=== PATIENT | female | born 1975 | race Caucasian/White ===

== ENCOUNTER → 2017-05-23 14:31 | Outpatient (CLI) | payer BC, SELFPAY ==
[2017-05-23 17:57] LABS: Follicle Stimulating Hormone 5.5 mIU/mL
[2017-05-26 17:48] LABS: HPV Reflexed? NOT INDICATED
== END ==
PROVIDERS: Family Provider Family Medicine; PCP Family Medicine; Visit Provider Obstetrics & Gynecology
DX: R30.0 Dysuria (principal)
CPT/HCPCS: 36415; 83001; 87086; 87088; 88175; G0145

== ENCOUNTER 2017-05-24 10:43 | Emergency (ER) | payer BC, SELFPAY ==
[2017-05-24 10:45] VITALS: BP 164/54; PULSE 109; RESP 20; TEMP 37; O2SAT 95; BMI 40.6
[2017-05-24 10:47] VITALS: BP 164/54; PULSE 105
--- NOTE | 2017-05-24 11:13 | ED.VISSUMM ---
- ER Visit Summary Date of Service: 05/24/17 Chief Complaint: Tremors and questioning possible med reaction History of Present Illness: The patient is a 42 F saw her [employer] Dr. Delroy Hidalgo yesterday. One year ago he did a hysterectomy with a bladder sling and had to be evaluated yesterday she is in hematuria and was started on Cipro for I guess a suspected UTI. Cipro last evening again today when she got to work she started having tremors not acting herself. Said she felt like she had fever. And was shaking. Started having nausea and vomiting she arrived in the ER. Denies any headache. Accompanied by her daughter and . Physical Examination: No aged female vital signs are stable. Pulse ox 95% room air no signs of hypoxia. Afebrile. HEENT exam pupils round reactive light. Moist mucous membranes. Neck nontender. Lungs clear to auscultation bilaterally. Heart rate and rhythm rate about 105 no murmur. Chest wall nontender. Abdomen is soft. Nondistended normal bowel sounds no peritoneal signs. She is moving all 4 extremities. Back is nontender. She is actively retching into an emesis bag. Test Results: Seizures white count of 12. H&H 1341 no bands. BMP is normal. UA was normal except for rare bacteria. No whites or red cells no nitrates. Urine culture was sent. Emergency Department Course and Treatment: She will be started on IV fluids and IV Zofran. Screening labs be obtained. Treatment Plan: Is better on repeat exam at 1225. She is no longer having tremors. She was given Zofran and nausea is resolved. She denies and her family had a long discussion. We will currently stop the Cipro. Send a urine culture. I did speak to Dr. Delroy Hidalgo and he will follow patient up in a urine culture as an outpatient. Disposition: Discharge Impression: Medication reaction to Cipro Tremors This note was generated with [employer] dictation software. It may contain incorrect words, spelling, and punctuation that were not noted in review of the chart prior to signing ED Disposition - Plan for ED Patient: Chief Complaint: General Illness Referrals: Darrian Galvin MD [Primary Care Provider] -
[2017-05-24 11:21] LABS: Mucous, Urine 0 SEEN /hpf (<or=2+); Red Blood Cells-Urine 0 SEEN /hpf (0-5)
[2017-05-24 11:27] LABS: Color, Urine Straw (Yellow); Glucose, Dipstick Normal (Normal); Ketone-Dipstick Negative (Negative); Leukocyte Esterase-Dipstick Negative /ul (Negative); Nitrite-Dipstick Negative (Negative); Occult Blood-Urine 50 /ul (Negative); Protein-Dipstick Negative (Negative); Urine Bilirubin Dipstick Negative (Negative); Urine Clarity Clear (Clear); Urine Urobilinogen Normal (Normal)
[2017-05-24] MEDS: Ondansetron 4 MG/2 ML Vial IV (11:28)
[2017-05-24] MEDS: 0.9% Normal Saline 1,000 ML 1000 ML IV (11:29)
[2017-05-24 11:36] LABS: Bacteria RARE /hpf (None Seen); Squamous Epithelial Cells - UA 0-5 SEEN /hpf (5-10); White Blood Cells 0-5 SEEN /hpf (0-5)
[2017-05-24 11:42] LABS: Absolute Lymphocyte Count 3.04 X10^3/ul (0.83-4.51); Absolute Neutrophil Count 6.9 X10^3/uL (2.0-7.7); Basophil# 0.09 X10^3/uL; Basophil% 0.7 % (0-1); Eosinophil# 0.97 X10^3/uL; Hematocrit 41.1 % (37-47); Hemoglobin 13.5 g/dl (12.0-15.0); Lymphocyte # 3.04 X10^3/ul (4.0); Lymphocyte % 25.1 % (19-41); Mean Corp Hgb Conc 32.8 g/gl (32-36); Mean Corpuscular Hgb 29.5 pg (27.0-32.0); Mean Corpuscular Volume 89.7 fL (81-99); Mean Platelet Vol. 9.4 fl (6.2-12.0); Monocyte# 1.06 X10^3/uL; Monocyte% 8.8 % (0-10); Neutrophil % 57.2 % (47-70); Platelet Count 477 K/mm3 (150-450); RBC Distribution Width CV 13.5 % (11.6-14.6); RBC Distribution Width SD 44.1 fl (35.1-43.9); Red Blood Count 4.58 M/mm3 (4.2-5.4); White Blood Count 12.1 K/mm3 (4.4-11.0)
[2017-05-24 11:43] LABS: POSITIVE COUNT NO; POSITIVE DIFFERENTIAL NO; POSITIVE MORPHOLOGY NO
[2017-05-24] MEDS: Acetaminophen 500 MG Tablet 1000 MG PO (11:48)
[2017-05-24 11:52] LABS: BUN 8 mg/dL (7-18); Creatinine, Serum 0.51 mg/dL (0.55-1.02); Glucose 88 mg/dL (74-106)
[2017-05-24 11:53] LABS: Anion Gap 10 (5-15); BUN/Creat Ratio 15.6 RATIO (10-20); Calcium,Total 8.8 mg/dL (8.5-10.1); Chloride 106 mmol/L (98-107); EST Glomerular Filtration Rate 139 mL/min (>60); Est Glom Filt Rate - Afr Amer 168 mL/min (>60); Estimated Creatinine Clearance 122.82 ml/min; Potassium 3.9 mmol/L (3.5-5.1); Sodium Level 140 mmol/L (136-145)
[2017-05-24 12:25] VITALS: BP 148/81; PULSE 79; RESP 18; TEMP 36.8; O2SAT 97
--- NOTE | 2017-05-24 12:28 | ED.DEP ---
ED Disposition - Plan for ED Patient: Disposition: Home or Assisted Living Chief Complaint: General Illness Instructions: ED Drug React Adverse Other Prescriptions: Ondansetron [Zofran Odt] 4 mg PO Q4H PRN PRN #5 tab.rapdis PRN Reason: Nausea Referrals: Delroy Hidalgo MD [STAFF PHYSICIAN] - As soon as possible Additional Instructions: I spoke with Dr. Hidalgo. Follow-up with him in the next several days. Stop the Cipro that you are currently on. We will send a urine culture that should be back in the next 48 hours.
== END 2017-05-24 12:43 | disposition home or self-care (01) ==
PROVIDERS: Emergency Provider Emergency Medicine; Family Provider Family Medicine; PCP Family Medicine
DX: G25.1 Drug-induced tremor (principal); R11.2 Nausea with vomiting, unspecified; T36.8X5A Adverse effect of other systemic antibiotics, initial encounter; Y92.9 Unspecified place or not applicable
CPT/HCPCS: 80048; 81001; 85025; 87086; 96361; 96374; 99285; J7030; A4216; J2405

== ENCOUNTER → 2017-06-16 08:19 | Outpatient (CLI) | payer BC, SELFPAY ==
--- NOTE | 2017-06-16 08:21 | BI_ITS ---
MAMMOGRAPHY - BILATERAL SCREENING 3-D ERUM SYNTHESIS REASON FOR EXAM: Female, 42 years old. Bilateral Screening 3-D tomosynthesis PERTINENT HISTORY: No significant family history. TECHNIQUE: 2-D mammograms and 3-D Erum synthesis of the breast (s) were performed. CAD was performed. COMPARISON: June 02, 2015. FINDINGS: The breast composition is heterogeneously dense that can obscure small breast masses. Scattered benign calcifications are seen. No dense spiculated masses or suspicious microcalcifications are identified. No architectural distortion is identified. There is no skin thickening or retraction. There has been no significant change since the prior study. BI/SCREENING MAMM (CAD), BILAT IMPRESSION: No mammographic signs of malignancy. Routine yearly mammograms recommended. ASSESSMENT CATEGORY: BIRADS Category 2: Benign. A letter regarding these results will be sent to the patient by the facility within 30 days. FOLLOW UP RECOMMENDATION: Yearly follow up mammogram recommended. (A) Approximately 10% of breast cancers are not detected by mammography. A normal mammogram should not delay biopsy of a clinically suspicious abnormality. Electronically Signed: Tulio Chowdary MD at 13:42 EDT , Service support ,
== END ==
PROVIDERS: Family Provider Family Medicine; PCP Family Medicine; Visit Provider Obstetrics & Gynecology
DX: Z12.31 Encounter for screening mammogram for malignant neoplasm of breast (principal)
CPT/HCPCS: 77063; 77067

== ENCOUNTER → 2020-08-17 08:49 | Outpatient (CLI) | payer BC, SELFPAY ==
--- NOTE | 2020-08-17 10:44 | NEURO_ITS ---
NCS and/or EMG Patient Report Ordering Doctor: April Jefferson DATE OF SERVICE: 08/17/20 Indication: Weakness, numbness and pain involving both hands and feet. Symptoms are intermittent over the last 18 months. Associated with bilateral hand tremor and occasional shooting nerve pain. Findings: Nerve conduction studies were performed in the right and left upper extremities. The right median motor study recording the abductor pollicis brevis showed a normal amplitude, normal distal latency and normal conduction velocity. The right ulnar motor study recording the abductor digiti minimi showed a normal amplitude, normal distal latency and normal conduction velocity. No conduction block or focal slowing was present across the elbow. The right median sensory response recording digit two showed a normal amplitude, latency and conduction velocity. The right ulnar sensory response recording digit five showed a normal amplitude, latency and conduction velocity. The right radial sensory response recording over the extensor snuff box showed a normal amplitude, latency and conduction velocity. The left median motor study recording the abductor pollicis brevis showed a normal amplitude, normal distal latency and normal conduction velocity. The left ulnar motor study recording the abductor digiti minimi showed a normal amplitude, normal distal latency and normal conduction velocity. No conduction block or focal slowing was present across the elbow. The left median sensory response recording digit two showed a normal amplitude, latency and conduction velocity. The left ulnar sensory response recording digit five showed a normal amplitude, latency and conduction velocity. The left radial sensory response recording over the extensor snuff box showed a normal amplitude, latency and conduction velocity. As routine median motor and sensory studies have a false negative rate of 25%, additional internal comparison studies were done to assess for possible median neuropathy at the wrist. Right median-ulnar lumbrical / interosseous motor latencies showed a normal median latency compared to the ulnar. Left median- ulnar lumbrical / interosseous motor latencies showed a normal median latency compared to the ulnar. Needle EMG of the right upper extremity muscles was performed. No denervation was seen in any muscle. All motor unit morphology, activation and recruitment patterns were normal. Needle EMG of the left upper extremity muscles was performed. No denervation was seen in any muscle. All motor unit morphology, activation and recruitment patterns were normal. The cervical paraspinal muscles were not sampled given the paucity of finding in the limb muscles. Impression: This is a normal study. There is no electrophysiologic evidence of median neuropathy across the wrist on either side. In addition, there is no electrophysiologic evidence of cervical radiculopathy or other entrapment neuropathy in either upper extremity. Reji Mendez D.O.
== END ==
PROVIDERS: PCP Family Medicine; Referring Provider Physician Assistant; Visit Provider Physician Assistant
DX: M79.641 Pain in right hand (principal); M79.642 Pain in left hand; R20.0 Anesthesia of skin; R29.898 Other symptoms and signs involving the musculoskeletal system
CPT/HCPCS: 95886; 95913

== ENCOUNTER → 2024-05-07 | Outpatient (CLI) | payer BC, SELFPAY ==
--- NOTE | 2024-05-07 10:05 | RAD_ITS ---
EXAM: XR Pelvis, 1 or 2 Views CLINICAL INDICATION: PAIN TECHNIQUE: Frontal view of the pelvis. COMPARISON: No relevant prior studies available. FINDINGS: BONES/JOINTS: Unremarkable. No acute fracture. No dislocation. SOFT TISSUES: Unremarkable. RAD/Pelvis 1 or 2 Views IMPRESSION: No acute fracture. Reading [facility]
--- NOTE | 2024-05-07 10:05 | RAD_ITS ---
EXAM: XR Left Hand Complete, 3 or More Views CLINICAL INDICATION: PAIN TECHNIQUE: Frontal, lateral and oblique views of the left hand. COMPARISON: No relevant prior studies available. FINDINGS: BONES/JOINTS: Fixation screw to the 3rd distal and middle phalanx. Intact hardware. Anatomic position. Moderate degenerative changes of the 3rd and 4th D IP joints. No acute fracture. No dislocation. SOFT TISSUES: Unremarkable. No radiopaque foreign body. RAD/Hand Min 3 Views IMPRESSION: 1. Postoperative changes as above. 2. Degenerative changes as above. Reading Location: [facility]
--- NOTE | 2024-05-07 10:05 | RAD_ITS ---
EXAM: XR Right Hand Complete, 3 or More Views CLINICAL INDICATION: PAIN TECHNIQUE: Frontal, lateral and oblique views of the right hand. COMPARISON: No relevant prior studies available. FINDINGS: BONES/JOINTS: Mild degenerative changes of the 3rd, 4th, and 5th DIP joints. No acute fracture. No dislocation. SOFT TISSUES: Unremarkable. No radiopaque foreign body. RAD/Hand Min 3 Views IMPRESSION: Degenerative changes as above. Reading [facility]
[2024-05-07 12:04] LABS: Absolute Lymphocyte Count 3.27 X10^3/uL (0.83-4.51); Absolute Neutrophil Count 4.5 X10^3/uL (2.0-7.7); Basophil# 0.09 X10^3/uL; Eosinophils% 1.2 % (0-5); Hematocrit 40.4 % (37-47); Lymphocyte # 3.27 X10^3/ul (0.83-4.51); Lymphocyte % 37.8 % (19-41); Mean Corp Hgb Conc 32.2 g/dL (32-36); Mean Corpuscular Hgb 29.5 pg (27.0-32.0); Mean Corpuscular Volume 91.6 fL (81-99); Mean Platelet Vol. 9.7 fl (6.2-12.0); Monocyte# 0.68 X10^3/uL; Monocyte% 7.9 % (0-10); NRBC Flagged by Analyzer 0 % (0-5); Neutrophil # 4.49 X10^3/uL (2.7-7.7); Neutrophil % 51.9 % (47-70); Platelet Count 393 K/mm3 (150-450); RBC Distribution Width CV 13.8 % (11.6-14.6); RBC Distribution Width SD 46.7 fl (35.1-43.9); Red Blood Count 4.41 M/mm3 (4.2-5.4); White Blood Count 8.7 K/mm3 (4.4-11.0)
[2024-05-07 12:20] LABS: ALB/GLOB Ratio 1.2 RATIO (0.9-2.4); AST(SGOT) 24 U/L (<=31); Alanine Aminotransfer ALT/SGPT 35 U/L (<=34); Albumin, Serum 4.1 g/dL (3.5-5.0); Alkaline Phosphatase 95 U/L (35-104); Anion Gap 13 (5-15); BUN 11 mg/dL (4-19); BUN/Creat Ratio 18.2 RATIO (10-20); Calcium,Total 9.1 mg/dL (7.6-11.0); Carbon Dioxide 19.8 mmol/L (21.0-32.0); Chloride 107 mmol/L (98-108); EST Glomerular Filtration Rate 109 (>60); Globulin 3.5 g/dL (2.2-4.2); Glucose 85 mg/dL (70-99); Potassium 3.8 mmol/L (3.3-5.1); Protein, Total 7.6 g/dL (5.9-8.4); Sodium Level 140 mmol/L (133-145); Total Bilirubin 0.18 mg/dL (0.00-1.30)
[2024-05-07 12:42] LABS: Hepatitis B Surface Antibody REAC; Hepatitis B Surface Antigen Nonreactive (Nonreactive); Hepatitis C Antibody Nonreactive (Nonreactive)
[2024-05-07 12:49] LABS: Rheumatoid Factor < 10.0 IU/mL (<15)
[2024-05-08 14:08] LABS: CCP IgG Antibodies 12 units (0-19)
== END | disposition home or self-care (01) ==
LOC: MTLAB 10:03
PROVIDERS: PCP Family Medicine; Referring Provider Internal Medicine Rheumatology; Visit Provider Internal Medicine Rheumatology
DX: M06.4 Inflammatory polyarthropathy (principal); M79.7 Fibromyalgia; M19.041 Primary osteoarthritis, right hand; M51.369 Other intervertebral disc degeneration, lumbar region without mention of lumbar back pain or lower extremity pain
CPT/HCPCS: 36415; 72170; 73130; 80053; 85025; 86200; 86431; 86706; 86803; 87340

== ENCOUNTER → 2024-07-18 | Outpatient (CLI) | payer BC, SELFPAY ==
[2024-07-18 12:42] LABS: Absolute Lymphocyte Count 2.97 X10^3/uL (0.83-4.51); Absolute Neutrophil Count 4.6 X10^3/uL (2.0-7.7); Basophil# 0.08 X10^3/uL; Basophil% 0.9 % (0-1); Eosinophil# 0.34 X10^3/uL; Eosinophils% 3.9 % (0-5); Hematocrit 40.6 % (37-47); Hemoglobin 13.2 g/dL (12.0-15.0); Lymphocyte # 2.97 X10^3/ul (0.83-4.51); Lymphocyte % 34.1 % (19-41); Mean Corp Hgb Conc 32.5 g/dL (32-36); Mean Corpuscular Hgb 29.9 pg (27.0-32.0); Mean Corpuscular Volume 92.1 fL (81-99); Monocyte# 0.65 X10^3/uL; Monocyte% 7.5 % (0-10); NRBC Flagged by Analyzer 0 % (0-5); Neutrophil # 4.58 X10^3/uL (2.7-7.7); Neutrophil % 52.5 % (47-70); Platelet Count 387 K/mm3 (150-450); RBC Distribution Width CV 14.2 % (11.6-14.6); RBC Distribution Width SD 48.4 fl (35.1-43.9); Red Blood Count 4.41 M/mm3 (4.2-5.4); White Blood Count 8.7 K/mm3 (4.4-11.0)
[2024-07-18 13:28] LABS: ALB/GLOB Ratio 1.2 RATIO (0.9-2.4); AST(SGOT) 32 U/L (<=31); Alanine Aminotransfer ALT/SGPT 48 U/L (<=34); Albumin, Serum 4.1 g/dL (3.5-5.0); Alkaline Phosphatase 101 U/L (35-104); Anion Gap 13 (5-15); BUN 14 mg/dL (4-19); BUN/Creat Ratio 22.4 RATIO (10-20); Calcium,Total 9.2 mg/dL (7.6-11.0); Chloride 106 mmol/L (98-108); Creatinine, Serum 0.63 mg/dL (0.70-1.20); EST Glomerular Filtration Rate 108 (>60); Globulin 3.3 g/dL (2.2-4.2); Glucose 157 mg/dL (70-99); Potassium 3.5 mmol/L (3.3-5.1); Protein, Total 7.4 g/dL (5.9-8.4); Sodium Level 138 mmol/L (133-145); Total Bilirubin 0.16 mg/dL (0.00-1.30)
== END | disposition home or self-care (01) ==
LOC: MTLAB 09:14
PROVIDERS: PCP Family Medicine; Referring Provider Internal Medicine Rheumatology; Visit Provider Internal Medicine Rheumatology
DX: M06.4 Inflammatory polyarthropathy (principal); M79.7 Fibromyalgia; Z79.899 Other long term (current) drug therapy
CPT/HCPCS: 36415; 80053; 85025

== ENCOUNTER → 2024-07-27 | Outpatient (CLI) | payer BC, SELFPAY ==
--- OUTSIDE RECORDS SUMMARY | 2024-07-27 08:46 | XMS RPT_ITS | CCD ---
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 Marichuy Kina Lien Primary Care Unav ailsahra Delgado, Ms. Tigre Michele Attending Meryvai Darrian Gracia MD Primary Care Provider [phone] DARRIAN DIAZ Referring Unavailable DARRIAN DIAZ Primary Care Unavailable Darrian Diaz MD Primary Care Provider Carmelita Romo MD Primary Care Provider Darrian Diaz MD Primary Care Provider Carmelita Romo MD Primary Care Provider Carmelita Romo MD Unavailable CARMELITA ROMO [facility] Primary Care Unavailab le [facility] CARMELITA A Primary Care Unavailab le [facility], CARMELITA A Primary Care Unavailab le NICHONECARLOS CRUZCARMELITA A Primary Care Unavailab ERIC Jimenez Referring Unavailable CLARISSA, CARMELITA A Primary Care Unavailab le CATHIE KEN Referring Unavailable DARRIAN DIAZ Primary Care Unavailluke e CATHIE KEN Referring Unavailable DARRIAN DIAZ Primary Care UnavailJESSICA Johns Attending Unavailable GILBERT, ALIVA L Referring Unavailable JOE, DARRIAN PHILLIPS Primary Care Unavailabl e GILBERT, ALIVA L Referring Unavailable [facility] Unavailabl e GILBERT, ALIVA L Referring Unavailable [facility], [facility] Primary Care Unavailabl e GILBERT, ALIVA L Referring Unavailable JOE, DARRIAN ALAN Primary Care Unavailabl e GILBERT, ALIVA L Referring Unavailable JOE, DARRIAN PHILLIPS Primary Care Unavailabl e GILBERT, ALIVA L Referring Unavailable LONG[place], CARMELITA A Primary Care Unavailab le GILBERT, ALIVA L Referring Unavailable [place], CARMELITA A Primary Care Unavailab le [place], CARMELITA A Referring Unavailab le [place], CARMELITA A Primary Care Unavailab le [facility] Primary Care Unavailab le [place], CARMELITA A Referring Unavailab le [place], CARMELITA A Primary Care Unavailab DARREL Dolan Attending Unavailable DARREL GOMEZ Referring Unavailable [place], CARMELITA A Primary Care Unavailab le [facility] ROLLED HAM LACER.LOSS PREVENTION LEADER, Julee Unavailable Ronny CARRILLO, April Unavailable Dr. Darrian Diaz MD Primary Care Provider Ada LEZAMA, Dr. Estrada Attending Provider Dr. Natalie Caballero MD Referring Provider Carmelita Rmoo MD Primary Care Provider Clarissa LEZAMA, Carmelita Guzman Unavailable CARMELITA ROMO Attending Unavailab le [place], CARMELITA A Primary Care Unavailab le [facility], CARMELITA A Attending Unavailab le [place], CARMELITA A Referring Unavailab le [place], CARMELITA A Primary Care Unavailab le [place], CARMELITA A Attending Unavailab le [place], CARMELITA A Primary Care Unavailab le [place], CARMELITA A Attending Unavailab le [place], CARMELITA A Referring Unavailab le [place], CARMELITA A Primary Care Unavailab le DARREL GOMEZ Attending Unavailable [place], CARMELITA A Primary Care Unavailab le [place], CARMELITA A Attending CARMELITA Li Primary Care Unavailab Zaina LEZAMA, Dr. Mae Primary Care Provide r Natalie Caballero Attending Unavailable Natalie Caballero Referring Unavailable Darrian Diaz Primary Care Unavailable Natalie Caballero Attending Unavailable Natalie Caballero Referring Unavailable Carmelita Romo Primary Care Unavailable Natalie Caballero Attending Unavailable Natalie Caballero Referring Unavailable Carmelita Romo Primary Care Unavailable Allergies Allergy Classification Reported Allergen(s) Allergy Type Date of Onset Reaction(s) Facility (20 sources) Acetaminophen; Translations: [ACETAMINOPHEN] Drug Allergy 6 Shortness of Breath [facility] Work Phone: (20 sources) Acetaminophen / HYDROcodone; Translations: [HYDROCODONE-ACET AMINOPHEN] Drug Allergy 4 Shortness of Breath [facility] Work Phone: (20 sources) HYDROcodone; Translations: [HYDROCODONE BITARTRATE] Drug Allergy 6 Shortness of Breath [facility] Work Phone: (1 source) HYDROcodone Drug Allergy 8 [facility] Repository Medications Current Medications Medication Drug Class(es) Dates Sig (Normalized) Sig (Original) calcium chloride 0.0014 meq/ml / potassium chloride 0.004 meq/ml / sodium chloride 0.103 meq/ml / sodium lactate 0.028 meq/ml injectable solution (1 source) Start: 03-26-2024 End: 03-27-2024 take 100 mL intravenously every hour 100 mL/hr, intravenous, Continuous, Starting on Mon03/26/24 at 0815, For 1 day, Recovery (only) cefadroxil 500 mg oral capsule (2 sources) Cephalosporin Antibacterial Start: 06-08-2022 End: 06-15-2022 take 1 capsule by mouth twice daily cefADROxil (DURICEF) 500 mg capsule Indications: Cellulitis of skin Take 1 capsule by mouth twice daily for 7 days. 14 capsule 0 06/08/2022 06/15/2022 Active Comment on above: Take 1 capsule by [facility] twice daily for 7 days. ciprofloxacin 500 mg oral tablet (2 sources) Quinolone Antimicrobial Start: 05-24-2017 take 1 tablet by mouth twice daily Ciprofloxacin Hcl 500 MG tablet Active 500 mg PO TWICE A DAY May 24, 2017 12:00am ergocalciferol 1.25 mg oral capsule (10 sources) Provitamin D2 Compound Start: 06-01-2021 End: 07-21-2021 take 1 capsule by mouth every week ergocalciferol 50,000 unit capsule (VITAMIN D2, DRISDOL) Take 1 capsule by mouth one time a week for 8 doses. 8 capsule 06/01/2021 Active Comment on above: Take 1 capsule by [facility] one time a week for 8 doses. methotrexate 2.5 mg oral tablet (1 source) Folate Analog Metabolic Inhibitor Start: 05-24-2024 take 4 tablets by mouth every week, then take 5 tablets by mouth every week methotrexate (Trexall) 2.5 mg tablet TAKE 4 TABLETS BY MOUTH ONCE A WEEK FOR 2 WEEKS, THEN INCREASE TO 5 TABLETS ONCE A WEEK THEREAFTER. 05/24/2024 Active nitrofurantoin, macrocrystals 25 mg / nitrofurantoin, monohydrate 75 mg oral capsule (1 source) Nitrofuran Antibacterial Start: 03-04-2024 End: 03-09-2024 take 1 capsule by mouth twice daily nitrofurantoin, macrocrystal-monohy drate, (Macrobid) 100 mg capsule Indications: Acute cystitis with hematuria Take 1 capsule (100 mg) by mouth 2 times a day for 5 days. 10 capsule 03/04/2024 03/09/2024 Active ondansetron 4 mg disintegrating oral tablet (2 sources) Serotonin-3 Receptor Antagonist Start: 05-24-2017 take 1 tablet by mouth every four hours as needed for nausea Ondansetron 4 MG tablet,disintegrati ng Active 4 mg PO EVERY 4 HOURS NEEDED as needed for Nausea 5 May 24, 2017 12:29pm potassium chloride 20 meq powder for oral solution (1 source) Start: 02-09-2022 End: 02-13-2022 Klor-Con 20 mEq oral powder for reconstitution ; 1 each orally once a day Quantity: 5 Refills: 0 Ordered: 09-Feb-2022 Franchesca Gonzalez Start: 09-Feb-2022 End: 13-Feb-2022 Generic Substitution Allowed Comments: Dilute this medication with liquid before administration.It is very important that you take or use this exactly as directed. Do not skip doses or discontinue unless directed by your doctor.Medication should be taken with plenty of water.Take with food or milk. Comment on above: Dilute this medicati on with liquid before administration.It is very important that you take or use this exactly as directed. Do not skip doses or discontinue unless directed by your doctor.Medication should be taken with plenty of water.Take with food or milk. pravastatin sodium 10 mg oral tablet (17 sources) HMG-CoA Reductase Inhibitor Start: 07-08-2020 take 1 tablet by mouth once daily pravastatin (PRAVACHOL) 10 mg tablet Take 1 tablet by mouth once daily. 30 tablet 5 07/08/2020 Active Comment on above: Take 1 tablet by dionte th once daily. rizatriptan 10 mg oral tablet (19 sources) Serotonin-1b and Serotonin-1d Receptor Agonist Start: 12-11-2020 End: 06-22-2023 take 1 tablet by mouth every two hours as needed for headache, then take 3 tablets by mouth once daily as needed for headache rizatriptan (MAXALT) 10 mg tablet Indications: Migraine without aura and without status migrainosus, not intractable Take 1 tablet by mouth as needed for Migraine Headache (see administration instructions). May repeat in 2 hours if needed . Max 3 tablets a day , Max 9 days a month 10 tablet 5 12/11/2020 Active take 1 tablet by dionte th once daily as needed rizatriptan 10 mg oral tablet ; 1 tab(s) orally once a day, As Needed Quantity: 0 Refills: 0 Ordered: 09-Feb-2022 Marina Espinoza Generic Substitution Allowed Comment on above: Take 1 tablet by dionte th as needed for Migraine Headache (see administration instructions). May repeat in 2 hours if needed . Max 3 tablets a day , Max 9 days a month topiramate 100 mg oral tablet (20 sources) Start: take 1 tablet by mouth twice daily topiramate (Topamax) 100 mg tablet Indications: Migraine without status migrainosus, not intractable, unspecified migraine type Take 1 tablet (100 mg) by mouth 2 times a day. 180 tablet 1 04/01/2024 Active Start: 08-14-2023 take 1 tablet by dionte th twice daily topiramate (Topamax) 100 mg tablet Indications: Migraine without status migrainosus, not intractable, unspecified migraine type Take 1 tablet (100 mg) by mouth 2 times a day. 180 tablet 1 08/14/2023 Active Start: 06-22-2023 End: 08-14-2023 take 1 tablet by mouth twice daily topiramate (Topamax) 50 mg tablet Indications: Migraine without status migrainosus, not intractable, unspecified migraine type Take 1 tablet (50 mg) by mouth 2 times a day. 60 tablet 1 06/22/2023 08/14/2023 Discontinued (Reorder) Start: 09-06-2021 End: 06-22-2023 take 1 tablet by mouth twice daily topiramate (TOPAMAX) 200 mg tablet Indications: Chronic migraine without aura, with intractable migraine, so stated, with status migrainosus Take 1 tablet by mouth twice daily. 60 tablet 5 09/06/2021 Active Start: 12-11-2020 End: 09-04-2021 take 1 tablet by mouth twice daily topiramate (TOPAMAX) 200 mg tablet Indications: Chronic migraine without aura, with intractable migraine, so stated, with status migrainosus Take 1 tablet by mouth twice daily. 60 tablet 5 12/11/2020 09/04/2021 Discontinued Comment on above: Take 1 tablet by dionte twice daily. Diagnosis: Unavailab le varenicline (6 sources) Partial Cholinergic Nicotinic Agonist Start: 08-14-2023 End: 11-15-2023 varenicline (Chantix Starting Month Box) 0.5 mg (11)- 1 mg (42) tablet Indications: Smoker Use as directed 53 each 08/14/2023 11/15/2023 Discontinued (Therapy completed) Start: 08-14-2023 varenicline (C hantix Starting Month Box) 0.5 mg (11)- 1 mg (42) tablet Indications: Smoker Use as directed 53 each 08/14/2023 Active Completed/Discontinued Medications Medication Drug Class(es) Dates Sig (Normalized) Sig (Original) cyclobenzaprine hydrochloride 10 mg oral tablet (5 sources) Muscle Relaxant Start: End: take 1 tablet by mouth twice daily as needed for muscle spasms cyclobenzaprine (Flexeril) 10 mg tablet Indications: Lumbar strain, initial encounter Take 1 tablet (10 mg) by mouth 2 times a day as needed for muscle spasms for up to 10 doses. 10 tablet 04/18/2023 06/22/2023 Discontinued (Therapy completed) glucagon (rdna) 1 mg injection (1 source) Antihypoglycemic Agent Start: End: intravenous, As needed, Starting on Mon03/26/24 at 0725, Intraprocedure ibuprofen 600 mg oral tablet (5 sources) Nonsteroidal Anti-inflammatory Drug Start: End: take 1 tablet by mouth every six hours for pain ibuprofen 600 mg tablet Indications: Lumbar strain, initial encounter Take 1 tablet (600 mg) by mouth every 6 hours if needed for moderate pain (4 - 6) for up to 30 doses. 30 tablet 04/18/2023 06/22/2023 Discontinued (Therapy completed) iohexol (OMNIPaque) 12 mg iodine/mL oral contrast 500 mL (1 source) Start: End: 500 mL, oral, Once in imaging, Starting on Mon11/24/23 at 1001, For 1 dose, Administer over 20-60 minutes as directed by imaging protocol and/or imaging provider. CONTRAST - for procedural imaging use only. iohexol (OMNIPaque) 350 mg iodine/mL solution 72 mL (1 source) Start: End: 72 mL, intravenous, Once in imaging, Starting on Mon11/24/23 at 1001, For 1 dose 5 ml midazolam 1 mg/ml injection (1 source) Benzodiazepine Start: 5 End: 5 2 mg, intravenous, Once as needed, anxiety, Starting on Mon03/26/24 at 0711, For 1 dose, Preprocedure predniSONE 20 mg oral tablet (1 source) Start: End: 4 take 2 tablets by mouth once daily in the morning predniSONE (Deltasone) 20 mg tablet TAKE 2 (TWO) TABLETS BY MOUTH EVERY MORNING FOR 5 DAYS 10 tablet 05/17/2023 06/22/2023 Discontinued (Therapy completed) Problems Active Problems Problem Classification Problem Date Documented Da te Episodic/Chronic Abdominal pain (16 sources) Unspecified abdominal pain; Translations: [Abdominal pain] Onset: 01-06-2022 Episodic Cancer of cervix (2 sources) Cervicovaginal cytology: Low grade squamous intraepithelial lesion; Translations: [Low grade squamous intraepithelial lesion on cytologic smear of cervix (LGSIL)] 07-15-2015 Episodic Disorders of lipid metabolism (17 sources) Mixed hyperlipidemia; Translations: [Mixed hyperlipidemia] Onset: 01-31-2018 04-18-2019 Chronic Essential hypertension (17 sources) Essential hypertension; Translations: [Essential (primary) hypertension] Onset: 01-31-2018 04-18-2019 Chronic Gastrointestinal hemorrhage (2 sources) Hematochezia; Translations: [Melena] 03-31-2015 Episodic Genitourinary symptoms and ill-defined conditions (2 sources) Female stress incontinence; Translations: [Stress incontinence (female) (male)] 07-15-2015 Chronic Genitourinary symptoms and ill-defined conditions (20 sources) Microscopic hematuria; Translations: [Other microscopic hematuria] Onset: 04-22-2019 04-22-2019 Episodic Headache; including migraine (20 sources) Migraine with aura; Translations: [Migraine with aura, not intractable, without status migrainosus] Onset: 05-29-2018 04-18-2019 Chronic Immunizations and screening for infectious disease (2 sources) Anti-nuclear factor positive; Translations: [Other specified abnormal immunological findings in serum] Episodic Menstrual disorders (19 sources) Dysmenorrhea; Translations: [Dysmenorrhea, unspecified] Onset: 04-09-2005 03-31-2015 Chronic Nausea and vomiting (2 sources) Nausea; Translations: [Nausea] Onset: 02-09-2022 Episodic Nonspecific chest pain (6 sources) Chest pain; Translations: [Chest pain, unspecified] 02-09-2022 Episodic Comment on above: CHEST PAIN Occlusion or stenosis of precerebral arteries (17 sources) Bilateral stenosis of carotid arteries; Translations: [Occlusion and stenosis of bilateral carotid arteries] Onset: 02-09-2018 05-01-2019 Chronic Other aftercare (2 sources) Other jail (current) drug therapy; Translations: [Other termite inspector (current) drug therapy] Onset: 02-09-2022 Episodic Other connective tissue disease (2 sources) Pain of bilateral hands; Translations: [Pain in right hand] Episodic Other connective tissue disease (1 source) Digital mucous cyst of left hand; Translations: [Ganglion, left hand] Episodic Other connective tissue disease (1 source) Pain in finger of left hand; Translations: [Pain in left finger(s)] Episodic Other connective tissue disease (1 source) Fibromyalgia; Translations: [Fibromyalgia] Onset: 07-24-2024 Episodic Other female genital disorders (17 sources) Dyspareunia; Translations: [Dyspareunia] Onset: 04-09-2005 03-31-2015 Chronic Other female genital disorders (1 source) Abnormal uterine and vaginal bleeding, unspecified; Translations: [Abnormal uterine and vaginal bleeding, unspecified] Onset: 02-09-2022 Chronic Other gastrointestinal disorders (2 sources) Altered bowel function; Translations: [Change in bowel habit] 11-24-2023 Episodic Other lower respiratory disease (1 source) Apnea; Translations: [Apnea, not elsewhere classified] 06-22-2023 Episodic Other nervous system disorders (1 source) Non-organic disorder of the sleep-wake schedule; Translations: [Circadian rhythm sleep disorder, unspecified type] Chronic Other nervous system disorders (1 source) Numbness of hand; Translations: [Anesthesia of skin] Episodic Other non-traumatic joint disorders (2 sources) Joint pain; Translations: [Pain in unspecified joint] 03-04-2024 Episodic Other non-traumatic joint disorders (2 sources) Joint swelling; Translations: [Effusion, unspecified joint] 03-04-2024 Episodic Other non-traumatic joint disorders (4 sources) Pain in unspecified joint; Translations: [Pain in unspecified joint] Onset: 03-04-2024 Episodic Other non-traumatic joint disorders (4 sources) Effusion, unspecified joint; Translations: [Effusion, unspecified joint] Onset: 03-04-2024 Episodic Other non-traumatic joint disorders (3 sources) Pain in left knee; Translations: [Pain in joint, lower leg] Onset: 05-30-2024 05-30-2024 Episodic Other nutritional; endocrine; and metabolic disorders (17 sources) Body mass index 40+ - severely obese; Translations: [Morbid (severe) obesity due to excess calories] Onset: 05-12-2017 04-18-2019 Chronic Other screening for suspected conditions (not mental disorders or infectious disease) (20 sources) Ultrasonography of left kidney abnormal; Translations: [Abnormal radiologic findings on diagnostic imaging of left kidney] Onset: 05-01-2019 05-01-2019 Episodic Residual codes; unclassified (12 sources) Obstructive sleep apnea syndrome; Translations: [Obstructive sleep apnea (adult) (pediatric)] Onset: 07-24-2023 08-14-2023 Chronic Residual codes; unclassified (2 sources) Obstructive sleep apnea (adult) (pediatric); Translations: [Obstructive sleep apnea (adult) (pediatric)] Onset: 08-14-2023 Chronic Residual codes; unclassified (1 source) Acquired absence of both cervix and uterus; Translations: [Acquired absence of both cervix and uterus] Onset: 02-09-2022 Episodic Residual codes; unclassified (1 source) Acquired absence of other specified parts of digestive tract; Translations: [Acquired absence of other specified parts of digestive tract] Onset: 02-09-2022 Episodic Residual codes; unclassified (1 source) Other specified postprocedural states; Translations: [Other specified postprocedural states] Onset: 02-09-2022 Episodic Rheumatoid arthritis and related disease (2 sources) Inflammatory polyarthropathy; Translations: [Inflammatory polyarthropathy] Onset: 07-23-2024 Chronic Skin and subcutaneous tissue infections (1 source) Cellulitis of skin; Translations: [Cellulitis, unspecified] Episodic Substance-related disorders (3 sources) Smoker; Translations: [Nicotine dependence, unspecified, uncomplicated] Onset: 08-14-2023 08-14-2023 Chronic Syncope (3 sources) Syncope; Translations: [Syncope and collapse] Onset: 02-09-2022 02-09-2022 Episodic Unclassified (3 sources) Patient encounter status 03-04-2024 Unclassified (2 sources) Elevated blood pressure 03-31-2015 Unclassified (2 sources) Acute pain of left knee 05-30-2024 Urinary tract infections (3 sources) Acute cystitis; Translations: [Acute cystitis with hematuria] Onset: 03-04-2024 03-04-2024 Episodic Past or Other Problems Problem Classification Problem Date Documented Da te Episodic/Chronic Diabetes mellitus without complication (17 sources) High hemoglobin A1c level; Translations: [Other abnormal glucose] Onset: 04-18-2019 04-18-2019 Episodic Inflammation; infection of eye (except that caused by tuberculosis or sexually transmitteddisease) (1 source) Unspecified acute conjunctivitis, left eye; Translations: [Unspecified acute conjunctivitis, left eye] Onset: 04-13-2021 Episodic Other eye disorders (1 source) Other specified disorders of eye and adnexa; Translations: [Other specified disorders of eye and adnexa] Onset: 04-13-2021 Episodic Other eye disorders (1 source) Ocular pain, left eye; Translations: [Ocular pain, left eye] Onset: 04-13-2021 Episodic Other female genital disorders (17 sources) Cervical intraepithelial neoplasia grade 1; Translations: [Mild cervical dysplasia] Onset: 04-18-2019 04-18-2019 Episodic Other gastrointestinal disorders (6 sources) Change in bowel habit; Translations: [Change in bowel habit] Onset: 11-15-2023 Episodic Other lower respiratory disease (14 sources) Snoring; Translations: [Snoring] Onset: 06-22-2023 Resolved: 08-14-2023 06-22-2023 Episodic Other lower respiratory disease (4 sources) Apnea, not elsewhere classified; Translations: [Apnea, not elsewhere classified] Onset: 06-22-2023 Episodic Other lower respiratory disease (2 sources) Snoring; Translations: [Snoring] Onset: 06-22-2023 Episodic Screening and history of mental health and substance abuse codes (17 sources) Ex-smoker; Translations: [Personal history of nicotine dependence] Onset: 04-18-2019 04-18-2019 Episodic Sprains and strains (20 sources) Sprain of ligaments of lumbar spine, initial encounter; Translations: [Low back strain] Onset: 01-06-2022 Episodic Unclassified (12 sources) Onset: 06-22-2023 06-22-2023 Results Test Name Value Interpretation Reference Range Facility Absolute lymphocyte countOrd ered By: Natalie Caballero on 07-18-2024 Lymphocytes Auto (Unsp spec) [#/Vol] 2.97 10*3/uL 0.83-4.51 [facility] Absolute neutrophil countOrd ered By: Natalie Caballero on 07-18-2024 Neutrophils (Bld) [#/Vol] 4.6 10*3/uL 2.0-7.7 [facility] Anion gap in Serum or Plasma Ordered By: Natalie Caballero on 07-18-2024 Anion gap [Moles/Vol] 13 mmol/L 5-15 [facility] Automated lymphocyte count a s percentage of total leukocytesOrdered By: Natalie Caballero on 07-18-2024 Lymphocytes/100 WBC Auto (Unsp spec) 34.1 % 19-41 [facility] BUN/creatinine ratioOrdered By: Natalie Caballero on 07-18-2024 Urea nitrogen/Creatinine [Mass ratio] 22.4 mg/mg High 10-20 [facility] Basophil percentageOrdered B y: Natalie Caballero on 07-18-2024 Basophils/100 WBC (Bld) 0.9 % 0-1 [facility] Bilirubin, totalOrdered By: Nataliedagoberto Caballero on 07-18-2024 Bilirubin [Mass/Vol] 0.16 mg/dL 0.00-1.30 [facility] CBC W/Diff, Automatedon 06-21 Absolute Lymph 2.97 X10 3/uL Normal 0.83-4.51 [facility] Comment on above: Performed By: #### L 100.0100, [id number] #### [facility] [address] [place], [address] Absolute Neut 4.6 X10 3/uL Normal 2.0-7.7 [facility] Comment on above: Performed By: #### L 100.0100, [id number] #### [facility] [address] [place], [address] Basophils/100 WBC (Bld) 0.9 % Normal 0-1 [facility] Comment on above: Performed By: #### L 100.0100, [id number] #### [facility] [address] [facility] [place], [address] Eosinophils/100 WBC (Bld) 3.9 % Normal 0-5 [facility] Comment on above: Performed By: #### L 100.0100, [id number] #### [facility] [address] [place], [address] Erythrocyte distribution width (RBC) [Ratio] 14.2 % Normal 11.6-14.6 [facility] Comment on above: Performed By: #### L 100.0100, [id number] #### [facility] [address] [place], [address] Hematocrit (Bld) [Volume fraction] 40.6 % Normal 37-47 [facility] Comment on above: Performed By: #### L 100.0100, [id number] #### [facility] [address] [place], [address] Hemoglobin (Bld) [Mass/Vol] 13.2 g/dL Normal 12.0-15.0 [facility] Comment on above: Performed By: #### L 100.0100, [id number] #### [facility] [address] [place], [address] IG% 1.100 High 0.0-0.9 [facility] Comment on above: Result Comment: IG% - Immature Granulocytes (promyelocytes, myelocytes and metamyelocytes) > 1% indicates that a LEFT SHIFT is Present. Performed By: #### L 100.0100, [id number] #### [facility] [facility] [address] [place], [address] Lymphocytes/100 WBC (Bld) 34.1 % Normal 19-41 [facility] Comment on above: Performed By: #### L 100.0100, L500.4050 #### [facility] [address] [place], [address] MCH (RBC) [Entitic mass] 29.9 pg Normal 27.0-32.0 [facility] Comment on above: Performed By: #### L 100.0100, L500.4050 #### [facility] [address] [place], [address] MCHC (RBC) [Mass/Vol] 32.5 g/dL Normal 32-36 [facility] Comment on above: Performed By: #### L 100.0100, L500.4050 #### [facility] [address] [place], [address] MCV (RBC) [Entitic vol] 92.1 fL Normal 81-99 [facility] Comment on above: Performed By: #### L 100.0100, L500.4050 #### [facility] [address] [place], [address] Monocytes/100 WBC (Bld) 7.5 % Normal 0-10 [facility] Comment on above: Performed By: #### L 100.0100, L500.4050 #### [facility] [address] [place], [address] Neutrophils/100 WBC (Bld) 52.5 % Normal 47-70 [facility] Comment on above: Performed By: #### L 100.0100, L500.4050 #### [facility] [address] [place], [address] Nucleated RBC (Bld) [#/Vol] 0 10*3/uL Normal 0-5 [facility] Comment on above: Performed By: #### L 100.0100, L500.4050 #### [facility] [address] [place], [address] Platelet mean volume (Bld) [Entitic vol] 10.0 fL Normal 6.2-12.0 [facility] Comment on above: Performed By: #### L 100.0100, L500.4050 #### [facility] [address] [place], [address] Platelets (Bld) [#/Vol] 387 10*3/uL Normal 150-450 [facility] Comment on above: Performed By: #### L 100.0100, L500.4050 #### [facility] [address] [place], [address] RBC (Bld) [#/Vol] 4.41 10*6/uL Normal 4.2-5.4 [facility] Comment on above: Performed By: #### L 100.0100, L500.4050 #### [facility] [address] [place], [address] RDW SD 48.4 fl High 35.1-43.9 [facility] Comment on above: Performed By: #### L 100.0100, L500.4050 #### [facility] [address] [place], [address] WBC (Bld) [#/Vol] 8.7 10*3/uL Normal 4.4-11.0 [facility] Comment on above: Performed By: #### L 100.0100, L500.4050 #### [facility] [address] [place], [address] Carbon dioxide, total [Moles /volume] in Central venous bloodOrdered By: Natalie Caballero on 07-18-2024 CO2 [Moles/Vol] 20.0 mmol/L Low 21.0-32.0 [facility] Chloride assayOrdered By: Jax Caballero on 07-18-2024 Chloride [Moles/Vol] 106 mmol/L 98-108 [facility] Comprehensive Metabolic Prof ilon 07-18-2024 Albumin [Mass/Vol] 4.1 g/dL Normal 3.5-5.0 [facility] Comment on above: Performed By: #### L 100.0100, L500.4050 #### [facility] [address] [place], [address] Albumin/Globulin [Mass ratio] 1.2 {ratio} Normal 0.9-2.4 [facility] Comment on above: Performed By: #### L 100.0100, L500.4050 #### [facility] [address] [place], [address] ALK PHOS 101 U/L Normal 35-104 [facility] Comment on above: Performed By: #### L 100.0100, L500.4050 #### [facility] [address] [place], [address] ALT [Catalytic activity/Vol] 48 U/L High <=34 [facility] Comment on above: Performed By: #### L 100.0100, L500.4050 #### [facility] [address] [place], [address] AST [Catalytic activity/Vol] 32 U/L Normal <=31 [facility] Comment on above: Performed By: #### L 100.0100, L500.4050 #### [facility] [address] [place], [address] Bilirubin [Mass/Vol] 0.16 mg/dL Normal 0.00-1.30 [facility] Comment on above: Performed By: #### L 100.0100, L500.4050 #### [facility] [address] [place], [address] BUN/CRE 22.4 RATIO High 10-20 [facility] Comment on above: Performed By: #### L 100.0100, L500.4050 #### [facility] [address] [place], [address] Calcium [Mass/Vol] 9.2 mg/dL Normal 7.6-11.0 [facility] Comment on above: Performed By: #### L 100.0100, L500.4050 #### [facility] [address] [place], [address] Chloride [Moles/Vol] 106 mmol/L Normal 98-108 [facility] Comment on above: Performed By: #### L 100.0100, L500.4050 #### [facility] [address] [place], [address] CO2 [Moles/Vol] 20.0 mmol/L Low 21.0-32.0 [facility] Comment on above: Performed By: #### L 100.0100, L500.4050 #### [facility] [address] [place], [address] Creatinine [Mass/Vol] 0.63 mg/dL Low 0.70-1.20 [facility] Comment on above: Performed By: #### L 100.0100, L500.4050 #### [facility] [address] [place], [address] GAP 13 Normal 5-15 [facility] Comment on above: Performed By: #### L 100.0100, L500.4050 #### [facility] [address] [place], [address] GFR/1.73 sq M.predicted among non-blacks MDRD (S/P/Bld) [Vol rate/Area] 108 mL/min/{1.73_m2} Normal >60 [facility] Comment on above: Result Comment: mL/m in/1.73m2 CKD-EPI Creatinine Equation (2020) Performed By: #### L 100.0100, L500.4050 #### [facility] [address] [place], [address] Globulin (S) [Mass/Vol] 3.3 g/dL Normal 2.2-4.2 [facility] Comment on above: Performed By: #### L 100.0100, L500.4050 #### [facility] [address] [place], [address] Glucose [Mass/Vol] 157 mg/dL High 70-99 [facility] Comment on above: Performed By: #### L 100.0100, L500.4050 #### [facility] [address] [place], [address] Potassium [Moles/Vol] 3.5 mmol/L Normal 3.3-5.1 [facility] Comment on above: Performed By: #### L 100.0100, L500.4050 #### [facility] [address] [place], [address] Sodium [Moles/Vol] 138 mmol/L Normal 133-145 [facility] Comment on above: Performed By: #### L 100.0100, L500.4050 #### [facility] [address] [place], [address] T PROT 7.4 g/dL Normal 5.9-8.4 [facility] Comment on above: Performed By: #### L 100.0100, L500.4050 #### [facility] [address] [place], [address] Urea nitrogen [Mass/Vol] 14 mg/dL Normal 4-19 [facility] Comment on above: Performed By: #### L 100.0100, L500.4050 #### [facility] [address] [place], [address] Eosinophil percentageOrdered By: Natalie Caballero on 07-18-2024 Eosinophils/100 WBC (Bld) 3.9 % 0-5 [facility] Erythrocyte distribution wid th ratioOrdered By: Natalie Caballero on 07-18-2024 Erythrocyte distribution width (RBC) [Ratio] 14.2 % 11.6-14.6 [facility] Erythrocyte distribution wid th standard deviationOrdered By: Natalie Caballero on 07-18-2024 Erythrocyte distribution width (RBC) [Ratio] 48.4 fl High 35.1-43.9 [facility] Glomerular filtration rate ( GFR) estimation/1.73 sq m using serum, plasma, or whole bOrdered By: Natalie Cabalelro on 07-18-2024 GFR/1.73 sq M.predicted among non-blacks MDRD (S/P/Bld) [Vol rate/Area] 108 mL/min/{1.73_m2} >60 [facility] Comment on above: mL/min/1.73m2 CKD-EP I Creatinine Equation (2020) Hematocrit Auto (Bld) [Volum e fraction]Ordered By: Natalie Caballero on 07-18-2024 Hematocrit (Bld) [Volume fraction] 40.6 % 37-47 [facility] Hemoglobin measurementOrdere d By: Natalie Caballero on 07-18-2024 Hemoglobin (Bld) [Mass/Vol] 13.2 g/dL 12.0-15.0 [facility] Immature granulocytes/100 WB C Auto (Bld)Ordered By: Natalie Caballero on 07-18-2024 Immature granulocytes/100 WBC (Bld) 1.100 % High 0.0-0.9 [facility] Comment on above: IG% - Immature Granu locytes (promyelocytes, myelocytes and metamyelocytes) > 1% indicates that a LEFT SHIFT is Present. Laboratory - Chemistry and C hemistry - challengeOrdered By: Natalie Caballero on 07-18-2024 AST [Catalytic activity/Vol] 32 U/L <32 [facility] MCV (mean corpuscular volume ) determinationOrdered By: Nataile Caballero on 07-18-2024 MCV (RBC) [Entitic vol] 92.1 fL 81-99 [facility] Mean corpuscular hemoglobin (MCH) determinationOrdered By: Natalie Caballero on 07-18-2024 MCH (RBC) [Entitic mass] 29.9 pg 27.0-32.0 [facility] Mean corpuscular hemoglobin concentration (MCHC) determinationOrdered By: Natalie Caballero on 07-18-2024 MCHC (RBC) [Mass/Vol] 32.5 g/dL 32-36 [facility] Mean platelet volume determi nationOrdered By: Natalie Caballero on 07-18-2024 Platelet mean volume (Bld) [Entitic vol] 10.0 fL 6.2-12.0 [facility] Monocyte percentageOrdered B y: Natalie Caballero on 07-18-2024 Monocytes/100 WBC (Bld) 7.5 % 0-10 [facility] Neutrophil percentageOrdered By: Natalie Caballero on 07-18-2024 Neutrophils/100 WBC (Bld) 52.5 % 47-70 [facility] Nucleated red blood cell per centageOrdered By: Natalie Caballero on 07-18-2024 Nucleated RBC/100 WBC (Bld) [Ratio] 0 % 0-5 [facility] Platelet countOrdered By: Jax Caballero on 07-18-2024 Platelets (Bld) [#/Vol] 387 10*3/uL 150-450 [facility] Potassium measurement (mass/ volume)Ordered By: Natalie Caballero on 07-18-2024 Potassium (Unsp spec) [Mass/Vol] 3.5 mmol/L 3.3-5.1 [facility] RBC Auto (Bld) [#/Vol]Ordere d By: Natalie Caballero on 07-18-2024 RBC (Bld) [#/Vol] 4.41 10*6/uL 4.2-5.4 [facility] Serum creatinine measurement (mass/volume)Ordered By: Natalie Caballero on 07-18-2024 Creatinine [Mass/Vol] 0.63 mg/dL Low 0.70-1.20 [facility] Serum globulin measurementOr dered By: Natalie Caballero on 07-18-2024 Globulin (S) [Mass/Vol] 3.3 g/dL 2.2-4.2 [facility] Serum glucose measurement (m ass/volume)Ordered By: Natalie Caballero on 07-18-2024 Glucose [Mass/Vol] 157 mg/dL High 70-99 [facility] Serum or plasma alanine gamino otransferase (ALT) measurementOrdered By: Natalie Caballero on 07-18-2024 ALT [Catalytic activity/Vol] 48 U/L High <35 [facility] Serum or plasma albumin rome urement (mass/volume)Ordered By: Natalie Caballero on 07-18-2024 Albumin [Mass/Vol] 4.1 g/dL 3.5-5.0 [facility] Serum or plasma albumin/glob ulin mass ratioOrdered By: Natalie Caballero on 07-18-2024 Albumin/Globulin [Mass ratio] 1.2 {ratio} 0.9-2.4 [facility] Serum or plasma alkaline bishop sphatase measurementOrdered By: Natalie Caballero on 07-18-2024 ALP [Catalytic activity/Vol] 101 U/L 35-104 [facility] Serum or plasma calcium rome urement (mass/volume)Ordered By: Natalie Caballero on 07-18-2024 Calcium [Mass/Vol] 9.2 mg/dL 7.6-11.0 [facility] Serum or plasma urea nitroge n measurement (mass/volume)Ordered By: Natalie Caballero on 07-18-2024 Urea nitrogen [Mass/Vol] 14 mg/dL 4-19 [facility] Sodium levelOrdered By: Elaine Caballero on 07-18-2024 Sodium [Moles/Vol] 138 mmol/L 133-145 [facility] Total proteinOrdered By: Leon Caballero on 07-18-2024 Protein [Mass/Vol] 7.4 g/dL 5.9-8.4 [facility] White blood cell (WBC) count Ordered By: Natalie Caballero on 07-18-2024 WBC (Bld) [#/Vol] 8.7 10*3/uL 4.4-11.0 [facility] CCP IgG Antibodieson 025 CCP IgG Ab. 12 units Normal 0-19 [facility] Comment on above: Result Comment: Nega tive <20 Weak positive 20 - 39 Moderate positive 40 - 59 Strong positive >59 Performed at: - [facility] [id number] [employer] Condition[employer] Operator: Valeriy Easley PhD, Phone: [phone] Performed By: #### L 100.0100, L4600.0100, L505.0210, L3850.0061, L500.4050, L3890.2172, L3890.5232 #### [facility] [address] [place], [place] [address], [address] Absolute lymphocyte countOrd ered By: Natalie Caballero on 05-07-2024 Lymphocytes Auto (Unsp spec) [#/Vol] 3.27 10*3/uL 0.83-4.51 [facility] Absolute neutrophil countOrd ered By: Nataliedagoberto Caballero on 05-07-2024 Neutrophils (Bld) [#/Vol] 4.5 10*3/uL 2.0-7.7 [facility] Anion gap in Serum or Plasma Ordered By: Natalie Caballero on 05-07-2024 Anion gap [Moles/Vol] 13 mmol/L 5- [facility] Automated lymphocyte count a s percentage of total leukocytesOrdered By: [facility] on 05-07-2024 Lymphocytes/100 WBC Auto (Unsp spec) 37.8 % - [facility] BUN/creatinine ratioOrdered By: [facility] on 05-07-2024 Urea nitrogen/Creatinine [Mass ratio] 18.2 mg/mg 10- [facility] Basophil percentageOrdered B y: Natalie Caballero on 05-07-2024 Basophils/100 WBC (Bld) 1.0 % 0-1 [facility] Bilirubin, totalOrdered By: Natalie Caballero on 05-07-2024 Bilirubin [Mass/Vol] 0.18 mg/dL 0.00-1.30 [facility] CBC W/Diff, Automatedon 04-20 Absolute Lymph 3.27 X10 3/uL Normal 0.83-4.51 [facility] Comment on above: Performed By: #### L 100.0100, L4600.0100, L505.7010, L3890.6301, L500.4050, L3890.6202, L3890.6102 #### [facility] [address] [place], [place], [id number] Absolute Neut 4.5 X10 3/uL Normal 2.0-7.7 [facility] Comment on above: Performed By: #### L 100.0100, L4600.0100, L505.7010, L3890.6301, L500.4050, L3890.6202, L3890.6102 #### [facility] [address] [place], [address] Basophils/100 WBC (Bld) 1.0 % Normal 0-1 [facility] Comment on above: Performed By: #### L 100.0100, L4600.0100, L505.7010, L3890.6301, L500.4050, L3890.6202, L3890.6102 #### [facility] [address] [place], [address] Eosinophils/100 WBC (Bld) 1.2 % Normal 0-5 [facility] Comment on above: Performed By: #### L 100.0100, L4600.0100, L505.7010, L3890.6301, L500.4050, L3890.6202, L3890.6102 #### [facility] [address] [place], [address] Erythrocyte distribution width (RBC) [Ratio] 13.8 % Normal 11.6-14.6 [facility] Comment on above: Performed By: #### L 100.0100, L4600.0100, L505.7010, L3890.6301, L500.4050, L3890.6202, L3890.6102 #### [facility] [address] [place], [address] Hematocrit (Bld) [Volume fraction] 40.4 % Normal 37-47 [facility] Comment on above: Performed By: #### L 100.0100, L4600.0100, L505.7010, L3890.6301, L500.4050, L3890.6202, L3890.6102 #### [facility] [address] [place], [address] Hemoglobin (Bld) [Mass/Vol] 13.0 g/dL Normal 12.0-15.0 [facility] Comment on above: Performed By: #### L 100.0100, L4600.0100, L505.7010, L3890.6301, L500.4050, L3890.6202, L3890.6102 #### [facility] [address] [place], [address] IG% 0.200 Normal 0.0-0.9 [facility] Comment on above: Result Comment: IG% - Immature Granulocytes (promyelocytes, myelocytes and metamyelocytes) > 1% indicates that a LEFT SHIFT is Present. Performed By: #### L 100.0100, L4600.0100, L505.7010, L3890.6301, L500.4050, L3890.6202, L3890.6102 #### [facility] [address] [facility] [place], [address] Lymphocytes/100 WBC (Bld) 37.8 % Normal 19-41 [facility] Comment on above: Performed By: #### L 100.0100, L4600.0100, L505.7010, L3890.6301, L500.4050, L3890.6202, L3890.6102 #### [facility] [address] [facility] [place], [address] MCH (RBC) [Entitic mass] 29.5 pg Normal 27.0-32.0 [facility] Comment on above: Performed By: #### L 100.0100, L4600.0100, L505.7010, L3890.6301, L500.4050, L3890.6202, L3890.6102 #### [facility] [address] [place], [address] MCHC (RBC) [Mass/Vol] 32.2 g/dL Normal 32-36 [facility] Comment on above: Performed By: #### L 100.0100, L4600.0100, L505.7010, L3890.6301, L500.4050, L3890.6202, L3890.6102 #### [facility] [address] [place], [address] MCV (RBC) [Entitic vol] 91.6 fL Normal 81-99 [facility] Comment on above: Performed By: #### L 100.0100, L4600.0100, L505.7010, L3890.6301, L500.4050, L3890.6202, L3890.6102 #### [facility] [address] [place], [address] Monocytes/100 WBC (Bld) 7.9 % Normal 0-10 [facility] Comment on above: Performed By: #### L 100.0100, L4600.0100, L505.7010, L3890.6301, L500.4050, L3890.6202, L3890.6102 #### [facility] [address] [place], [address] Neutrophils/100 WBC (Bld) 51.9 % Normal 47-70 [facility] Comment on above: Performed By: #### L 100.0100, L4600.0100, L505.7010, L3890.6301, L500.4050, L3890.6202, L3890.6102 #### [facility] [address] [place], [address] Nucleated RBC (Bld) [#/Vol] 0 10*3/uL Normal 0-5 [facility] Comment on above: Performed By: #### L 100.0100, L4600.0100, L505.7010, L3890.6301, L500.4050, L3890.6202, L3890.6102 #### [facility] [address] [place], [address] Platelet mean volume (Bld) [Entitic vol] 9.7 fL Normal 6.2-12.0 [facility] Comment on above: Performed By: #### L 100.0100, L4600.0100, L505.7010, L3890.6301, L500.4050, L3890.6202, L3890.6102 #### [facility] [address] [place], [address] Platelets (Bld) [#/Vol] 393 10*3/uL Normal 150-450 [facility] Comment on above: Performed By: #### L 100.0100, L4600.0100, L505.7010, L3890.6301, L500.4050, L3890.6202, L3890.6102 #### [facility] [address] [place], [address] RBC (Bld) [#/Vol] 4.41 10*6/uL Normal 4.2-5.4 [facility] Comment on above: Performed By: #### L 100.0100, L4600.0100, L505.7010, L3890.6301, L500.4050, L3890.6202, L3890.6102 #### [facility] [address] [place], [address] RDW SD 46.7 fl High 35.1-43.9 [facility] Comment on above: Performed By: #### L 100.0100, L4600.0100, L505.7010, L3890.6301, L500.4050, L3890.6202, L3890.6102 #### [facility] [address] [place], [address] WBC (Bld) [#/Vol] 8.7 10*3/uL Normal 4.4-11.0 [facility] Comment on above: Performed By: #### L 100.0100, L4600.0100, L505.7010, L3890.6301, L500.4050, L3890.6202, L3890.6102 #### [facility] [address] [place], [address] Carbon dioxide, total [Moles /volume] in Central venous bloodOrdered By: Natalie Caballero on 05-07-2024 CO2 [Moles/Vol] 19.8 mmol/L Low 21.0-32.0 [facility] Chloride assayOrdered By: Jax Caballero on 05-07-2024 Chloride [Moles/Vol] 107 mmol/L 98-108 [facility] Comprehensive Metabolic Prof ilon 05-07-2024 Albumin [Mass/Vol] 4.1 g/dL Normal 3.5-5.0 [facility] Comment on above: Performed By: #### L 100.0100, L4600.0100, L505.7010, L3890.6301, L500.4050, L3890.6202, L3890.6102 #### [facility] [address] [place], [address] Albumin/Globulin [Mass ratio] 1.2 {ratio} Normal 0.9-2.4 [facility] Comment on above: Performed By: #### L 100.0100, L4600.0100, L505.7010, L3890.6301, L500.4050, L3890.6202, L3890.6102 #### [facility] [address] [place], [address] ALK PHOS 95 U/L Normal 35-104 [facility] Comment on above: Performed By: #### L 100.0100, L4600.0100, L505.7010, L3890.6301, L500.4050, L3890.6202, L3890.6102 #### [facility] [address] [place], [address] ALT [Catalytic activity/Vol] 35 U/L Normal <=34 [facility] Comment on above: Performed By: #### L 100.0100, L4600.0100, L505.7010, L3890.6301, L500.4050, L3890.6202, L3890.6102 #### [facility] [address] [place], [address] AST [Catalytic activity/Vol] 24 U/L Normal <=31 [facility] Comment on above: Performed By: #### L 100.0100, L4600.0100, L505.7010, L3890.6301, L500.4050, L3890.6202, L3890.6102 #### [facility] [address] [place], [address] Bilirubin [Mass/Vol] 0.18 mg/dL Normal 0.00-1.30 [facility] Comment on above: Performed By: #### L 100.0100, L4600.0100, L505.7010, L3890.6301, L500.4050, L3890.6202, L3890.6102 #### [facility] [address] [place], [address] BUN/CRE 18.2 RATIO Normal 10-20 [facility] Comment on above: Performed By: #### L 100.0100, L4600.0100, L505.7010, L3890.6301, L500.4050, L3890.6202, L3890.6102 #### [facility] [address] [place], [address] Calcium [Mass/Vol] 9.1 mg/dL Normal 7.6-11.0 [facility] Comment on above: Performed By: #### L 100.0100, L4600.0100, L505.7010, L3890.6301, L500.4050, L3890.6202, L3890.6102 #### [facility] [address] [place], [address] Chloride [Moles/Vol] 107 mmol/L Normal 98-108 [facility] Comment on above: Performed By: #### L 100.0100, L4600.0100, L505.7010, L3890.6301, L500.4050, L3890.6202, L3890.6102 #### [facility] [address] [place], [address] CO2 [Moles/Vol] 19.8 mmol/L Low 21.0-32.0 [facility] Comment on above: Performed By: #### L 100.0100, L4600.0100, L505.7010, L3890.6301, L500.4050, L3890.6202, L3890.6102 #### [facility] [address] [place], [address] Creatinine [Mass/Vol] 0.60 mg/dL Low 0.70-1.20 [facility] Comment on above: Performed By: #### L 100.0100, L4600.0100, L505.7010, L3890.6301, L500.4050, L3890.6202, L3890.6102 #### [facility] [address] [place], [address] GAP 13 Normal 5-15 [facility] Comment on above: Performed By: #### L 100.0100, L4600.0100, L505.7010, L3890.6301, L500.4050, L3890.6202, L3890.6102 #### [facility] [address] [place], [address] GFR/1.73 sq M.predicted among non-blacks MDRD (S/P/Bld) [Vol rate/Area] 109 mL/min/{1.73_m2} Normal >60 [facility] Comment on above: Result Comment: mL/m in/1.73m2 CKD-EPI Creatinine Equation (2021) Performed By: #### L 100.0100, L4600.0100, L505.7010, L3890.6301, L500.4050, L3890.6202, L3890.6102 #### [facility] [address] [place], [address] Globulin (S) [Mass/Vol] 3.5 g/dL Normal 2.2-4.2 [facility] Comment on above: Performed By: #### L 100.0100, L4600.0100, L505.7010, L3890.6301, L500.4050, L3890.6202, L3890.6102 #### [facility] [address] [place], [address] Glucose [Mass/Vol] 85 mg/dL Normal 70-99 [facility] Comment on above: Performed By: #### L 100.0100, L4600.0100, L505.7010, L3890.6301, L500.4050, L3890.6202, L3890.6102 #### [facility] [address] [place], [address] Potassium [Moles/Vol] 3.8 mmol/L Normal 3.3-5.1 [facility] Comment on above: Performed By: #### L 100.0100, L4600.0100, L505.7010, L3890.6301, L500.4050, L3890.6202, L3890.6102 #### [facility] [address] [place], [address] Sodium [Moles/Vol] 140 mmol/L Normal 133-145 [facility] Comment on above: Performed By: #### L 100.0100, L4600.0100, L505.7010, L3890.6301, L500.4050, L3890.6202, L3890.6102 #### [facility] [address] [place], [place], [id number] T PROT 7.6 g/dL Normal 5.9-8.4 [facility] Comment on above: Performed By: #### L 100.0100, L4600.0100, L505.7010, L3890.6301, L500.4050, L3890.6202, L3890.6102 #### [facility] [address] [place], [address] Urea nitrogen [Mass/Vol] 11 mg/dL Normal 4-19 [facility] Comment on above: Performed By: #### L 100.0100, L4600.0100, L505.7010, L3890.6301, L500.4050, L3890.6202, L3890.6102 #### [facility] [address] [facility] [place], [address] Cyclic citrullinated peptide IgG QnOrdered By: Natalie Caballero on 05-07-2024 Cyclic Citrullinated Peptide IgG Ab 12 units 0-19 [facility] Comment on above: Negative <20 Weak po sitive 20 - 39 Moderate positive 40 - 59 Strong positive >59Performed at: [facility] [id number] Director: Valeriy Easley PhD, Phone: [phone] Eosinophil percentageOrdered By: Natalie Caballero on 05-07-2024 Eosinophils/100 WBC (Bld) 1.2 % 0-5 [facility] Erythrocyte distribution wid th ratioOrdered By: Natalie Caballero on 05-07-2024 Erythrocyte distribution width (RBC) [Ratio] 13.8 % 11.6-14.6 [facility] Erythrocyte distribution wid th standard deviationOrdered By: Natalie Caballero on 05-07-2024 Erythrocyte distribution width (RBC) [Entitic vol] 46.7 fL High 35.1-43.9 [facility] Erythrocyte distribution width (RBC) [Ratio] 46.7 fl High 35.1-43.9 [facility] GFR/1.73 sq M.predicted edgar g non-blacks MDRD (S/P/Bld) [Vol rate/Area]Ordered By: Natalie Caballero on 05-07-2024 Estimated GFR (MDRD) Non-Af Amer 109 >60 [facility] Comment on above: mL/min/1.73m2 CKD-EP I Creatinine Equation (2020) Glomerular filtration rate ( GFR) estimation/1.73 sq m using serum, plasma, or whole bOrdered By: Natalie Caballero on 05-07-2024 GFR/1.73 sq M.predicted among non-blacks MDRD (S/P/Bld) [Vol rate/Area] 109 mL/min/{1.73_m2} >60 [facility] Comment on above: mL/min/1.73m2 CKD-EP I Creatinine Equation (2020) HBV surface Ab Ql (S)Ordered By: Natalie Caballero on 05-07-2024 Hepatitis B Surface Antibody REAC [facility] Comment on above: <8.5 mIU/mL: Non-Crawford ctive8.5<= x <11.5 mIU/mL: Indeterminate>=11.5 mIU/mL: Reactive Non Reactive: Inconsistent with immunity less than <10 mIU/mL Reactive: Consistent with immunity greater than or equal to 10 mIU/mL HBV surface Ag Ql (S)Ordered By: Natalie Caballero on 05-07-2024 Hepatitis B Surface Antigen Non-Reactive Nonreactive [facility] Comment on above: Reactive: Presumptiv e evidence of HBV. Repeatedly reactive samples must be confirmed using a neutralization test ([employer]ys HBsAg Confirmatory Test)Non-Reactive: HBsAg not detected; does not exclude the possibility of exposure to HBV Hand Min 3 Viewson 5 Hand Min 3 Views [facility] Imaging Services [address] [place], [place] [id number] Hand Min 3 Views MR#: [id number] Acct: [id number] Name: JO MERCER Rep #: [id number] : 1975 F 49 From: Sonam Richter MD PCP: Dr. Darrian Diaz MD Status: [facility] CLI Study: Hand Min 3 Views Date of Exam: 05/07/24 Exam# [id number] Ordering Dr: Natalie Caballero MD EXAM: XR Right Hand Complete, 3 or More Views CLINICAL INDICATION: PAIN TECHNIQUE: Frontal, lateral and oblique views of the right hand. COMPARISON: No relevant prior studies available. FINDINGS: BONES/JOINTS: Mild degenerative changes of the 3rd, 4th, and 5th DIP joints. No acute fracture. No dislocation. SOFT TISSUES: Unremarkable. No radiopaque foreign body. RAD/Hand Min 3 Views IMPRESSION: Degenerative changes as above. Reading Location: [facility] CC: Dr. Darrian Diaz MD; Dr. Natalie Caballero MD District Director: Signed Normal [facility] Hand Min 3 Views [facility] Imaging Services [address] [place] [address] Hand Min 3 Views MR#: [id number] Acct: [id number] Name: JO MERCER Rep #: [id number] : 1975 F 49 From: Sonam Richter MD PCP: Dr. Darrian Diaz MD Status: REG CLI Study: Hand Min 3 Views Date of Exam: 05/07/24 Exam# [id number] Ordering Dr: Natalie Caballero MD EXAM: XR Left Hand Complete, 3 or More Views CLINICAL INDICATION: PAIN TECHNIQUE: Frontal, lateral and oblique views of the left hand. COMPARISON: No relevant prior studies available. FINDINGS: BONES/JOINTS: Fixation screw to the 3rd distal and middle phalanx. Intact hardware. Anatomic position. Moderate degenerative changes of the 3rd and 4th D IP joints. No acute fracture. No dislocation. SOFT TISSUES: Unremarkable. No radiopaque foreign body. RAD/Hand Min 3 Views IMPRESSION: 1. Postoperative changes as above. 2. Degenerative changes as above. Reading Location: [facility] CC: Dr. Darrian Diaz MD; Dr. Natalie Caballero MD District Director: Signed Normal [facility] Hematocrit Auto (Bld) [Volum e fraction]Ordered By: Natalie Caballero on 05-07-2024 Hematocrit (Bld) [Volume fraction] 40.4 % 37-47 [facility] Hemoglobin measurementOrdere d By: Natalie Caballero on 05-07-2024 Hemoglobin (Bld) [Mass/Vol] 13.0 g/dL 12.0-15.0 [facility] Hepatitis C antibodyOrdered By: Natalie Caballero on 05-07-2024 Hepatitis C Antibody Non-Reactive Nonreactive [facility] Comment on above: Reactive: Presumptiv e evidence of antibodies to HCV. Follow CDC recommendations for supplemental testing.Non-Reactive: Antibodies to HCV were not detected; does not exclude the possibility of exposure to HCVReactive Results are presumptive evidence of antibodies to HCV. Follow CDC recommendations for supplemental testing.Order confirmation testing: HCV Quant by PCR testing - HCVPCR #[id number] Non Reactive: < 0.8 Equivocal: >/= 0.8 to < 1.0 Reactive: >/= 1.0The CDC requires that a reactive/equivocal HCV antibody result be sent out for confirmation. HCV Quant by PCR testing. Immature granulocytes/100 WB C Auto (Bld)Ordered By: Natalie Caballero on 05-07-2024 Immature granulocytes/100 WBC (Bld) 0.200 % 0.0-0.9 [facility] Comment on above: IG% - Immature Granu locytes (promyelocytes, myelocytes and metamyelocytes) > 1% indicates that a LEFT SHIFT is Present. L3890.6102on 05-07-2024 HEP B Surf Ag Non-Reactive Normal Nonreactive [facility] Comment on above: Result Comment: Reac tive: Presumptive evidence of HBV. Repeatedly reactive samples must be confirmed using a neutralization test ([employer]ys HBsAg Confirmatory Test) Non-Reactive: HBsAg not detected; does not exclude the possibility of exposure to HBV Performed By: #### L 100.0100, L4600.0100, L505.7010, L3890.6301, L500.4050, L3890.6202, L3890.6102 #### [facility] [address] [place], [address] L3890.6202on 05-07-2024 HEP B Surf Ab REAC Normal [facility] Comment on above: Result Comment: <8.5 mIU/mL: Non-Reactive 8.5<= x <11.5 mIU/mL: Indeterminate >=11.5 mIU/mL: Reactive Non Reactive: Inconsistent with immunity less than <10 mIU/mL Reactive: Consistent with immunity greater than or equal to 10 mIU/mL Performed By: #### L 100.0100, L4600.0100, L505.7010, L3890.6301, L500.4050, L3890.6202, L3890.6102 #### [facility] [address] [place], [place], [address] L3890.6301on 05-07-2024 Hepatitis C Ab Non-Reactive Normal Nonreactive [facility] Comment on above: Result Comment: Reac tive: Presumptive evidence of antibodies to HCV. Follow CDC recommendations for supplemental testing. Non-Reactive: Antibodies to HCV were not detected; does not exclude the possibility of exposure to HCV Reactive Results are presumptive evidence of antibodies to HCV. Follow CDC recommendations for supplemental testing. Order confirmation testing: HCV Quant by PCR testing - HCVPCR #[id number] Non Reactive: < 0.8 Equivocal: >/= 0.8 to < 1.0 Reactive: >/= 1.0 The CDC requires that a reactive/equivocal HCV antibody result be sent out for confirmation. HCV Quant by PCR testing. Performed By: #### L 100.0100, L4600.0100, L505.7010, L3890.6301, L500.4050, L3890.6202, L3890.6102 #### [facility] [address] [facility] [place], [place], [address] Laboratory - Chemistry and C hemistry - challengeOrdered By: Natalie Caballero on 05-07-2024 AST [Catalytic activity/Vol] 24 U/L <32 [facility] - Microbiology an d Antimicrobial susceptibilityOrdered By: Natalie Caballero on 05-07-2024 HBV surface Ag Ql (S) Non-Reactive Nonreactive [facility] Comment on above: Reactive: Presumptiv e evidence of HBV. Repeatedly reactive samples must be confirmed using a neutralization test (Elecsys HBsAg Confirmatory Test)Non-Reactive: HBsAg not detected; does not exclude the possibility of exposure to HBV Lymphocytes Auto (Unsp spec) [#/Vol]Ordered By: Natalie Caballero on 05-07-2024 Lymphocytes (Bld) [#/Vol] 3.27 10*3/uL 0.83-4.51 [facility] Lymphocytes/100 WBC Auto (Un sp spec)Ordered By: Natalie Caballero on 05-07-2024 Lymphocytes/100 WBC (Bld) 37.8 % 19-41 [facility] MCV (mean corpuscular volume ) determinationOrdered By: Natalie Caballero on 05-07-2024 MCV (RBC) [Entitic vol] 91.6 fL 81-99 [facility] Mean corpuscular hemoglobin (MCH) determinationOrdered By: Nataliedagoberto Caballero on 05-07-2024 MCH (RBC) [Entitic mass] 29.5 pg 27.0-32.0 [facility] Mean corpuscular hemoglobin concentration (MCHC) determinationOrdered By: Nataliedagoberto Caballero on 05-07-2024 MCHC (RBC) [Mass/Vol] 32.2 g/dL 32-36 [facility] Mean platelet volume determi nationOrdered By: [facility] on 05-07-2024 Platelet mean volume (Bld) [Entitic vol] 9.7 fL 6.2-12.0 [facility] Monocyte percentageOrdered B y: Natalie Caballero on 05-07-2024 Monocytes/100 WBC (Bld) 7.9 % 0-10 [facility] Neutrophil percentageOrdered By: [facility] on 05-07-2024 Neutrophils/100 WBC (Bld) 51.9 % 47-70 [facility] Nucleated red blood cell per centageOrdered By: [facility] on 05-07-2024 Nucleated RBC/100 WBC (Bld) [Ratio] 0 % 0-5 [facility] Pelvis 1 or 2 Viewson 2024 Pelvis 1 or 2 Views [facility] Imaging Services [address] [place], [place] [id number] Pelvis 1 or 2 Views MR#: [id number] Acct: [id number] Name: JO MERCER Rep #: [id number] : 1975 F 49 From: Sonam Richter MD PCP: Dr. Darrian Diaz MD Status: REG CLI Study: Pelvis 1 or 2 Views Date of Exam: 05/07/24 Exam# [id number] Ordering Dr: Natalie Caballero MD EXAM: XR Pelvis, 1 or 2 Views CLINICAL INDICATION: PAIN TECHNIQUE: Frontal view of the pelvis. COMPARISON: No relevant prior studies available. FINDINGS: BONES/JOINTS: Unremarkable. No acute fracture. No dislocation. SOFT TISSUES: Unremarkable. RAD/Pelvis 1 or 2 Views IMPRESSION: No acute fracture. Reading Location: [facility] CC: Dr. Darrian Diaz MD; Dr. Natalie Caballero MD District Director: Signed Normal [facility] Platelet countOrdered By: Jax Caballero on 05-07-2024 Platelets (Bld) [#/Vol] 393 10*3/uL 150-450 [facility] Potassium (Unsp spec) [Mass/ Vol]Ordered By: Natalie Caballero on 05-07-2024 Potassium [Moles/Vol] 3.8 mmol/L 3.3-5.1 [facility] Potassium measurement (mass/ volume)Ordered By: Natalie Caballero on 05-07-2024 Potassium (Unsp spec) [Mass/Vol] 3.8 mmol/L 3.3-5.1 [facility] RBC Auto (Bld) [#/Vol]Ordere d By: Natalie Caballero on 05-07-2024 RBC (Bld) [#/Vol] 4.41 10*6/uL 4.2-5.4 [facility] Rheumatoid Factoron 05-08-19 25 RHEUMATOID FAC < 10.0 Normal <15 [facility] Comment on above: Performed By: #### L 100.0100, L4600.0100, L505.7010, L3890.6301, L500.4050, L3890.6202, L3890.6102 #### [facility] [address] [place], [place] [address], [address] Rheumatoid factor Ql (S)Orde red By: Natalie Caballero on 05-07-2024 Rheumatoid Factor < 10.0 IU/mL <15 [facility] Serum creatinine measurement (mass/volume)Ordered By: Natalie Caballero on 05-07-2024 Creatinine [Mass/Vol] 0.60 mg/dL Low 0.70-1.20 [facility] Serum globulin measurementOr dered By: Natalie Caballero on 05-07-2024 Globulin (S) [Mass/Vol] 3.5 g/dL 2.2-4.2 [facility] Serum glucose measurement (m ass/volume)Ordered By: Natalie Caballero on 05-07-2024 Glucose [Mass/Vol] 85 mg/dL 70-99 [facility] Serum hepatitis B virus surf joyce antibody detectionOrdered By: Natalie Caballero on 05-07-2024 HBV surface Ab Ql (S) REAC [facility] Comment on above: <8.5 mIU/mL: Non-Crawford ctive8.5<= x <11.5 mIU/mL: Indeterminate>=11.5 mIU/mL: Reactive Non Reactive: Inconsistent with immunity less than <10 mIU/mL Reactive: Consistent with immunity greater than or equal to 10 mIU/mL Serum or plasma alanine gamino otransferase (ALT) measurementOrdered By: Natalie Caballero on 05-07-2024 ALT [Catalytic activity/Vol] 35 U/L <35 [facility] Serum or plasma albumin rome urement (mass/volume)Ordered By: Natalie Caballero on 05-07-2024 Albumin [Mass/Vol] 4.1 g/dL 3.5-5.0 [facility] Serum or plasma albumin/glob ulin mass ratioOrdered By: Natalie Caballero 05-07-2024 Albumin/Globulin [Mass ratio] 1.2 {ratio} 0.9-2.4 [facility] Serum or plasma alkaline bishop sphatase measurementOrdered By: Natalie Caballero on 05-07-2024 ALP [Catalytic activity/Vol] 95 U/L 35-104 [facility] Serum or plasma calcium rome urement (mass/volume)Ordered By: Natalie Caballero on 05-07-2024 Calcium [Mass/Vol] 9.1 mg/dL 7.6-11.0 [facility] Serum or plasma cyclic citru llinated peptide IgG antibody assay (units/volume)Ordered By: Natalie Caballero on 05-07-2024 Cyclic citrullinated peptide IgG Qn 12 units 0-19 [facility] Comment on above: Negative <20 Weak po sitive 20 - 39 Moderate positive 40 - 59 Strong positive >59Performed at: [facility] [address] [id number] Director: Valeriy Easley PhD, Phone: [phone] Serum or plasma urea nitroge n measurement (mass/volume)Ordered By: Natalie Caballero on 05-07-2024 Urea nitrogen [Mass/Vol] 11 mg/dL 4-19 [facility] Serum rheumatoid factor dete ctionOrdered By: Natalie Caballero on 05-07-2024 Rheumatoid factor Ql (S) < 10.0 IU/mL <15 [facility] Sodium levelOrdered By: Elaine Caballero on 05-07-2024 Sodium [Moles/Vol] 140 mmol/L 133-145 [facility] Total proteinOrdered By: Leon Caballero on 05-07-2024 Protein [Mass/Vol] 7.6 g/dL 5.9-8.4 [facility] White blood cell (WBC) count Ordered By: Natalie Caballero on 05-07-2024 WBC (Bld) [#/Vol] 8.7 10*3/uL 4.4-11.0 [facility] COLONOSCOPYon 03-26-2024 Colonoscopy Table formatting fro m the original result was not included. Impression Small hemorrhoids Diverticulosis (mild) Otherwise, normal colonoscopy. Findings Internal small hemorrhoids observed during retroflexion. Few small scattered diverticula in the transverse colon, descending colon and sigmoid colon. All observed locations otherwise appeared normal. Recommendation Repeat screening colonoscopy in 10 years, due: 03/24/2034 High fiber diet, or addition of fiber supplementation, to prevent worsening of hemorrhoids and diverticular disease over time. Indication Colon cancer screening Medications See Anesthesia Record. Preprocedure A history and physical has been performed, and patient medication allergies have been reviewed. The patient's tolerance of previous anesthesia has been reviewed. The risks and benefits of the procedure and the sedation options and risks were discussed with the patient. All questions were answered and informed consent obtained. Details of the Procedure The patient underwent monitored anesthesia care, which was administered by an anesthesia professional. The patient's blood pressure, ECG, ETCO2, heart rate, level of consciousness, oxygen and respirations were monitored throughout the procedure. A digital rectal exam was performed. The scope was introduced through the anus and advanced to the terminal ileum. Retroflexion was performed in the rectum. The quality of bowel preparation was evaluated using the Alexis Bowel Preparation Scale with scores of: right colon = 2, transverse colon = 3, left colon = 3. The total BBPS score was 8. Bowel prep was adequate. The patient experienced no blood loss. The procedure was not difficult. The patient tolerated the procedure well. There were no apparent adverse events. Events Procedure Events Event Event Time ENDO SCOPE IN TIME 03/26/2024 7:26 AM ENDO CECUM REACHED 03/26/2024 7:31 AM ENDO SCOPE OUT TIME 03/26/2024 7:42 AM Specimens No specimens collected Procedure Location [facility] [place] [address] [place] [phone] Referring Provider Carmelita Romo MD Procedure Provider Darrel Gomez MD [facility] Comment on above: Order Comment: 5 Colonoscopy studyon 03-26-19 25 Table formatting fro m the original result was not included. Impression Small hemorrhoids Diverticulosis (mild) Otherwise, normal colonoscopy. Findings Internal small hemorrhoids observed during retroflexion. Few small scattered diverticula in the transverse colon, descending colon and sigmoid colon. All observed locations otherwise appeared normal. Recommendation Repeat screening colonoscopy in 10 years, due: 03/24/2034 High fiber diet, or addition of fiber supplementation, to prevent worsening of hemorrhoids and diverticular disease over time. Indication Colon cancer screening Medications See Anesthesia Record. Preprocedure A history and physical has been performed, and patient medication allergies have been reviewed. The patient's tolerance of previous anesthesia has been reviewed. The risks and benefits of the procedure and the sedation options and risks were discussed with the patient. All questions were answered and informed consent obtained. Details of the Procedure The patient underwent monitored anesthesia care, which was administered by an anesthesia professional. The patient's blood pressure, ECG, ETCO2, heart rate, level of consciousness, oxygen and respirations were monitored throughout the procedure. A digital rectal exam was performed. The scope was introduced through the anus and advanced to the terminal ileum. Retroflexion was performed in the rectum. The quality of bowel preparation was evaluated using the Alexis Bowel Preparation Scale with scores of: right colon = 2, transverse colon = 3, left colon = 3. The total BBPS score was 8. Bowel prep was adequate. The patient experienced no blood loss. The procedure was not difficult. The patient tolerated the procedure well. There were no apparent adverse events. Events Procedure Events Event Event Time ENDO SCOPE IN TIME 03/26/2024 7:26 AM ENDO CECUM REACHED 03/26/2024 7:31 AM ENDO SCOPE OUT TIME 03/26/2024 7:42 AM Specimens No specimens collected Procedure Location [facility] [place] [address] [place] [phone] Referring Provider Carmelita Romo MD Procedure Provider Darrel Gomez MD IMAGING [facility] Work Phone: Radiology Study observation (narrative) [facility] Work Phone: C reactive proteinon 025 CRP [Mass/Vol] 0.75 mg/dL Normal <1.00 [facility] Comment on above: Performed By: #### T PRICILAS #### SALMA RODRIGUEZ ([id number]) [facility] ([facility]) [address] [place] [address] CBC W Auto Differential pane l (Bld)on 03-05-2024 Basophils (Bld) [#/Vol] 0.10 x10*3/uL Normal 0.00-0.10 [facility] Comment on above: Performed By: #### T PRICILAS #### SALMA RODRIGUEZ ([id number]) [facility] ([facility]) [address] [place] [address] Basophils/100 WBC (Bld) 1.1 % Normal 0.0-2.0 [facility] Comment on above: Performed By: #### T HYDS #### SALMA RODRIGUEZ ([id number]) [facility] ([facility]) [address] [place] [address] Eosinophils (Bld) [#/Vol] 1.13 x10*3/uL High 0.00-0.70 [facility] Comment on above: Performed By: #### T HYDS #### SALMA RODRIGUEZ ([id number]) [facility] ([facility]) [address] [place] [address] Eosinophils/100 WBC (Bld) 11.9 % Normal 0.0-6.0 [facility] Comment on above: Performed By: #### T HYDS #### SALMA RODRIGUEZ ([id number]) [facility] ([facility]) [address] [place] [address] Erythrocyte distribution width (RBC) [Ratio] 13.3 % Normal 11.5-14.5 [facility] Comment on above: Performed By: #### T HYDS #### SALMA RODRIGUEZ ([id number]) [facility] ([facility]) [address] [place] [address] Hematocrit (Bld) [Volume fraction] 45.8 % Normal 36.0-46.0 [facility] Comment on above: Performed By: #### T HYDS #### SALMA RODRIGUEZ ([id number]) [facility] ([facility]) [address] [place] [address] Hemoglobin (Bld) [Mass/Vol] 14.4 g/dL Normal 12.0-16.0 [facility] Comment on above: Performed By: #### T HYDS #### SALMA RODRIGUEZ ([id number]) [facility] ([facility]) [address] [place] [address] Immature granulocytes (Bld) [#/Vol] 0.03 x10*3/uL Normal 0.00-0.70 [facility] Comment on above: Performed By: #### T HYDS #### SALMA RODRIGUEZ ([id number]) [facility] ([facility]) [address] [place] [address] 36057 Immature granulocytes/100 WBC (Bld) 0.3 % Normal 0.0-0.9 [facility] Comment on above: Result Comment: Kacy ture Granulocyte Count (IG) includes promyelocytes, myelocytes and metamyelocytes but does not include bands. Percent differential counts (%) should be interpreted in the context of the absolute cell counts (cells/UL). Performed By: #### T HYDS #### SALMA RODRIGUEZ ([id number]) [facility] ([facility]) [address] [place] [address] Lymphocytes (Bld) [#/Vol] 2.92 x10*3/uL Normal 1.20-4.80 [facility] Comment on above: Performed By: #### T HYDS #### SALMA RODRIGUEZ ([id number]) [facility] ([facility]) [address] [place] [address] Lymphocytes/100 WBC (Bld) 30.9 % Normal 13.0-44.0 [facility] Comment on above: Performed By: #### T HYDS #### SALMA RODRIGUEZ ([id number]) [facility] ([facility]) [address] [place] [address]891 MCH (RBC) [Entitic mass] 29.0 pg Normal 26.0-34.0 [facility] Comment on above: Performed By: #### T HYDS #### SALMA RODRIGUEZ ([id number]) [facility] ([facility]) [address] [place] [address]483 MCHC (RBC) [Mass/Vol] 31.4 g/dL Low 32.0-36.0 [facility] Comment on above: Performed By: #### T HYDS #### SALMA RODRIGUEZ ([id number]) [facility] ([facility]) [address] [place] [address]4475 MCV (RBC) [Entitic vol] 92 fL Normal 80-100 [facility] Comment on above: Performed By: #### T HYDS #### SALMA RODRIGUEZ ([id number]) [facility] ([facility]) [address] [place] [address] 27905 Monocytes (Bld) [#/Vol] 0.83 x10*3/uL Normal 0.10-1.00 [facility] Comment on above: Performed By: #### T PRICILAS #### SALMA RODRIGUEZ ([id number]) [facility] ([facility]) [address] [place] [address] 25311 Monocytes/100 WBC (Bld) 8.8 % Normal 2.0-10.0 [facility] Comment on above: Performed By: #### T PRICILAS #### SALMA RODRIGUEZ ([id number]) [facility] ([facility]) [address] [place] [address] 28004 Neutrophils (Bld) [#/Vol] 4.45 x10*3/uL Normal 1.20-7.70 [facility] Comment on above: Result Comment: Perc ent differential counts (%) should be interpreted in the context of the absolute cell counts (cells/uL). Performed By: #### T PRICILAS #### SALMA RODRIGUEZ ([id number]) [facility] ([facility]) [address] [place] [address] 90292 Neutrophils/100 WBC (Bld) 47.0 % Normal 40.0-80.0 [facility] Comment on above: Performed By: #### T PRICILAS #### SALMA RODRIGUEZ ([id number]) [facility] ([facility]) [address] [place] [address] 45863 Nucleated RBC/100 WBC (Bld) [Ratio] 0.0 /100 WBCs Normal 0.0-0.0 [facility] Comment on above: Performed By: #### T PRICILAS #### SALMA RODRIGUEZ ([id number]) [facility] ([facility]) [address] [place] [address] 80890 Platelets (Bld) [#/Vol] 429 x10*3/uL Normal 150-450 [facility] Comment on above: Performed By: #### T HYDS #### SALMA RODRIGUEZ ([id number]) [facility] ([facility]) [address] [place] [address] 34336 RBC (Bld) [#/Vol] 4.97 x10*6/uL Normal 4.00-5.20 [facility] Comment on above: Performed By: #### T HYDS #### SALMA RODRIGUEZ ([id number]) [facility] ([facility]) [address] [place] [address] WBC (Bld) [#/Vol] 9.5 x10*3/uL Normal 4.4-11.3 [facility] Comment on above: Performed By: #### T HYDS #### SALMA RODRIGUEZ ([id number]) [facility] ([facility]) [address] [place] [address] Calcidiolon 03-05-2024 25-hydroxyvitamin D3 [Mass/Vol] 24 ng/mL Low 30-100 [facility] Comment on above: Order Comment: Defic iency: < 20 ng/mlInsufficiency: 20-29 ng/mlSufficiency: 30-100 ng/mlThis assay accurately quantifies the sum of Vitamin D3, 25-Hydroxy and Vitamin D2,25-Hydroxy. Performed By: #### 2 4323-8 #### SALMA RODRIGUEZ ([id number]) [facility] ([facility]) [address] [place] [address] Cobalaminson 03-05-2024 Cobalamin (Vitamin B12) [Mass/Vol] 281 pg/mL Normal 211-911 [facility] Comment on above: Performed By: #### T HYDS #### SALMA RODRIGUEZ ([id number]) [facility] ([facility]) [address] [place] [address] Comprehensive metabolic 2000 panelon 03-05-2024 Albumin BCP dye [Mass/Vol] 4.5 g/dL Normal 3.4-5.0 [facility] Comment on above: Performed By: #### T HYDS #### SALMA RODRIGUEZ ([id number]) [facility] ([facility]) [address] [place] [address] ALP [Catalytic activity/Vol] 95 U/L Normal 33-110 [facility] Comment on above: Performed By: #### T HYDS #### SALMA RODRIGUEZ ([id number]) [facility] ([facility]) [address] [place] [address] ALT With P-5'-P [Catalytic activity/Vol] 26 U/L Normal 7-45 [facility] Comment on above: Result Comment: Dulce ents treated with Sulfasalazine may generate falsely decreased results for ALT. Performed By: #### T HYDS #### SALMA RODRIGUEZ ([id number]) [facility] ([facility]) [address] [place] [address] Anion gap [Moles/Vol] 14 mmol/L Normal 10-20 [facility] Comment on above: Performed By: #### T HYDS #### SALMA RODRIGUEZ ([id number]) [facility] ([facility]) [address] [place] [address] 71932 AST With P-5'-P [Catalytic activity/Vol] 25 U/L Normal 9-39 [facility] Comment on above: Performed By: #### T HYDS #### SALMA RODRIGUEZ ([id number]) [facility] ([facility]) [address] [place] [address] 37418 Bilirubin [Mass/Vol] 0.3 mg/dL Normal 0.0-1.2 [facility] Comment on above: Performed By: #### T HYDS #### SALMA RODRIGUEZ ([id number]) [facility] ([facility]) [address] [place] [address] Calcium [Mass/Vol] 9.8 mg/dL Normal 8.6-10.3 [facility] Comment on above: Performed By: #### T HYDS #### SALMA RODRIGUEZ ([id number]) [facility] ([facility]) [address] [place] [address] Chloride [Moles/Vol] 104 mmol/L Normal 98-107 [facility] Comment on above: Performed By: #### T HYDS #### SALMA RODRIGUEZ ([id number]) [facility] ([facility]) [address] [place] [address] CO2 [Moles/Vol] 24 mmol/L Normal 21-32 [facility] Comment on above: Performed By: #### T HYDS #### SALMA RODRIGUEZ ([id number]) [facility] ([facility]) [facility] [place] [address] Creatinine [Mass/Vol] 0.59 mg/dL Normal 0.50-1.05 [facility] Comment on above: Performed By: #### T HYDS #### SALMA RODRIGUEZ ([id number]) [facility] ([facility]) [address] [place] [address] 81419 GFR/1.73 sq M.predicted MDRD (S/P/Bld) [Vol rate/Area] mL/min/{1.73_m2} Normal >60 [facility] Comment on above: Result Comment: Calc ulations of estimated GFR are performed using the 2020 CKD-EPI Study Refit equation without the race variable for the IDMS-Traceable creatinine methods. https://jasn.asnjournals.org/content/early//ASN.2020 433630 Performed By: #### T HYDS #### SALMA RODRIGUEZ ([id number]) [facility] ([facility]) [address] [place] [address] 59662 Glucose [Mass/Vol] 90 mg/dL Normal 74-99 [facility] Comment on above: Performed By: #### T HYDS #### SALMA RODRIGUEZ ([id number]) [facility] ([facility]) [address] [place] [address] 90200 Potassium [Moles/Vol] 4.7 mmol/L Normal 3.5-5.3 [facility] Comment on above: Performed By: #### T HYDS #### SALMA RODRIGUEZ ([id number]) [facility] ([facility]) [address] [place] [address] 46324 Protein [Mass/Vol] 7.7 g/dL Normal 6.4-8.2 [facility] Comment on above: Performed By: #### T HYDS #### SALMA RODRIGUEZ ([id number]) [facility] ([facility]) [address] [place] [address] 81706 Sodium [Moles/Vol] 137 mmol/L Normal 136-145 [facility] Comment on above: Performed By: #### T HYDS #### SALMA RODRIGUEZ ([id number]) [facility] ([facility]) [address] [place], [place] [address] Urea nitrogen [Mass/Vol] 13 mg/dL Normal 6-23 [facility] Comment on above: Performed By: #### T HYDS #### MARSH MICHAEL ([id number]) [facility] ([facility]) [address] [place] [address] 92628 ESR Westergren method (Bld) [Velocity]on 03-05-2024 ESR (Bld) [Velocity] 19 mm/h Normal 0-20 [facility] Comment on above: Performed By: #### T HYDS #### SALMA RODRIGUEZ ([id number]) [facility] ([facility]) [address] [place], [place] [id number] Lipid 1996 panelon Cholesterol [Mass/Vol] 226 mg/dL High 0-199 [facility] Comment on above: Result Comment: Age Desirable Borderline High High 0-19 Y 0 - 169 170 - 199 >/= 200 20-24 Y 0 - 189 190 - 224 >/= 225 >24 Y 0 - 199 200 - 239 >/= 240 All ranges are based on fasting samples. Specific therapeutic targets will vary based on patient-specific cardiac risk. Pediatric guidelines reference:Pediatrics 2011, 128(S5).Adult guidelines reference: NCEP ATPIII Guidelines,CHAD 2001, 258:2486-97 Venipuncture immediately after or during the administration of Metamizole may lead to falsely low results. Testing should be performed immediately prior to Metamizole dosing. Performed By: #### T HYDS #### MARSH MICHAEL ([id number]) [facility] ([facility]) [address] [place] [address] 31610 Cholesterol in HDL [Mass/Vol] 65.0 mg/dL Normal [facility] Comment on above: Result Comment: Age Very Low Low Normal High 0-19 Y < 35 < 40 40-45 ---- 20-24 Y ---- < 40 >45 ---- >24 Y ---- < 40 40-60 >60 Performed By: #### T HYDS #### SALMA RODRIGUEZ ([id number]) [facility] ([facility]) [facility] [place] [address] Cholesterol in LDL [Mass/Vol] 141 mg/dL High <=99 [facility] Comment on above: Result Comment: Near Borderline AGE Desirable Optimal High High Very High 0-19 Y 0 - 109 --- 110-129 >/= 130 ---- 20-24 Y 0 - 119 --- 120-159 >/= 160 ---- >24 Y 0 - 99 100-129 130-159 160-189 >/=190 Performed By: #### T HYDS #### SALMA RODRIGUEZ ([id number]) [facility] ([facility]) [address] [place] [address] 76037 Cholesterol in VLDL [Mass/Vol] 20 mg/dL Normal 0-40 [facility] Comment on above: Performed By: #### T HYDS #### SALMA RODRIGUEZ ([id number]) [facility] ([facility]) [address] [place] [address] 41743 CHOLESTEROL/HDL RATIO 3.5 Normal [facility] Comment on above: Result Comment: Ref Values Desirable < 3.4 High Risk > 5.0 Performed By: #### T HYDS #### SALMA RODRIGUEZ ([id number]) [facility] ([facility]) [address] [place] [address] 32554 NON HDL CHOLESTEROL 161 mg/dL High 0-149 [facility] Comment on above: Result Comment: Age Desirable Borderline High High Very High 0-19 Y 0 - 119 120 - 144 >/= 145 >/= 160 20-24 Y 0 - 149 150 - 189 >/= 190 ---- >24 Y 30 mg/dL above LDL Cholesterol goal Performed By: #### T HYDS #### SALMA RODRIGUEZ ([id number]) [facility] ([facility]) [facility] [place] [address] Triglyceride [Mass/Vol] 100 mg/dL Normal 0-149 [facility] Comment on above: Result Comment: Age Desirable Borderline High Very High SEX:B mg/dL mg/dL mg/dL mg/dL <=14D 86-277 ---- ---- ---- 15D-365D 55-277 ---- ---- ---- 1Y-9Y 0-74 75-99 >=100 ---- 10Y-19Y 0-89 90-129 >=130 ---- 20Y-24Y 0-114 115-149 >=150 ---- >= 25Y 0-149 150-199 200-499 >=500 Venipuncture immediately after or during the administration of Metamizole may lead to falsely low results. Testing should be performed immediately prior to Metamizole dosing. Performed By: #### T PRICILAS #### SALMA RODRIGUEZ ([id number]) [facility] ([facility]) [address] [place] [address] 51009 Magnesiumon 03-05-2024 Magnesium [Mass/Vol] 2.09 mg/dL Normal 1.60-2.40 [facility] Comment on above: Performed By: #### T PRICILAS #### SALMA RODRIGUEZ ([id number]) [facility] ([facility]) [address] [place] [address] 45422 Nuclear Abon 03-05-2024 Nuclear Ab Hep2 substrate Ql (S) Negative Normal Negative [facility] Comment on above: Result Comment: The Antinuclear Antibody (RONI) test was performed using indirect immunofluorescence assay with HEp-2 cells slide. Performed By: #### 2 4323-8 #### SALMA RODRIGUEZ ([id number]) [facility] ([facility]) [address] [place] [address] 40766 Nuclear Ab Hep2 substrate Ql (S)on 03-05-2024 CYTOPLASMIC PATTERN Cytoplasmic Reticular/AMA Normal [facility] Comment on above: Result Comment: Cyto plasmic Reticular/AMA pattern was observed. This pattern suggests possible presence of anti-mitochondrial antibodies. The pattern is commonly found in primary biliary cholangitis (PBC), but is also seen in SSc, including PBC-SSc overlap syndrome and PBC-SjS overlap syndrome. Performed By: #### 2 4323-8 #### SALMA RODRIGUEZ ([id number]) [facility] ([facility]) [address] [place] [address] 57758 Rheumatoid factoron 03-05-19 25 Rheumatoid factor Nephelometry Qn (S) <10 Normal 0-15 [facility] Comment on above: Performed By: #### 2 4323-8 #### SALMA RODRIGUEZ ([id number]) [facility] ([facility]) [address] [place] [address] TSH WITH REFLEX TO FREE T4 I F ABNORMALon 03-05-2024 TSH Qn 1.78 m[IU]/L Normal 0.44-3.98 [facility] Comment on above: Order Comment: TSH t esting is performed using different testing methodology at [facility] than at other [facility]. Direct result comparisons should only be made within the same method. Performed By: #### T JEYSON #### SALMA RODRIGUEZ ([id number]) [facility] ([facility]) [address] [place] [address] Bacteria identifiedon 2024 Bacteria identified Cx Nom (U) Test: Urine Culture Specimen Source: Clean Catch/Voided Specimen Type: Urine Specimen Date: 03/04/20241652 Result Date: 03/05/20241706 Result Status: Final result Abnormal: No Resulting Lab: [facility] [address] [place] [address] CULTURE Clinically insignificant growth based on current clinical standards. Normal [facility] Comment on above: Performed By: #### 6 30-4 #### VONNIE Lake ([id number]) [facility] ([facility]) [address] [place] [address] POCT UA Automated manually r esultedon 03-04-2024 Appearance (U) Clear Clear [facility] Work Phone: Glucose Test strip (U) [Mass/Vol] Negative NEGATIVE mg/dl [facility] Work Phone: Hemoglobin Ql (U) SMALL (1+) Abnormal NEGATIVE [facility] Work Phone: Interpretation and review of laboratory results Abnormal [facility] Work Phone: Leukocyte esterase Test strip Ql (U) Negative NEGATIVE [facility] Work Phone: [phone] Nitrite Ql (U) Negative NEGATIVE [facility] Work Phone: [phone] pH (U) 7.0 [pH] No Reference Range Established [facility] Work Phone: [phone] POC Bilirubin, Urine Negative NEGATIVE [facility]: [phone] POC Color, Urine Straw Straw, Yellow, Light-Yellow [facility] Work Phone: [phone] POC Ketones, Urine Negative NEGATIVE mg/dl [facility] Work Phone: [phone] POC Protein, Urine Negative NEGATIVE mg/dl [facility] Work Phone: [phone] POC Specific [place], Urine 1.015 1.005 - 1.035 [facility] Work Phone: [phone] POC Urobilinogen, Urine 0.2 0.2, 1.0 EU/DL [facility] Work Phone: [phone] [facility] Work Phone: CT ABDOMEN PELVIS W IV CONTR Reta 11-24-2023 CT ABDOMEN PELVIS W IV CONTRAST Interpreted By: Cathleen Cade and Meyers Emily STUDY: CT ABDOMEN PELVIS W IV CONTRAST; 11/24/2023 10:00 am INDICATION: Signs/Symptoms:abdomina l pain, bowel changes. ,R10.9 Unspecified abdominal pain,R19.4 Change in bowel habit COMPARISON: CT abdomen pelvis 04/18/2023 ACCESSION NUMBER(S): [id number] ORDERING CLINICIAN: CARMELITA ROMO TECHNIQUE: CT of the abdomen and pelvis was performed. Standard contiguous axial images were obtained at 3 mm slice thickness through the abdomen and pelvis. Coronal and sagittal reconstructions at 3 mm slice thickness were performed. 72 mL Omnipaque 350 contrast administered intravenously without immediate complication. FINDINGS: Abdomen: Small fat containing umbilical hernia. Postsurgical change of cholecystectomy. Otherwise, the liver, spleen, pancreas, and adrenal glands are within normal limits. The kidneys are unremarkable. No hydroureteronephrosis or nephroureterolithiasis. Small hiatal hernia. The bowel is normal caliber, without evidence of obstruction, focal bowel wall thickening, or inflammatory process. Oral contrast is noted throughout several loops of small bowel without evidence of obstruction. Colonic diverticulosis without evidence of acute diverticulitis. The appendix appears normal. No mesenteric or retroperitoneal lymphadenopathy. No ascites. Vascular structures are unremarkable. Pelvis: Urinary bladder is unremarkable. No pelvic masses. No pelvic lymphadenopathy. Bones: No acute osseous abnormality. Minimal degenerative change of the thoracolumbar spine. Grade 1 retrolisthesis of L1 on L2 and L2 on L3. Lung bases: Dependent bibasilar atelectasis. Otherwise, no focal consolidation, pleural effusion, or pneumothorax. No suspicious solid pulmonary nodule. IMPRESSION: 1. No acute abdominopelvic process. 2. Colonic diverticulosis without evidence of acute diverticulitis. 3. Small hiatal hernia. 4. Postsurgical change of cholecystectomy. I personally reviewed the images/study, and I agree with the findings as stated above by resident physician Dr. Brenda Valle MD. This study was interpreted at [place], [place]. MACRO: None. Signed by: Cathleen Cade 11/25/2023 9:59 PM Dictation workstation: [id number] Normal [facility] CBC W Auto Differential pane l (Bld)on 11-15-2023 Basophils (Bld) [#/Vol] 0.07 x10*3/uL Normal 0.00-0.10 [facility] Comment on above: Performed By: #### 5 7021-8 #### SALMA RODRIGUEZ ([id number]) [facility] ([facility]) [address] [place] [address] 92543 Basophils/100 WBC (Bld) 0.7 % Normal 0.0-2.0 [facility] Comment on above: Performed By: #### 5 7021-8 #### SALMA RODRIGUEZ ([id number]) [facility] ([facility]) [address] [place] [address] 48085 Eosinophils (Bld) [#/Vol] 0.30 x10*3/uL Normal 0.00-0.70 [facility] Comment on above: Performed By: #### 5 7021-8 #### SALMA RODRIGUEZ ([id number]) [facility] ([facility]) [address] [place] [address] 68403 Eosinophils/100 WBC (Bld) 3.1 % Normal 0.0-6.0 [facility] Comment on above: Performed By: #### 5 7021-8 #### SALMA RODRIGUEZ ([id number]) [facility] ([facility]) [address] [place] [address] 13108 Erythrocyte distribution width (RBC) [Ratio] 13.4 % Normal 11.5-14.5 [facility] Comment on above: Performed By: #### 5 7021-8 #### SALMA RODRIGUEZ ([id number]) [facility] ([facility]) [address] [place] [address] 12490 Hematocrit (Bld) [Volume fraction] 41.9 % Normal 36.0-46.0 [facility] Comment on above: Performed By: #### 5 7021-8 #### SALMA RODRIGUEZ ([id number]) [facility] ([facility]) [address] [place] [address] 87407 Hemoglobin (Bld) [Mass/Vol] 13.3 g/dL Normal 12.0-16.0 [facility] Comment on above: Performed By: #### 5 7021-8 #### SALMA RODRIGUEZ ([id number]) [facility] ([facility]) [address] [place] [address] 21009 Immature granulocytes (Bld) [#/Vol] 0.03 x10*3/uL Normal 0.00-0.70 [facility] Comment on above: Performed By: #### 5 7021-8 #### SALMA RODRIGUEZ ([id number]) [facility] ([facility]) [address] [place] [address] 65634 Immature granulocytes/100 WBC (Bld) 0.3 % Normal 0.0-0.9 [facility] Comment on above: Result Comment: Kacy ture Granulocyte Count (IG) includes promyelocytes, myelocytes and metamyelocytes but does not include bands. Percent differential counts (%) should be interpreted in the context of the absolute cell counts (cells/UL). Performed By: #### 5 7021-8 #### SALMA RODRIGUEZ ([id number]) [facility] ([facility]) [address] [place] [address] 52163 Lymphocytes (Bld) [#/Vol] 3.11 x10*3/uL Normal 1.20-4.80 [facility] Comment on above: Performed By: #### 5 7021-8 #### SALMA RODRIGUEZ ([id number]) [facility] ([facility]) [address] [place] [address] 94507 Lymphocytes/100 WBC (Bld) 32.5 % Normal 13.0-44.0 [facility] Comment on above: Performed By: #### 5 7021-8 #### SALMA RODRIGUEZ ([id number]) [facility] ([facility]) [address] [place] [address] 38777 MCH (RBC) [Entitic mass] 29.6 pg Normal 26.0-34.0 [facility] Comment on above: Performed By: #### 5 7021-8 #### SALMA RODRIGUEZ ([id number]) [facility] ([facility]) [address] [place] [address] 46274 MCHC (RBC) [Mass/Vol] 31.7 g/dL Low 32.0-36.0 [facility] Comment on above: Performed By: #### 5 7021-8 #### SALMA RODRIGUEZ ([id number]) [facility] ([facility]) [address] [place] [address] 79560 MCV (RBC) [Entitic vol] 93 fL Normal 80-100 [facility] Comment on above: Performed By: #### 5 7021-8 #### SALMA RODRIGUEZ ([id number]) [facility] ([facility]) [address] [place] [address] 19062 Monocytes (Bld) [#/Vol] 0.76 x10*3/uL Normal 0.10-1.00 [facility] Comment on above: Performed By: #### 5 7021-8 #### SALMA RODRIGUEZ ([id number]) [facility] ([facility]) [address] [place] [address] Monocytes/100 WBC (Bld) 7.9 % Normal 2.0-10.0 [facility] Comment on above: Performed By: #### 5 7021-8 #### SALMA RODRIGUEZ ([id number]) [facility] ([facility]) [address] [place] [address] 53381 Neutrophils (Bld) [#/Vol] 5.31 x10*3/uL Normal 1.20-7.70 [facility] Comment on above: Result Comment: Perc ent differential counts (%) should be interpreted in the context of the absolute cell counts (cells/uL). Performed By: #### 5 7021-8 #### SALMA RODRIGUEZ ([id number]) [facility] ([facility]) [address] [place] [address] 69874 Neutrophils/100 WBC (Bld) 55.5 % Normal 40.0-80.0 [facility] Comment on above: Performed By: #### 5 7021-8 #### SALMA RODRIGUEZ ([id number]) [facility] ([facility]) [address] [place] [address] 30975 Nucleated RBC/100 WBC (Bld) [Ratio] 0.0 /100 WBCs Normal 0.0-0.0 [facility] Comment on above: Performed By: #### 5 7021-8 #### SALMA RODRIGUEZ ([id number]) [facility] ([facility]) [address] [place] [address] 83226 Platelets (Bld) [#/Vol] 428 x10*3/uL Normal 150-450 [facility] Comment on above: Performed By: #### 5 7021-8 #### SALMA RODRIGUEZ ([id number]) [facility] ([facility]) [address] [place] [address] 61954 RBC (Bld) [#/Vol] 4.50 x10*6/uL Normal 4.00-5.20 [facility] Comment on above: Performed By: #### 5 7021-8 #### SALMA RODRIGUEZ ([id number]) [facility] ([facility]) [address] [place] [address] WBC (Bld) [#/Vol] 9.6 x10*3/uL Normal 4.4-11.3 [facility] Comment on above: Performed By: #### 5 7021-8 #### SALMA RODRIGUEZ ([id number]) [facility] ([facility]) [address] [place] [address] Comprehensive metabolic 2000 panelon 11-15-2023 Albumin BCP dye [Mass/Vol] 4.3 g/dL Normal 3.4-5.0 [facility] Comment on above: Performed By: #### T HYDS #### SALMA RODRIGUEZ ([id number]) [facility] ([facility]) [address] [place] [address] ALP [Catalytic activity/Vol] 82 U/L Normal 33-110 [facility] Comment on above: Performed By: #### T HYDS #### SALMA RODRIGUEZ ([id number]) [facility] ([facility]) [address] [place] [address] ALT With P-5'-P [Catalytic activity/Vol] 23 U/L Normal 7-45 [facility] Comment on above: Result Comment: Dulce ents treated with Sulfasalazine may generate falsely decreased results for ALT. Performed By: #### T HYDS #### SALMA RODRIGUEZ ([id number]) [facility] ([facility]) [address] [place] [address] Anion gap [Moles/Vol] 13 mmol/L Normal 10-20 [facility] Comment on above: Performed By: #### T HYDS #### SALMA RODRIGUEZ ([id number]) [facility] ([facility]) [address] [place] [address] AST With P-5'-P [Catalytic activity/Vol] 21 U/L Normal 9-39 [facility] Comment on above: Performed By: #### T HYDS #### SALMA RODRIGUEZ ([id number]) [facility] ([facility]) [address] [place] [address] Bilirubin [Mass/Vol] 0.3 mg/dL Normal 0.0-1.2 [facility] Comment on above: Performed By: #### T HYDS #### SALMA RODRIGUEZ ([id number]) [facility] ([facility]) [address] [place] [address] 47768 Calcium [Mass/Vol] 9.3 mg/dL Normal 8.6-10.3 [facility] Comment on above: Performed By: #### T HYDS #### SALMA RODRIGUEZ ([id number]) [facility] ([facility]) [address] [place] [address] 48505 Chloride [Moles/Vol] 106 mmol/L Normal 98-107 [facility] Comment on above: Performed By: #### T HYDS #### SALMA RODRIGUEZ ([id number]) [facility] ([facility]) [address] [place] [address] 58741 CO2 [Moles/Vol] 22 mmol/L Normal 21-32 [facility] Comment on above: Performed By: #### T HYDS #### SALMA RODRIGUEZ ([id number]) [facility] ([facility]) [address] [place] [address] 06841 Creatinine [Mass/Vol] 0.51 mg/dL Normal 0.50-1.05 [facility] Comment on above: Performed By: #### T HYDS #### SALMA RODRIGUEZ ([id number]) [facility] ([facility]) [address] [place] [address] 88704 GFR/1.73 sq M.predicted MDRD (S/P/Bld) [Vol rate/Area] mL/min/{1.73_m2} Normal >60 [facility] Comment on above: Result Comment: Calc ulations of estimated GFR are performed using the 2020 CKD-EPI Study Refit equation without the race variable for the IDMS-Traceable creatinine methods. https://jasn.asnjournals.org/content/early/ASN.2020 779394 Performed By: #### T HYDS #### SALMA RODRIGUEZ ([id number]) [facility] ([facility]) [address] [place] [address] 42904 Glucose [Mass/Vol] 79 mg/dL Normal 74-99 [facility] Comment on above: Performed By: #### T HYDS #### SALMA RODRIGUEZ ([id number]) [facility] ([facility]) [address] [place] [address] 70526 Potassium [Moles/Vol] 3.9 mmol/L Normal 3.5-5.3 [facility] Comment on above: Performed By: #### T HYDS #### SALMA RODRIGUEZ ([id number]) [facility] ([facility]) [address] [place] [address] 00067 Protein [Mass/Vol] 7.4 g/dL Normal 6.4-8.2 [facility] Comment on above: Performed By: #### T HYDS #### SALMA RODRIGUEZ ([id number]) [facility] ([facility]) [address] [place], [place] [address] Sodium [Moles/Vol] 137 mmol/L Normal 136-145 [facility] Comment on above: Performed By: #### T HYDS #### SALMA RODRIGUEZ ([id number]) [facility] ([facility]) [address] [place] [address] 95615 Urea nitrogen [Mass/Vol] 12 mg/dL Normal 6-23 [facility] Comment on above: Performed By: #### T HYDS #### SALMA RODRIGUEZ ([id number]) [facility] ([facility]) [address] [place] [address] 08162 Magnesiumon 11-15-2023 Magnesium [Mass/Vol] 1.92 mg/dL Normal 1.60-2.40 [facility] Comment on above: Performed By: #### 1 9123-9 #### SALMA RODRIGUEZ ([id number]) [facility] ([facility]) [address] [place] [address] 95857 TSH WITH REFLEX TO FREE T4 I F ABNORMALon 11-15-2023 TSH Qn 1.76 m[IU]/L Normal 0.44-3.98 [facility] Comment on above: Order Comment: TSH t esting is performed using different testing methodology at [facility] than at other [facility]. Direct result comparisons should only be made within the same method. Performed By: #### T JEYSON #### MARSH MICHAEL ([id number]) [facility] ([facility]) [address] [place] [address] BI TRANSFER OF OUTSIDE FILMS on 10-25-2023 BI TRANSFER OF OUTSIDE FILMS Outside images for comparison or treatment purposes, not interpreted by Radiologists. [facility] Comment on above: Order Comment: 023 [facility] SCR W [facility] BI TRANSFER OF OUTSIDE FILMS Outside images for comparison or treatment purposes, not interpreted by Radiologists. [facility] Comment on above: Order Comment: 2021 [facility] DIAG LT [facility] Order Comment: 2021 [facility] SCR [facility] Study Interpretation of outs tiffany studyon 10-25-2023 Outside images for comparison or treatment purposes, not interpreted by Radiologists. IMAGING Outside images for comparison or treatment purposes, not interpreted by Radiologists. IMAGING Outside images for comparison or treatment purposes, not interpreted by Radiologists. IMAGING BI MAMMO BILATERAL SCREENING TOMOSYNTHESISon 10-16-2023 BI MAMMO BILATERAL SCREENING TOMOSYNTHESIS Interpreted By: Fabian Layton, ADDENDUM: Prior mammograms of 09/27/2022 are available, which show dense parenchyma. No significant change is seen in the present study except for more fatty appearance of the parenchyma. Signed by: Fabian Layton 10/25/2023 3:56 PM -------- ORIGINAL REPORT -------- Dictation workstation: [id number] Interpreted By: Reza Sage, STUDY: BI MAMMO BILATERAL SCREENING TOMOSYNTHESIS; 10/16/2023 2:33 pm ACCESSION NUMBER(S): [id number] ORDERING CLINICIAN: SELF MAMMOGRAM INDICATION: Screening. COMPARISON: The patient's prior studies are not available for comparison. FINDINGS: CC and MLO 2D digital mammograms and digital breast tomosynthesis images were obtained of the bilateral breasts. 3-D volume images were reconstructed in 4 views at an independent workstation as 1 mm slices through the breasts in both the CC and MLO projections. Density: There are areas of scattered fibroglandular tissue. No discrete mass or focal asymmetry is identified. No suspicious microcalcifications or foci of architectural distortion are seen. This study was interpreted with CAD. IMPRESSION: No mammographic evidence of malignancy. BI-RADS CATEGORY: BI-RADS Category: 1 Negative. Recommendation: Routine Screening Mammogram in 1 Year. Recommended Date: 1 Year. Laterality: Bilateral. MACRO: None Signed by: Reza Sage 10/17/2023 9:45 AM Dictation workstation: [id number] Normal [facility] CBC W Auto Differential pane l (Bld)on 06-22-2023 Basophils (Bld) [#/Vol] 0.11 x10*3/uL High 0.00-0.10 [facility] Comment on above: Performed By: #### 5 7021-8 #### SALMA RODRIGUEZ ([id number]) [facility] ([facility]) [address] [place] [address] 17800 Basophils/100 WBC (Bld) 0.9 % Normal 0.0-2.0 [facility] Comment on above: Performed By: #### 5 7021-8 #### SALMA RODRIGUEZ ([id number]) [facility] ([facility]) [address] [place] [address] 27026 Eosinophils (Bld) [#/Vol] 0.41 x10*3/uL Normal 0.00-0.70 [facility] Comment on above: Performed By: #### 5 7021-8 #### SALMA RODRIGUEZ ([id number]) [facility] ([facility]) [address] [place] [address] 94679 Eosinophils/100 WBC (Bld) 3.5 % Normal 0.0-6.0 [facility] Comment on above: Performed By: #### 5 7021-8 #### SALMA RODRIGUEZ ([id number]) [facility] ([facility]) [address] [place] [address] 37186 Erythrocyte distribution width (RBC) [Ratio] 13.1 % Normal 11.5-14.5 [facility] Comment on above: Performed By: #### 5 7021-8 #### SALMA RODRIGUEZ ([id number]) [facility] ([facility]) [address] [place] [address] 83633 Hematocrit (Bld) [Volume fraction] 45.9 % Normal 36.0-46.0 [facility] Comment on above: Performed By: #### 5 7021-8 #### SALMA RODRIGUEZ ([id number]) [facility] ([facility]) [address] [place] [address] 14177 Hemoglobin (Bld) [Mass/Vol] 14.6 g/dL Normal 12.0-16.0 [facility] Comment on above: Performed By: #### 5 7021-8 #### SALMA RODRIGUEZ ([id number]) [facility] ([facility]) [address] [place] [address] 32201 Immature granulocytes (Bld) [#/Vol] 0.03 x10*3/uL Normal 0.00-0.70 [facility] Comment on above: Performed By: #### 5 7021-8 #### SALMA RODRIGUEZ ([id number]) [facility] ([facility]) [address] [place] [address] 37615 Immature granulocytes/100 WBC (Bld) 0.3 % Normal 0.0-0.9 [facility] Comment on above: Result Comment: Kacy ture Granulocyte Count (IG) includes promyelocytes, myelocytes and metamyelocytes but does not include bands. Percent differential counts (%) should be interpreted in the context of the absolute cell counts (cells/UL). Performed By: #### 5 7021-8 #### SALMA RODRIGUEZ ([id number]) [facility] ([facility]) [address] [place] [address] 01775 Lymphocytes (Bld) [#/Vol] 3.92 x10*3/uL Normal 1.20-4.80 [facility] Comment on above: Performed By: #### 5 7021-8 #### ASLMA RODRIGUEZ ([id number]) [facility] ([facility]) [address] [place] [address] 87802 Lymphocytes/100 WBC (Bld) 33.0 % Normal 13.0-44.0 [facility] Comment on above: Performed By: #### 5 7021-8 #### SALMA RODRIGUEZ ([id number]) [facility] ([facility]) [address] [place] [address] 31485 MCH (RBC) [Entitic mass] 29.5 pg Normal 26.0-34.0 [facility] Comment on above: Performed By: #### 5 7021-8 #### SALMA RODRIGUEZ ([id number]) [facility] ([facility]) [address] [place] [address] 29828 MCHC (RBC) [Mass/Vol] 31.8 g/dL Low 32.0-36.0 [facility] Comment on above: Performed By: #### 5 7021-8 #### SALMA RODRIGUEZ ([id number]) [facility] ([facility]) [address] [place] [address] 38674 MCV (RBC) [Entitic vol] 93 fL Normal 80-100 [facility] Comment on above: Performed By: #### 5 7021-8 #### SALMA RODRIGUEZ ([id number]) [facility] ([facility]) [address] [place] [address] 35718 Monocytes (Bld) [#/Vol] 1.02 x10*3/uL High 0.10-1.00 [facility] Comment on above: Performed By: #### 5 7021-8 #### SALMA RODRIGUEZ ([id number]) [facility] ([facility]) [address] [place] [address] 43750 Monocytes/100 WBC (Bld) 8.6 % Normal 2.0-10.0 [facility] Comment on above: Performed By: #### 5 7021-8 #### SALMA RODRIGUEZ ([id number]) [facility] ([facility]) [address] [place] [address] 82137 Neutrophils (Bld) [#/Vol] 6.39 x10*3/uL Normal 1.20-7.70 [facility] Comment on above: Result Comment: Perc ent differential counts (%) should be interpreted in the context of the absolute cell counts (cells/uL). Performed By: #### 5 7021-8 #### SALMA RODRIGUEZ ([id number]) [facility] ([facility]) [address] [place] [address] 03028 Neutrophils/100 WBC (Bld) 53.7 % Normal 40.0-80.0 [facility] Comment on above: Performed By: #### 5 7021-8 #### SALMA RODRIGUEZ ([id number]) [facility] ([facility]) [address] [place] [address] 51048 Nucleated RBC/100 WBC (Bld) [Ratio] 0.0 /100 WBCs Normal 0.0-0.0 [facility] Comment on above: Performed By: #### 5 7021-8 #### SALMA RODRIGUEZ ([id number]) [facility] ([facility]) [address] [place] [address] 85551 Platelets (Bld) [#/Vol] 521 x10*3/uL High 150-450 [facility] Comment on above: Performed By: #### 5 7021-8 #### SALMA RODRIGUEZ ([id number]) [facility] ([facility]) [address] [place] [address] 02622 RBC (Bld) [#/Vol] 4.95 x10*6/uL Normal 4.00-5.20 [facility] Comment on above: Performed By: #### 5 7021-8 #### SALMA RODRIGUEZ ([id number]) [facility] ([facility]) [address] [place] [address] 79611 WBC (Bld) [#/Vol] 11.9 x10*3/uL High 4.4-11.3 [facility] Comment on above: Performed By: #### 5 7021-8 #### SALMA RODRIGUEZ ([id number]) [facility] ([facility]) [address] [place] [address] 74404 Cobalaminson 06-22-2023 Cobalamin (Vitamin B12) [Mass/Vol] 277 pg/mL Normal 211-911 [facility] Comment on above: Performed By: #### 2 132-9 #### SALMA RODRIGUEZ ([id number]) [facility] ([facility]) [address] [place] [address] Comprehensive metabolic 2000 panelon 06-22-2023 Albumin BCP dye [Mass/Vol] 4.4 g/dL Normal 3.4-5.0 [facility] Comment on above: Performed By: #### 2 4323-8 #### SALMA RODRIGUEZ ([id number]) [facility] ([facility]) [address] [place] [address] ALP [Catalytic activity/Vol] 87 U/L Normal 33-110 [facility] Comment on above: Performed By: #### 2 4323-8 #### SALMA RODRIGUEZ ([id number]) [facility] ([facility]) [address] [place] [address] 11909 ALT With P-5'-P [Catalytic activity/Vol] 20 U/L Normal 7-45 [facility] Comment on above: Result Comment: Dulce ents treated with Sulfasalazine may generate falsely decreased results for ALT. Performed By: #### 2 4323-8 #### SALMA RODRIGUEZ ([id number]) [facility] ([facility]) [address] [place] [address] Anion gap [Moles/Vol] 13 mmol/L Normal 10-20 [facility] Comment on above: Performed By: #### 2 4323-8 #### SALMA RODRIGUEZ ([id number]) [facility] ([facility]) [address] [place] [address] AST With P-5'-P [Catalytic activity/Vol] 20 U/L Normal 9-39 [facility] Comment on above: Performed By: #### 2 4323-8 #### SALMA RODRIGUEZ ([id number]) [facility] ([facility]) [address] [place] [address] Bilirubin [Mass/Vol] 0.3 mg/dL Normal 0.0-1.2 [facility] Comment on above: Performed By: #### 2 4323-8 #### SALMA RODRIGUEZ ([id number]) [facility] ([facility]) [address] [place] [address] 65292 Calcium [Mass/Vol] 9.6 mg/dL Normal 8.6-10.3 [facility] Comment on above: Performed By: #### 2 4323-8 #### SALMA RODRIGUEZ ([id number]) [facility] ([facility]) [facility] [place] [address] Chloride [Moles/Vol] 99 mmol/L Normal 98-107 [facility] Comment on above: Performed By: #### 2 4323-8 #### SALMA RODRIGUEZ ([id number]) [facility] ([facility]) [address] [place] [address] 66355 CO2 [Moles/Vol] 27 mmol/L Normal 21-32 [facility] Comment on above: Performed By: #### 2 4323-8 #### SALMA RODRIGUEZ ([id number]) [facility] ([facility]) [address] [place] [address] 15462 Creatinine [Mass/Vol] 0.52 mg/dL Normal 0.50-1.05 [facility] Comment on above: Performed By: #### 2 4323-8 #### SALMA RODRIGUEZ ([id number]) [facility] ([facility]) [address] [place] [address] 67571 GFR/1.73 sq M.predicted MDRD (S/P/Bld) [Vol rate/Area] mL/min/{1.73_m2} Normal >60 [facility] Comment on above: Result Comment: Calc ulations of estimated GFR are performed using the 2020 CKD-EPI Study Refit equation without the race variable for the IDMS-Traceable creatinine methods. https://jasn.asnjournals.org/content/early//ASN.2020 178550 Performed By: #### 2 4323-8 #### SALMA RODRIGUEZ ([id number]) [facility] ([facility]) [facility] [place] [address] Glucose [Mass/Vol] 80 mg/dL Normal 74-99 [facility] Comment on above: Performed By: #### 2 4323-8 #### SALMA RODRIGUEZ ([id number]) [facility] ([facility]) [facility] [place] [address] Potassium [Moles/Vol] 4.3 mmol/L Normal 3.5-5.3 [facility] Comment on above: Performed By: #### 2 4323-8 #### SALMA RODRIGUEZ ([id number]) [facility] ([facility]) [address] [place] [address] 75064 Protein [Mass/Vol] 7.4 g/dL Normal 6.4-8.2 [facility] Comment on above: Performed By: #### 2 4323-8 #### SALMA RODRIGUEZ ([id number]) [facility] ([facility]) [address] [place] [address] 83770 Sodium [Moles/Vol] 135 mmol/L Low 136-145 [facility] Comment on above: Performed By: #### 2 4323-8 #### SALMA RODRIGUEZ ([id number]) [facility] ([facility]) [address] [place] [address] 20705 Urea nitrogen [Mass/Vol] 12 mg/dL Normal 6-23 [facility] Comment on above: Performed By: #### 2 4323-8 #### SALMA RODRIGUEZ ([id number]) [facility] ([facility]) [address] [place] [address] 68258 Lipid 1996 panelon 4 Cholesterol [Mass/Vol] 258 mg/dL High 0-199 [facility] Comment on above: Result Comment: Age Desirable Borderline High High 0-19 Y 0 - 169 170 - 199 >/= 200 20-24 Y 0 - 189 190 - 224 >/= 225 >24 Y 0 - 199 200 - 239 >/= 240 All ranges are based on fasting samples. Specific therapeutic targets will vary based on patient-specific cardiac risk. Pediatric guidelines reference:Pediatrics 2011, 128(S5).Adult guidelines reference: NCEP ATPIII Guidelines,CHAD 2001, 258:2486-97 Venipuncture immediately after or during the administration of Metamizole may lead to falsely low results. Testing should be performed immediately prior to Metamizole dosing. Performed By: #### 2 4331-1 #### SALMA RODRIGUEZ ([id number]) [facility] ([facility]) [facility] [place] [address] Cholesterol in HDL [Mass/Vol] 65.0 mg/dL Normal [facility] Comment on above: Result Comment: Age Very Low Low Normal High 0-19 Y < 35 < 40 40-45 ---- 20-24 Y ---- < 40 >45 ---- >24 Y ---- < 40 40-60 >60 Performed By: #### 2 4331-1 #### SALMA RODRIGUEZ ([id number]) [facility] ([facility]) [address] [place] [address] 46601 Cholesterol in LDL [Mass/Vol] 173 mg/dL High <=99 [facility] Comment on above: Result Comment: Near Borderline AGE Desirable Optimal High High Very High 0-19 Y 0 - 109 --- 110-129 >/= 130 ---- 20-24 Y 0 - 119 --- 120-159 >/= 160 ---- >24 Y 0 - 99 100-129 130-159 160-189 >/=190 Performed By: #### 2 4331-1 #### SALMA RODRIGUEZ ([id number]) [facility] ([facility]) [address] [place] [address] 23925 Cholesterol in VLDL [Mass/Vol] 20 mg/dL Normal 0-40 [facility] Comment on above: Performed By: #### 2 4331-1 #### SALMA RODRIGUEZ ([id number]) [facility] ([facility]) [address] [place] [address] 54427 CHOLESTEROL/HDL RATIO 4.0 Normal [facility] Comment on above: Result Comment: Ref Values Desirable < 3.4 High Risk > 5.0 Performed By: #### 2 4331-1 #### SALMA RODRIGUEZ ([id number]) [facility] ([facility]) [address] [place] [address] 65890 NON HDL CHOLESTEROL 193 mg/dL High 0-149 [facility] Comment on above: Result Comment: Age Desirable Borderline High High Very High 0-19 Y 0 - 119 120 - 144 >/= 145 >/= 160 20-24 Y 0 - 149 150 - 189 >/= 190 ---- >24 Y 30 mg/dL above LDL Cholesterol goal Performed By: #### 2 4331-1 #### SALMA RODRIGUEZ ([id number]) [facility] ([facility]) [facility] [place] [address] Triglyceride [Mass/Vol] 100 mg/dL Normal 0-149 [facility] Comment on above: Result Comment: Age Desirable Borderline High High Very High 0 D-90 D 19 - 174 ---- ---- ---- 91 D- 9 Y 0 - 74 75 - 99 >/= 100 ---- 10-19 Y 0 - 89 90 - 129 >/= 130 ---- 20-24 Y 0 - 114 115 - 149 >/= 150 ---- >24 Y 0 - 149 150 - 199 200- 499 >/= 500 Venipuncture immediately after or during the administration of Metamizole may lead to falsely low results. Testing should be performed immediately prior to Metamizole dosing. Performed By: #### 2 4331-1 #### SALMA RODRIGUEZ ([id number]) [facility] ([facility]) [address] [place] [address] TSH WITH REFLEX TO FREE T4 I F ABNORMALon 06-22-2023 TSH Qn 1.83 m[IU]/L Normal 0.44-3.98 [facility] Comment on above: Order Comment: TSH t esting is performed using different testing methodology at [facility] than at [facility]. Direct result comparisons should only be made within the same method. Performed By: #### T HYDS #### SALMA RODRIGUEZ ([id number]) [facility] ([facility]) [address] [place], [place] [id number] XR LUMBAR SPINE 2-3 VIEWSon 04-20-2023 XR LUMBAR SPINE 2-3 VIEWS Interpreted By: Michael Fuller, STUDY: XR LUMBAR SPINE 2-3 VIEWS; 04/20/2023 8:52 am INDICATION: Signs/Symptoms:BACK PAIN. COMPARISON: None. ACCESSION NUMBER(S): [id number] ORDERING CLINICIAN: CATHIE KEN TECHNIQUE: AP and lateral views of the lumbar spine were obtained. FINDINGS: Grade 1 retrolisthesis of L1 over L2 and of L2 over L3. Mild disc space narrowing with bvfs-pa-xfiqfsfs endplate osteophytosis at L1-2. Lumbar disc space height was otherwise preserved. Interfacet hypertrophic arthritic changes from L3-4 through L5-S1. Moderate sclerotic arthritic changes in both SI joints. No lytic or blastic bone lesion. No compression fracture. Right upper quadrant abdominal surgical clips. Satl-gk-fobcfcsk retained colonic stool and gas. Nonobstructive, nonspecific bowel gas pattern. IMPRESSION: Arthritic changes in the lumbosacral spine as described. MACRO: None Signed by: Michael Fuller 04/20/2023 10:05 AM Dictation workstation: [id number] [facility] XR Lumbar spine 2 or 3 Views on 04-20-2023 Arthritic changes in the lumbosacral spine as described. MACRO: None Signed by: Michael Fuller 04/20/2023 10:05 AM Dictation workstation: [id number] [facility] Interpreted By: Michael Ortiz, STUDY: XR LUMBAR SPINE 2-3 VIEWS; 04/20/2023 8:52 am INDICATION: Signs/Symptoms:BACK PAIN. COMPARISON: None. ACCESSION NUMBER(S): [id number] ORDERING CLINICIAN: CATHIE KEN TECHNIQUE: AP and lateral views of the lumbar spine were obtained. FINDINGS: Grade 1 retrolisthesis of L1 over L2 and of L2 over L3. Mild disc space narrowing with ymae-mx-gqjqfpuh endplate osteophytosis at L1-2. Lumbar disc space height was otherwise preserved. Interfacet hypertrophic arthritic changes from L3-4 through L5-S1. Moderate sclerotic arthritic changes in both SI joints. No lytic or blastic bone lesion. No compression fracture. Right upper quadrant abdominal surgical clips. Cbyj-sr-jwjijbrr retained colonic stool and gas. Nonobstructive, nonspecific bowel gas pattern. MMODAL Michael Fuller MD - 04/20/2023 Interpreted By: Michael Fuller, STUDY: XR LUMBAR SPINE 2-3 VIEWS; 04/20/2023 8:52 am INDICATION: Signs/Symptoms:BACK PAIN. COMPARISON: None. ACCESSION NUMBER(S): [id number] ORDERING CLINICIAN: CATHIE KEN TECHNIQUE: AP and lateral views of the lumbar spine were obtained. FINDINGS: Grade 1 retrolisthesis of L1 over L2 and of L2 over L3. Mild disc space narrowing with eami-tr-jdvfgxwl endplate osteophytosis at L1-2. Lumbar disc space height was otherwise preserved. Interfacet hypertrophic arthritic changes from L3-4 through L5-S1. Moderate sclerotic arthritic changes in both SI joints. No lytic or blastic bone lesion. No compression fracture. Right upper quadrant abdominal surgical clips. Bfyd-qk-ftzoabru retained colonic stool and gas. Nonobstructive, nonspecific bowel gas pattern. IMPRESSION: Arthritic changes in the lumbosacral spine as described. MACRO: None Signed by: Michael Fuller 04/20/2023 10:05 AM Dictation workstation: [id number] [facility] Work Phone: Radiology Study observation (narrative) [facility] Work Phone: XR Lumbar spine 2 or 3 Views Ordered By: Michael Fuller on 04-20-2023 [facility] Work Phone: CBC panel Auto (Bld)on 04-18 Erythrocyte distribution width (RBC) [Ratio] 13.2 % Normal 11.5-14.5 [facility] Comment on above: Performed By: #### 5 8410-2 #### SALMA RODRIGUEZ ([id number]) [facility] ([facility]) [address] [place] [id number] Hematocrit (Bld) [Volume fraction] 41.2 % Normal 36.0-46.0 [facility] Comment on above: Performed By: #### 5 8410-2 #### SALMA RODRIGUEZ ([id number]) [facility] ([facility]) [address] [place] [address] [id number] Hemoglobin (Bld) [Mass/Vol] 13.8 g/dL Normal 12.0-16.0 [facility] Comment on above: Performed By: #### 5 8410-2 #### SALMA RODRIGUEZ ([id number]) [facility] ([facility]) [address] [place] [address] MCH (RBC) [Entitic mass] 30.7 pg Normal 26.0-34.0 [facility] Comment on above: Performed By: #### 5 8410-2 #### SALMA RODRIGUEZ ([id number]) [facility] ([facility]) [address] [place] [address] MCHC (RBC) [Mass/Vol] 33.5 g/dL Normal 32.0-36.0 [facility] Comment on above: Performed By: #### 5 8410-2 #### SALMA RODRIGUEZ ([id number]) [facility] ([facility]) [address] [place] [address] MCV (RBC) [Entitic vol] 92 fL Normal 80-100 [facility] Comment on above: Performed By: #### 5 8410-2 #### SALMA RODRIGUEZ ([id number]) [facility] ([facility]) [address] [place], [place] [id number] Nucleated RBC/100 WBC (Bld) [Ratio] 0.0 /100 WBCs Normal 0.0-0.0 [facility] Comment on above: Performed By: #### 5 8410-2 #### SALMA RODRIGUEZ ([id number]) [facility] ([facility]) [address] [place], [place] [address] Platelets (Bld) [#/Vol] 399 x10*3/uL Normal 150-450 [facility] Comment on above: Performed By: #### 5 8410-2 #### SALMA RODRIGUEZ ([id number]) [facility] ([facility]) [address] [place], [place] [address] RBC (Bld) [#/Vol] 4.50 x10*6/uL Normal 4.00-5.20 [facility] Comment on above: Performed By: #### 5 8410-2 #### SALMA RODRIGUEZ ([id number]) [facility] ([facility]) [address] [place] [address] WBC (Bld) [#/Vol] 11.9 x10*3/uL High 4.4-11.3 [facility] Comment on above: Performed By: #### 5 8410-2 #### MARSH MICHAEL ([id number]) [facility] ([facility]) [address] [place] [address] CT ABDOMEN PELVIS W IV CONTR Reta 04-18-2023 CT ABDOMEN PELVIS W IV CONTRAST Interpreted By: Uriel Sung, STUDY: CT ABDOMEN PELVIS W IV CONTRAST; 04/18/2023 11:13 am INDICATION: Signs/Symptoms:left flank pain. COMPARISON: None ACCESSION NUMBER(S): [id number] ORDERING CLINICIAN: ERIC TORRES TECHNIQUE: Axial CT of the abdomen and pelvis was performed following intravenous administration of 68 ml of contrast Omnipaque 350 with coronal and sagittal reconstruction. FINDINGS: Lower chest: No focal consolidation or pleural effusion. Liver: No mass. Biliary: Mild intrahepatic bile duct prominence, likely related to cholecystectomy status. Normal CBD caliber. Spleen: No mass. No splenomegaly. Pancreas: No mass or duct dilation. Adrenals: Normal. Kidneys: No suspicious mass, calculus or hydronephrosis. GI tract: Normal appendix. Colonic sigmoid diverticulosis with minimal sigmoid wall thickening and adjacent inflammation. No bowel wall thickening or dilation elsewhere. Lymph nodes: No abdominopelvic lymphadenopathy. Mesentery/peritoneum: No ascites, free air or fluid collection. Vasculature: No abdominal aortic aneurysm. Pelvis: No ascites, free air or fluid collection. No bladder calculus. Bones/Soft tissues: Mild L1-L2 degenerative disease. No acute abdominal or soft tissue abnormalities. IMPRESSION: No renal calculus or hydronephrosis. Possible developing/resolving uncomplicated sigmoid diverticulitis. MACRO: None Signed by: Uriel Sung 04/18/2023 11:48 AM Dictation workstation: [id number] Normal [facility] Comprehensive metabolic 2000 panelon 04-18-2023 Albumin BCP dye [Mass/Vol] 4.1 g/dL Normal 3.4-5.0 [facility] Comment on above: Performed By: #### 2 4323-8 #### MARSH MICHAEL ([id number]) [facility] ([facility]) [facility] [place] [address] ALP [Catalytic activity/Vol] 72 U/L Normal 33-110 [facility] Comment on above: Performed By: #### 2 4323-8 #### SALMA RODRIGUZE ([id number]) [facility] ([facility]) [address] [place] [address] ALT With P-5'-P [Catalytic activity/Vol] 22 U/L Normal 7-45 [facility] Comment on above: Result Comment: Dulce ents treated with Sulfasalazine may generate falsely decreased results for ALT. Performed By: #### 2 4323-8 #### SALMA RODRIGUEZ ([id number]) [facility] ([facility]) [address] [place] [address] Anion gap [Moles/Vol] 12 mmol/L Normal 10-20 [facility] Comment on above: Performed By: #### 2 432-8 #### SALMA RODRIGUEZ ([id number]) [facility] ([facility]) [address] [place] [address] AST With P-5'-P [Catalytic activity/Vol] 23 U/L Normal 9-39 [facility] Comment on above: Performed By: #### 2 432-8 #### SALMA RODRIGUEZ ([id number]) [facility] ([facility]) [address] [place] [address] Bilirubin [Mass/Vol] 0.3 mg/dL Normal 0.0-1.2 [facility] Comment on above: Performed By: #### 2 432-8 #### SALMA RODRIGUEZ ([id number]) [facility] ([facility]) [address] [place] [address] Calcium [Mass/Vol] 9.0 mg/dL Normal 8.6-10.3 [facility] Comment on above: Performed By: #### 2 4323-8 #### SALMA RODRIGUEZ ([id number]) [facility] ([facility]) [address] [place] [address] Chloride [Moles/Vol] 105 mmol/L Normal 98-107 [facility] Comment on above: Performed By: #### 2 4323-8 #### SALMA RODRIGUEZ ([id number]) [facility] ([facility]) [address] [place] [address] CO2 [Moles/Vol] 22 mmol/L Normal 21-[address] [facility] Comment on above: Performed By: #### 2 4323-8 #### SALMA RODRIGUEZ ([id number]) [facility] ([facility]) [facility] [place] [address] Creatinine [Mass/Vol] 0.45 mg/dL Low 0.50-1.05 [facility] Comment on above: Performed By: #### 2 4323-8 #### SALMA RODRIGUEZ ([id number]) [facility] ([facility]) [address] [place] [address] GFR/1.73 sq M.predicted MDRD (S/P/Bld) [Vol rate/Area] mL/min/{1.73_m2} Normal >60 [facility] Comment on above: Result Comment: Calc ulations of estimated GFR are performed using the 2020 CKD-EPI Study Refit equation without the race variable for the IDMS-Traceable creatinine methods. https://jasn.asnjournals.org/content/early//ASN.2020 537708 Performed By: #### 2 4323-8 #### SALMA RODRIGUEZ ([id number]) [facility] ([facility]) [address] [place] [address]85 Glucose [Mass/Vol] 88 mg/dL Normal 74-99 [facility] Comment on above: Performed By: #### 2 4323-8 #### SALMA RODRIGUEZ ([id number]) [facility] ([facility]) [address] [place] [address] Potassium [Moles/Vol] 4.2 mmol/L Normal 3.5-5.3 [facility] Comment on above: Performed By: #### 2 4323-8 #### SALMA RODRIGUEZ ([id number]) [facility] ([facility]) [address] [place] [address] 0[address] Protein [Mass/Vol] 6.9 g/dL Normal 6.4-8.2 [facility] Comment on above: Performed By: #### 2 4323-8 #### SALMA RODRIGUEZ ([id number]) [facility] ([facility]) [address] [place] [address] Sodium [Moles/Vol] 135 mmol/L Low 136-145 [facility] Comment on above: Performed By: #### 2 4323-8 #### SALMA RODRIGUEZ ([id number]) [facility] ([facility]) [address] [place] [address] Urea nitrogen [Mass/Vol] 9 mg/dL Normal 6-23 [facility] Comment on above: Performed By: #### 2 4323-8 #### SALMA RODRIGUEZ ([id number]) [facility] ([facility]) [facility] [place] [address] ECG 12-LEADon 04-18-2023 ECG 12-LEAD Ventricular Rate 91 Atrial Rate 91 P-R Interval 138 QRS Duration 72 Q-T Interval 354 QTC Calculation(Bazett) 435 P Timpson 72 R Timpson 75 T Timpson 34 QRS Count 14 Q Onset 223 P Onset 154 P Offset 187 T Offset 400 QTC Fredericia 407 Diagnosis Normal sinus rhythm Nonspecific T wave abnormality Abnormal ECG When compared with ECG of 09-FEB-2022 15:45, No significant change was found See ED provider note for full interpretation and clinical correlation Confirmed by Beck Arana ([id number]) on 05/02/2023 10:32:07 AM Normal [facility] Troponin I.cardiac panelon 0 04-18-2023 Tropinin I.cardiac panel High sensitivity method <3 Normal 0-13 [facility] Comment on above: Order Comment: Less than 99th percentile of normal range cutoff- Female and children under 18 years old <14 ng/L; Male <21 ng/L: Negative Repeat testing should be performed if clinically indicated. Female and children under 18 years old 14-50 ng/L; Male 21-50 ng/L: Consistent with possible cardiac damage and possible increased clinical risk. Serial measurements may help to assess extent of myocardial damage. >50 ng/L: Consistent with cardiac damage, increased clinical risk and myocardial infarction. Serial measurements may help assess extent of myocardial damage. NOTE: Children less than 1 year old may have higher baseline troponin levels and results should be interpreted in conjunction with the overall clinical context. NOTE: Troponin I testing is performed using a different testing methodology at [facility] than at other [facility]. Direct result comparisons should only be made within the same method. Performed By: #### 8 9577-1 #### MARSH MICHAEL ([id number]) [facility] ([facility]) [address] [place] [address] XR CHEST 1 VIEWon 04-18-2023 XR CHEST 1 VIEW Interpreted By: Uriel Sung, STUDY: XR CHEST 1 VIEW; 04/18/2023 10:08 am INDICATION: Signs/Symptoms:flank pain COMPARISON: Radiographs 02/09/2022. ACCESSION NUMBER(S): [id number] ORDERING CLINICIAN: ERIC TORRES TECHNIQUE: Single frontal view of the chest performed. FINDINGS: LINES AND DEVICES: None. LUNGS: No focal consolidation, pulmonary edema, pleural effusion or pneumothorax. CARDIOMEDIASTINAL SILHOUETTE: The cardiomediastinal silhouette is within normal limits. OTHER: No acute displaced rib fractures. IMPRESSION: No acute cardiopulmonary process. MACRO None Signed by: Uriel Sung 04/18/2023 10:30 AM Dictation workstation: [id number] [facility] 09-28-2022 [facility] HNO ID: [id number] Author: Coordinator, Mammography Service: ? Author Type: Physician Type: Letter Filed: 09/29/2022 11:35 PM Note Text: [address] [address] September 28, 2022 PID: [id number] Jo Mercer [address] [place] [address] Dear Ms. Mercer, We are pleased to inform you that the results of your recent breast imaging exam on 09/27/2022 are normal. Early detection of cancer is very important. We also understand recommendations regarding breast cancer screening are controversial. Please discuss with your primary care provider which strategy is best for you and whether a mammogram is right for you. Your imaging studies and report will be kept on file at [facility] as part of your permanent medical record and are available for your continuing care. Thank you for allowing us to help in meeting your health care needs. Sincerely, Dr. Mackey Interpreting Radiologist [facility] (Normal over 40) Normal [facility] NATALIE SCREENING W TOMOon 09-27 NATALIE SCREENING W ERUM * * *Final Report* * * DATE OF EXAM: Sep 27 2022 3:07PM LDW 0582 - NATALIE SCREENING W ERUM / PROCEDURE REASON: Encounter for screening mammogram for breast cancer * * * * Physician Interpretation * * * * #[id number] - NATALIE SCREENING W ERUM BILATERAL DIGITAL SCREENING MAMMOGRAM TOMOSYNTHESIS WITH CAD: 09/27/2022 HISTORY: / Screening Mammogram-Patient reports NO symptoms. RESULT: TECHNIQUE: The study was acquired using full field digital technology and interpreted from soft copy. Digital Breast Tomosynthesis (DBT) images were obtained and used to assist in the interpretation of this examination. Current study was also evaluated with a Computer Aided Detection (CAD). Comparison is made to exams dated: 08/17/2021 mammogram, 03/10/2021 mammogram, and 07/29/2020 mammogram - [facility]. The tissue of both breasts is heterogeneously dense. This may lower the sensitivity of mammography. No significant masses, calcifications, or other findings are seen in either breast. There has been no significant interval change. IMPRESSION: NEGATIVE There is no mammographic evidence of malignancy. A 1 year screening mammogram is recommended. Tiffanie villarreal/marline:09/28/2022 14:56:58 Final Canoe Inspector(s): José Miguel Guerrero (Tatianna)(M), [facility] letter sent: Normal over 40 Mammogram BI-RADS: 1 Negative Multiple national specialty organizations have released breast cancer screening guidelines for women at average risk for developing breast cancer - guidelines that are based on both evidence and opinion, yet differ on when to start and how often to screen for breast cancer. With representation from Breast Imaging, Internal Medicine, Women's Health, Family Medicine, and Medical/Surgical Oncology, the [facility] has carefully reviewed the data and reached the following consensus: 1) All women should engage in shared decision-making with their providers to decide when to start and how often to screen; 2) All women should have the opportunity to start screening mammography at age 40; 3) For women ages 45-55, we recommend annual screening mammograms; 4) For women ages 55 and over, we support both the transition from an annual to a biennial interval if this aligns more with patient's values and preferences, or continuation with annual screening; 5) All women should discuss with their providers when to stop screening mammograms. District Director: Marline Transcribe Date/Time: Sep 27 2022 2:55P Dictated by : TIFFANIE MACKEY MD This examination was interpreted and the report reviewed and electronically signed by: TIFFANIE MACKEY MD on Sep 28 2022 2:56PM EST [id number] Normal [facility] CBC AND DIFFERENTIALon 02-09 % AUTOMATED IMMATURE GRAN 0.2 % Normal 0.0 - 0.9 [facility] Comment on above: Result Comment: Kacy ture Granulocyte Count (IG) includes promyelocytes, myelocytes and metamyelocytes but does not include bands. Percent differential counts (%) should be interpreted in the context of the absolute cell counts (cells/L). Performed By: #### C BCDF #### [address] [address] Basophils (Bld) [#/Vol] 0.12 10*3/uL High 0.00 - 0.1 0 [facility] Comment on above: Performed By: #### C BCDF #### [address] [address] Basophils/100 WBC (Bld) 1.1 % Normal 0.0 - 2.0 [facility] Comment on above: Performed By: #### C BCDF #### [address] [address] Eosinophils (Bld) [#/Vol] 0.80 10*3/uL High 0.00 - 0.70 [facility] Comment on above: Performed By: #### C BCDF #### [address] [address] Eosinophils/100 WBC (Bld) 7.7 % Normal 0.0 - 6.0 [facility] Comment on above: Performed By: #### C BCDF #### [address] [address] Erythrocyte distribution width (RBC) [Ratio] 12.8 % Normal 11.5 - 14.5 [facility] Comment on above: Performed By: #### C BCDF #### [address] [address] Hematocrit (Bld) [Volume fraction] 41.3 % Normal 36.0 - 46.0 [facility] Comment on above: Performed By: #### C BCDF #### [address] [address] Hemoglobin (Bld) [Mass/Vol] 13.4 g/dL Normal 12.0 - 16.0 [facility] Comment on above: Performed By: #### C BCDF #### [address] [address] Lymphocytes (Bld) [#/Vol] 3.44 10*3/uL Normal 1.20 - 4.80 [facility] Comment on above: Performed By: #### C BCDF #### [address] [address] Lymphocytes/100 WBC (Bld) 32.9 % Normal 13.0 - 44.0 [facility] Comment on above: Performed By: #### C BCDF #### [address] [address] MCHC (RBC) [Mass/Vol] 32.4 g/dL Normal 32.0 - 36.[address] [facility] Comment on above: Performed By: #### C BCDF #### [address] [address] MCV (RBC) [Entitic vol] 92 fL Normal 80 - 100 [facility] Comment on above: Performed By: #### C BCDF #### [address] [address] Monocytes (Bld) [#/Vol] 0.80 10*3/uL Normal 0.10 - 1.0 0 [facility] Comment on above: Performed By: #### C BCDF #### [address] [address] Monocytes/100 WBC (Bld) 7.7 % Normal 2.0 - 10.0 [facility] Comment on above: Performed By: #### C BCDF #### [address] [address] Neutrophils (Bld) [#/Vol] 5.27 10*3/uL Normal 1.20 - 7.70 [facility] Comment on above: Result Comment: Perc ent differential counts (%) should be interpreted in the context of the absolute cell counts (cells/L). Performed By: #### C BCDF #### [address] [address] Neutrophils/100 WBC (Bld) 50.4 % Normal 40.0 - 80.0 [facility] Comment on above: Performed By: #### C BCDF #### [address] [address] Platelets (Bld) [#/Vol] 351 10*3/uL Normal 150 - 450 [facility] Comment on above: Performed By: #### C BCDF #### [address] [address] RBC 4.49 x10E12/L Normal 4.00 - 5.20 [facility] Comment on above: Performed By: #### C BCDF #### [address] [address] WBC (Bld) [#/Vol] 10.5 10*3/uL Normal 4.4 - 11.3 [facility] Comment on above: Performed By: #### C BCDF #### [address] [address] CHEST 1 VIEWon 02-09-2022 CHEST 1 VIEW STUDY: Chest Radiograph; 02/09/2022 4:12PM INDICATION: Syncope and collapse. COMPARISON: None available ACCESSION NUMBER(S): [id number] ORDERING CLINICIAN: FRANCHESCA GONZALEZ DO TECHNIQUE: Frontal chest was obtained at 16:07 hours. FINDINGS: CARDIOMEDIASTINAL SILHOUETTE: Cardiomediastinal silhouette is normal in size and configuration. LUNGS: Lungs are clear. ABDOMEN: No remarkable upper abdominal findings. BONES: No acute osseous changes. IMPRESSION: No acute cardiopulmonary disease. Signed by Sonam Saravia MD Electronically signed by: SONAM SARAVIA MD Normal [facility] COMPREHENSIVE PANELon 2021 Albumin [Mass/Vol] 4.0 g/dL Normal 3.4 - 5.0 [facility] Comment on above: Performed By: #### C MP #### [address] [address] ALP [Catalytic activity/Vol] 69 U/L Normal 33 - 110 [facility] Comment on above: Performed By: #### C MP #### [address] [address] ALT [Catalytic activity/Vol] 15 U/L Normal 7 - 45 [facility] Comment on above: Result Comment: Dulce ents treated with Sulfasalazine may generate falsely decreased results for ALT. Performed By: #### C MP #### [address] [address] Anion gap [Moles/Vol] 13 mmol/L Normal 10 - 20 [facility] Comment on above: Performed By: #### C MP #### [address] [address] AST [Catalytic activity/Vol] 16 U/L Normal 9 - 39 [facility] Comment on above: Performed By: #### C MP #### [address] [address] Bilirubin [Mass/Vol] 0.3 mg/dL Normal 0.0 - 1.2 [facility] Comment on above: Performed By: #### C MP #### [address] [address] Calcium [Mass/Vol] 9.1 mg/dL Normal 8.6 - 10.3 [facility] Comment on above: Performed By: #### C MP #### [address] [address] Chloride [Moles/Vol] 111 mmol/L High 98 - 107 [facility] Comment on above: Performed By: #### C MP #### [address] [address] Creatinine [Mass/Vol] 0.54 mg/dL Normal 0.50 - 1.[address] [facility] Comment on above: Performed By: #### C MP #### [address] [address] eGFR FEMALE >90 Normal >90 [facility] Comment on above: Result Comment: CALC ULATIONS OF ESTIMATED GFR ARE PERFORMED USING THE 2020 CKD-EPI STUDY REFIT EQUATION WITHOUT THE RACE VARIABLE FOR THE IDMS-TRACEABLE CREATININE METHODS. https://jasn.asnjournals.org/content/early/ASN.2020 694673 Performed By: #### C MP #### [address] [address] Glucose [Mass/Vol] 88 mg/dL Normal 74 - 99 [facility] Comment on above: Performed By: #### C MP #### [address] [address] HCO3 (Bld) [Moles/Vol] 18 mmol/L Low 21 - [address] [facility] Comment on above: Performed By: #### C MP #### [address] [address] Potassium [Moles/Vol] 3.1 mmol/L Low 3.5 - 5.3 [facility] Comment on above: Performed By: #### C MP #### [address] [address] Protein [Mass/Vol] 6.8 g/dL Normal 6.4 - 8.2 [facility] Comment on above: Performed By: #### C MP #### [address] [address] Sodium [Moles/Vol] 139 mmol/L Normal 136 - 145 [facility] Comment on above: Performed By: #### C MP #### [address] [address] Urea nitrogen [Mass/Vol] 8 mg/dL Normal 6 - 23 [facility] Comment on above: Performed By: #### C MP #### [address] [address] LACTATEon 02-09-2022 Lactate [Moles/Vol] 0.7 mmol/L Normal 0.4 - 2.0 [facility] Comment on above: Result Comment: Amna puncture immediately after or during the administration of Metamizole may lead to falsely low results. Testing should be performed immediately prior to Metamizole dosing. Performed By: #### L ACT #### [address] [address] LIPASEon 02-09-2022 Lipase [Catalytic activity/Vol] 6 U/L Low 9 - 82 [facility] Comment on above: Result Comment: Amna puncture immediately after or during the administration of Metamizole may lead to falsely low results. Testing should be performed immediately prior to Metamizole dosing. P-ewuqac-l-benzoquinone imine (metabolite of Acetaminophen) will generate erroneously low results in samples for patients that have taken toxic doses of acetaminophen. Performed By: #### L IPAS #### [address] [address] Provider Note - ED v3on 01-21 Provider Note - ED v3 Provider Note: Chart Review: ED NOTES ED NOTES: Source of Information: Patient. EMR was reviewed for previous records. The EMS transfer sheet was not available during my initial assessment of the patient. HPI: Abdominal pain. This 46-year-old white female presents to the ED via EMS from a fpc secondary to complaint of periumbilical abdominal pain that she has been having for approximately 3 weeks now. She states that occasionally symptoms get very severe and causes her to bend over. She does admit to having some associated nausea without vomiting. She denies any change in her bowel habits or constipation or diarrhea. She also notes that she has been having a few drops of vaginal bleeding though has had a previous hysterectomy she is scheduled to see an OB chief development officer concerning this next month after the holidays. She states that she still does have her appendix but has had a hysterectomy without bilateral salpingo-oophorectomy. She is also had previous bladder sling and hysterectomy without bilateral salpingo-oophorectomy and cholecystectomy. She states that movement tends to make her symptoms worse, rest helps for the most part. PMH: Migraine headaches PSH: Hysterectomy, cholecystectomy, bilateral tubal ligation, bladder sling Social Hx: The patient denies any use of tobacco, alcohol or illicit drugs. Fam: MEDS: Topamax ALLERGIES: NKDA PHYSICAL EXAM: General: Patient alert, awake, oriented X3, appears to be in no obvious distress, nontoxic, cooperative Skin: Warm. Dry. Intact. No rash. Eyes: PEARTLA, EOMIs intact, sclera white, conjunctiva clear HEENT: Atraumatic. Normo-cephalic. Oral and nasal mucosa pink and moist. Neck: Supple without meningismus, no lymphadenopathy. CV: Regular rate and rhythm without murmurs, heaves, lifts or thrills. Respiratory: Nonlabored breathing. There are no retractions or tachypnea. Lungs are clear to auscultation bilaterally. GI: Soft, periumbilical tenderness without gross distention, bowel sounds present in all 4 quadrants. There is no pulsatile masses. There is no CVA tenderness. No rebound, rigidity or guarding. MUSC: There is no joint swelling or bony tenderness on exam. Neuro: Cranial nerves II - XII grossly intact. No focal neurologic deficits are noted on exam. Lower extremities: There is no peripheral edema bilaterally, negative Homans sign. No palpable cords. Distal pulses are +2/4 and present in both lower extremities. Psych: Maintains eye contact. Cooperative. ED course: At 1455 hrs. contacted by Danii DEL RIO that the patient told her that she had a syncopal episode prior to arrival to the ED. She apparently had neglected to tell the paramedics, nursing staff or myself about this episode. Further lab work was added because of this as well as orthostatic vital signs. EKG was interpreted by myself at 1545 reveals normal sinus rhythm with no acute ST or T wave changes. Heart rate is 70 bpm. The MT interval is 152 ms. The QRS duration is 86 ms. The QTC is 421 ms axis is 65 degrees. Patient was seen and evaluated due to complaints of abdominal pain as well as a syncopal episode. Patient had troponin delta troponin performed EKG revealed no acute abnormality. Electrolytes were normal except for potassium low at 3.1. Lactic acid level was normal. Lipase was normal. Urinalysis was without evidence of infection though there is +2 bacteria. Static vital signs were negative. X-ray was negative for acute abnormality. The patient was discharged home in stable satisfactory condition and referred to her primary care doctor for follow-up. I did have a detailed discussion with the patient concerning lab results and plan of care. This chart was dictated with the use of [employer] software within the framework of the current electronic medical records software. Attempts were made to edit in real time, given time constraints there is the potential for inaccuracies in my dictation. Franchesca Gonzalez, DO HISTORY OF PRESENTING ILLNESS JO is a 46 year old Female and was seen by me at 09-Feb-2022 14:11 for a chief complaint of abdominal pain (low abd pain with diarrhea and vaginal bleeding x3 weeks)(1). Triage Information: Most recent Vital Sign Value Date Temp (F): 97.8 02-09-2022 14:11 Temp (C): 36.5 02-09-2022 14:11 Heart Rate (beats/min): 89 (more content not included)... Normal [facility] Risk Screen - Adult Emergenc yon 02-09-2022 Risk Screen - Adult Emergency Preferred Language: Preferred Language: Preferred Language for Discussing Health Care (patient/designee)Keysha yost Patient Preferred Pharmacy: Patient Preferred Pharmacy Statement: I have reviewed and updated the patient's preferred pharmacy selection for today's visit. Advanced Directives: Advance Directive/DNRno Family Violence Adult: Abuse Screen: Are you or have you been threatened or abused physically, emotionally, or sexually by anyoneno Learning Assessment (Patient): Learning Assessment (Patient): Patient is Able to be Assessed for Learningyes Factors Influencing Readiness to Learnacuteness of illness Factors that Impact Ability to Learnnone Devices/Methods Used to Communicatenone Learning Preferencesaudio Cultural Considerationsnone Developmental Considerationsnone Baptist Considerationsnone Learning Assessment (Other Learner): Learning Assessment (Other Learner): Other learner availableno Pressure Injury/TB/Substance: Pressure Injury: Do you have a coughno Smoking Statusmoderate user (uses 11-30 cig/day, OR 0.5-1.5 ppd, OR 2-3 cans/pouches loose leaf tobacco per week, OR 0.5-1.5 vape pods per day) Tobacco Cessation Education (provide if tobacco use within the last 12 mos) patient declined Alcohol Usedenies Drug Usedenies Admission Risk Screen: Significant IndicatorsComplete CAGE: CAGE: Is this an injured patient at a Trauma Center ([facility] [place]): no Electronic Signatures: Danii Montero (RN) (Signed 09-Feb-2022 14:14) Authored: Preferred Language, Patient Preferred Pharmacy, Advanced Directives, Family Violence Adult, Learning Assessment (Patient), Learning Assessment (Other Learner), Pressure Injury/TB/Substance, Pressure Injury, CAGE Last Updated: 09-Feb-2022 14:14 by Danii Montero (RN) Normal [facility] TROPONIN I, HIGH SENSITIVITY on 02-09-2022 TROPONIN I, HIGH SENSITIVITY <3 Normal 0 - 13 [facility] Comment on above: Result Comment: . Less than 99th percentile of normal range cutoff- Female and children under 18 years old <14 ng/L; Male <21 ng/L: Negative Repeat testing should be performed if clinically indicated. . Female and children under 18 years old 14-50 ng/L; Male 21-50 ng/L: Consistent with possible cardiac damage and possible increased clinical risk. Serial measurements may help to assess extent of myocardial damage. . >50 ng/L: Consistent with cardiac damage, increased clinical risk and myocardial infarction. Serial measurements may help assess extent of myocardial damage. . NOTE: Children less than 1 year old may have higher baseline troponin levels and results should be interpreted in conjunction with the overall clinical context. . NOTE: Troponin I testing is performed using a different testing methodology at [facility] than at other [facility]. Direct result comparisons should only be made within the same method. Performed By: #### [facility] #### [place] [address] TROPONIN I, HIGH SENSITIVITY <3 Normal 0 - 13 [facility] Comment on above: Result Comment: . Less than 99th percentile of normal range cutoff- Female and children under 18 years old <14 ng/L; Male <21 ng/L: Negative Repeat testing should be performed if clinically indicated. . Female and children under 18 years old 14-50 ng/L; Male 21-50 ng/L: Consistent with possible cardiac damage and possible increased clinical risk. Serial measurements may help to assess extent of myocardial damage. . >50 ng/L: Consistent with cardiac damage, increased clinical risk and myocardial infarction. Serial measurements may help assess extent of myocardial damage. . NOTE: Children less than 1 year old may have higher baseline troponin levels and results should be interpreted in conjunction with the overall clinical context. . NOTE: Troponin I testing is performed using a different testing methodology at [facility] than at other [facility]. Direct result comparisons should only be made within the same method. Performed By: #### [facility] ####[id number] [place] [address] Triage - EDon 02-09-2022 Triage - ED Quick Triage: Are You no Are You Currently Breastfeedingno Chart Review: ARRIVAL INFORMATION Mode of Arrival: ambulance Agency Name: [facility] CHIEF COMPLAINT JO MERCER is a Female patient with a chief complaint of abdominal pain (low abd pain with diarrhea and vaginal bleeding x3 weeks). Triage Date/Time: 09-Feb-2022 14:11 SCOTT: 3 Pain Rating (0-10): 6 = Moderate Vital Signs: Temperature: 97.8F ( 36.5C) Blood Pressure: 138/86 Mean: Heart Rate: 89 Respiratory Rate: 16 Pulse Oximetry: 96% on room air, no respiratory support. Height: 5 feet 4.00 inches. 162.5 CM Weight: 190.4 pounds. Calculated 86.4 kg. 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 Patient has homicidal thoughts: no Risk Screens Suicide Risk Screen In the Past Month: Have you wished you were or wished you could go to sleep and not wake up no In the Past Month: Have you had any actual thoughts of killing yourself no In Your Lifetime: Have you ever done anything, started to do anything, or prepared to do anything to end your life no Alexander Fall Scale Screening Has the patient fallen before (or is the patient in the ED as a result of a fall) has not had a fall Does the patient have an impaired gait does not have impaired gait Is the patient cognitively impaired not cognitively impaired Interventions: Alexander Fall Interventions: LOW INTERVENTIONS: *patient oriented to surroundings and call system, * patient/family falls education completed and documented, *patients fall status communicated during bedside handoff, *whiteboard updated, *mode of toileting discussed with patient, *bed in low position with brakes locked, *call light in reach, * non-skid footwear TRAVEL HISTORY Travel History Coronavirus Screening: no exposure or symptoms Travel Exposure History: NO travel to International locations in the past 30 days PAIN Pain Scale Used: BRAYDEN Pain Rating (0-10): 6 = Moderate Past Medical History: Past Medical History Reviewedno Electronic Signatures: Danii Montero (QUANG) (Signed 09-Feb-2022 14:13) Entered: Risk Screens, Pain, Travel History, Chart Review, Scores, Past Medical History Authored: Quick Triage, Risk Screens, Pain, Travel History, Chart Review, Scores, Past Medical History Last Updated: 09-Feb-2022 14:13 by Danii Montero (QUANG) Normal [facility] UA MICROSCOPICon 02-09-2022 BACTERIA 2+ /HPF Abnormal [facility] Comment on above: Performed By: #### [facility] #### [place] [address] RBC (U) [#/Vol] /uL Normal 0-5 [facility] Comment on above: Performed By: #### [facility] #### [address] [address] SQUAMOUS EPITH. CELLS <1 Normal [facility] Comment on above: Performed By: #### [facility] #### [address] [address] WBC (U) [#/Vol] /uL Normal 0-5 [facility] Comment on above: Performed By: #### [facility] #### [id number] URINALYSIS WITH CULTURE IF I NDICATEDon 02-09-2022 Appearance (U) CLEAR Normal CLEAR [facility] Comment on above: Performed By: #### [facility] #### [address] [address] Bilirubin Ql (U) Negative Normal NEGATIVE [facility] Comment on above: Performed By: #### [facility] #### [place] [address] Color (U) YELLOW Normal STRAW,YELLOW [facility] Comment on above: Performed By: #### [facility] #### [place] [address] Glucose Ql (U) Negative Normal NEGATIVE [facility] Comment on above: Performed By: #### [facility] #### [address] [address] Hemoglobin Ql (U) TRACE Abnormal NEGATIVE [facility] Comment on above: Performed By: #### [facility] #### [place] [address] Ketones Ql (U) Negative Normal NEGATIVE [facility] Comment on above: Performed By: #### [facility] #### [address] [id number] Leukocyte esterase Test strip Ql (U) Negative Normal NEGATIVE [facility] Comment on above: Performed By: #### [facility] #### [place] [id number] Nitrite Ql (U) Negative Normal NEGATIVE [facility] Comment on above: Performed By: #### [facility] #### [address] [address] pH (U) 7.0 [pH] Normal 5.0 - 8.0 [facility] Comment on above: Performed By: #### [facility] #### [address] [address] Protein Ql (U) Negative Normal NEGATIVE [facility] Comment on above: Performed By: #### [facility] #### [address] [place] [address] Specific gravity (U) [Rel density] 1.010 Normal 1.005 - 1.035 [facility] Comment on above: Performed By: #### [facility] #### [address] [address] Urobilinogen (U) [Mass/Vol] mg/dL Normal 0.0 - 1.9 [facility] Comment on above: Performed By: #### [facility] #### [address] [address] [address] KIDNEY STONEon 01-06-2022 CT KIDNEY STONE EXAMINATION: CT KIDNEY STONE01/06/2022 HISTORY: ORDERING SYSTEM PROVIDED HISTORY: flank pain, TECHNOLOGIST PROVIDED HISTORY: Illness/Other Reason for exam: flank pain Encounter Type: Initial Additional signs and symptoms: since yesterday ORDERING SYSTEM PROVIDED DIAGNOSIS CODES: N20.0 Kidney stone COMPARISON: None. TECHNIQUE: Unenhanced helical imaging of the abdomen and pelvis. Multiplanar reconstructions. Dose reduction techniques were achieved by using: automated exposure control and/or adjustment of mA and/or kV according to patient size and/or use of iterative reconstruction technique. FINDINGS: ABDOMEN: Portions of the liver, stomach transverse colon and spleen are excluded. LOWER CHEST:The imaged lung bases are clear. SOLID ORGANS: The liver, spleen, adrenals, pancreas, biliary ducts are within normal limits. No biliary or pancreatic duct dilatation. Prior cholecystectomy. The kidneys are symmetric. No urinary tract calculi and no hydronephrosis. MESENTERY AND RETROPERITONEUM: No free fluid, fluid collection or adenopathy. The aorta and IVC are intact. Aortic caliber is normal and the IVC is adequately distended. BOWEL: The stomach, proximal small bowel and imaged portions of the colon are normal in course and caliber. No bowel wall thickening or pneumatosis. OSSEOUS STRUCTURES: No acute osseous abnormality. BODY WALL AND SOFT TISSUES: No acute abnormality. 1 cm fat containing umbilical hernia defect. PELVIS: GENITOURINARY: The distal ureters, urinary bladder, uterus, right ovary, vagina and imaged urethra are all within normal limits. There are no distal urinary tract calculi. Left ovary slightly prominent secondary underlying physiologic cyst measuring 3.2 x 3.0 cm. No suspicious mass. MESENTERY: No free fluid, fluid collection or adenopathy. BOWEL: Distal small-bowel, rectosigmoid colon, cecum, imaged ascending colon and appendix are intact. No bowel wall thickening. VASCULATURE: Noncontrast study. OSSEOUS STRUCTURES: No acute osseous abnormality. BODY WALL AND SOFT TISSUES: No acute abnormality. IMPRESSION: 1. No acute abdominal or pelvic inflammatory process. 2. No urinary tract calculi or hydronephrosis. 3. Normal appendix and no adenopathy. VKR/trn Workstation ID: [id number] Dictated by: MARIAH RIVERA on MonJan 06, 2022 3:04:04 PM EST Transcribed by: MILAD CONROY on MonJan 06, 2022 3:33:29 PM EST Finalized by: MARIAH RIVERA on MonJan 07, 2022 12:16:23 PM EST Normal [facility] Comment on above: Order Comment: Injur y/Trauma or Illness?:Illness/Other How long have you had these symptoms (acute/chronic)?:Acute Reason for exam?:flank pain Type of Exam?:Initial Additional signs and symptoms?:since yesterday URINALYSIS, REFLEX MICROSCOP ICon 06-18-2021 Bilirubin Ql (U) Negative Negative [facility] Clarity (Unsp spec) Clear Clear [facility] Color (U) Light Yellow Yellow [facility] Epithelial cells LM.HPF (Urine sed) [#/Area] Few [facility] Glucose Test strip (U) [Mass/Vol] Negative Negative [facility] Hemoglobin Ql (U) 1+ Abnormal Negative [facility] Hyaline casts (Urine sed) [#/Area] 4-10 /LPF Abnormal 0 /LPF [facility] Ketones Ql (U) Negative Negative [facility] Leukocyte esterase Test strip Ql (U) Negative Negative [facility] Nitrite Ql (U) Negative Negative [facility] pH (U) 6.5 [pH] 5.0 - 8.0 [facility] Protein (U) [Mass/Vol] Negative Negative [facility] RBC LM.HPF (Urine sed) [#/Area] 3-5 /HPF Abnormal 0-3 /HPF [facility] Specific gravity (U) [Rel density] 1.023 1.005 - 1.030 [facility] Urobilinogen Ql (U) 1+ Abnormal Negative [facility] WBC LM.HPF (Urine sed) [#/Area] 0-5 /HPF 0-5 /HPF [facility] RONI BY IFA SCREENon 06-01-19 RONI Pattern Cytoplasmic reticular/anti-mitochon drial [facility] RONI Titer 1:160 [facility] Nuclear Ab IF (S) [Titer] Positive Abnormal Negative [facility] CCP ANTIBODY IGGon Cyclic citrullinated peptide IgG Qn <15 <20 Units [facility] Cyclic citrullinated peptide IgG Qnon 05-31-2021 CCP Antibody IgG Qualitative Negative Negative [facility] VITAMIN D 25 HYDROXYon 05-31 25-hydroxyvitamin D3 [Mass/Vol] 8.1 ng/mL Low 31.0 - 80.0 ng/mL [facility] ANTI SSA BLDon 05-29-2021 Sjogrens syndrome-A extractable nuclear Ab Qn (S) <0.2 <1.0 AI [facility] C-REACTIVE PROTEIN (CRP)on 0 05-29-2021 CRP [Mass/Vol] mg/L <0.9 mg/dL [facility] Comprehensive metabolic 2000 panelon 05-29-2021 Albumin [Mass/Vol] 4.2 g/dL 3.9 - 4.9 g/dL [facility] ALP [Catalytic activity/Vol] 98 U/L 34 - 123 U/L [facility] ALT [Catalytic activity/Vol] 16 U/L 7 - 38 U/L [facility] Anion gap [Moles/Vol] 10 mmol/L 9 - 18 mmol/L [facility] AST [Catalytic activity/Vol] 16 U/L 13 - 35 U/L [facility] Bilirubin [Mass/Vol] mg/dL Low 0.2 - 1 .3 mg/dL [facility] Calcium [Mass/Vol] 9.2 mg/dL 8.5 - 10. 2 mg/dL [facility] Chloride [Moles/Vol] 107 mmol/L High 97 - 10 5 mmol/L [facility] CO2 [Moles/Vol] 24 mmol/L 22 - 30 mmol/L [facility] Creatinine [Mass/Vol] 0.72 mg/dL 0.58 - 0.96 mg/dL [facility] Estimated Glomerular Filtration Rate 104 mL/min/1.73m >=60 mL/min/1.73m [facility] Glucose [Mass/Vol] 93 mg/dL 74 - 99 mg/dL [facility] Potassium [Moles/Vol] 4.0 mmol/L 3.7 - 5.1 mmol/L [facility] Protein [Mass/Vol] 7.5 g/dL 6.3 - 8.0 g/dL [facility] Sodium [Moles/Vol] 141 mmol/L 136 - 144 mmol/L [facility] Urea nitrogen [Mass/Vol] 10 mg/dL 7 - 21 mg/dL [facility] Sjogrens syndrome-A extracta ble nuclear Ab Qn (S)on 05-29-2021 SSA Antibody Qual Negative Negative [facility] CBC W Auto Differential pane l (Bld)on 05-28-2021 Abs Immature Gran 0.06 k/uL <0.10 k/uL [facility] Basophils (Bld) [#/Vol] 0.12 10*3/uL High <0.11 k/uL [facility] Basophils/100 WBC (Bld) 0.9 % [facility] Differential cell count method Nom (Bld) Auto [facility] Eosinophils (Bld) [#/Vol] 0.70 10*3/uL High <0.46 k/uL [facility] Eosinophils/100 WBC (Bld) 5.4 % [facility] Erythrocyte distribution width (RBC) [Ratio] 13.3 % 11.5 - 15.0 % [facility] Hematocrit (Bld) [Volume fraction] 44.0 % 36.0 - 46.0 % [facility] Hemoglobin (Bld) [Mass/Vol] 13.6 g/dL 11.5 - 15.5 g/dL [facility] Immature Gran % 0.5 % [facility] Lymphocytes (Bld) [#/Vol] 3.98 10*3/uL 1.00 - 4.00 k/uL [facility] Lymphocytes/100 WBC (Bld) 30.7 % [facility] MCH (RBC) [Entitic mass] 29.5 pg 26.0 - 34.0 pg [facility] MCHC (RBC) [Mass/Vol] 30.9 g/dL 30.5 - 36.0 g/dL [facility] MCV (RBC) [Entitic vol] 95.4 fL 80.0 - 100.0 fL [facility] Monocytes (Bld) [#/Vol] 1.11 10*3/uL High <0.87 k/uL [facility] Monocytes/100 WBC (Bld) 8.6 % [facility] Neutrophils (Bld) [#/Vol] 7.01 10*3/uL 1.45 - 7.50 k/uL [facility] Neutrophils/100 WBC (Bld) 53.9 % [facility] Nucleated RBC (Bld) [#/Vol] 10*3/uL <0.01 k/uL [facility] Nucleated RBC/100 WBC (Bld) [Ratio] 0.0 /100 WBC [facility] Platelet mean volume (Bld) [Entitic vol] 10.4 fL 9.0 - 12.7 fL [facility] Platelets (Bld) [#/Vol] 367 10*3/uL 150 - 400 k/uL [facility] RBC (Bld) [#/Vol] 4.61 10*6/uL 3.90 - 5.2 0 m/uL [facility] WBC (Bld) [#/Vol] 12.98 10*3/uL High 3.70 - 11 .00 k/uL [facility] ESR Westergren method (Bld) [Velocity]on 05-28-2021 ESR (Bld) [Velocity] 8 mm/h 0 - 20 mm/hr [facility] No Panel Informationon 05-28 [facility] Urinalysis complete panel (U )on 05-28-2021 Bilirubin Ql (U) Negative Negative [facility] Clarity (Unsp spec) Cloudy Abnormal Clear [facility] Color (U) Yellow Yellow [facility] Epithelial cells LM.HPF (Urine sed) [#/Area] Few [facility] Glucose Test strip (U) [Mass/Vol] Negative Negative [facility] Hemoglobin Ql (U) 1+ Abnormal Negative [facility] Ketones Ql (U) Negative Negative [facility] Leukocyte esterase Test strip Ql (U) Negative Negative [facility] Nitrite Ql (U) Negative Negative [facility] pH (U) 7.0 [pH] 5.0 - 8.0 [facility] Protein (U) [Mass/Vol] Negative Negative [facility] RBC LM.HPF (Urine sed) [#/Area] 3-5 /HPF Abnormal 0-3 /HPF [facility] Specific gravity (U) [Rel density] 1.013 1.005 - 1.030 [facility] Urobilinogen Ql (U) Negative Negative [facility] WBC LM.HPF (Urine sed) [#/Area] 0-5 /HPF 0-5 /HPF [facility] Provider Note - ED v3on 03-24 Provider Note - ED v3 Provider Note: Chart Review: ED NOTES ED NOTES: Patient presents for evaluation of eye pain and redness and drainage that has been ongoing for the past few days. Pt does wear glasses. Patient denies any foreign bodies or falling scratching her eye. Denies fever, visual changes, visual floaters, nausea vomiting/diarrhea, body aches, nasal congestion, sore throat, ear pain or any other constitutional symptoms or complaints. No known recent illnesses or exposure to anyone with illness. HISTORY OF PRESENTING ILLNESS JO is a 45 year old Female and was seen by me at 13-Apr-2021 16:31. Triage Information: Most recent Vital Sign Value Date PAST MEDICAL HISTORY ALLERGIES/INTOLERANCES: No Known Allergies HEALTH HISTORY: No documented data. OUTPATIENT MEDICATIONS: Home Medications Review Status for Reconciliation: Complete Med Status: Patient Currently Takes Medications Drug Name: topiramate Instructions: null SIGNIFICANT EVENTS: No documented data. GRINDER SET UP OPERATOR EXTERNAL: Is : no Is : no REVIEW OF SYSTEMS All other systems reviewed and are negative REVIEW OF SYSTEMS: Comments See HPI PHYSICAL EXAM CONSTITUTIONAL: Well appearing, well nourished, awake, alert, oriented to person, place, time/situation and in no apparent distress. HENMT: Airway patent, ears with clear tympanic membranes bilaterally and slight clear middle ear effusion to left. Nasal mucosa clear. Mouth with normal mucosa. Throat has no vesicles, no oropharyngeal exudates and uvula is midline. Face with no lymph node enlargement. EYES: Right eye conjunctiva erythematous with purulent drainage, left eye clear, pupils equal, round and reactive to light. CARDIOVASCULAR: Normal rate, regular rhythm. Heart sounds S1, S2. No murmurs, rubs or gallops. PMI non-displaced. RESPIRATORY: Breath sounds clear and equal bilaterally. NEUROLOGICAL: Alert and oriented, no focal deficits, no motor or sensory deficits. SKIN: Skin normal color for race, warm, dry and intact. No evidence of trauma. PSYCHIATRIC: Alert and oriented to person, place, time/situation. normal mood and affect. No apparent risk to self or others. CRITICAL CARE VITAL SIGNS: T PRBP SpO2O2(LPM) %FiO2 Method 13-Apr-2021 16:24:[id number] 96 MDM MDM/ED COURSE: Rx ofloxacin drops. Encouraged otc analgesics for pain. Encouraged pt to f/u with opthalmology or go to ER if symptoms continue to worsen. Patient's clinical presentation is otherwise unremarkable at this time. Patient is discharged with instructions to follow-up with primary care or seek emergency medical attention for worsening symptoms or any new concerns. DISPOSITION Diagnosis/Annotation: ED Dx Name:Acute bacterial conjunctivitis of left eye Code:H10.32 Disposition: discharged Type: home CONSULT CRITICAL CARE TIME Is this a critically ill patient: no Electronic Signatures: Tigre Delgado (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) (Signed 13-Apr-2021 16:40) Authored: ED Notes, HPI, PMH, ROS, PE, Results/Vital Signs, MDM/ED Course, Clinical Impression, Attestation, Chart Review, Scores Last Updated: 13-Apr-2021 16:40 by Tigre Delgado (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) [facility] Vital Signs Date Time Vital Sign Value Performing Clinician Faci lity 05-30-2024 13:41-0400 Body mass index (BMI) [Ratio] 39.82 kg/m2 Carmelita Romo MD Work Phone: [facility] 05-30-2024 13:41-0400 Body weight 105.23 kg Carmelita Romo MD Work Phone: [facility] 05-30-2024 13:41-0400 Diastolic blood pressure 68 mm[Hg] Carmelita Romo MD Work Phone: [facility] 05-30-2024 13:41-0400 Heart rate 100 /min Carmelita Romo MD Work Phone: [facility] 05-30-2024 13:41-0400 SaO2% (BldA) [Mass fraction] 97 % Carmelita Romo MD Work Phone: [facility] 05-30-2024 13:41-0400 Systolic blood pressure 134 mm[Hg] Carmelita Romo MD Work Phone: [facility] 03-26-2024 08:25-0500 Diastolic blood pressure 88 mm[Hg] [address] 03-26-2024 08:25-0500 Heart rate 67 /min [address] 03-26-2024 08:25-0500 Respiratory rate 16 /min [address] 03-26-2024 08:25-0500 SaO2% (BldA) [Mass fraction] 97 % [address] 03-26-2024 08:25-0500 Systolic blood pressure 128 mm[Hg] [address] 03-26-2024 07:47-0500 Body temperature 97.5 [degF] [address] 03-26-2024 06:11-0500 Body mass index (BMI) [Ratio] 38.75 kg/m2 [address] 03-26-2024 06:11-0500 Body weight 102.[address] 03-21-2024 08:51-0500 Body height 162.6 cm Darrel Gomez MD Work Phone: [facility] 03-21-2024 08:51-0500 Body mass index (BMI) [Ratio] 39.69 kg/m2 Darrel Gomez MD Work Phone: [facility] 03-21-2024 08:51-0500 Body weight 104.87 kg Darrel Gomez MD Work Phone: [facility] 03-21-2024 08:51-0500 Diastolic blood pressure 82 mm[Hg] Darrel Gomez MD Work Phone: [facility] 03-21-2024 08:51-0500 Heart rate 84 /min Darrel Gomez MD Work Phone: [facility] 03-21-2024 08:51-0500 Systolic blood pressure 122 mm[Hg] Darrel Gomez MD Work Phone: [facility] 03-04-2024 15:43-0500 Body height 162.6 cm Carmelita Romo MD Work Phone: [facility] 03-04-2024 15:43-0500 Body mass index (BMI) [Ratio] 39.34 kg/m2 Carmelita Romo MD Work Phone: [facility] 03-04-2024 15:43-0500 Body temperature 98.4 [degF] Carmelita Romo MD Work Phone: [facility] 03-04-2024 15:43-0500 Body weight 103.96 kg Carmelita Romo MD Work Phone: [facility] 03-04-2024 15:43-0500 Diastolic blood pressure 76 mm[Hg] Carmelita Romo MD Work Phone: [facility] 03-04-2024 15:43-0500 Systolic blood pressure 128 mm[Hg] Carmelita Romo MD Work Phone: [facility] 11-15-2023 11:17-0400 Body height 162.6 cm Carmelita Romo MD Work Phone: [facility] 11-15-2023 11:17-0400 Body mass index (BMI) [Ratio] 39.43 kg/m2 Carmelita Romo MD Work Phone: [facility] 11-15-2023 11:17-0400 Body weight 104.19 kg Carmelita Romo MD Work Phone: [facility] 11-15-2023 11:17-0400 Diastolic blood pressure 76 mm[Hg] Carmelita Romo MD Work Phone: [facility] 11-15-2023 11:17-0400 SaO2% (BldA) [Mass fraction] 97 % Carmelita Romo MD Work Phone: [facility] 11-15-2023 11:17-0400 Systolic blood pressure 118 mm[Hg] Carmelita Romo MD Work Phone: [facility] 10-16-2023 14:11-0400 Body height 162.6 cm [facility] 10-16-2023 14:11-0400 Body mass index (BMI) [Ratio] 37.76 kg/m2 [facility] 10-16-2023 14:11-0400 Body weight 99.79 kg [facility] 08-14-2023 08:02-0400 Body height 162.6 cm Carmelita Romo MD Work Phone: [facility] 08-14-2023 08:02-0400 Body mass index (BMI) [Ratio] 37.64 kg/m2 Carmelita Romo MD Work Phone: [facility] 08-14-2023 08:02-0400 Body weight 99.47 kg Carmelita Romo MD Work Phone: [facility] 08-14-2023 08:02-0400 Diastolic blood pressure 76 mm[Hg] Carmelita Romo MD Work Phone: [facility] 08-14-2023 08:02-0400 Heart rate 95 /min Carmelita Romo MD Work Phone: [facility] 08-14-2023 08:02-0400 SaO2% (BldA) [Mass fraction] 97 % Carmelita Romo MD Work Phone: [facility] 08-14-2023 08:02-0400 Systolic blood pressure 114 mm[Hg] Carmelita Romo MD Work Phone: [facility] 06-22-2023 14:24-0400 Body height 162.6 cm Carmelita Romo MD Work Phone: [facility] 06-22-2023 14:24-0400 Body mass index (BMI) [Ratio] 37.73 kg/m2 Carmelita Romo MD Work Phone: [facility] 06-22-2023 14:24-0400 Body weight 99.7 kg Carmelita Romo MD Work Phone: [facility] 06-22-2023 14:24-0400 Diastolic blood pressure 82 mm[Hg] Carmelita Romo MD Work Phone: [facility] 06-22-2023 14:24-0400 Heart rate 89 /min Carmelita Romo MD Work Phone: [facility] 06-22-2023 14:24-0400 SaO2% (BldA) [Mass fraction] 96 % Carmelita Romo MD Work Phone: [facility] 06-22-2023 14:24-0400 Systolic blood pressure 108 mm[Hg] Carmelita Romo MD Work Phone: [facility] 06-08-2022 17:26-0400 Body temperature 98.2 [degF] Darrian Diaz MD Work Phone: [facility] 06-08-2022 17:26-0400 Body weight 92.99 kg Darrian Diaz MD Work Phone: [facility] 06-08-2022 17:26-0400 Diastolic blood pressure 92 mm[Hg] Darrian Diaz MD Work Phone: [facility] 06-08-2022 17:26-0400 Heart rate 72 /min Darrian Diaz MD Work Phone: [facility] 06-08-2022 17:26-0400 Respiratory rate 16 /min Darrian Diaz MD Work Phone: [facility] 06-08-2022 17:26-0400 Systolic blood pressure 146 mm[Hg] Darrian Diaz MD Work Phone: [facility] 02-09-2022 19:24-0500 Body temperature 98.06 [degF] Text Entry [facility] 02-09-2022 19:24-0500 Diastolic blood pressure 97 mm[Hg] Text Entry [facility] 02-09-2022 19:24-0500 Heart rate 76 /min Text Entry [facility] 02-09-2022 19:24-0500 Respiratory rate 16 /min Text Entry [facility] 02-09-2022 19:24-0500 SaO2% (BldA) [Mass fraction] 100 % Text Entry [facility] 02-09-2022 19:24-0500 Systolic blood pressure 118 mm[Hg] Text Entry [facility] 02-09-2022 16:11-0500 Body height 162.5 cm Text Entry [facility] 02-09-2022 16:11-0500 Body weight 86.4 kg Text Entry [facility] 06-18-2021 08:50-0400 Body weight 90.72 kg Elroy Clinton MD Work Phone: [facility] 06-18-2021 08:50-0400 Diastolic blood pressure 85 mm[Hg] Elroy Clinton MD Work Phone: [facility] 06-18-2021 08:50-0400 Heart rate 86 /min Elroy Clinton MD Work Phone: [facility] 06-18-2021 08:50-0400 Systolic blood pressure 125 mm[Hg] Elroy Clinton MD Work Phone: [facility] 05-28-2021 15:01-0400 Body height 162.6 cm Candie Christina MD Work Phone: [facility] 05-28-2021 15:01-0400 Body temperature 97.81 [degF] Candie Christina MD Work Phone: [facility] 05-28-2021 15:01-0400 Body weight 92.99 kg Candie Christina MD Work Phone: [facility] 05-28-2021 15:01-0400 Diastolic blood pressure 66 mm[Hg] Candie Christina MD Work Phone: [facility] 05-28-2021 15:01-0400 Heart rate 77 /min Candie Christina MD Work Phone: [facility] 05-28-2021 15:01-0400 Systolic blood pressure 128 mm[Hg] Candie Christina MD Work Phone: [facility] Encounters Encounter Date Encounter Type Care Provider Facility Start: 07-27-2024 ambulatory [facility] Facility :[facility] Start: 07-18-2024 End: 07-18-[address] Darrian Diaz MD Work Phone: [facility] Work Phone: Start: 07-18-2024 End: 07-18-[address] Natalie Caballero MD -Laboratory [place] Work Phone: Start: 07-18-2024 End: 07-18-2024 ambulatory [facility] Facility:[facility] Start: 05-30-2024 End: 05-30-2024 Office outpatient visit 15 minutes Carmelita Romo MD Work Phone: [facility] Comment on above: Acute pain of left k nee (Primary Dx) Start: 05-30-2024 End: 05-30-2024 ambulatory CARMELITA ROMO [facility] Start: 05-09-2024 End: 05-09-2024 Chart abstracting Darrian Diaz MD Work Phone: [facility] Comment on above: Outside Axon-Rec-IDF Ordered Start: 05-08-2024 End: 05-08-2024 Chart abstracting Darrian Diaz MD Work Phone: [facility] Comment on above: Outside Imaging; Out side Ddtj-Msx-ZOK Ordered Start: 05-07-2024 End: 05-07-[address] Darrian Diaz MD Work Phone: [facility] Work Phone: Start: 05-07-2024 End: 05-07-[address] Natalie Caballero MD -Laboratory, [place] Work Phone: Start: 05-07-2024 End: 05-07-2024 ambulatory Natalie Caballero Facility:[facility] Start: 03-26-2024 End: 03-26-2024 Subsequent hospital visit by physician Darrel Gomez MD Work Phone: [facility] [place] Comment on above: Colon cancer screeni ng Start: 03-26-2024 End: 03-26-2024 [facility] Start: 03-21-2024 End: 03-21-2024 Office consultation new/estab patient 40 min Darrel Gomez MD Work Phone: [facility] Comment on above: Colon cancer screeni ng (Primary Dx) Start: 03-21-2024 End: 03-21-2024 [facility] Start: 03-05-2024 End: 03-05-2024 ambulatory [facility] Start: 03-04-2024 End: 03-04-2024 Office outpatient visit 25 minutes Carmelita Romo MD Work Phone: [facility] Comment on above: Dysuria (Primary Dx) ; Frequency of urination; Acute cystitis with hematuria; Arthralgia, unspecified joint; Joint swelling; Migraine without status migrainosus, not intractable, unspecified migraine type; Screen for colon cancer Start: 03-04-2024 End: 03-04-2024 ambulatory [facility] Start: 11-24-2023 End: 11-24-2023 Subsequent hospital visit by physician Cortez Riojas [facility] Comment on above: Abdominal pain, unsp ecified abdominal location; Bowel habit changes Start: 11-24-2023 End: 11-24-2023 ambulatory [facility] Start: 11-15-2023 End: 11-15-2023 Office outpatient visit 15 minutes Carmelita Romo MD Work Phone: [facility] Comment on above: Abdominal pain, unsp ecified abdominal location (Primary Dx); Bowel habit changes Start: 11-15-2023 End: 11-15-2023 ambulatory [facility] Start: 11-01-2023 End: 11-06-2023 ambulatory Darrian Diaz MD Work Phone: [facility] Start: 10-25-2023 End: 10-25-2023 Subsequent hospital visit by physician Rad External Film [facility] Comment on above: Arrived Start: 10-25-2023 End: 10-25-2023 ambulatory CARMELITA Guzman [facility] Start: 10-16-2023 End: 10-16-2023 Subsequent hospital visit by physician Cortez Thacker [facility] Comment on above: Screening mammogram for breast cancer Start: 10-16-2023 End: 10-16-2023 ambulatory CARMELITA [facility] Start: 08-14-2023 End: 08-14-2023 Office outpatient visit 25 minutes Carmelita Romo MD Work Phone: [facility] Comment on above: Migraine without sta tus migrainosus, not intractable, unspecified migraine type (Primary Dx); RAOUL (obstructive sleep apnea); Smoker Start: 08-14-2023 End: 08-14-2023 ambulatory CARMELITA Guzman [facility] Start: 07-03-2023 End: 07-03-2023 ambulatory CARMELITA Guzman [facility] Start: 06-28-2023 End: 06-28-2023 ambulatory [facility] Start: 06-22-2023 End: 06-22-2023 ambulatory [facility] Start: 06-22-2023 End: 06-22-2023 Office outpatient new 30 minutes Carmelita Romo MD Work Phone: [facility] Comment on above: Migraine without sta tus migrainosus, not intractable, unspecified migraine type (Primary Dx); Witnessed episode of apnea; Snoring; 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 Start: 06-22-2023 End: 06-22-2023 Patient encounter status Carmelita Romo MD Work Phone: [facility] Work Phone: Start: 06-22-2023 End: 06-22-2023 ambulatory CARMELITA ROMO [facility] Start: 06-22-2023 End: 06-22-2023 Encounter for general adult medical examination without abnormal findings [facility] Start: 06-19-2023 End: 06-19-2023 ambulatory [facility] Start: 06-14-2023 End: 06-14-2023 ambulatory [facility] Start: 06-08-2023 End: 06-08-2023 ambulatory [facility] Start: 06-01-2023 End: 06-01-2023 ambulatory [facility] Start: 05-29-2023 End: 05-29-2023 ambulatory JESSICA CHAMPION [facility] Start: 05-26-2023 End: 05-26-2023 ambulatory [facility] Start: 04-20-2023 End: 04-20-2023 Subsequent hospital visit by physician Cortez [id number] X-Ray [facility] Comment on above: Strain of muscle, fa scia and tendon of lower back, initial encounter Start: 04-20-2023 End: 04-20-2023 ambulatory [facility] Start: 04-18-2023 End: 04-19-2023 ambulatory ERIC TORRES [facility] Start: 04-18-2023 End: 04-18-2023 Subsequent hospital visit by physician Cortez prajapati Cr Nonv1 Ecg Resource [facility] Comment on above: Arrived Start: 04-18-2023 End: 04-18-2023 Emergency department patient visit CARMELITA ROMO [facility] Start: 09-28-2022 Documentation procedure Mammography Coordinator [facility] Start: 09-28-2022 Letter encounter Mammography Coordin ator STRONG ANCILLARY AREA NOT LISTED Start: 09-28-2022 Telephone encounter Darrian Diaz MD Work Phone: [facility] Comment on above: Results Start: 09-27-2022 ambulatory DARRIAN DIAZ [facility]il[facility] ty:[facility] Start: 09-27-2022 End: 09-27-2022 Subsequent hospital visit by physician Mammo/Bone Density [facility] Start: 09-21-2022 ambulatory Darrian devries MD Work Phone: Internal Medicine Main [place] Start: 06-09-2022 E-mail encounter ruby m caregiver Blanka Sorenson MA [facility] Start: 06-09-2022 Patient encounter procedure Blanka Sorenson MA [facility] Comment on above: Appointment Start: 06-08-2022 End: 06-08-2022 Patient encounter procedure Darrian Diaz MD Work Phone: [facility] Comment on above: Digital mucinous cys t of finger of left hand (Primary Dx); Pain of finger of left hand; Cellulitis of skin Start: 02-09-2022 End: 02-09-2022 Emergency department patient visit Franchesca Gonzalez [facility] Emergency 10 Start: 01-06-2022 End: 01-06-2022 Emergency department patient visit TERESE BANKS [facility] Start: 09-04-2021 Refill Deborah dyer MD Work Phone: Neurology Comment on above: Refill Request Start: 08-18-2021 Telephone encounter April calvillo PA-C Work Phone: [facility] Comment on above: Results Start: 08-17-2021 End: 08-17-2021 Subsequent hospital visit by physician Screen Mammo [facility] Comment on above: Encounter for screen ing mammogram for malignant neoplasm of breast [Z12.31] Start: 06-18-2021 ambulatory Elroy cyr MD Work Phone: Urology Start: 06-18-2021 End: 06-18-2021 Patient encounter procedure Elroy Clinton MD Work Phone: Urology Comment on above: Microscopic hematuri a Start: 06-01-2021 Telephone encounter Candie Christina MD Work Phone: [facility] Comment on above: Orders; Patient Upda te; Results Start: 05-28-2021 End: 05-28-2021 Subsequent hospital visit by physician Xr Main A21 Radiology Comment on above: Positive RONI (antinu clear antibody) [R76.8] Start: 05-28-2021 End: 05-28-2021 Patient encounter procedure Candie Christina MD Work Phone: Rheumatology Comment on above: Positive RONI (antinu clear antibody) (Primary Dx); Bilateral hand pain; Bilateral hand numbness; Disrupted sleep-wake cycle Start: 04-13-2021 End: 04-13-2021 Emergency department patient visit Ms. Kina Benedict [facility]:[id number] Start: 07-08-2020 Patient encounter status Xr A21 [facility] Work Phone: Procedures Date Procedure Procedure Detail Performing Clinician Start: 05-07-2024 Hepatitis C antibody measurement Dr. Darrian Diaz MD Work Phone: Comment on above: Reactive: Presumptiv e evidence of antibodies to HCV. Follow CDC recommendations for supplemental testing.Non-Reactive: Antibodies to HCV were not detected; does not exclude the possibility of exposure to HCVReactive Results are presumptive evidence of antibodies to HCV. Follow CDC recommendations for supplemental testing.Order confirmation testing: HCV Quant by PCR testing - HCVPCR #[id number] Non Reactive: < 0.8 Equivocal: >/= 0.8 to < 1.0 Reactive: >/= 1.0The CDC requires that a reactive/equivocal HCV antibody result be sent out for confirmation. HCV Quant by PCR testing. Start: 05-07-2024 Plain radiography of pelvis Dr. Darrian Diaz MD Work Phone: Start: 05-07-2024 Plain x-ray of hand Dr. Darrian Diaz MD Work Phone: Start: 03-26-2024 PULSE OXIMETRY, CONTINUOUS Jason Morin MD Work Phone: Start: 03-26-2024 Colonoscopy flx dx w /collj spec when pfrmd Darrel Gomez MD Work Phone: Start: 03-26-2024 Colonoscopy Cortez 04 Start: 03-05-2024 Lipid 1996 panel - S david or Plasma Darrel Gomez MD Work Phone: Start: 03-04-2024 Urnls dip stick/tabl et rgnt auto w/o microscopy Carmelita Romo MD Work Phone: Start: 10-25-2023 End: 10-25-2023 Study Interpretation of outside study Self Referral Mammogram Start: 10-16-2023 Mammography Rad Film Start: 07-03-2023 HOME SLEEP APNEA TEST (HSAT) CARMELITA ROMO Start: 06-28-2023 FOLLOW UP IN PHYSICA L THERAPY CARMELITA ROMO Start: 06-22-2023 FOLLOW UP IN PHYSICA L THERAPY CARMELITA ROMO Start: 06-22-2023 CBC W Auto Different ial panel - Blood CARMELITA ROMO Start: 06-22-2023 Comprehensive metabo lic 2000 panel - Serum or Plasma CARMELITA ROMO Start: 06-22-2023 Cyanocobalamin vitamin b-12 CARMELITA ROMO Start: 06-22-2023 Lipid panel CARMELITA ROMO Start: 06-22-2023 TSH WITH REFLEX TO F REE T4 IF ABNORMAL CARMELITA ROMO Start: 06-22-2023 Lipid 1996 panel - S david or Plasma Carmelita Romo MD Work Phone: Start: 06-19-2023 FOLLOW UP IN PHYSICA L THERAPY CARMELITA ROMO Start: 06-14-2023 FOLLOW UP IN PHYSICA L THERAPY CARMELITA ROMO Start: 06-08-2023 FOLLOW UP IN PHYSICA L THERAPY CARMELITA ROMO Start: 06-01-2023 FOLLOW UP IN PHYSICA L THERAPY CARMELITA ROMO Start: 05-29-2023 FOLLOW UP IN PHYSICA L THERAPY CARMELITA ROMO Start: 04-05-2024 AMB REFERRAL TO PHYS ICAL THERAPY CARMELITA ROMO Start: 04-20-2023 XR LUMBAR SPINE 2-3 VIEWS CARMELITA ROMO Start: 04-20-2023 Radex spine lumbosac ral 2/3 views Cathie Ken APRN-LOSS PREVENTION LEADER Work Phone: Start: 04-18-2023 CT ABDOMEN PELVIS W IV CONTRAST CARMELITA ROMO Start: 04-18-2023 CBC panel - Blood by Automated count CARMELITA ROMO Start: 04-18-2023 Comprehensive metabo lic 2000 panel - Serum or Plasma CARMELITA ROMO Start: 04-18-2023 TROPONIN I, HIGH SENSITIVITY CARMELITA ROMO Start: 04-18-2023 ECG 12-LEAD CARMELITA ROMO Start: 04-18-2023 XR CHEST 1 VIEW CK ROMO Start: 04-18-2023 Ecg routine ecg w/le ast 12 lds trcg only w/o i&r Eric Torres PA-C Work Phone: Start: 09-27-2022 Mammography Darrian soni MD Work Phone: Start: 02-09-2022 End: 02-09-2022 EKG impression Franchesca Gonzalez Start: 08-17-2021 End: 08-17-2021 Screening mammography bi 2-view breast inc cad April Jefferson PA-C Work Phone: Start: 06-18-2021 Urnls dip stick/tabl et reagent auto microscopy Bulk Order Provider Start: 05-28-2021 Radex hand minimum 3 views Brook Rodriguez MD Work Phone: Start: 12-10-2020 Adult depression scr eening assessment Xr A21 Start: 07-10-2020 Mammography Xr A21 Start: 06-30-2020 Lipid 1996 panel - S david or Plasma Darrian Diaz MD Work Phone: Start: 05-06-2015 Colonoscopy Xr A21 Plan of Treatment Date Care Activity Detail Author Start: 03-24-2034 Screening for malign ant neoplasm of colon [facility] Start: 03-05-2029 Lipid panel Lipid Panel [facility] Start: 06-21-2028 Lipid panel Lipid Panel [facility] Start: 04-18-2026 Diabetes Screening Diabetes Screenin g [facility] Start: 06-30-2025 [facility] Start: 06-30-2025 LIPID SCREEN LIPID SCREEN [facility] Start: 05-05-2025 Colonoscopy COLONOSCOPY [facility] Start: 05-05-2025 COLORECTAL CANCER SCREENING COLORECTAL CANCER SCREENING [facility] Start: 05-05-2025 Screening for malign ant neoplasm of colon [facility] Start: 02-09-2025 DIABETES SCREEN [facility]EN [facility] Start: 10-21-2024 Influenza vaccination Influenz a Vaccine (Season Ended) [facility] Start: 10-15-2024 Screening for malign ant neoplasm of breast Mammogram [facility] Start: 09-02-2024 End: 09-02-2024 Patient encounter procedure 09/02/2024 8:20 AM EDT Office Visit [address] [id number] Carmelita Romo MD [address] [place] [id number] [facility] Start: 05-30-2024 End: 05-30-2025 XR Knee - left 4 Views XR knee left 4+ views Imaging Routine Acute pain of left knee Expected: 05/30/2024, Expires: 05/30/2025 [facility] Service Area Work Phone: Comment on above: Expected: 05/30/2024 , Expires: 05/30/2025 Start: 05-28-2024 DIABETES SCREEN [facility]ET[facility] SCREEN [facility] Start: 2024 Pneumococcal vaccination Pneum ococcal Vaccine (1 of 1 - PCV) [facility] Start: 2024 Pneumococcal Vaccine : 50+ (1 of 1 - PCV) Pneumococcal Vaccine: 50+ (1 of 1 - PCV) [facility] Start: 2024 Shingrix Vaccine (1 of 2) Shingrix Vaccine (1 of 2) [facility] Start: 2024 Zoster Vaccines (1 of 2) Zoste r Vaccines (1 of 2) [facility] Start: 03-21-2024 End: 03-21-2025 Colonoscopy study Colonoscopy Screening; Average Risk Patient Endoscopy Routine Colon cancer screening Expected: 03/21/2024, Expires: 03/21/2025 [facility] Work Phone: Comment on above: Expected: 03/21/2024 , Expires: 03/21/2025 Start: 03-04-2024 End: 03-04-2025 25-hydroxyvitamin D3 [Mass/volume] in Serum or Plasma Vitamin D 25-Hydroxy,Total (for eval of Vitamin D levels) Lab Routine Arthralgia, unspecified joint Joint swelling Migraine without status migrainosus, not intractable, unspecified migraine type Expected: 03/04/2024 (Approximate), Expires: 03/04/2025 [facility] Work Phone: Comment on above: Expected: 03/04/2024 (Approximate), Expires: 03/04/2025 Start: 03-04-2024 End: 03-11-2024 Bacteria identified in Urine by Culture [facility] Work Phone: Comment on above: Expected: 03/04/2024 (Approximate), Expires: 03/11/2024 Start: 03-04-2024 End: 03-04-2025 C reactive protein [Mass/volume] in Serum or Plasma C-Reactive Protein Lab Routine Arthralgia, unspecified joint Joint swelling Migraine without status migrainosus, not intractable, unspecified migraine type Expected: 03/04/2024 (Approximate), Expires: 03/04/2025 [facility] Work Phone: Comment on above: Expected: 03/04/2024 (Approximate), Expires: 03/04/2025 Start: 03-04-2024 End: 03-04-2025 CBC W Auto Differential panel - Blood CBC and Auto Differential Lab Routine Arthralgia, unspecified joint Joint swelling Migraine without status migrainosus, not intractable, unspecified migraine type Expected: 03/04/2024 (Approximate), Expires: 03/04/2025 [facility] Work Phone: Comment on above: Expected: 03/04/2024 (Approximate), Expires: 03/04/2025 Start: 03-04-2024 End: 03-04-2025 Cobalamin (Vitamin B12) [Mass/volume] in Serum or Plasma Vitamin B12 Lab Routine Arthralgia, unspecified joint Joint swelling Migraine without status migrainosus, not intractable, unspecified migraine type Expected: 03/04/2024 (Approximate), Expires: 03/04/2025 [facility] Work Phone: Comment on above: Expected: 03/04/2024 (Approximate), Expires: 03/04/2025 Start: 03-04-2024 End: 03-04-2025 Colonoscopy study Colonoscopy Screening; Average Risk Patient Endoscopy Routine Screen for colon cancer Expected: 03/04/2024 (Approximate), Expires: 03/04/2025 [facility] Work Phone: Comment on above: Expected: 03/04/2024 (Approximate), Expires: 03/04/2025 Start: 03-04-2024 End: 03-04-2025 Comprehensive metabolic 2000 panel - Serum or Plasma Comprehensive Metabolic Panel Lab Routine Arthralgia, unspecified joint Joint swelling Migraine without status migrainosus, not intractable, unspecified migraine type Expected: 03/04/2024 (Approximate), Expires: 03/04/2025 [facility] Work Phone: Comment on above: Expected: 03/04/2024 (Approximate), Expires: 03/04/2025 Start: 03-04-2024 End: 03-04-2025 Erythrocyte sedimentation rate Sedimentation Rate Lab Routine Arthralgia, unspecified joint Joint swelling Migraine without status migrainosus, not intractable, unspecified migraine type Expected: 03/04/2024 (Approximate), Expires: 03/04/2025 [facility] Work Phone: Comment on above: Expected: 03/04/2024 (Approximate), Expires: 03/04/2025 Start: 03-04-2024 End: 03-04-2025 Lipid 1996 panel - Serum or Plasma Lipid Panel Lab Routine Arthralgia, unspecified joint Joint swelling Migraine without status migrainosus, not intractable, unspecified migraine type Expected: 03/04/2024 (Approximate), Expires: 03/04/2025 [facility] Work Phone: Comment on above: Expected: 03/04/2024 (Approximate), Expires: 03/04/2025 Start: 03-04-2024 End: 03-04-2025 Magnesium [Mass/volume] in Serum or Plasma Magnesium Lab Routine Arthralgia, unspecified joint Joint swelling Migraine without status migrainosus, not intractable, unspecified migraine type Expected: 03/04/2024 (Approximate), Expires: 03/04/2025 [facility] Work Phone: Comment on above: Expected: 03/04/2024 (Approximate), Expires: 03/04/2025 Start: 03-04-2024 End: 03-04-2025 Nuclear Ab [Presence] in Serum by Hep2 substrate RONI with Reflex to LEVI Lab Routine Arthralgia, unspecified joint Joint swelling Migraine without status migrainosus, not intractable, unspecified migraine type Expected: 03/04/2024 (Approximate), Expires: 03/04/2025 [facility] Work Phone: Comment on above: Expected: 03/04/2024 (Approximate), Expires: 03/04/2025 Start: 03-04-2024 End: 03-04-2025 Rheumatoid factor [Units/volume] in Serum by Nephelometry Rheumatoid Factor Lab Routine Arthralgia, unspecified joint Joint swelling Migraine without status migrainosus, not intractable, unspecified migraine type Expected: 03/04/2024 (Approximate), Expires: 03/04/2025 [facility] Work Phone: Comment on above: Expected: 03/04/2024 (Approximate), Expires: 03/04/2025 Start: 03-04-2024 End: 03-04-2025 TSH with reflex to Free T4 if abnormal TSH with reflex to Free T4 if abnormal Lab Routine Arthralgia, unspecified joint Joint swelling Migraine without status migrainosus, not intractable, unspecified migraine type Expected: 03/04/2024 (Approximate), Expires: 03/04/2025 [facility] Work Phone: Comment on above: Expected: 03/04/2024 (Approximate), Expires: 03/04/2025 Start: 02-12-2024 End: 02-12-2024 Patient encounter procedure [facility] Start: 11-24-2023 End: 11-24-2023 Patient encounter procedure 11/24/2023 9:15 AM EDT Appointment [facility] [address] [place] [address] [facility] Start: 11-15-2023 End: 11-14-2024 CBC W Auto Differential panel - Blood [facility] Service Area Work Phone: Comment on above: Expected: 11/15/2023 (Approximate), Expires: 11/14/2024 Start: 11-15-2023 End: 11-14-2024 Comprehensive metabolic 2000 panel - Serum or Plasma [facility] Work Phone: Comment on above: Expected: 11/15/2023 (Approximate), Expires: 11/14/2024 Start: 11-15-2023 End: 11-14-2024 CT Abdomen and Pelvis WO and W contrast IV CT abdomen pelvis w and wo IV contrast Imaging Routine Abdominal pain, unspecified abdominal location Bowel habit changes Expected: 11/15/2023, Expires: 11/14/2024 [facility] Work Phone: Comment on above: Expected: 11/15/2023 , Expires: 11/14/2024 Start: 11-15-2023 End: 11-14-2024 Magnesium [Mass/volume] in Serum or Plasma [facility] Work Phone: Comment on above: Expected: 11/15/2023 (Approximate), Expires: 11/14/2024 Start: 11-15-2023 End: 11-14-2024 TSH with reflex to Free T4 if abnormal [facility] Work Phone: Comment on above: Expected: 11/15/2023 (Approximate), Expires: 11/14/2024 Start: 10-22-2023 COVID-19 Vaccine ( season) COVID-19 Vaccine () [facility] Start: 10-22-2023 Covid-19 Vaccine ( season) Covid-19 Vaccine () [facility] Start: 10-22-2023 Covid-19 Vaccine () Covid-19 Vaccine () [facility] Start: 10-22-2023 Influenza vaccination U [facility] Start: 10-12-2023 End: 12-11-2024 DBT Breast - bilateral BI mammo bilateral screening tomosynthesis Imaging Routine Screening mammogram for breast cancer Expected: 10/12/2023, Expires: 12/11/2024 [facility] Service Area Comment on above: Expected: 10/12/2023 , Expires: 12/11/2024 Start: 09-28-2023 Mammography MAMMOGRAM [facility] Start: 09-28-2023 Screening for malign ant neoplasm of breast [facility] Start: 08-01-2023 End: 08-01-2023 Patient encounter procedure 08/01/2023 2:00 PM EDT Office Visit [facility] [address] [place] [id number] Carmelita Romo MD [address] [facility] [place] [address] [facility] Start: 07-01-2023 Diabetes mellitus screening Diabetes Screening [facility] Start: 07-01-2023 DIABETES SCREEN DIABETES SCREEN [facility] Start: 06-28-2023 End: 06-28-2023 ambulatory 06/28/2023 3:45 PM EDT Treatment [facility] [address] [place] [id number] Ross Vanegas, PT [address] [facility] [place] [address] [facility] Start: 06-23-2023 End: 06-23-2023 ambulatory 06/23/2023 4:15 PM EDT Treatment [facility] [place] [address] [place] [id number] Ross Vanegas, PT [address] [facility] [place] [address] [facility] Start: 06-22-2023 End: 06-21-2024 CBC W Auto Differential panel - Blood [facility] Work Phone: Comment on above: Expected: 06/22/2023 (Approximate), Expires: 06/21/2024 Start: 06-22-2023 End: 06-21-2024 Cobalamin (Vitamin B12) [Mass/volume] in Serum or Plasma [facility] Work Phone: Comment on above: Expected: 06/22/2023 (Approximate), Expires: 06/21/2024 Start: 06-22-2023 End: 06-21-2024 Comprehensive metabolic 2000 panel - Serum or Plasma [facility] Work Phone: Comment on above: Expected: 06/22/2023 (Approximate), Expires: 06/21/2024 Start: 06-22-2023 End: 06-21-2024 Home sleep apnea test (HSAT) Home sleep apnea test (HSAT) Sleep Center Routine Witnessed episode of apnea Snoring Expected: 06/22/2023 (Approximate), Expires: 06/21/2024 [facility] Service Area Work Phone: Comment on above: Expected: 06/22/2023 (Approximate), Expires: 06/21/2024 Start: 06-22-2023 End: 06-21-2024 Lipid 1996 panel - Serum or Plasma [facility] Work Phone: Comment on above: Expected: 06/22/2023 (Approximate), Expires: 06/21/2024 Start: 06-22-2023 End: 06-21-2024 TSH with reflex to Free T4 if abnormal [facility] Work Phone: Comment on above: Expected: 06/22/2023 (Approximate), Expires: 06/21/2024 Start: 06-09-2023 ANNUAL PCP TEAM STROKE COORDINATOR EVAN DISEASE VISIT ANNUAL PCP TEAM CHRONIC DISEASE VISIT [facility] Start: 10-21-2022 COVID-19 Vaccine () COVID-19 Vaccine () [facility] Start: 10-21-2022 Influenza vaccination C [facility] Start: 08-17-2022 Mammography MAMMOGRAM [facility] Start: 07-23-2022 DTaP/Tdap/Td Vaccine s (2 - Td or Tdap) DTaP/Tdap/Td Vaccines (2 - Td or Tdap) [facility] Start: 07-23-2022 Urine microalbumin profile [facility] Start: 05-28-2022 BP CONTROLLED (<130/80) BP CONTROLLE D (<130/80) [facility] Start: 05-23-2022 HPV TESTING HPV TESTING [facility] Start: 05-23-2022 PAP TESTING PAP TESTING [facility] Start: 02-20-2022 DEPRESSION ASSESSMENT DEPRESSION ASS ESSMENT [facility] Start: 02-09-2022 End: 02-10-2023 [facility] Start: 12-10-2021 Adult depression screening assessment DEPRESSION SCREENING [facility] Start: 10-21-2021 Influenza vaccination C [facility] Start: 07-10-2021 Mammography MAMMOGRAM [facility] Start: 07-08-2021 ANNUAL PCP TEAM STROKE COORDINATOR EVAN DISEASE VISIT ANNUAL PCP TEAM CHRONIC DISEASE VISIT [facility] Start: 07-08-2021 HEPATITIS C SCREENING HEPATITIS C SC HUMAIRA [facility] Comment on above: Postponed from 04/21 (Declined at this time) Start: 07-08-2021 HIV SCREENING HIV SCREENING [facility] Comment on above: Postponed from 04/21 (Declined at this time) Start: 05-28-2021 End: 07-28-2021 RNA POLYMERASE III AB [facility] Work Phone: Comment on above: Expected: 05/28/2021 , Expires: 07/28/2021 Start: 11-13-2020 COVID-19 VACCINE (3 - Booster for Pfizer series) COVID-19 VACCINE (3 - Booster for Pfizer series) [facility] Start: 08-08-2020 COVID-19 VACCINE (3 - Booster for Pfizer series) COVID-19 VACCINE (3 - Booster for Pfizer series) [facility] Start: 08-08-2020 COVID-19 VACCINE (3 - Pfizer series) COVID-19 VACCINE (3 - Pfizer series) [facility] Start: 05-23-2020 Screening for malign ant neoplasm of cervix Cervical Cancer Screening [facility] Start: 04-22-2019 COLOGUARD (FIT-DNA) COLOGUARD (FIT-D NA) [facility] Start: 04-22-[address] COLONOGRAPHY [facility] Start: 04-22-2019 FECAL OCCULT BLOOD FECAL OCCULT BLOO D [facility] Start: 04-22-2019 Screening for malign ant neoplasm of colon [facility] Start: 04-22-2019 SIGMOIDOSCOPY SIGMOIDOSCOPY [facility] Start: 04-22-1995 Screening for malign ant neoplasm of cervix [facility] Start: 1993 Hepatitis B Vaccine (1 of 3 - 19+ 3-dose series) Hepatitis B Vaccine (1 of 3 - 19+ 3-dose series) [facility] Start: 1993 Hepatitis B Vaccines (1 of 3 - 19+ 3-dose series) Hepatitis B Vaccines (1 of 3 - 19+ 3-dose series) [facility] Start: 1992 Anxiety Screening Anxiety Screening [facility] Start: 1992 BP CONTROLLED (<130/80) BP CONTROLLE D (<130/80) [facility] Start: 1992 Depression Screening Depression Scre ening [facility] Start: 1992 HEPATITIS C SCREENING HEPATITIS C [facility] Start: 1992 Hepatitis C screening Hepatitis C [facility] Start: 1992 HIV SCREENING HIV SCREENING [facility] Start: 1992 HIV screening HIV Screening [facility] Start: 1980 Pneumococcal Vaccine : Pediatrics (0 to 5 Years) and At-Risk Patients (6 to 64 Years) (1 of 2 - PCV) Pneumococcal Vaccine: Pediatrics (0 to 5 Years) and At-Risk Patients (6 to 64 Years) (1 of 2 - PCV) [facility] Start: 04-22-1975 MMR Vaccines (1 of 1 - Standard series) MMR Vaccines (1 of 1 - Standard series) [facility] Start: 1974 HEPATITIS B (1 of 3 - 3-dose series) HEPATITIS B (1 of 3 - 3-dose series) [facility] Start: 1974 Hepatitis B Vaccines (1 of 3 - 3-dose series) Hepatitis B Vaccines (1 of 3 - 3-dose series) [facility] Start: 1974 HIV screening HIV Screening [facility] Start: 1974 Lipid panel Lipid Panel [facility] Start: 1974 Screening for malign ant neoplasm of colon [facility] Start: 1974 Yearly Adult Physical Yearly Adult P hysical [facility] End: 11-24-2023 CT Abdomen and Pelvis W contrast IV [facility] Service Area Work Phone: Comment on above: Once for 1 Occurrenc es starting 11/24/2023 until 11/24/2023 End: 10-16-2023 DBT Breast - bilateral [facility] Work Phone: Comment on above: Once for 1 Occurrenc es starting 10/16/2023 until 10/16/2023 End: 11-30-2024 DBT Breast - bilateral screening NATALIE SCREENING W ERUM Radiology Routine Encounter for screening mammogram for breast cancer 1 Occurrences starting 11/01/2023 until 11/30/2024 [facility] Work Phone: Comment on above: 1 Occurrences starti ng 11/01/2023 until 11/30/2024 ECG 12 lead ECG 12 lead ECG STAT 04/18/2023 10:10 AM EST [facility] Service Area Work Phone: End: 10-21-2023 NATALIE SCREENING NATALIE SCREENING Radiology Routine Encounter for screening mammogram for breast cancer 1 Occurrences starting 09/21/2022 until 10/21/2023 [facility] Work Phone: Comment on above: 1 Occurrences starti ng 09/21/2022 until 10/21/2023 End: 09-27-2022 NATALIE SCREENING W ERUM [facility] Work Phone: Comment on above: ONCE for 1 Occurrenc es starting 09/27/2022 until 09/27/2022 Screening mammograph y bi 2-view breast inc cad NATALIE SCREENING Radiology Routine Encounter for screening mammogram for malignant neoplasm of breast 08/17/2021 4:07 PM EDT [facility] Work Phone: [facility] Immunizations Immunization Date Immunization Notes Care Provider Jasmin [facility] 01-24-2019 influenza, injectabl e, quadrivalent, contains preservative Xr A21 [facility] 01-24-2019 influenza virus vacc ine, unspecified formulation [facility] Work Phone: 07-23-2012 tetanus toxoid, redu kimi diphtheria toxoid, and acellular pertussis vaccine, adsorbed Xr A21 [facility] Work Phone: Payers Date Payer Category Payer Self-pay 2023 Unknown [id number] 2023 Unknown [id number] 2022 [employer] Blue [employer]an NIX ACCE SS PPO [id number] 2022 Blue Cross Blue Oliver horan [facility] Care [facility] [id number] 2022 Unknown 2019 Unknown PRITESH ARMAS SS PPO [id number] 2019-Present [phone] [address] [place] [address] PPO [id number] 2019 Unknown [id number] 2010 Unknown [id number] 1974 Unknown [id number] 2.16.840.1.847871.3.579. 2.902 1974 Unknown [id number] 2.16840.1.843727.3.579. 2.1069 1974 Unknown [id number] 2.16840.1.864031.3.579. 2.1069 1974 Unknown [id number] 2.16840.1.297302.3.579. 2.1245 1974 Unknown [id number] 2.16840.1.359266.3.579. 2.1245 1974 Unknown [id number] 2.16.840.1.456049.3.579. 2.1245 1974 Unknown [id number] 2.16.840.1.398841.3.579. 2.1245 1974 Unknown [id number] 2.16.840.1.522595.3.579. 2.1244 1974 Unknown [id number] 2.16.840.1.513064.3.579. 2.1244 1974 Unknown [id number] 2.16.840.1.068372.3.579. 2.1242 1974 Unknown [id number] 2.16.840.1.051120.3.579. 2.1242 1974 Unknown [id number] 2.16.840.1.223692.3.579. 2.1242 1974 Unknown [id number] 2.16.840.1.201905.3.579. 2.1242 1974 Unknown [id number] 2.16840.1.009965.3.579. 2.1242 1974 Unknown [id number] 2.16840.1.637078.3.579. 2.1242 1974 Unknown [id number] 2.16840.1.635366.3.579. 2.1242 1974 Unknown [id number] 2.16840.1.937265.3.579. 2.1242 1974 Unknown [id number] 2.16.840.1.570813.3.579. 2.1242 1974 Unknown [id number] 2.16840.1.766156.3.579. 2.1242 1974 Unknown [id number] 2.16.840.1.086373.3.579. 2.1242 1974 Unknown [id number] 2.16840.1.616540.3.579. 2.1242 1974 Unknown [id number] 2.16.840.1.778700.3.579. 2.1242 1974 Unknown [id number] 2.16.840.1.806934.3.579. 2.1242 1974 Unknown [id number] 2.16.840.1.018520.3.579. 2.1243 1974 Unknown [id number] 2.16.840.1.032741.3.579. 2.1244 1974 Unknown [id number] 2.16.840.1.542009.3.579. 2.1244 1974 Unknown [id number] 2.16.840.1.538929.3.579. 2.1244 1974 Unknown [id number] 2.16.840.1.444551.3.579. 2.1244 1974 Unknown [id number] 2.16.840.1.281441.3.579. 2.1244 1974 Unknown [id number] 2.16.840.1.305744.3.579. 2.1244 Unknown [id number] 2.16.840.1.293960.3.579. 2.462 Unknown [id number] 2.16.840.1.798426.3.579. 2.462 Unknown [id number] 2.16.840.1.012487.3.579. 2.462 Social History Date Type Detail Facility Start: 02-23-2015 End: 03-04-2024 Tobacco smoking status NHIS Ex-smoker [facility] End: 05-06-2013 History of tobacco use Current smoker [facility] Start: 02-23-2015 End: 03-04-2024 Tobacco use and exposure Smokeless tobacco non-user [facility] Start: 05-28-2021 End: 07-03-2022 Alcohol intake Current non-drinker of alcohol (finding) [facility] Start: 01-31-2020 End: 06-08-2022 History SDOH Alcohol Frequency 1 [facility] Start: 01-31-2020 End: 06-08-2022 History SDOH Social Connections Phone 5 [facility] Start: 01-31-2020 End: 06-08-2022 History SDOH Social Connections Get Together 2 [facility] Start: 01-31-2020 End: 06-08-2022 History SDOH Social Connections Christianity 3 [facility] Start: 01-31-2020 Education 12 [facility] Start: 1975 Sex Assigned At Not on file [facility] Start: 05-18-2021 End: 05-30-2024 Exposure to SARS-CoV-2 (event) Not sure [facility] Tobacco smoking consumption unknown [facility] End: 05-06-2013 History of tobacco use Cigarette Smoker [facility] Start: 06-08-2022 History SDOH Alcohol Std Drinks 0 [facility] Start: 06-08-2022 History SDOH Social Connections Get Together 4 [facility] Start: 06-08-2022 End: 03-04-2024 History of Social function [facility] Start: 06-08-2022 End: 03-04-2024 Social connection and isolation panel [facility] Do you belong to any clubs or organizations such as scientologist groups, unions, fraternal or athletic groups, or school groups? Yes [facility] Are you now , , , , never or living with a partner? [facility] How often to you hav e a drink containing alcohol? Never [facility] How many standard dr inks containing alcohol do you have on a typical day? Patient does not drink [facility] Do you feel stress - tense, restless, nervous, or anxious, or unable to sleep at night because your mind is troubled all the time - these days [OSQ] Not at all [facility] (I/We) worried whechris er (my/our) food would run out before (I/we) got money to buy more. Never true [facility] In the past 12 month s, was there a time when you were not able to pay the mortgage or rent on time? No [facility] Start: 05-24-2017 End: 04-18-2023 Tobacco smoking status NHIS Never smoked tobacco [facility] Start: 04-18-2023 End: 05-30-2024 Alcohol intake Lifetime non-drinker (finding) [facility] Work Phone: Start: 06-22-2023 Tobacco smoking status NHIS Occasional tobacco smoker [facility] Work Phone: Start: 03-31-2015 None None [facility] Start: 03-31-2015 Spouse/ Significant Other Spouse/ Significant Other [facility] Start: 05-15-2024 Sex Female (finding) [facility] Start: 1975 Sex Assigned At Female [facility] Functional Status Date Assessment Result Facility 08-12-2013 Are you deaf, or do you have serious difficulty hearing No 08/12/2013 8:55 AM Sunshine Mercer RN No [facility] 08-12-2013 Are you blind, or do you have serious difficulty seeing, even when wearing glasses No 08/12/2013 8:55 AM Sunshine Mercer RN No [facility] 08-12-2013 Do you have serious difficulty walking or climbing stairs No 08/12/2013 8:55 AM Sunshine Mercer RN No [facility] 08-12-2013 Do you have difficul ty dressing or bathing No 08/12/2013 8:55 AM Sunshine Mercer RN No [facility] 08-12-2013 Because of a physica l, mental, or emotional condition, do you have difficulty doing errands alone such as visiting a physician's office or shopping No 08/12/2013 8:55 AM Sunshine Mercer RN No [facility] Mental Status Date Assessment Result Facility 08-12-2013 Because of a physica l, mental, or emotional condition, do you have serious difficulty concentrating, remembering, or making decisions No 08/12/2013 8:55 AM Sunshine Mercer RN No [facility] Clinical Notes 05-28-2021 to 05-30-2024 Alexandria Mao MA - 05/30/2024 1:40 PM Artur Romo MD - 05/30/2024 1:40 PM EDTPatiMerari Palacios LPN - 05/09/2024 8:32 AM EDTDischagary Instructions Note Date & Type Note Facility 05-30-2024 History of Presen t illness Narrative Subjective Patient ID: Jo Mercer is a 49 y.o. female who presents for Knee Pain (Left side x 1 month ). HPI Review of Systems Objective Physical Exam Assessment/Plan Alexandria Mao MA 05/30/24 1:40 PM Subjective Jo Mercer is a 49 y.o. female who presents for Knee Pain (Left side x 1 month ). Here c/o left knee pain for the past month. Having pain with bending, throbs when she lies on her left side, it feels like it may give out when she is going up steps. Does not recall any injury. She does crawl on the floor with her granddaughter, but does not recall any injury. She has had some swelling - not dramatic. Has tried some prednisone - that has not been helpful. Objective Visit Vitals BP 134/68 Pulse 100 Physical Exam Vitals reviewed. Constitutional: General: She is not in acute distress. Cardiovascular: Rate and Rhythm: Normal rate. Pulmonary: Effort: Pulmonary effort is normal. No respiratory distress. Musculoskeletal: Comments: Tender in the anterior knee and also posterior knee tenderness, mild swelling. Skin: General: Skin is warm and dry. Neurological: General: No focal deficit present. Mental Status: She is alert. Mental status is at baseline. Assessment/Plan Problem List Items Addressed This Visit None Visit Diagnoses Acute pain of left knee - Primary Relevant Orders Referral to Orthopedics and Sports Medicine XR knee left 4+ views Carmelita Romo MD documented in this encounter [facility] Work Phone: 05-30-2024 Instructions Carmelita Romo MD - 05/30/2024 1:40 PM EDT Follow up based on results and symptoms. documented in this encounter [facility] Work Phone: 05-09-2024 Note HNO ID: [id number] Author: MERARI JONES LPN Service: ? Author Type: LICENSED NURSE Type: Progress Notes Filed: 05/09/2024 08:32 Note Text: Scan on 05/08/2024 2:35 PM by Bar Martinez PA-C: Miscellaneous Lab [facility] 05-09-2024 History of Presen t illness Narrative Scan on 05/08/2024 2:35 PM by Bar Martinez PA-C: Miscellaneous Lab documented in this encounter [facility] 05-08-2024 Note HNO ID: [id number] Author: MERARI JONES LPN Service: ? Author Type: LICENSED NURSE Type: Progress Notes Filed: 05/08/2024 07:17 Note Text: Scan on 05/07/2024 10:34 AM by Bar Martinez PA-C: X-ray Scan on 05/07/2024 10:38 AM by Bar Martinez PA-C: X-ray Scan on 05/07/2024 10:40 AM by Bar Martinez PA-C: X-ray Scan on 05/07/2024 12:46 PM by Bar Martinez PA-C: Hematology Scan on 05/07/2024 1:26 PM by ProviderBar PA-C: Chemistry [facility] 05-08-2024 History of Presen t illness Narrative Scan on 05/07/2024 10:34 AM by Bar Martinez PA-C: X-ray Scan on 05/07/2024 10:38 AM by ProviderBar, PA-C: X-ray Scan on 05/07/2024 10:40 AM by Bar Martinez, PA-C: X-ray Scan on 05/07/2024 12:46 PM by ProviderBar PA-C: Hematology Scan on 05/07/2024 1:26 PM by Bar Martinez, PA-C: Chemistry documented in this encounter [facility] 05-07-2024 Radiology Diagnostic study note [facility] Imaging Services [address] [place], [place] [id number] Hand Min 3 Views MR#: [id number] Acct: [id number] Name: JO MERCER Rep #: [id number] : 1975 F 49 From: Gwen Richter MD PCP: Dr. Darrian Diaz MD Status: REG CLI Study:Hand Min 3 Views Date of Exam: Exam# [id number] Ordering Dr: Natalie Caballero MD EXAM: XR Left Hand Complete, 3 or More Views CLINICAL INDICATION: PAIN TECHNIQUE: Frontal, lateral and oblique views of the left hand. COMPARISON: No relevant prior studies available. FINDINGS: BONES/JOINTS: Fixation screw to the 3rd distal and middle phalanx. Intact hardware. Anatomic position. Moderate degenerative changes of the 3rd and 4th D IP joints. No acute fracture. No dislocation. SOFT TISSUES: Unremarkable. No radiopaque foreign body. RAD/Hand Min 3 Views IMPRESSION: 1. Postoperative changes as above. 2. Degenerative changes as above. Reading Location: [facility] CC: Dr. Darrian Diaz MD; Dr. Natalie Caballero MD ~ District Director: Signed [facility] 05-07-2024 Radiology Diagnostic study note [facility] Imaging Services [address] [place], [place] [id number] Hand Min 3 Views MR#: [id number] Acct: [id number] Name: JO MERCER Rep #: [id number] : 1975 F 49 From: Gwen Richter MD PCP: Dr. Darrian Diaz MD Status: REG CLI Study:Hand Min 3 Views Date of Exam: Exam# [id number] Ordering Dr: Natalie Caballero MD EXAM: XR Right Hand Complete, 3 or More Views CLINICAL INDICATION: PAIN TECHNIQUE: Frontal, lateral and oblique views of the right hand. COMPARISON: No relevant prior studies available. FINDINGS: BONES/JOINTS: Mild degenerative changes of the 3rd, 4th, and 5th DIP joints. No acute fracture. No dislocation. SOFT TISSUES: Unremarkable. No radiopaque foreign body. RAD/Hand Min 3 Views IMPRESSION: Degenerative changes as above. Reading Location: [facility] CC: Dr. Darrian Diaz MD; Dr. Natalie Caballero MD ~ District Director: Signed [facility] 05-07-2024 Radiology Diagnostic study note [facility] Imaging Services [address] [place], [place] [id number] Pelvis 1 or 2 Views MR#: [id number] Acct: [id number] Name: JO MERCER Rep #: [id number] : 1975 F 49 From: Gwen Richter MD PCP: Dr. Darrian Diaz MD Status: REG CLI Study:Pelvis 1 or 2 Views Date of Exam: 05/07/24 Exam# [id number] Ordering Dr: Natalie Caballero MD EXAM: XR Pelvis, 1 or 2 Views CLINICAL INDICATION: PAIN TECHNIQUE: Frontal view of the pelvis. COMPARISON: No relevant prior studies available. FINDINGS: BONES/JOINTS: Unremarkable. No acute fracture. No dislocation. SOFT TISSUES: Unremarkable. RAD/Pelvis 1 or 2 Views IMPRESSION: No acute fracture. Reading Location: [facility] CC: Dr. Darrian Diaz MD; Dr. Natalie Caballero MD ~ District Director: Signed [facility] 03-26-2024 Attending History and physical note H&P reviewed. The patient was examined and there are no changes to the H&P. Source Note - Darrel Gomez MD - 03/21/2024 9:00 AM EST General Surgery Consultation Patient: oJ Mercer : 1975 Date of Consultation: 03/21/24 Referring Primary Care Provider: Carmelita Romo MD Chief Complaint: Colon cancer screening History of Present Illness: Jo Mercer is a 48 y.o. old female seen at the request of Dr. Romo for evaluation for colonoscopy. She had a previous colonoscopy in [place] over 10 years ago in workup of chronic constipation. She does not recall having any polyps at that time. She had hemorrhoid banding performed in the same setting. She has bowel movements once to twice weekly. She takes MiraLAX and fiber supplementation just about daily. She occasionally has bright red blood when she is more constipated. She denies any family history of colon or rectal cancer or inflammatory bowel disease. She is not on any blood thinners or antiplatelet agents. Medical History: Sleep apnea, uses a CPAP Arthritis Migraines Surgical History: Cholecystectomy Tubal ligation Hysterectomy Bladder suspension Colonoscopy with hemorrhoid banding, over 10 years ago through [facility] Home Medications: Prior to Admission medications Medication Sig Start Date End Date Taking? Authorizing Provider topiramate (Topamax) 100 mg tablet Take 1 tablet (100 mg) by mouth 2 times a day. 08/14/23 Yes Carmelita Romo MD Allergies: Allergies Allergen Reactions Acetaminophen Shortness of breath Deny any allergies. Hydrocodone Bitartrate Shortness of breath Hydrocodone-Acetaminophen Shortness of breath chest pain and nausea Family History: No family history of colon or rectal cancer or inflammatory bowel disease. Paternal aunt with breast cancer. Social History: Non-smoker. No alcohol or drug use. ROS: Constitutional: no fever, sweats, and chills Cardiovascular: No chest pain Respiratory: No cough or shortness of breath Gastrointestinal: + Chronic constipation, occasional bright red blood per rectum Genitourinary: no dysuria Musculoskeletal: no weakness or swelling Integumentary: no rashes Neurological: no confusion Endocrine: no heat or cold intolerance Heme/Lymph: no easy bruising or bleeding Objective: Ht 1.626 m (5' 4) LMP 02/20/2014 (Approximate) Comment: 1 ovary left BMI 39.34 kg/m Physical Exam: Constitutional: No acute distress, conversant, pleasant Neurologic: alert and oriented Psych: appropriate affect Ears, Nose, Mouth and Throat: mucus membranes moist Pulmonary: No labored breathing Cardiovascular: Regular rate and rhythm Abdomen: Nondistended, BMI 39 Musculoskeletal: Moves all extremities, no edema Skin: no jaundice Labs: Labs from 03/05/2024 reviewed: Hgb 14.4 Imaging: CT abdomen and pelvis from 11/24/2023 reviewed: Diverticulosis Assessment and Plan: Jo Mercer is a 48 y.o. old female with intermittent bright red blood per rectum. I have recommended diagnostic colonoscopy. We discussed the risks of this procedure. This included risks of bleeding, perforation, missed polyps, incomplete colonoscopy, and potential need for additional procedures pending findings. The patient was agreeable to proceed. Bowel prep instructions were reviewed and all questions were answered. The patient is scheduled for colonoscopy on 03/26/24. We will perform this at [facility] with the assistance of Anesthesiology given her history of sleep apnea. Darrel Gomez MD 03/21/2024 [facility] Work Phone: 03-26-2024 History and physical note H&P reviewed. The patient was examined and there are no changes to the H&P. Source Note - Darrel Gomez MD - 03/21/2024 9:00 AM EST General Surgery Consultation Patient: Jo Mercer : 1975 Date of Consultation: 03/21/24 Referring Primary Care Provider: Carmelita Romo MD Chief Complaint: Colon cancer screening History of Present Illness: Jo Mercer is a 48 y.o. old female seen at the request of Dr. Romo for evaluation for colonoscopy. She had a previous colonoscopy in [place] over 10 years ago in workup of chronic constipation. She does not recall having any polyps at that time. She had hemorrhoid banding performed in the same setting. She has bowel movements once to twice weekly. She takes MiraLAX and fiber supplementation just about daily. She occasionally has bright red blood when she is more constipated. She denies any family history of colon or rectal cancer or inflammatory bowel disease. She is not on any blood thinners or antiplatelet agents. Medical History: Sleep apnea, uses a CPAP Arthritis Migraines Surgical History: Cholecystectomy Tubal ligation Hysterectomy Bladder suspension Colonoscopy with hemorrhoid banding, over 10 years ago through [facility] Home Medications: Prior to Admission medications Medication Sig Start Date End Date Taking? Authorizing Provider topiramate (Topamax) 100 mg tablet Take 1 tablet (100 mg) by mouth 2 times a day. 08/14/23 Yes Carmelita Romo MD Allergies: Allergies Allergen Reactions Acetaminophen Shortness of breath Deny any allergies. Hydrocodone Bitartrate Shortness of breath Hydrocodone-Acetaminophen Shortness of breath chest pain and nausea Family History: No family history of colon or rectal cancer or inflammatory bowel disease. Paternal aunt with breast cancer. Social History: Non-smoker. No alcohol or drug use. ROS: Constitutional: no fever, sweats, and chills Cardiovascular: No chest pain Respiratory: No cough or shortness of breath Gastrointestinal: + Chronic constipation, occasional bright red blood per rectum Genitourinary: no dysuria Musculoskeletal: no weakness or swelling Integumentary: no rashes Neurological: no confusion Endocrine: no heat or cold intolerance Heme/Lymph: no easy bruising or bleeding Objective: Ht 1.626 m (5' 4) LMP 02/20/2014 (Approximate) Comment: 1 ovary left BMI 39.34 kg/m Physical Exam: Constitutional: No acute distress, conversant, pleasant Neurologic: alert and oriented Psych: appropriate affect Ears, Nose, Mouth and Throat: mucus membranes moist Pulmonary: No labored breathing Cardiovascular: Regular rate and rhythm Abdomen: Nondistended, BMI 39 Musculoskeletal: Moves all extremities, no edema Skin: no jaundice Labs: Labs from 03/05/2024 reviewed: Hgb 14.4 Imaging: CT abdomen and pelvis from 11/24/2023 reviewed: Diverticulosis Assessment and Plan: Jo Mercer is a 48 y.o. old female with intermittent bright red blood per rectum. I have recommended diagnostic colonoscopy. We discussed the risks of this procedure. This included risks of bleeding, perforation, missed polyps, incomplete colonoscopy, and potential need for additional procedures pending findings. The patient was agreeable to proceed. Bowel prep instructions were reviewed and all questions were answered. The patient is scheduled for colonoscopy on 03/26/24. We will perform this at [facility] with the assistance of Anesthesiology given her history of sleep apnea. Darrel Gomez MD 03/21/2024 documented in this encounter [facility] Work Phone: 03-26-2024 Hospital Discharg e instructions Caitlyn Leon RN - 03/26/2024 6:04 AM EST Patient Instructions after a Colonoscopy The anesthetics, sedatives or narcotics which were given to you today will be acting in your body for the next 24 hours, so you might feel a little sleepy or groggy. This feeling should slowly wear off. Carefully read and follow the instructions. You received sedation today: - Do not drive or operate any machinery or power tools of any kind. - No alcoholic beverages today, not even beer or wine. - Do not make any important decisions or sign any legal documents. - No over the counter medications that contain alcohol or that may cause drowsiness. - Do not make any important decisions or sign any legal documents. - Make sure you have someone with you for first 24 hours. While it is common to experience mild to moderate abdominal distention, gas, or belching after your procedure, if any of these symptoms occur following discharge from the GI Lab or within one week of having your procedure, call the [facility] to be advised whether a visit to your nearest Urgent Care or Emergency Department is indicated. Take this paper with you if you go. - If you develop an allergic reaction to the medications that were given during your procedure such as difficulty breathing, rash, hives, severe nausea, vomiting or lightheadedness. - If you experience chest pain, shortness of breath, severe abdominal pain, fevers and chills. -If you develop signs and symptoms of bleeding such as blood in your spit, if your stools turn black, tarry, or bloody - If you have not urinated within 8 hours following your procedure. - If your IV site becomes painful, red, inflamed, or looks infected. If you received a biopsy/polypectomy/sphincteroto my the following instructions apply below: __ Do not use Aspirin containing products, non-steroidal medications or anti-coagulants for one week following your procedure. (Examples of these types of medications are: Advil, Arthrotec, Aleve, Coumadin, Ecotrin, Heparin, Ibuprofen, Indocin, Motrin, Naprosyn, Nuprin, Plavix, Vioxx, and Voltarin, or their generic forms. This list is not all-inclusive. Check with your physician or pharmacist before resuming medications.) __ Eat a soft diet today. Avoid foods that are poorly digested for the next 24 hours. These foods would include: nuts, beans, lettuce, red meats, and fried foods. Start with liquids and advance your diet as tolerated, gradually work up to eating solids. __ Do not have a Barium Study or Enema for one week. Your physician recommends the additional following instructions: -You have a contact number available for emergencies. The signs and symptoms of potential delayed complications were discussed with you. You may return to normal activities tomorrow. -Resume your previous diet. -Continue your present medications. -We are waiting for your pathology results. -Your physician has recommended a repeat colonoscopy (date to be determined after pending pathology results are reviewed) for surveillance based on pathology results. -The findings and recommendations have been discussed with you. -The findings and recommendations were discussed with your family. - Please see Medication Reconciliation Form for new medication/medications prescribed. If you experience any problems or have any questions following discharge from the GI Lab, please call: Nurse Signature Date Patient/Responsible Republican Signature Date documented in this encounter [facility] Work Phone: 03-21-2024 History of Presen t illness Narrative General Surgery Consultation Patient: Jo Mercer : 1975 Date of Consultation: 03/21/24 Referring Primary Care Provider: Carmelita Romo MD Chief Complaint: Colon cancer screening History of Present Illness: Jo Mercer is a 48 y.o. old female seen at the request of Dr. Romo for evaluation for colonoscopy. She had a previous colonoscopy in [place] over 10 years ago in workup of chronic constipation. She does not recall having any polyps at that time. She had hemorrhoid banding performed in the same setting. She has bowel movements once to twice weekly. She takes MiraLAX and fiber supplementation just about daily. She occasionally has bright red blood when she is more constipated. She denies any family history of colon or rectal cancer or inflammatory bowel disease. She is not on any blood thinners or antiplatelet agents. Medical History: Sleep apnea, uses a CPAP Arthritis Migraines Surgical History: Cholecystectomy Tubal ligation Hysterectomy Bladder suspension Colonoscopy with hemorrhoid banding, over 10 years ago through [facility] Home Medications: Prior to Admission medications Medication Sig Start Date End Date Taking? Authorizing Provider topiramate (Topamax) 100 mg tablet Take 1 tablet (100 mg) by mouth 2 times a day. 08/14/23 Yes Carmelita Romo MD Allergies: Allergies Allergen Reactions Acetaminophen Shortness of breath Deny any allergies. Hydrocodone Bitartrate Shortness of breath Hydrocodone-Acetaminophen Shortness of breath chest pain and nausea Family History: No family history of colon or rectal cancer or inflammatory bowel disease. Paternal aunt with breast cancer. Social History: Non-smoker. No alcohol or drug use. ROS: Constitutional: no fever, sweats, and chills Cardiovascular: No chest pain Respiratory: No cough or shortness of breath Gastrointestinal: + Chronic constipation, occasional bright red blood per rectum Genitourinary: no dysuria Musculoskeletal: no weakness or swelling Integumentary: no rashes Neurological: no confusion Endocrine: no heat or cold intolerance Heme/Lymph: no easy bruising or bleeding Objective: Ht 1.626 m (5' 4) LMP 02/20/2014 (Approximate) Comment: 1 ovary left BMI 39.34 kg/m Physical Exam: Constitutional: No acute distress, conversant, pleasant Neurologic: alert and oriented Psych: appropriate affect Ears, Nose, Mouth and Throat: mucus membranes moist Pulmonary: No labored breathing Cardiovascular: Regular rate and rhythm Abdomen: Nondistended, BMI 39 Musculoskeletal: Moves all extremities, no edema Skin: no jaundice Labs: Labs from 03/05/2024 reviewed: Hgb 14.4 Imaging: CT abdomen and pelvis from 11/24/2023 reviewed: Diverticulosis Assessment and Plan: Jo Mercer is a 48 y.o. old female in need of screening colonoscopy. We discussed the risks of this procedure. This included risks of bleeding, perforation, missed polyps, incomplete colonoscopy, and potential need for additional procedures pending findings. The patient was agreeable to proceed. Bowel prep instructions were reviewed and all questions were answered. The patient is scheduled for colonoscopy on 03/26/24. We will perform this at [facility] with the assistance of Anesthesiology given her history of sleep apnea. Darrel Gomez MD 03/21/2024 documented in this encounter [facility] Work Phone: 03-04-2024 History of Presen t illness Narrative Subjective Jo Mercer is a 48 y.o. female who presents for Follow-up (Patient here for 6 month follow-up. Complaining of urinary burning, urgency, dark colored urine x 2 weeks.). Here for follow up migraines, RAOUL (on CPAP, tolerating well, benefiting from continued use). She states that [place] got [place], admits she was not drinking enough water at that time and now she is having issues with urinary urgency frequency and burning. Otherwise she is doing reasonably well - is having a lot of issues with arthritis with the cold weather especially in her hands. She also gets swelling in her hands and feet and other joints at times. She states that she was told she was borderline for rheumatoid arthritis in the past (like 10 years ago) and had seen a auto mechanics teacher who was monitoring things at that time. Objective Visit Vitals BP 128/76 (BP Location: Right arm, Patient Position: Sitting, BP Cuff Size: Large adult) Temp 36.9 C (98.4 F) Physical Exam Vitals reviewed. Constitutional: General: She is not in acute distress. Cardiovascular: Rate and Rhythm: Normal rate and regular rhythm. Heart sounds: No murmur heard. Pulmonary: Effort: Pulmonary effort is normal. No respiratory distress. Breath sounds: Normal breath sounds. Skin: General: Skin is warm and dry. Neurological: General: No focal deficit present. Mental Status: She is alert. Mental status is at baseline. Assessment/Plan Problem List Items Addressed This Visit Migraine headache Relevant Orders CBC and Auto Differential Comprehensive Metabolic Panel Lipid Panel TSH with reflex to Free T4 if abnormal Vitamin B12 RONI with Reflex to LEVI C-Reactive Protein Rheumatoid Factor Sedimentation Rate Vitamin D 25-Hydroxy,Total (for eval of Vitamin D levels) Magnesium Other Visit Diagnoses Dysuria - Primary Relevant Orders POCT UA Automated manually resulted (Completed) Frequency of urination Relevant Orders POCT UA Automated manually resulted (Completed) Acute cystitis with hematuria Relevant Medications nitrofurantoin, macrocrystal-monohydrate, (Macrobid) 100 mg capsule Other Relevant Orders Urine Culture Arthralgia, unspecified joint Relevant Orders CBC and Auto Differential Comprehensive Metabolic Panel Lipid Panel TSH with reflex to Free T4 if abnormal Vitamin B12 RONI with Reflex to LEVI C-Reactive Protein Rheumatoid Factor Sedimentation Rate Vitamin D 25-Hydroxy,Total (for eval of Vitamin D levels) Magnesium Referral to Rheumatology Joint swelling Relevant Orders CBC and Auto Differential Comprehensive Metabolic Panel Lipid Panel TSH with reflex to Free T4 if abnormal Vitamin B12 RONI with Reflex to LEVI C-Reactive Protein Rheumatoid Factor Sedimentation Rate Vitamin D 25-Hydroxy,Total (for eval of Vitamin D levels) Magnesium Referral to Rheumatology Screen for colon cancer Relevant Orders Colonoscopy Screening; Average Risk Patient Carmelita Romo MD documented in this encounter [facility] Work Phone: 03-04-2024 Instructions Carmelita Romo MD - 03/04/2024 3:40 PM EST Will get some labs, refer to rheumatology. Will treat UTI with antibiotics. Continue other current medications. Follow up in 6 months, sooner if needed. documented in this encounter [facility] Work Phone: 11-15-2023 History of Presen t illness Narrative Subjective Jonae Mercer is a 48 y.o. female who presents for Follow-up (Complaints of constipation x 1 month and weight gain x 2 weeks. ). Here c/o constipation for the past month. Has been an issue for a while, but worse recently. She did stop smoking after her last visit. She has increased fiber, miralax, stool softeners, started exlax at night without results. She has started taking Ex lax on the weekends with an enema and mag citrate and that is somewhat helpful but not completely helpful. Stool is very hard when she does go. She is drinking a lot of water. She takes a 3 mile walk every night. She has had 10 pound weight gain in the past couple of weeks. Objective Visit Vitals BP 118/76 (BP Location: Right arm, Patient Position: Sitting) Physical Exam Vitals reviewed. Constitutional: General: She is not in acute distress. Cardiovascular: Rate and Rhythm: Normal rate and regular rhythm. Heart sounds: No murmur heard. Pulmonary: Effort: Pulmonary effort is normal. No respiratory distress. Breath sounds: Normal breath sounds. Skin: General: Skin is warm and dry. Neurological: General: No focal deficit present. Mental Status: She is alert. Mental status is at baseline. Assessment/Plan Problem List Items Addressed This Visit None Visit Diagnoses Abdominal pain, unspecified abdominal location - Primary Relevant Orders CBC and Auto Differential Comprehensive Metabolic Panel TSH with reflex to Free T4 if abnormal CT abdomen pelvis w and wo IV contrast Magnesium Bowel habit changes Relevant Orders CBC and Auto Differential Comprehensive Metabolic Panel TSH with reflex to Free T4 if abnormal CT abdomen pelvis w and wo IV contrast Magnesium Carmelita Romo MD documented in this encounter [facility] Work Phone: 11-15-2023 Instructions Carmelita Romo MD - 11/15/2023 11:20 AM EDT Discussed stopping the exlax, cutting back on the fiber, continue to push fluids, miralax. Will get some labs and CT to further evaluate and follow up based on results and symptoms. documented in this encounter [facility] Work Phone: 11-01-2023 Note Patient Outreach ([facility]) RUSLANJO R ([id number]) 1975 F Date Time Provider Department 11/01/23 [facility] During your visit today, we recorded the following information about you: Allergies As of Date: 11/01/2023 Noted Allergy Reaction ACETAMINOPHEN 04/19/2015 12 - Shortness of Breath HYDROCODONE BITARTRATE 03/31/2015 12 - Shortness of Breath VICODIN (HYDROCODONE-ACETAMINOPHE*06/03 12 - Shortness of Breath Comments: chest pain and nausea Date Reviewed: 06/08/2022 Reviewed by: Darrian Diaz MD - Fully Assessed Visit Diagnosis:Encounter for screening mammogram for breast cancer [Z12.31] Order(s):[facility] SCREENING [facility] [[id number]] Order #: [id number] FUTURE Prescriptions as of 11/06/2023 - topiramate (TOPAMAX) 200 mg tablet Take 1 tablet by mouth twice daily. - ergocalciferol 50,000 unit capsule (VITAMIN D2, DRISDOL) Take 1 capsule by mouth one time a week for 8 doses. - rizatriptan (MAXALT) 10 mg tablet Take 1 tablet by mouth as needed for Migraine Headache (see administration instructions). May repeat in 2 hours if needed . Max 3 tablets a day , Max 9 days a month - pravastatin (PRAVACHOL) 10 mg tablet Take 1 tablet by mouth once daily. Problem List As Of Date 11/01/2023 Noted Resolved Dyspareunia [CSU6635] 04/09/2005 Dysmenorrhea [N94.6] 04/09/2005 Well adult exam [Z00.00] 03/31/2015 Obesity, Class III, BMI 40-49.9 (morbid obesity*05/12/2017 Hypertension, essential [I10] 01/31/2018 Hyperlipidemia, mixed [E78.2] 01/31/2018 Bilateral carotid artery stenosis [I65.23] 02/09/2018 Migraine with aura and without status migrainos*05/29/2018 Elevated hemoglobin A1c [R73.09] 04/18/2019 Ex-smoker [Z87.891] 04/18/2019 Dysplasia of cervix, low grade (ELENI 1) [N87.0] 04/18/2019 Microscopic hematuria [R31.29] 04/22/2019 Abnormal ultrasound of left kidney [R93.422] 05/01/2019 Encounter Status:Closed by [employer] on 11/06/23 [facility] 08-14-2023 History of Presen t illness Narrative Subjective Patient ID: Jo Mercer is a 48 y.o. female who presents for follow up to Cpap. Patient states she has been using it and it takes some adjustments. HPI Review of Systems Objective There were no vitals taken for this visit. Physical Exam Assessment/Plan Subjective Jo Mercer is a 48 y.o. female who presents for No chief complaint on file.. Here for follow up migraines, RAOUL. She has started CPAP - it is an adjustment. When she is able to wear it all night she does feel like she feels better in the morning. We had restarted the topamax and that has been somewhat helpful. She is interested in increasing the dose further. She is interested in trying to quit smoking, we discussed some options and will try chantix. She will let us know in a couple of weeks how she is doing and we will call in more if it is working well. She does have some issues with constipation recently - we discussed starting with increasing water intake, miralax prn. She will let us know if things do not improve. Objective Visit Vitals BP 114/76 (BP Location: Left arm, Patient Position: Sitting, BP Cuff Size: Adult) Pulse 95 Physical Exam Vitals reviewed. Constitutional: General: She is not in acute distress. Cardiovascular: Rate and Rhythm: Normal rate and regular rhythm. Heart sounds: No murmur heard. Pulmonary: Effort: Pulmonary effort is normal. No respiratory distress. Breath sounds: Normal breath sounds. Skin: General: Skin is warm and dry. Neurological: General: No focal deficit present. Mental Status: She is alert. Mental status is at baseline. Assessment/Plan Problem List Items Addressed This Visit Migraine headache - Primary Relevant Medications topiramate (Topamax) 100 mg tablet RAOUL (obstructive sleep apnea) Other Visit Diagnoses Smoker Relevant Medications varenicline (Chantix Starting Month Box) 0.5 mg (11)- 1 mg (42) tablet Carmelita Romo MD documented in this encounter [facility] Work Phone: 08-14-2023 Instructions Carmelita Romo MD - 08/14/2023 8:00 AM EDT Will start chantix, increase topamax. She will let us know in a few weeks how things are going with the chantix and we will call more in. Also discussed increased water intake and trying some miralax. Follow up in 6 months, sooner if needed. documented in this encounter [facility] Work Phone: 06-22-2023 History of Presen t illness Narrative Subjective Patient ID: Jo Mercer is a 48 y.o. female who presents for Establishing Primary Care. HPI Review of Systems Objective There were no vitals taken for this visit. Physical Exam Assessment/Plan Subjective Jo Mercer is a 48 y.o. female who presents for No chief complaint on file.. Here to get established. She did have a back injury at work. She is going to PT for that. She has history of migraines - was on topamax in the past - ran out and hasn't taken it in 3 months. She would like to get back on that. She states that her has told her that she stops breathing when she sleeps. She would be interested in getting a sleep study done. Objective Visit Vitals BP 108/82 (BP Location: Left arm, Patient Position: Sitting, BP Cuff Size: Adult) Pulse 89 Physical Exam Vitals reviewed. Constitutional: General: She is not in acute distress. Cardiovascular: Rate and Rhythm: Normal rate and regular rhythm. Heart sounds: No murmur heard. Pulmonary: Effort: Pulmonary effort is normal. No respiratory distress. Breath sounds: Normal breath sounds. Skin: General: Skin is warm and dry. Neurological: General: No focal deficit present. Mental Status: She is alert. Mental status is at baseline. Assessment/Plan Problem List Items Addressed This Visit None Carmelita Romo MD documented in this encounter [facility] Work Phone: 06-22-2023 Instructions Carmelita Romo MD - 06/22/2023 2:20 PM EDT Will resume topamax - will start with 50 mg - she may take once a day at bedtime for the first few days then increase to BID. Will get a sleep study and labs and follow up after testing. documented in this encounter [facility] Work Phone: 09-28-2022 Miscellaneous Notes Spoke with patient. Given message from provider's office. Patient verbalizes understanding. Arely Goldsmith RN TC to pt. LM to call office, ask for triage nurse to get results. Martha Vilchis LPN Let patient know mammogram was ok. documented in this encounter [facility] 09-28-2022 Miscellaneous Notes [address] [address] September 28, 2022 PID: [id number] Jo Mercer [address] [place] [address] Dear Ms. Mercer, We are pleased to inform you that the results of your recent breast imaging exam on 09/27/2022 are normal. Early detection of cancer is very important. We also understand recommendations regarding breast cancer screening are controversial. Please discuss with your primary care provider which strategy is best for you and whether a mammogram is right for you. Your imaging studies and report will be kept on file at [facility] as part of your permanent medical record and are available for your continuing care. Thank you for allowing us to help in meeting your health care needs. Sincerely, Dr. Mackey Interpreting Radiologist [facility] (Normal over 40) documented in this encounter [facility] 09-27-2022 Note HNO ID: [id number] Author: Erica Barber RT(R) Service: Radiology Author Type: Technologist Type: Progress Notes Filed: 09/27/2022 3:08 PM Note Text: Radiology Service Progress Note PATIENT NAME: Jo Mercer DATE OF SERVICE: September 27, 2022 TIME: 3:08 PM PATIENT IDENTITY VERIFICATION COMPLETED USING TWO (2) IDENTIFIERS: Name and Date of confirmed by patient verbally. FALL SCREENING: Has the patient had 2 falls in the last year or 1 fall with injury or currently using an Ambulatory Assistive Device (Walker, Cane, Wheelchair, Crutches, etc.)? No PATIENT GENDER DATA: Female. status: : No status: N/A PATIENT RELEVANT IMPLANT DATA REVIEWED: Not Applicable RADIOLOGY DEPARTMENT: Mammography PERIPHERAL IV DATA: Not applicable SIGNED BY: RT Yolanda(R) September 27, 2022 3:08 PM [facility] 09-27-2022 History of Presen t illness Narrative Radiology Service Progress Note PATIENT NAME: Jo Mercer DATE OF SERVICE: September 27, 2022 TIME: 3:08 PM PATIENT IDENTITY VERIFICATION COMPLETED USING TWO (2) IDENTIFIERS: Name and Date of confirmed by patient verbally. FALL SCREENING: Has the patient had 2 falls in the last year or 1 fall with injury or currently using an Ambulatory Assistive Device (Walker, Cane, Wheelchair, Crutches, etc.)? No PATIENT GENDER DATA: Female. status: : No status: N/A PATIENT RELEVANT IMPLANT DATA REVIEWED: Not Applicable RADIOLOGY DEPARTMENT: Mammography PERIPHERAL IV DATA: Not applicable SIGNED BY: RT Yolanda(Tatianna) September 27, 2022 3:08 PM documented in this encounter [facility] 06-08-2022 History of Presen t illness Narrative Chief Complaint Patient presents with: Pain HPI Jo Mercer is a 47 year old female who presents here today for Infection in left middle finger. Office visit : infection in right hand Has been ongoing for over year. Comes and goes. Location? Left middle finger Pain? Yes, Throbbing, scale of 6 for pain; that increases with movement or touch. Any injury? No Was seen in our UC in 03/2022 for the same thing. Patient has had problems with recurring cyst on the dorsal side of the left middle finger. Patient has recently squeezed it and now she has increased pain. This issue has been ongoing for a year and now the DIP joint is so tender she can not bend it. No fevers or chills Office visit - physical 06/2020 Patient has not been seen since 06/2020 for wellness exam Patient with hx of HTN, HLP, migraines, obesity and those as below. Patient states she is not taking lisinopril and she is weaning herself off of topamax. Had Covid in February still struggling with smells and everything has a metallic scent to it. Making it hard to eat. Past medical history, appointments, medications, allergies reviewed. Previous Medical History PAST MEDICAL HISTORY Diagnosis Date Bilateral carotid artery stenosis 02/09/201801/2018: Left 20-39% Right 0-19% Chlamydia trachomatis infection of other specified site 2000 Dysmenorrhea 04/09/2005 Dyspareunia 04/09/2005 Dysplasia of cervix, low grade (ELENI 1) 04/18/2019 Seeing food photographer Ex-smoker 04/18/2019 Started age early 20's up to 1/2 PPD until her early 30's Hyperlipidemia, mixed 01/31/2018 Hypertension, essential 01/31/2018 LGI bleed 04/08/2015 Migraine with aura and without status migrainosus, not intractable 05/29/2018 Obesity, Class III, BMI 40-49.9 (morbid obesity) (HCC) 05/12/2017 Scaphoid fracture of wrist 06/03/2013 Snoring Previous Surgical History PAST SURGICAL HISTORY Procedure Laterality Date CHOLECYSTECTOMY Cholecystectomy HYSTERECTOMY removed for precancerous cells LIG/TRNSXJ FLP TUBE ABDL/VAG APPR UNI/BI Tubal ligation STRESS TEST 03/31/2015 NL Family History FAMILY HISTORY Problem Relation Age of Onset Thyroid Mother Prostate Cancer Father Coronary Artery Disease Paternal Grandfather 53 Stroke Paternal Grandmother Patient Allergies ALLERGIES Allergen Reactions Acetaminophen Shortness of Breath Hydrocodone Bitartr* Shortness of Breath Vicodin [Hydrocodon* Shortness of Breath chest pain and nausea Current Medications Current Outpatient Medications on File Prior to Visit Medication Sig topiramate (TOPAMAX) 200 mg tablet Take 1 tablet by mouth twice daily. ergocalciferol 50,000 unit capsule (VITAMIN D2, DRISDOL) Take 1 capsule by mouth one time a week for 8 doses. rizatriptan (MAXALT) 10 mg tablet Take 1 tablet by mouth as needed for Migraine Headache (see administration instructions). May repeat in 2 hours if needed . Max 3 tablets a day , Max 9 days a month pravastatin (PRAVACHOL) 10 mg tablet Take 1 tablet by mouth once daily. (Patient not taking: Reported on 04/09/2022) No current facility-administered medications on file prior to visit. Social History Social History Tobacco Use Smoking status: Former Types: Cigarettes Quit date: 05/06/2013 Years since quittin.0 Smokeless tobacco: Never Vaping Use Vaping Use: Never used Substance Use Topics Alcohol use: No Drug use: No Review of Symptoms REVIEW OF SYSTEMS See HPI EXAM: LMP 03/18/2014 General Appearance: Well appearing, alert, in no acute distress, well-hydrated, well nourished.. Musc: has nodularity of the left DIP joint of the 3rd digit. Appears to have a cyst on the dorsal side of the DIP joint. The joint is very tender and patient not able to bend it. Slight erythema. No warmth of the joint. Health Maintenance List HEPATITIS B(1 of 3 - 3-dose series) Never done HEPATITIS C SCREENING Never done HIV SCREENING Never done BP CONTROLLED (<130/80) Never done COVID-19 VACCINE(3 - Booster for Pfizer series) due on 08/08/2020 ANNUAL PCP TEAM CHRONIC DISEASE VISIT due on 07/08/2021 DEPRESSION ASSESSMENT Never done PAP TESTING due on 05/23/2022 HPV TESTING due on 05/23/2022 MAMMOGRAM due on 08/17/2022 DTAP,TDAP,TD(2 - Td or Tdap) due on 07/23/2022 INFLUENZA(Season Ended) due on 10/21/2022 DIABETES SCREEN due on 05/28/2024 COLORECTAL CANCER SCREENING due on 05/05/2025 LIPID SCREEN due on 06/30/2025 Data reviewed A/P ASSESSMENT/PLAN: 1. 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 Pain of finger of left hand - ICD9: 729.5, ICD10: M79.645 - CONSULT TO ORTHOPAEDICS 3. Cellulitis of skin - ICD9: 682.9, ICD10: L03.90 - Begin treatment with - CEFADROXIL 500 MG CAPSULE Requested Prescriptions Signed Prescriptions Disp Refills cefADROxil (DURICEF) 500 mg capsule 14 capsule 0 Sig: Take 1 capsule by mouth twice daily for 7 days. F/u if not resolving. F/u 3 months WAE Darrian Diaz MD documented in this encounter [facility] 09-06-2021 Miscellaneous Notes Physician: Daryn Call from patient requesting refill. Please E-Scribe Last OV: 12/11/20 with Daryn Future OV: Not scheduled Pending Prescriptions Disp Refills TOPIRAMATE 200 MG TABLET 60 tablet 5 Sig: Take 1 tablet by mouth twice daily. RICKY: No [facility]: [facility] documented in this encounter [facility] 08-18-2021 Miscellaneous Notes Left message of same on pt's vm. Merari Jones LPN ----- Message from April Jefferson PA-C sent at 08/18/2021 11:01 AM EDT ----- Normal mammogram. Repeat in 1 year. documented in this encounter [facility] 08-17-2021 History of Presen t illness Narrative Radiology Service Progress Note PATIENT NAME: Jo Mercer DATE OF SERVICE: August 17, 2021 TIME: 4:08 PM PATIENT IDENTITY VERIFICATION COMPLETED USING TWO (2) IDENTIFIERS: Name and Date of confirmed by patient verbally. FALL SCREENING: Has the patient had 2 falls in the last year or 1 fall with injury or currently using an Ambulatory Assistive Device (Walker, Cane, Wheelchair, Crutches, etc.)? No PATIENT GENDER DATA: Female. status: : No status: NO. PATIENT RELEVANT IMPLANT DATA REVIEWED: Not Applicable RADIOLOGY DEPARTMENT: Mammography PERIPHERAL IV DATA: Not applicable SIGNED BY: Tonya Khan [employer] [place] August 17, 2021 4:08 PM documented in this encounter [facility] 06-18-2021 History of Presen t illness Narrative [facility] 46 yo female Non smoker pmh of hysterectomy, bladder sling (6+ years ago)- completed locally, [facility] ongoing micro hematuria and gross hematuria since bladder sling Previously seen by Kathie Mckeon CNP in 2019- recommended cystoscopy, CTU CTU completed (2019): Noted no hydronephrosis or renal calculi, no enhancing renal or bladder mass Lost to follow-up due to covid No cystoscopy completed Current c/o Urge incontinence Frequency Feels unable to empty bladder Dysuria at times Hematuria at times Creatinine Date Value Ref Range Status 05/28/2021 0.72 0.58 - 0.96 mg/dL Final UROL Staff Reviewed PMH/PSH, medications and ROS noted by RN/resident. Agree with details. s/p Laparoscopic hysterectomy and bladder sling [address] Delroy Hidalgo ([place], [place]). Retired. Prior to above procedure she was not having urinary problems-no incontinence, no gross hematuria, no urgency, frequency. Following surgery-began to have incontinence, poor emptying, slow stream. Unsure of infection. CT urogram reviewed 05/2019 Normal upper tracts. No stones, no lesion. Impression/Plan: Microscopic and episodic gross hematuria Persistent and worsening urinary tract symptoms since bladder sling surgery in 2017 Recommend evaluation with cystoscopy, pelvic exam. Explained that sling erosion can be a complication of the surgery. Will refer to Dr. Jl Burton for evaluation Elroy Clinton MD documented in this encounter [facility] 06-01-2021 Miscellaneous Notes Discussed with patient part of her results today. -Vitamin D found to be very low (8). Recommended to take 50.000units once weekly for total of 8 weeks followed by 2000IU daily. Will plan to recheck level then. -Noticed she continues to have microscopic hematuria of unclear etiology which have been present for years. I will put referral to Urology for second opinion. -In regards to positive RONI, reinforced this is a screening test and it is reassuring rest of Antibodies are negative so far. Will plan to follow in 6 months. Candie Christina PGY4 Rheumatology Fellow documented in this encounter [facility] 05-28-2021 History of Presen t illness Narrative Radiology Service Progress Note PATIENT NAME: Jo Mercer DATE OF SERVICE: May 28, 2021 TIME: 5:16 PM PATIENT IDENTITY VERIFICATION COMPLETED USING TWO (2) IDENTIFIERS: Name and Date of confirmed by patient verbally. FALL SCREENING: Has the patient had 2 falls in the last year or 1 fall with injury or currently using an Ambulatory Assistive Device (Walker, Cane, Wheelchair, Crutches, etc.)? No PATIENT GENDER DATA: Female. status: : No status: N/A PATIENT RELEVANT IMPLANT DATA REVIEWED: Not Applicable RADIOLOGY DEPARTMENT: General X-ray: Exam(s) Completed: Upper Extremity X-Ray(s): Wrist, bilateral and Hand, bilateral PERIPHERAL IV DATA: Not applicable SIGNED BY: RT James(R) May 28, 2021 5:16 PM documented in this encounter [facility] 05-28-2021 Instructions Candie Christina MD - 05/28/2021 4:45 PM EDT It was a pleasure seeing you in [facility]'s rheumatology office today. MEDICATIONS: - You can start using Voltaren gel as needed in your hands for pain - Please start using wrists splints at night and let us know if this helps LABS: Please stop by the laboratory to get blood drawn on the first floor if we discussed obtaining blood work. FOLLOW UP: We will see you back in clinic in about 3 months. To make an appointment yourself or to schedule any of the appointments that we may have discussed during your visit, please call [phone] (central scheduling). Call [phone] to speak with the rheumatology commercial front load driver. I will contact you by phone or by letter if there are results/recommendations still pending. Candie Christina MD Fellow, [facility] Appointment: [phone] Address: [address] [place] [address] / [place] [address] documented in this encounter [facility] 05-28-2021 History of Presen t illness Narrative Images from the original note were not included. Rheumatology Office Visit Note Date of Service: May 28, 2021 Reason for Consultation: Positive RONI Consult Requested By: Darrian Diaz HPI: This is a 46 year old female with PMH significant for: -HTN -Obesity -Hx of Migraines -Pre-diabetes Who presents for evaluation of positive RONI. Patient history dates back to 2 years ago when she started to develop the following constellation of symptoms which have remained the same to date: -Numbness/tingling in fingers that rapidly ascended to wrists and forearm now associated with pain that she describes as a constant tourniquet sensation in her arms. Not improving with any position nor NSAIDS. Had to stop gardening which she did all her life. -Constant pain in DIPs with associated morning stiffness < 30min, mild swelling. Worse with overuse. -Dry eyes, requiring to use eye drops twice a day, saw Ophthalmology and no formal diagnosis of dry eyes. -Intermittent photosensitivity -Disrupted sleep, would sleep only 1-2 hours continuous. Waking up in the morning extremely tired. -Brain foginess. Out of concern for carpal tunnel syndrome explaining part of her symptoms, she underwent EMG in OSH which resulted normal. Also, work up for other causes of neuropathy revealed positive RONI by EIA which prompted referral to us. Today, she denies hair loss, oral/nasal ulcers, dry mouth, malar rashes, pleuritic chest pain, palpitations, LE swelling, Raynaud's, Hx of clots. Family Hx: - SLE in maternal grandfather. PAST MEDICAL HISTORY Diagnosis Date Bilateral carotid artery stenosis 02/09/201801/2018: Left 20-39% Right 0-19% Chlamydia trachomatis infection of other specified site 2000 Dysmenorrhea 04/09/2005 Dyspareunia 04/09/2005 Dysplasia of cervix, low grade (ELENI 1) 04/18/2019 Seeing food photographer Ex-smoker 04/18/2019 Started age early 20's up to 1/2 PPD until her early 30's Hyperlipidemia, mixed 01/31/2018 Hypertension, essential 01/31/2018 LGI bleed 04/08/2015 Migraine with aura and without status migrainosus, not intractable 05/29/2018 Obesity, Class III, BMI 40-49.9 (morbid obesity) (HCC) 05/12/2017 Scaphoid fracture of wrist 06/03/2013 Snoring PAST SURGICAL HISTORY Procedure Laterality Date CHOLECYSTECTOMY Cholecystectomy HYSTERECTOMY removed for precancerous cells LIG/TRNSXJ FLP TUBE ABDL/VAG APPR UNI/BI Tubal ligation STRESS TEST 03/31/2015 NL FAMILY HISTORY Problem Relation Age of Onset Thyroid Mother Prostate Cancer Father Coronary Artery Disease Paternal Grandfather 53 Stroke Paternal Grandmother Social History Tobacco Use Smoking status: Former Smoker Quit date: 05/06/2013 Years since quittin.0 Smokeless tobacco: Never Used Vaping Use Vaping Use: Never used Substance Use Topics Alcohol use: No Drug use: No Current Outpatient Medications Medication Sig topiramate (TOPAMAX) 200 mg tablet Take 1 tablet by mouth twice daily. rizatriptan (MAXALT) 10 mg tablet Take 1 tablet by mouth as needed for Migraine Headache (see administration instructions). May repeat in 2 hours if needed . Max 3 tablets a day , Max 9 days a month pravastatin (PRAVACHOL) 10 mg tablet Take 1 tablet by mouth once daily. No current facility-administered medications for this visit. PHQ-9 07/08/2020 09/15/2020 12/10/2020 PHQ-2 Score 0 0 0 PHQ-9 Score - 7 1 Health Maintenance: Fully vaccinated for COVID-19 Review Of Systems: GENERAL: negative for, malaise, fatigue, night sweats FEVER: none WEIGHT CHANGE: none HEAD: negative for, scalp tenderness, jaw claudication, headache, tongue claudication, temporal tenderness ENT: negative for, nasal crusting, epistaxis, bloody nasal drainage, sore throat, difficulty swallowing, mouth lesions, voice changes EYES: dry eyes NECK: negative for, goiter, pain, swelling RESPIRATORY: negative for, cough, sputum production, hemoptysis, wheezing, shortness of breath, pleuritic chest pain CARDIOVASCULAR: negative for, chest pain, palpitations, digital ischemia, Raynaud's GASTROINTESTINAL: negative for, abdominal pain, nausea, BRBPR, black stools, change in bowel habit, vomiting, diarrhea URINARY: negative for dysuria, hematuria, frequency MUSCULOSKELETAL: joint pain, joint swelling NEUROLOGIC: numbness SKIN: negative for rash PHQ9 PHQ-9 07/08/2020 09/15/2020 12/10/2020 PHQ-2 Score 0 0 0 PHQ-9 Score - 7 1 Reference Values for PHQ9 0 - 4: Minimal Depression 5 - 9: Mild Depression 10 - 14: Moderate Depression 15 - 19: Moderately Severe Depression 20 - 27: Severe Depression Physical Exam: BP 128/66 Pulse 77 Temp 36.6 C (97.8 F) (Temporal) Ht 162.6 cm (5' 4) Wt 93 kg (205 lb) LMP 03/18/2014 BMI 35.19 kg/m Physical Exam Constitutional: General: She is not in acute distress. Appearance: Normal appearance. HENT: Head: Normocephalic and atraumatic. Nose: Nose normal. Mouth/Throat: Mouth: Mucous membranes are moist. Pharynx: Oropharynx is clear. Eyes: Extraocular Movements: Extraocular movements intact. Conjunctiva/sclera: Conjunctivae normal. Pupils: Pupils are equal, round, and reactive to light. Cardiovascular: Rate and Rhythm: Normal rate and regular rhythm. Pulses: Normal pulses. Heart sounds: Normal heart sounds. Pulmonary: Effort: Pulmonary effort is normal. Breath sounds: Normal breath sounds. Abdominal: General: Abdomen is flat. Bowel sounds are normal. Palpations: Abdomen is soft. Musculoskeletal: Cervical back: Normal range of motion and neck supple. Comments: Heberden nodes. Mild swelling in DIPs bilateral + tender to touch. No sclerodactyly, dactylitis, nail pitting nor evidence of digital ischemia Lymphadenopathy: Cervical: No cervical adenopathy. Skin: General: Skin is warm. Capillary Refill: Capillary refill takes less than 2 seconds. Neurological: General: No focal deficit present. Mental Status: She is alert and oriented to person, place, and time. Cranial Nerves: No cranial nerve deficit. Sensory: No sensory deficit. Motor: No weakness. Gait: Gait normal. Comments: Positive Tinel's and Phalen's sign Psychiatric: Mood and Affect: Mood normal. Behavior: Behavior normal. Labs: Component Latest Ref Rng & Units 07/08/2020 WBC 3.70 - 11.00 k/uL 9.55 RBC 3.90 - 5.20 m/uL 4.95 Hemoglobin 11.5 - 15.5 g/dL 14.6 Hematocrit 36.0 - 46.0 % 45.9 MCV 80.0 - 100.0 fL 92.7 MCH 26.0 - 34.0 pG 29.5 MCHC 30.5 - 36.0 g/dL 31.8 RDW-CV 11.5 - 15.0 % 13.2 Platelet Count 150 - 400 k/uL 435 (H) MPV 9.0 - 12.7 fL 9.8 Neut% % 54.7 Abs Neut (ANC) 1.45 - 7.50 k/uL 5.22 Lymph% % 27.3 Abs Lymph 1.00 - 4.00 k/uL 2.61 Dane% % 9.6 Abs Dane <0.87 k/uL 0.92 (H) Eosin% % 7.2 Abs Eosin <0.46 k/uL 0.69 (H) Baso% % 1.2 Abs Baso <0.11 k/uL 0.11 (H) Nucleated Reds 0 /100 WBC 0.0 Absolute nRBC <0.01 k/uL <0.01 Diff Type Auto Diff Component Latest Ref Rng & Units 06/30/2020 Protein, Total 6.3 - 8.0 g/dL 7.2 Albumin 3.9 - 4.9 g/dL 4.2 Calcium 8.5 - 10.2 mg/dL 8.9 Bilirubin, Total 0.2 - 1.3 mg/dL <0.2 (L) Alkaline Phosphatase 34 - 123 U/L 76 AST 13 - 35 U/L 23 Glucose 74 - 99 mg/dL 67 (L) BUN 7 - 21 mg/dL 8 Creatinine 0.58 - 0.96 mg/dL 0.51 (L) Sodium 136 - 144 mmol/L 134 (L) Potassium 3.7 - 5.1 mmol/L 3.8 Chloride 97 - 105 mmol/L 101 CO2 22 - 30 mmol/L 23 Anion Gap 9 - 18 mmol/L 10 ALT 7 - 38 U/L 21 eGFR- >60 eGFR-All Other Races . >60 Assessment: In summary, this is a 46 year old female with PMH significant for HTN, Pre-diabetes, Obesity, Hx of Migraines who presents for evaluation of positive RONI. #Positive RONI #Bilateral hand pain/numbness #Disrupted sleep-wake cycle Patient presents with 2 year history of bilateral hand numbness/tingling and intermittent pain/swelling in DIPs that is worse with overuse, better with rest and associated with < 30min morning stiffness with raises suspicion for Osteoarthritis and concomitant carpal tunnel syndrome despite negative EMG considering + Tinel and Phalen's sign on exam. Will confirm with X rays of hands/wrists and recommend use of wrists splints at night to evaluate response. In regards to positive RONI, we discussed that it could be of unknown clinical significance, nonspecific and does not imply the presence of an autoimmune rheumatologic disease. At this point, our suspicion for SLE or other autoimmune disease is low. However, we will repeat work up checking RONI titer with reflex and look for any other organ involvement with CBC, CMP, UA with microscopy. Explained that titers (levels), even as high as 1:320, may be seen in approximately 13-15% of the healthy population. Plan: - Check CMP, CBC, sed rate, crp, Vitamin D, RONI with titer and LEVI panel - Obtain X rays hands and wrists - Referral to sleep medicine for disrupted sleep - Follow up based on results, likely 3-6 months from now. Patient seen and discussed with Rheumatology staff, Dr. Brook Christina PGY4 Rheumatology Fellow Pager [phone] Rheumatology Attending Staff Note: I reviewed the history and physical obtained and documented by the resident/fellow and I personally participated in the scott components of the history and exam. The following comments revise or confirm relevant scott elements of the resident/fellow's note: History: as given Physical Exam: as above I discussed the case and the plans with the resident/fellow and I agree with the above history, exam, assessment and plan. I spent a total of 60 minutes on the date of the service which included preparing to see the patient, [id number] patient care, completing clinical documentation, obtaining and/or reviewing separately obtained history, performing a medically appropriate examination, counseling and educating the patient/family/caregiver and ordering medications, tests, or procedures. Brook Rodriguez MD Rheumatology Staff documented in this encounter [facility] Evaluation note Diagnosis Positive RONI (antinuclear antibody) Other and unspecified nonspecific immunological findings Bilateral hand pain Pain in limb [facility] Diagnosis Microscopic hematuria- Primary [facility] Diagnosis Positive RONI (antinuclear antibody)- Primary Other and unspecified nonspecific immunological findings Bilateral hand pain Pain in limb Bilateral hand numbness Disturbance of skin sensation Disrupted sleep-wake cycle 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 [facility]* Diagnosis Screening for genitourinary condition Screening for other and unspecified genitourinary condition [facility]* Diagnosis Microscopic hematuria [facility]* Diagnosis Encounter for screening mammogram for malignant neoplasm of breast Other screening mammogram [facility] Diagnosis Chronic migraine without aura, with intractable migraine, so stated, with status migrainosus [facility] Diagnosis Digital mucinous cyst of finger of left hand- Primary Pain of finger of left hand Pain in limb Cellulitis of skin Cellulitis and abscess of unspecified site [facility]* Diagnosis Encounter for screening mammogram for breast cancer [facility]* Diagnosis Encounter for screening mammogram for breast cancer [facility]* Diagnosis Strain of muscle, fascia and tendon of lower back, initial encounter documented in this encounter [facility] Work Phone: Evaluation note* Diagnosis Migraine without status migrainosus, not intractable, unspecified migraine type- Primary Witnessed episode of apnea Snoring Other dyspnea and respiratory abnormality 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 documented in this encounter [facility] Work Phone: Evaluation note* Diagnosis Abdominal pain, unspecified abdominal location Bowel habit changes Other symptoms involving digestive system documented in this encounter [facility] Work Phone: Evaluation note* Diagnosis Migraine without status migrainosus, not intractable, unspecified migraine type- Primary RAOUL (obstructive sleep apnea) Obstructive sleep apnea (adult) (pediatric) Smoker Tobacco use disorder documented in this encounter [facility] Work Phone: Evaluation note* Diagnosis Screening mammogram for breast cancer documented in this encounter [facility] Work Phone: Evaluation note* Diagnosis Abdominal pain, unspecified abdominal location- Primary Bowel habit changes Other symptoms involving digestive system documented in this encounter [facility] Work Phone: Evaluation note* Diagnosis Dysuria- Primary Frequency of urination Urinary frequency Acute cystitis with hematuria Arthralgia, unspecified joint Joint swelling Effusion of joint, site unspecified Migraine without status migrainosus, not intractable, unspecified migraine type Screen for colon cancer Special screening for malignant neoplasms, colon documented in this encounter [facility] Work Phone: Evaluation note* Diagnosis Colon cancer screening- Primary Special screening for malignant neoplasms, colon documented in this encounter [facility] Work Phone: Evaluation note* Diagnosis Colon cancer screening Special screening for malignant neoplasms, colon documented in this encounter [facility] Work Phone: Evaluation noteNo assessment information available [facility] Work Phone: Evaluation note* Diagnosis Acute pain of left knee- Primary documented in this encounter [facility] Work Phone: Reason for referral (narrative)* Diagnostic Procedure Only (Routine) - Closed Specialty Diagnoses / Procedures Referred By Contac t Referred To Contact XR IMAGING Diagnoses Positive RONI (antinuclear antibody) Bilateral hand pain Procedures XR WRIST GENERAL 3V PA/LAT/OBL BILATERAL RADEX WRIST COMPLETE MINIMUM 3 VIEWS Brook Rodriguez MD [address] [place] [id number] Xr Imaging Referral ID Status Reason Start Date Expiration Date V isits Requested Visits Authorized [id number] Closed Auto-Generate d Referral 05/28/2021 06/27/2022 1 1 * Diagnostic Procedure Only (Routine) - Closed Specialty Diagnoses / Procedures Referred By Contac t Referred To Contact XR IMAGING Diagnoses Positive RONI (antinuclear antibody) Bilateral hand pain Procedures XR HAND GENERAL 3V PA/LAT/OBL BILATERAL RADEX HAND MINIMUM 3 VIEWS Brook Rodriguez MD [address] [place] [address] Xr Imaging Referral ID Status Reason Start Date Expiration Date V isits Requested Visits Authorized [id number] Closed Auto-Generate d Referral 05/28/2021 06/27/2022 1 1 [facility] for referral (narrative)* Diagnostic Procedure Only (Routine) - Closed Specialty Diagnoses / Procedures Referred By Sara penn Referred To Contact BR IMAGING Diagnoses Encounter for screening mammogram for malignant neoplasm of breast Procedures NATALIE SCREENING SCREENING MAMMOGRAPHY BI 2-VIEW BREAST INC CAD April Jefferson PA-C [address] [place] [address] Br Imaging [address] [place] [address] Referral ID Status Reason Start Date Expiration Date V isits Requested Visits Authorized [id number] Closed Auto-Generate d Referral 08/16/2021 09/15/2022 1 1 T [facility] for referral (narrative)* Diagnostic Procedure Only (Routine) - Authorized Specialty Diagnoses / Procedures [facility] Referred To Contact BR IMAGING Diagnoses Encounter for screening mammogram for breast cancer Procedures NATALIE SCREENING SCREENING MAMMOGRAPHY BI 2-VIEW BREAST INC CAD Darrian Diaz MD [address] [place] [address] [facility] Imaging [address] [place] [address] Referral ID Status Reason Start Date Expiration Date Visits Requested Visits Authorized [id number] Authorized Auto-Generat ed Referral 09/21/2022 10/21/2023 1 1 [facility] for referral (narrative)* Consultation (Routine) - Authorized Specialty Diagnoses / Procedures Referred By Sara penn Referred To Contact Primary Care Procedures Follow Up In Primary Care - Established Carmelita Romo MD [address] [place] [address] Referral ID Status Reason Start Date Expiration Date V isits Requested Visits Authorized [id number] Authorized 06/22/2023 06/21/2024 1 1 * Sleep - Outpatient (Routine) - Authorized Specialty Diagnoses / Procedures Referred By Sara penn Referred To Contact Sleep Lab Diagnoses Witnessed episode of apnea Snoring Procedures Home sleep apnea test (HSAT) Carmelita Romo MD [address] [place] [address] Referral ID Status Reason Start Date Expiration Date V isits Requested Visits Authorized [id number] Authorized 06/22/2023 06/21/2024 1 1 [facility] Work Phone: Reason for referral (narrative)* Diagnostic Procedure Only (Routine) - New Request Specialty Diagnoses / Procedures Referred By Sara penn Referred To Contact BR IMAGING Diagnoses Encounter for screening mammogram for breast cancer Procedures NATALIE SCREENING W ERUM SCREENING DIGITAL BREAST TOMOSYNTHESIS BI SCREENING MAMMOGRAPHY BI 2-VIEW BREAST INC CAD Darrian Diaz MD [address] [place] [address] Br Imaging [address] [place] [address] Referral ID Status Reason Start Date Expiration Date Visits Requested Visits Authorized [id number] New Request Auto-Generat ed Referral 11/01/2023 11/30/2024 1 1 [facility] for referral (narrative)* Consultation (Routine) - Authorized Specialty Diagnoses / Procedures Referred By Sara penn Referred To Contact Primary Care Procedures Follow Up In Primary Care - Established Carmelita Romo MD [address] [place] [address] Referral ID Status Reason Start Date Expiration Date V isits Requested Visits Authorized [id number] Authorized 08/14/2023 08/13/2024 1 1 [facility] Work Phone: Reason for referral (narrative)No reason for [facility] Reason for visit Narrative* Diagnostic Procedure Only (Routine) - Closed Specialty Diagnoses / Procedures Referred By Sara t Referred To Contact BR IMAGING Diagnoses Encounter for screening mammogram for breast cancer Procedures NATALIE SCREENING SCREENING MAMMOGRAPHY BI 2-VIEW BREAST INC CAD Darrian Diaz MD [address] [place] [address] Br Imaging [address] [place] [address] Referral ID Status Reason Start Date Expiration Date V isits Requested Visits Authorized [id number] Closed Auto-Generate d Referral 09/21/2022 10/21/2023 1 1 [facility] N[facility]* Consultation (Routine) - Pending Review Specialty Diagnoses / Procedures Referred By Sara penn Referred To Contact Primary Care Procedures Follow Up In Primary Care - Established Carmelita Romo MD [address] [place] [address] Referral ID Status Reason Start Date Expiration Date V isits Requested Visits Authorized [id number] Pending Review 06/22/2023 06/21/2024 1 1 [facility] Work Phone: Rerjgf for visit Narrative* Endoscopy (Routine) - Authorized Specialty Diagnoses / Procedures Referred By Sara t Referred To Contact Gastroenterology Diagnoses Colon cancer screening Procedures Colonoscopy Screening; Average Risk Patient MT COLONOSCOPY FLX DX W/COLLJ SPEC WHEN PFRMD MT COLORECTAL CANCER SCREENING; COLONOSCOPY ON INDIVIDUAL NOT MEETING CRITERIA FOR HIGH RISK MT COLORECTAL CANCER SCREENING; COLONOSCOPY ON INDIVIDUAL AT HIGH RISK MT COLONOSCOPY W/BIOPSY SINGLE/MULTIPLE MT COLSC FLX W/RMVL OF TUMOR POLYP LESION SNARE TQ MT COLSC FLX W/REMOVAL LESION BY HOT BX FORCEPS Darrel Gomez MD [address] [facility], [address] [place] [address] Phone: tel: fax: Referral ID Status Reason Start Date Expiration Date V isits Requested Visits Authorized [id number] Authorized 03/21/2024 03/21/2025 1 1 [facility] Work Phone: Advance Directives No Advanced Directives Records FoundDocuments on File Type Date Recorded Patient Psych Rn Expl anation Advance Directive(s) 05/06/2015 10:43 AM Advance Directive(s) 04/30/2015 11:24 AM Documents on File Type Date Recorded Patient Psych Rn Expl anation Advance Directive(s) 05/06/2015 10:43 AM Advance Directive(s) 04/30/2015 11:24 AM Advance Directive Response Recorded Date/ Time Advance Directives No July 07 6 3:00pm Reason for Referral Specialty Diagnoses / Procedures Referred By Contac t Referred To Contact Urology Diagnoses Microscopic hematuria Procedures CONSULT TO UROLOGY OFFICE/OUTPATIENT [facility] 60-74 MINUTES Brook Rodriguez MD [address] [place] [address] Referral ID Status Reason Start Date Expiration Date Visits Requested Visits Authorized [id number] Authorized PCP Requested Referral 06/01/2021 06/01/2022 1 1 Specialty Diagnoses / Procedures Referred By Contac t Referred To Contact Diagnoses Disrupted sleep-wake cycle Procedures CONSULT TO SLEEP MEDICINE - ADULT OFFICE/OUTPATIENT [facility] 60-74 MINUTES Brook Rodriguez MD [address] [place], [place] [id number] Referral ID Status Reason Start Date Expiration Date Visits Requested Visits Authorized [id number] Authorized PCP Requested Referral 05/28/2021 05/28/2022 1 1 Specialty Diagnoses / Procedures Referred By Contac t Referred To Contact XR IMAGING Diagnoses Positive RONI (antinuclear antibody) Bilateral hand pain Procedures XR WRIST GENERAL 3V PA/LAT/OBL BILATERAL RADEX WRIST COMPLETE MINIMUM 3 VIEWS Brook Rodriguez MD [address] [address] Xr Imaging Referral ID Status Reason Start Date Expiration Date V isits Requested Visits Authorized [id number] Closed Auto-Generate d Referral 05/28/2021 06/27/2022 1 1 Specialty Diagnoses / Procedures Referred By Contac t Referred To Contact XR IMAGING Diagnoses Positive RONI (antinuclear antibody) Bilateral hand pain Procedures XR HAND GENERAL 3V PA/LAT/OBL BILATERAL RADEX HAND MINIMUM 3 VIEWS Brook Rodriguez MD [address] [place] [id number] Xr Imaging Referral ID Status Reason Start Date Expiration Date V isits Requested Visits Authorized [id number] Closed Auto-Generate d Referral 05/28/2021 06/27/2022 1 1 Specialty Diagnoses / Procedures Referred By Contac t Referred To Contact Orthopedics Diagnoses Digital mucinous cyst of finger of left hand Pain of finger of left hand Procedures CONSULT TO ORTHOPAEDICS OFFICE/OUTPATIENT [facility] 60-74 MINUTES Darrian Diaz MD [address] [place] [address] Referral ID Status Reason Start Date Expiration Date Visits Requested Visits Authorized [id number] Authorized PCP Requested Referral 06/08/2022 06/08/2023 1 1 Specialty Diagnoses / Procedures Referred By Contac t Referred To Contact Radiology Diagnoses Abdominal pain, unspecified abdominal location Bowel habit changes Procedures CT abdomen pelvis w IV contrast CT abdomen pelvis w and wo IV contrast Carmelita Romo MD [address] [address] Referral ID Status Reason Start Date Expiration Date Visits Requested Visits Authorized [id number] Authorized Perform Procedure 11/15/2023 11/14/2024 1 1 Specialty Diagnoses / Procedures Referred By Contac t Referred To Contact Radiology Diagnoses Screening mammogram for breast cancer Procedures BI mammo bilateral screening tomosynthesis [address] [address] Referral ID Status Reason Start Date Expiration Date Visits Requested Visits Authorized [id number] Authorized Perform Procedure 10/12/2023 10/11/2024 1 1 Specialty Diagnoses / Procedures Referred By Contac t Referred To Contact Radiology Diagnoses Abdominal pain, unspecified abdominal location Bowel habit changes Procedures CT abdomen pelvis w and wo IV contrast Carmelita Romo MD [address] [place] [phone] Referral ID Status Reason Start Date Expiration Date Visits Requested Visits Authorized [id number] Pending Review Perform Procedure 11/15/2023 11/14/2024 1 1 Summary Purpose Family History No Family History Records Found Relationship Condition Age at Onset Recorded Date/T ela Unknown Family History?No pe rtinent history Unknown March 31, 2015 2:30pm Family History?No pe rtinent history Unknown March 31, 2015 2:30pm Chief Complaint and Reason for Visit Chief Complaint Admit Date PAIN- COPY PCP- LAB AND XRAY May 07, 2024 10:00am Additional Source Comments Source Comments (unrecognize d section and content) In the event this informatio n is protected by the Federal Confidentiality of Alcohol and Drug Abuse Patient Records regulations: The Federal rules restrict any use of the information to criminally investigate or prosecute any alcohol or drug abuse patient.[facility] the event this information is protected by the Federal Confidentiality of Alcohol and Drug Abuse Patient Records regulations: The Federal rules restrict any use of the information to criminally investigate or prosecute any alcohol or drug abuse patient.[facility] Foundation[facility] the event this information is protected by the Federal Confidentiality of Alcohol and Drug Abuse Patient Records regulations: The Federal rules restrict any use of the information to criminally investigate or prosecute any alcohol or drug abuse patient.[facility] Foundation[facility] the event this information is protected by the Federal Confidentiality of Alcohol and Drug Abuse Patient Records regulations: The Federal rules restrict any use of the information to criminally investigate or prosecute any alcohol or drug abuse patient.[facility] Foundation[facility] the event this information is protected by the Federal Confidentiality of Alcohol and Drug Abuse Patient Records regulations: The Federal rules restrict any use of the information to criminally investigate or prosecute any alcohol or drug abuse patient.[facility] Foundation[facility] the event this information is protected by the Federal Confidentiality of Alcohol and Drug Abuse Patient Records regulations: The Federal rules restrict any use of the information to criminally investigate or prosecute any alcohol or drug abuse patient.[facility] Foundation[facility] the event this information is protected by the Federal Confidentiality of Alcohol and Drug Abuse Patient Records regulations: The Federal rules restrict any use of the information to criminally investigate or prosecute any alcohol or drug abuse patient.[facility] Foundation[facility] the event this information is protected by the Federal Confidentiality of Alcohol and Drug Abuse Patient Records regulations: The Federal rules restrict any use of the information to criminally investigate or prosecute any alcohol or drug abuse patient.[facility] Foundation[facility] the event this information is protected by the Federal Confidentiality of Alcohol and Drug Abuse Patient Records regulations: The Federal rules restrict any use of the information to criminally investigate or prosecute any alcohol or drug abuse patient.[facility] Foundation[facility] the event this information is protected by the Federal Confidentiality of Alcohol and Drug Abuse Patient Records regulations: The Federal rules restrict any use of the information to criminally investigate or prosecute any alcohol or drug abuse patient.[facility] Foundation[facility] the event this information is protected by the Federal Confidentiality of Alcohol and Drug Abuse Patient Records regulations: The Federal rules restrict any use of the information to criminally investigate or prosecute any alcohol or drug abuse patient.[facility] Foundation[facility] the event this information is protected by the Federal Confidentiality of Alcohol and Drug Abuse Patient Records regulations: The Federal rules restrict any use of the information to criminally investigate or prosecute any alcohol or drug abuse patient.[facility] Foundation[facility] the event this information is protected by the Federal Confidentiality of Alcohol and Drug Abuse Patient Records regulations: The Federal rules restrict any use of the information to criminally investigate or prosecute any alcohol or drug abuse patient.[facility] Foundation[facility] the event this information is protected by the Federal Confidentiality of Alcohol and Drug Abuse Patient Records regulations: The Federal rules restrict any use of the information to criminally investigate or prosecute any alcohol or drug abuse patient.[facility] Foundation[facility] the event this information is protected by the Federal Confidentiality of Alcohol and Drug Abuse Patient Records regulations: The Federal rules restrict any use of the information to criminally investigate or prosecute any alcohol or drug abuse patient.[facility] FoundationIn the event this information is protected by the Federal Confidentiality of Alcohol and Drug Abuse Patient Records regulations: The Federal rules restrict any use of the information to criminally investigate or prosecute any alcohol or drug abuse patient.[facility] FoundationIn the event this information is protected by the Federal Confidentiality of Alcohol and Drug Abuse Patient Records regulations: The Federal rules restrict any use of the information to criminally investigate or prosecute any alcohol or drug abuse patient.[facility] Reason for Visit (unrecogniz ed section and content) Reason Comments Radio Gen A21 Specialty Diagnoses / Procedures Referred By Contac t Referred To Contact XR IMAGING Diagnoses Positive RONI (antinuclear antibody) Bilateral hand pain Procedures XR WRIST GENERAL 3V PA/LAT/OBL BILATERAL RADEX WRIST COMPLETE MINIMUM 3 VIEWS Brook Rodriguez MD [address] [place] [address] Xr Imaging Referral ID Status Reason Start Date Expiration Date V isits Requested Visits Authorized [id number] Closed Auto-Generate d Referral 05/28/2021 06/27/2022 1 1 Reason Comments Orders Patient Update Results Specialty Diagnoses / Procedures Referred By Contac t Referred To Contact Rheumatology Diagnoses Positive RONI (antinuclear antibody) Bilateral hand pain Bilateral hand numbness Procedures CONSULT TO RHEUM/IMMUN DISEASE NEW PATIENT VISIT LEVEL 5 April Jefferson PA-C [address] [place] [address] Referral ID Status Reason Start Date Expiration Date V isits Requested Visits Authorized [id number] Closed PCP Requested Referral 07/08/2020 07/08/2021 1 1 Reason Comments Hematuria Specialty Diagnoses / Procedures Referred By Contac t Referred To Contact Urology / UROLOGY Diagnoses Microscopic hematuria Procedures CONSULT TO UROLOGY NEW PATIENT VISIT LEVEL 5 April Jefferson PA-C [address] [place] [address] [facility] [address] [address] Referral ID Status Reason Start Date Expiration Date V isits Requested Visits Authorized [id number] Closed PCP Requested Referral 07/08/2020 07/08/2021 1 1 Reason Comments Radiology Mammogram Specialty Diagnoses / Procedures [facility] Referred To Contact BR IMAGING Diagnoses Encounter for screening mammogram for malignant neoplasm of breast Procedures NATALIE SCREENING SCREENING MAMMOGRAPHY BI 2-VIEW BREAST INC CAD April Jefferson PA-C [address] [place] [address] Br Imaging [address] [place] [address] Referral ID Status Reason Start Date Expiration Date V isits Requested Visits Authorized [id number] Closed Auto-Generate d Referral 08/16/2021 09/15/2022 1 1 Reason Comments Results Reason Onset Date Comments Refill Request 09/04/2021 Reason Comments Pain Left middle finger Specialty Diagnoses / Procedures Referred By Contac t Referred To Contact Radiology Diagnoses Strain of muscle, fascia and tendon of lower back, initial encounter Procedures XR lumbar spine 2-3 views XR lumbar spine complete 4+ views [place], 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 [address], [facility] [address] [place] [address] Referral ID Status Reason Start Date Expiration Date Visits Requested Visits Authorized [id number] Pending Review Perform Procedure 04/20/2023 04/19/2024 1 1 Referral ID Status Reason Start Date Expiration Date Visits Requested Visits Authorized [id number] Authorized Perform Procedure 04/20/2023 04/19/2024 1 1 Specialty Diagnoses / Procedures Referred By Contac t Referred To Contact Radiology Diagnoses Abdominal pain, unspecified abdominal location Bowel habit changes Procedures CT abdomen pelvis w IV contrast CT abdomen pelvis w and wo IV contrast Carmelita Romo MD [address] [place] [address] Referral ID Status Reason Start Date Expiration Date Visits Requested Visits Authorized [id number] Authorized Perform Procedure 11/15/2023 11/14/2024 1 1 Specialty Diagnoses / Procedures Referred By Contac t Referred To Contact Radiology Diagnoses Screening mammogram for breast cancer Procedures BI mammo bilateral screening tomosynthesis [address] [address] Referral ID Status Reason Start Date Expiration Date Visits Requested Visits Authorized [id number] Authorized Perform Procedure 10/12/2023 10/11/2024 1 1 Reason Comments Follow-up Complaints of consti pation x 1 month and weight gain x 2 weeks. Reason Comments Follow-up Patient here for [facility] follow-up. Complaining of urinary burning, urgency, dark colored urine x 2 weeks. 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 Start Date End Date Darrian Diaz MD [facility] [place] [address] PCP - General Family Practice 03/31/15 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 Start Date End Date Darrian Diaz MD [address] [place] [address] [place] [address] PCP - General Family Practice 03/31/15 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 Start Date End Date Darrian Diaz MD [address] [place] [address] [place] [address] PCP - General Family Practice 03/31/15 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 Start Date End Date Darrian Diaz MD [address] [place] [address], [place] [address] PCP - General Family Practice 03/31/15 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 Start Date End Date Darrian Diaz MD [address] [place] [address] [place] [address] PCP - General Family Practice 03/31/15 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 Start Date End Date Darrian Diaz MD [address] [place] [address] [place] [address] PCP - General Family Practice 03/31/15 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 Start Date End Date Darrian Diaz MD [address] [place] [address], [place] [address] PCP - General Family Practice 03/31/15 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 Start Date End Date Darrian Diaz MD [address] [place] [address] [place] [address] PCP - General Family Medicine 03/31/15 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 Start Date End Date Darrian Diaz MD [address] [place] [address] PCP - General Family Medicine 03/31/15 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 Start Date End Date Darrian Diaz MD [address] [place] [address] PCP - General Family Medicine 03/31/15 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 Start Date End Date Darrian Diaz MD [address] [place] [address] PCP - General Family Medicine 03/31/15 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 Start Date End Date Darrian Diaz MD [address] [place] [address] PCP - General Family Medicine 03/31/15 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 Start Date End Date Darrian Diaz MD [address] [place] [address] PCP - General Family Medicine 03/31/15 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 Start Date End Date Darrian Diaz MD [address] [place] [address] PCP - General Family Medicine 04/18/23 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 Start Date End Date Darrian Diaz MD [address] [place] [address] PCP - General Family Medicine 04/18/23 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 Start Date End Date Carmelita Romo MD [address] [facility] [place] [address] PCP - General Family Medicine 06/22/23 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 Start Date End Date Carmelita Romo MD [address] [place] [address] PCP - General Family Medicine 11/14/23 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 Start Date End Date Carmelita Romo MD [address] [facility] [place] [address] PCP - General Family Medicine 06/22/23 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 Start Date End Date Carmelita Romo [facility] [place] [address] PCP - General Family Medicine 06/22/23 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 Start Date End Date Carmelita Romo MD [address] [place] [address] [facility] [place] [address] PCP - General Family Medicine 06/22/23 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 Start Date End Date Carmelita Romo MD [address] [place] [address] PCP - General Family Medicine 11/14/23 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 Start Date End Date Carmelita Romo MD [address] [place] [address] PCP - General Family Medicine 11/14/23 Carmelita Romo MD [address] [address] PCP - Pritesh ACO PCP 09/21/23 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 Start Date End Date Carmelita Romo MD [address] [address] PCP - General Family Medicine 11/14/23 Carmelita Romo MD [address] [address] PCP - Pritesh ACO PCP 09/21/23 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 Start Date End Date Carmelita Romo MD [address] [address] PCP - General Family Medicine 11/14/23 Carmelita Romo MD [address] [address] PCP - Pritesh ACO PCP 09/21/23 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 Start Date End Date Darrian Diaz MD [facility] [place] [address] PCP - General Family Medicine 03/31/15 Julee Romero APRN.CNP [address] [place], [place] [address] Fashion Supervisor Family Medicine 01/27/24 April Jefferson PA-C [facility] [place], [place] [address] Fashion Supervisor Family Medicine 01/27/24 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 Start Date End Date Darrian Diaz MD [address] [place] [address] PCP - General Family Medicine 03/31/15 Julee Romero APRN.CNP [address] [place] [address] Fashion Supervisor Family [facility] 01/27/24 April Jefferson PA-C [address] [place] [address] Fashion Supervisor [facility] 01/27/24 Team Status: Active Member Role Status Dates Dr. Darrian Diaz MD Family Provider Active Dr. Darrian Diaz MD Primary Care Provider Active Team Status: Inactive Member Role Status Dates Dr. Darrian Diaz MD Primary Care Provider Active Start: May 07, 2024 End: May 07, 2024 Dr. Natalie Caballero MD Attending Provider Active Start: May 07, 2024 End: May 07, 2024 Dr. 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 Darrian Diaz MD Family Provider Active Dr. Carmelita Romo MD Primary Care Provider Act andi Team Status: Inactive Member Role Status Dates Dr. Carmelita Romo MD Primary Care Provider Act andi Start: July 18, 2024 End: July 18, 2024 Dr. Natalie Caballero MD Attending Provider Active Start: July 18, 2024 End: July 18, 2024 Dr. Natalie Caballero MD Referring Provider Active Start: July 18, 2024 End: July 18, 2024 INFORMATION SOURCE (unrecogn ized section and content) DATE CREATED AUTHOR 01/26/2022 [facility] DATE CREATED AUTHOR AUTHOR'S ORGANIZ ATION 02/13/2022 [facility] DATE CREATED AUTHOR AUTHOR'S ORGANIZ ATION 09/30/2022 [facility] DATE CREATED AUTHOR AUTHOR'S ORGANIZ ATION 05/03/2023 [facility] DATE CREATED AUTHOR AUTHOR'S ORGANIZ ATION 03/11/2024 [facility] DATE CREATED AUTHOR AUTHOR'S ORGANIZ ATION 03/27/2024 [facility] DATE CREATED AUTHOR AUTHOR'S ORGANIZ ATION 05/10/2024 [facility] DATE CREATED AUTHOR AUTHOR'S ORGANIZ ATION 06/01/2024 [facility] DATE CREATED AUTHOR AUTHOR'S ORGANIZ ATION 07/25/2024 [facility] <item> Privacy Markings (unrecogniz ed section and content) Section Author: Klarissa Mast PROHIBITION ON REDISCLOSURE OF CONFIDENTIAL INFORMATION This notice accompanies a disclosure of information concerning a client made to you with the consent of such client. Goals (unrecognized section and content) Goals may be documented in a n alternate sectionGoals may be documented in an alternate section FOR RECORDS PERTAINING TO PATIENTS WHO ARE OR HAVE BEEN ENROLLED IN A CHEMICAL DEPENDENCY/SUBSTANCEABUSE PROGRAM, SOME INFORMATION MAY BE OMITTED. This clinical summary was aggregated from multiple sources. Caution should be exercised in using it in the provision of clinical care. This summary normalizes information from multiple sources, and as a consequence, information in this document may materially change the coding, format and clinical context of patient data. In addition, data may be omitted in some cases. CLINICAL DECISIONS SHOULD BE BASED ON THE PRIMARY CLINICAL RECORDS. [facility]. provides no warranty or guarantee of the accuracy or completeness of information in this document.
--- NOTE | 2024-07-27 09:00 | US_ITS ---
PROCEDURE: ABDOMEN LIMITED 07/27/2024 REASON FOR EXAM: ELEVATED LFTS TECHNIQUE: Complete abdominal ultrasound campbell-scale images with color doppler. PATIENT PREPARATION: Per protocol COMPARISON: None. FINDINGS: The liver measures 14.4 cm. Mildly heterogeneous hepatic echotexture. Mildly increased hepatic echogenicity, probably mild hepatic steatosis. Unremarkable flow in the main portal vein. Prior cholecystectomy. Nondilated common bile duct measuring 2.9 mm. Mildly increased pancreatic echogenicity, probably mild fatty infiltration. Unremarkable right kidney measuring 11.7 x 6.4 x 4.9 cm. Normal right renal cortical thickness measuring 1.4 cm. US/Abdomen Limited IMPRESSION: Prior cholecystectomy. Nondilated common bile duct. Mildly heterogeneous hepatic echotexture. Mild hepatic fatty infiltration. Mild pancreatic fatty infiltration. Reading [facility]
== END | disposition home or self-care (01) ==
LOC: US 08:43
PROVIDERS: PCP Family Medicine; Referring Provider Internal Medicine Rheumatology; Visit Provider Internal Medicine Rheumatology
DX: M06.4 Inflammatory polyarthropathy (principal); M79.7 Fibromyalgia; Z79.899 Other long term (current) drug therapy
CPT/HCPCS: 76705

== ENCOUNTER → 2024-08-15 | Outpatient (CLI) | payer BC, SELFPAY ==
--- OUTSIDE RECORDS SUMMARY | 2024-08-15 07:11 | XMS RPT_ITS | CCD ---
Author Organization [facility] Care Team Providers Care Dish Washer Name Role Phone Darrian Diaz MD Primary Care Provider TERESE GARIBAY Attending Jaye NUNEZ, PHYSICIAN Primary Care Unavailable Free, Text Entry Unavailable Unavailable Franchesca Gonzalez Unavailable Unavailable DO Franchesca Gonzalez Attending Unavailab al [place], Provider Primary Care Unavailable Ms. Marichuy Kina Lien Primary Care Unav zina Delgado, Ms. Tigre Michele Attending Meryvai Darrian Gracia MD Primary Care Provider DARRIAN DIAZ Referring Unavailable DARRIAN DIAZ Primary Care Unavailable Darrian Diaz MD Primary Care Provider Carmelita Romo MD Primary Care Provider Darrian Diaz MD Primary Care Provider [phone] Carmelita Romo MD Primary Care Provider Carmelita Romo MD Unavailable CARMELITA ROMO Primary Care Unavailab le [facility], CARMELITA A Primary Care Unavailab le [facility], CARMELITA A Primary Care Unavailab le [facility], CARMELITA A Primary Care Unavailab le [facility], CARMELITA A Primary Care Unavailab le NICHONMNANCY, CARMELITA A Primary Care Unavailab ERIC Jimenez Referring Unavailable CLARISSA, CARMELITA A Primary Care Unavailab le CATHIE KEN Referring Unavailable DRARIAN DIAZ Primary Care Unavailluke e SUELLEN, ALIVA L Referring Unavailable DARRIAN DIAZ Primary Care Unavailabl e JESSICA CHAMPION Attending Unavailable SUELLEN, ALIVA L Referring Unavailable JOE, DARRIAN PHILLIPS Primary Care Unavailabl e GILBERT, ALIVA L Referring Un[facility] Care Unavailabl e GILBERT, ALIVA L Referring Unavailable [facility] Primary Care Unavailabl e GILBERT, [...] Primary Care Unavailab le [place], CARMELITA A Primary Care Unavailab le [place], CARMELITA A Referring Unavailab le [place], CARMELITA A Primary Care Unavailab le DARREL GOMEZ Attending Unavailable DARREL GOMEZ Referring Unavailable [place], CARMELITA A Primary Care Unavailab le Nick DATA REVIEW SPECIALIST.BULL LADLE TENDER, Julee Unavailable Ronny CARRILLO, April Unavailable Joe LEZAMA, Dr. Colmenares Primary Care Provider [phone] Ada LEZAMA, Dr. Estrada Attending Provider Dr. Natalie Caballero MD Referring Provider Carmelita Romo MD Primary Care Provider Clarissa LEZAMA, Carmelita [...] Unavailab le [place], CARMELITA A Attending Unavailab CARMELITA Zimmerman Primary Care Unavailab Zaina LEZAMA, Dr. Mae Primary Care Provide r Natalie Caballero Attending Unavailable Natalie Caballero Referring Unavailable Darrian Diaz Primary Care Unavailable Natalie Caballero Attending Unavailable Natalie Caballero Referring Unavailable Carmelita Romo Primary Care Unavailable Natalie Caballero Attending Unavailable Natalie Caballero Referring Unavailable Carmelita Romo Primary Care Unavailable April Jefferson PA-C Unavailable Nick RAEJulee Unavailable April Jefferson PA-C Unavailable [phone] Allergies Allergy Classification Reported Allergen(s) Allergy Type Date of Onset Reaction(s) Facility (20 sources) Acetaminophen; Translations: [ACETAMINOPHEN] Drug Allergy 6 Shortness of Breath [facility] Work Phone: (20 sources) Acetaminophen / HYDROcodone; Translations: [HYDROCODONE-ACET AMINOPHEN] Drug Allergy 4 Shortness of Breath [facility] Work Phone: (20 sources) HYDROcodone; Translations: [HYDROCODONE BITARTRATE] Drug Allergy 6 Shortness of Breath [facility] Work Phone: (1 source) HYDROcodone Drug Allergy 8 [facility] Repository Medications Current Medications Medication Drug Class(es) [...] Comment on above: Take 1 capsule by mo [facility] twice daily for 7 days. ciprofloxacin 500 mg oral tablet (3 sources) Quinolone Antimicrobial Start: 05-24-2017 take 1 [...] Comment on above: Take 1 capsule by [facility] one time a week for 8 [...] Active ondansetron 4 mg disintegrating oral tablet (3 sources) Serotonin-3 Receptor Antagonist Start: 05-24-2017 take [...] milk. pravastatin sodium 10 mg oral tablet (18 sources) HMG-CoA Reductase Inhibitor Start: 07-08-2020 take 1 tablet by mouth once daily pravastatin (PRAVACHOL) 10 mg tablet Take 1 tablet by mouth once daily. 30 tablet 5 07/08/2020 Active Comment on above: Take 1 tablet by dionte th once daily. rizatriptan 10 mg oral tablet (20 sources) Serotonin-1b and Serotonin-1d Receptor Agonist Start: [...] above: Take 1 tablet by dionte th twice daily. Diagnosis: Unavailab le varenicline (6 [...] Date Documented Da te Episodic/Chronic Abdominal pain (17 sources) Unspecified abdominal pain; Translations: [Abdominal pain] Onset: 01-06-2022 Episodic Cancer of cervix (3 sources) Cervicovaginal cytology: Low grade squamous intraepithelial lesion; Translations: [Low grade squamous intraepithelial lesion on cytologic smear of cervix (LGSIL)] 07-15-2015 Episodic Disorders of lipid metabolism (18 sources) Mixed hyperlipidemia; Translations: [Mixed hyperlipidemia] Onset: 01-31-2018 04-18-2019 Chronic Essential hypertension (18 sources) Essential hypertension; Translations: [Essential (primary) hypertension] Onset: 01-31-2018 04-18-2019 Chronic Gastrointestinal hemorrhage (3 sources) Hematochezia; Translations: [Melena] 03-31-2015 Episodic Genitourinary symptoms and ill-defined conditions (3 sources) Female stress incontinence; Translations: [Stress incontinence (female) (male)] 07-15-2015 Chronic Headache; including migraine (20 sources) Migraine with aura; Translations: [Migraine with aura, not intractable, without status migrainosus] Onset: 05-29-2018 04-18-2019 Chronic Immunizations and screening for infectious disease (2 sources) Anti-nuclear factor positive; Translations: [Other specified abnormal immunological findings in serum] Episodic Menstrual disorders (20 sources) Dysmenorrhea; Translations: [Dysmenorrhea, unspecified] Onset: 04-09-2005 03-31-2015 Chronic Nausea and vomiting (2 sources) Nausea; Translations: [Nausea] Onset: 02-09-2022 Episodic Nonspecific chest pain (8 sources) Chest pain; Translations: [Chest pain, unspecified] 02-09-2022 Episodic Comment on above: CHEST PAIN Occlusion or stenosis of precerebral arteries (18 sources) Bilateral stenosis of carotid arteries; Translations: [Occlusion and stenosis of bilateral carotid arteries] Onset: 02-09-2018 05-01-2019 Chronic Other aftercare (1 source) Other halfway (current) drug therapy; Translations: [Other halfway (current) drug therapy] Onset: 02-09-2022 Episodic Other connective tissue disease (2 sources) Pain of bilateral hands; Translations: [Pain in right hand] Episodic Other connective tissue disease (1 source) Digital mucous cyst of left hand; Translations: [Ganglion, left hand] Episodic Other connective tissue disease (1 source) Pain in finger of left hand; Translations: [Pain in left finger(s)] Episodic Other female genital disorders (18 sources) Dyspareunia; Translations: [Dyspareunia] Onset: 04-09-2005 03-31-2015 [...] Episodic Other nutritional; endocrine; and metabolic disorders (18 sources) Body mass index 40+ - severely obese; Translations: [Morbid (severe) obesity due to excess calories] Onset: 05-12-2017 04-18-2019 Chronic Residual codes; unclassified (12 sources) Obstructive sleep [...] 02-09-2022 Episodic Rheumatoid arthritis and related disease (1 source) Inflammatory polyarthropathy; Translations: [Inflammatory polyarthropathy] Onset: 07-31-2024 Chronic Skin and subcutaneous tissue infections (1 source) Cellulitis of skin; Translations: [Cellulitis, unspecified] Episodic Substance-related disorders (3 sources) Smoker; Translations: [Nicotine dependence, unspecified, uncomplicated] Onset: 08-14-2023 08-14-2023 Chronic Syncope (3 sources) Syncope; Translations: [Syncope and collapse] Onset: 02-09-2022 02-09-2022 Episodic Unclassified (3 sources) Patient encounter status 03-04-2024 Unclassified (3 sources) Elevated blood pressure 03-31-2015 Unclassified (2 sources) Acute pain of left knee 05-30-2024 Urinary tract infections (3 sources) Acute cystitis; Translations: [Acute cystitis with hematuria] Onset: 03-04-2024 03-04-2024 Episodic Past or Other Problems Problem Classification Problem Date Documented Da te Episodic/Chronic Diabetes mellitus without complication (18 sources) High hemoglobin A1c level; Translations: [Other abnormal glucose] Onset: 04-18-2019 04-18-2019 Episodic Genitourinary symptoms and ill-defined conditions (20 sources) Microscopic hematuria; Translations: [Other microscopic hematuria] Onset: 04-22-2019 04-22-2019 Episodic Inflammation; infection of eye (except that [...] Onset: 04-13-2021 Episodic Other female genital disorders (18 sources) Cervical intraepithelial neoplasia grade 1; Translations: [...] sources) Snoring; Translations: [Snoring] Onset: 06-22-2023 Episodic Other screening for suspected conditions (not mental disorders or infectious disease) (20 sources) Ultrasonography of left kidney abnormal; Translations: [Abnormal radiologic findings on diagnostic imaging of left kidney] Onset: 05-01-2019 05-01-2019 Episodic Screening and history of mental health and substance abuse codes (18 sources) Ex-smoker; Translations: [Personal history of nicotine dependence] Onset: 04-18-2019 04-18-2019 Episodic Sprains and strains (20 sources) Sprain of ligaments of lumbar spine, initial encounter; Translations: [Low back strain] Onset: 01-06-2022 Episodic Unclassified (12 sources) Onset: 06-22-2023 06-22-2023 Results Test Name Value Interpretation Reference Range Facility Abdomen Limitedon 07-27-2024 Abdomen Limited [facility] Imaging Services [address], [place] [id number] Abdomen Limited MR#: [id number] Acct: [id number] Name: JO MECRER Rep #: [id number] : 1975 F 49 From: Jennyfer benites MD PCP: Dr. Carmelita Romo MD Status: REG CLI Study: Abdomen Limited Date of Exam: 07/27/24 Exam# [id number] Ordering Dr: Natalie Caballero MD PROCEDURE: ABDOMEN LIMITED 07/27/2024 REASON FOR EXAM: ELEVATED LFTS TECHNIQUE: Complete abdominal ultrasound campbell-scale images with color doppler. PATIENT PREPARATION: Per protocol COMPARISON: None. FINDINGS: The liver measures 14.4 cm. Mildly heterogeneous hepatic echotexture. Mildly increased hepatic echogenicity, probably mild hepatic steatosis. Unremarkable flow in the main portal vein. Prior cholecystectomy. Nondilated common bile duct measuring 2.9 mm. Mildly increased pancreatic echogenicity, probably mild fatty infiltration. Unremarkable right kidney measuring 11.7 x 6.4 x 4.9 cm. Normal right renal cortical thickness measuring 1.4 cm. US/Abdomen Limited IMPRESSION: Prior cholecystectomy. Nondilated common bile duct. Mildly heterogeneous hepatic echotexture. Mild hepatic fatty infiltration. Mild pancreatic fatty infiltration. Reading Location: [place] [address] CC: Dr. Carmelita Romo MD; Dr. Natalie Caballero MD Center Administrator: Signed Normal [facility] Absolute lymphocyte countOrd ered By: Natalie Caballero on 07-18-2024 Lymphocytes Auto (Unsp spec) [#/Vol] 2.97 10*3/uL 0.83-4.51 [facility] Absolute neutrophil countOrd ered By: Natalie Caballero on 07-18-2024 Neutrophils (Bld) [#/Vol] 4.6 10*3/uL 2.0-7.7 [facility] Anion gap in Serum or Plasma Ordered By: Natalie Caballero on 07-18-2024 Anion gap [Moles/Vol] 13 mmol/L 5-15 [facility] Automated lymphocyte count a s percentage of total leukocytesOrdered By: Natalie Caballero on 07-18-2024 Lymphocytes/100 WBC Auto (Unsp spec) 34.1 % 19-41 [facility] BUN/creatinine ratioOrdered By: Natalie Caballero on 07-18-2024 Urea nitrogen/Creatinine [Mass ratio] 22.4 mg/mg High 10-20 [facility] Basophil percentageOrdered B y: Natalie Caballero on 07-18-2024 Basophils/100 WBC (Bld) 0.9 % 0-1 [facility] Bilirubin, totalOrdered By: Natalie Caballero on 07-18-2024 Bilirubin [Mass/Vol] 0.16 mg/dL 0.00-1.30 [facility] CBC W/Diff, Automatedon 06-21 Absolute Lymph 2.97 X10 3/uL Normal 0.83-4.51 [facility] Comment on above: Performed By: #### L 100.0100, L500.4050 #### [facility] [address] [place], [address] Absolute Neut 4.6 X10 3/uL Normal 2.0-7.7 [facility] Comment on above: Performed By: #### L 100.0100, L500.4050 #### [facility] [address] [place], [address] Basophils/100 WBC (Bld) 0.9 % Normal 0-1 [facility] Comment on above: Performed By: #### L 100.0100, L500.4050 #### [facility] [address] [place], [address] Eosinophils/100 WBC (Bld) 3.9 % Normal 0-5 [facility] Comment on above: Performed By: #### L 100.0100, L500.4050 #### [facility] [address] [place], [address] Erythrocyte distribution width (RBC) [Ratio] 14.2 % Normal 11.6-14.6 [facility] Comment on above: Performed By: #### L 100.0100, L500.4050 #### [facility] [address] [place], [address] Hematocrit (Bld) [Volume fraction] 40.6 % Normal 37-47 [facility] Comment on above: Performed By: #### L 100.0100, L500.4050 #### [facility] [address] [place], [address] Hemoglobin (Bld) [Mass/Vol] 13.2 g/dL Normal 12.0-15.0 [facility] Comment on above: Performed By: #### L 100.0100, L500.4050 #### [facility] [address] [place], [address] IG% 1.100 High 0.0-0.9 [facility] Comment on above: Result Comment: IG% - Immature Granulocytes (promyelocytes, myelocytes and metamyelocytes) > 1% indicates that a LEFT SHIFT is Present. Performed By: #### L 100.0100, L500.4050 #### [facility] [address] [place], [address] Lymphocytes/100 WBC (Bld) 34.1 % Normal 19-41 [facility] Comment on above: Performed By: #### L 100.0100, L500.4050 #### [facility] [address] [place], [address] MCH (RBC) [Entitic mass] 29.9 pg Normal 27.0-32.0 [facility] Comment on above: Performed By: #### L 100.0100, L500.4050 #### [facility] [address] [place], [address] MCHC (RBC) [Mass/Vol] 32.5 g/dL Normal 32-36 [facility] Comment on above: Performed By: #### L 100.0100, L500.4050 #### [facility] [address] [place], [address] MCV (RBC) [Entitic vol] 92.1 fL Normal 81-99 [facility] Comment on above: Performed By: #### L 100.0100, L500.4050 #### [facility] [address] [place], [address] Monocytes/100 WBC (Bld) 7.5 % Normal 0-10 [facility] Comment on above: Performed By: #### L 100.0100, L500.4050 #### [facility] [address] [place], [address] Neutrophils/100 WBC (Bld) 52.5 % Normal 47-70 [facility] Comment on above: Performed By: #### L 100.0100, L500.4050 #### [facility] [address] [place], [address] Nucleated RBC (Bld) [#/Vol] 0 10*3/uL Normal 0-5 [facility] Comment on above: Performed By: #### L 100.0100, L500.4050 #### [facility] [address] [place], [address] Platelet mean volume (Bld) [Entitic vol] 10.0 fL Normal 6.2-12.0 [facility] Comment on above: Performed By: #### L 100.0100, L500.4050 #### [facility] [address] [place], [address] Platelets (Bld) [#/Vol] 387 10*3/uL Normal 150-450 [facility] Comment on above: Performed By: #### L 100.0100, L500.4050 #### [facility] [address] [place], [address] RBC (Bld) [#/Vol] 4.41 10*6/uL Normal 4.2-5.4 [facility] Comment on above: Performed By: #### L 100.0100, L500.4050 #### [facility] [address] [place], [address] RDW SD 48.4 fl High 35.1-43.9 [facility] Comment on above: Performed By: #### L 100.0100, L500.4050 #### [facility] [address] [place], [address] WBC (Bld) [#/Vol] 8.7 10*3/uL Normal 4.4-11.0 [facility] Comment on above: Performed By: #### L 100.0100, L500.4050 #### [facility] [address] [place], [address] Carbon dioxide, total [Moles /volume] in Central venous bloodOrdered By: Natalie Caballero on 07-18-2024 CO2 [Moles/Vol] 20.0 mmol/L Low 21.0-32.0 [facility] Chloride assayOrdered By: Jax Caballero on 07-18-2024 Chloride [Moles/Vol] 106 mmol/L 98-108 [facility] Comprehensive Metabolic Prof ilon 07-18-2024 Albumin [Mass/Vol] 4.1 g/dL Normal 3.5-5.0 [facility] Comment on above: Performed By: #### L 100.0100, L500.4050 #### [facility] [address] [place], [address] Albumin/Globulin [Mass ratio] 1.2 {ratio} Normal 0.9-2.4 [facility] Comment on above: Performed By: #### L 100.0100, L500.4050 #### [facility] [address] [place], [address] ALK PHOS 101 U/L Normal 35-104 [facility] Comment on above: Performed By: #### L 100.0100, L500.4050 #### [facility] [address] [place], [address] ALT [Catalytic activity/Vol] 48 U/L High <=34 [facility] Comment on above: Performed By: #### L 100.0100, L500.4050 #### [facility] [address] [place], [address] AST [Catalytic activity/Vol] 32 U/L Normal <=31 [facility] Comment on above: Performed By: #### L 100.0100, L500.4050 #### [facility] [address] [place], [address] Bilirubin [Mass/Vol] 0.16 mg/dL Normal 0.00-1.30 [facility] Comment on above: Performed By: #### L 100.0100, L500.4050 #### [facility] [address] [place], [address] BUN/CRE 22.4 RATIO High 10-20 [facility] Comment on above: Performed By: #### L 100.0100, L500.4050 #### [facility] [address] [place], [address] Calcium [Mass/Vol] 9.2 mg/dL Normal 7.6-11.0 [facility] Comment on above: Performed By: #### L 100.0100, L500.4050 #### [facility] [address] [place], [address] Chloride [Moles/Vol] 106 mmol/L Normal 98-108 [facility] Comment on above: Performed By: #### L 100.0100, L500.4050 #### [facility] [address] [place], [address] CO2 [Moles/Vol] 20.0 mmol/L Low 21.0-32.0 [facility] Comment on above: Performed By: #### L 100.0100, L500.4050 #### [facility] [address] [place], [address] Creatinine [Mass/Vol] 0.63 mg/dL Low 0.70-1.20 [facility] Comment on above: Performed By: #### L 100.0100, L500.4050 #### [facility] [address] [place], [address] GAP 13 Normal 5-15 [facility] Comment on above: Performed By: #### L 100.0100, L500.4050 #### [facility] [address] [place], [address] GFR/1.73 sq M.predicted among non-blacks MDRD (S/P/Bld) [Vol rate/Area] 108 mL/min/{1.73_m2} Normal >60 [facility] Comment on above: Result Comment: mL/m in/1.73m2 CKD-EPI Creatinine Equation (2020) Performed By: #### L 100.0100, L500.4050 #### [facility] [address] [place], [address] Globulin (S) [Mass/Vol] 3.3 g/dL Normal 2.2-4.2 [facility] Comment on above: Performed By: #### L 100.0100, L500.4050 #### [facility] [address] [place], [address] Glucose [Mass/Vol] 157 mg/dL High 70-99 [facility] Comment on above: Performed By: #### L 100.0100, L500.4050 #### [facility] [address] [place], [address] Potassium [Moles/Vol] 3.5 mmol/L Normal 3.3-5.1 [facility] Comment on above: Performed By: #### L 100.0100, L500.4050 #### [facility] [address] [place], [address] Sodium [Moles/Vol] 138 mmol/L Normal 133-145 [facility] Comment on above: Performed By: #### L 100.0100, L500.4050 #### [facility] [address] [place], [address] T PROT 7.4 g/dL Normal 5.9-8.4 [facility] Comment on above: Performed By: #### L 100.0100, L500.4050 #### [facility] [address] [place], [address] Urea nitrogen [Mass/Vol] 14 mg/dL Normal 4-19 [facility] Comment on above: Performed By: #### L 100.0100, L500.4050 #### [facility] [address] [place], [address] Eosinophil percentageOrdered By: Natalie Caballero on 07-18-2024 Eosinophils/100 WBC (Bld) 3.9 % 0-5 [facility] Erythrocyte distribution wid th ratioOrdered By: Natalie Caballero on 07-18-2024 Erythrocyte distribution width (RBC) [Ratio] 14.2 % 11.6-14.6 [facility] Erythrocyte distribution wid th standard deviationOrdered By: Natalie Caballero on 07-18-2024 Erythrocyte distribution width (RBC) [Ratio] 48.4 fl High 35.1-43.9 [facility] Glomerular filtration rate ( GFR) estimation/1.73 sq m using serum, plasma, or whole bOrdered By: Natalie Caballero on 07-18-2024 GFR/1.73 sq M.predicted among non-blacks MDRD (S/P/Bld) [Vol rate/Area] 108 mL/min/{1.73_m2} >60 [facility] Comment on above: mL/min/1.73m2 CKD-EP I Creatinine Equation (2020) Hematocrit Auto (Bld) [Volum e fraction]Ordered By: Natalie Caballero on 07-18-2024 Hematocrit (Bld) [Volume fraction] 40.6 % 37-47 [facility] Hemoglobin measurementOrdere d By: Natalie Caballero on 07-18-2024 Hemoglobin (Bld) [Mass/Vol] 13.2 g/dL 12.0-15.0 [facility] Immature granulocytes/100 WB C Auto (Bld)Ordered By: Natalie Caballero on 07-18-2024 Immature granulocytes/100 WBC (Bld) 1.100 % High 0.0-0.9 [facility] Comment on above: IG% - Immature Granu locytes (promyelocytes, myelocytes and metamyelocytes) > 1% indicates that a LEFT SHIFT is Present. Laboratory - Chemistry and C hemistry - challengeOrdered By: Natalie Caballero on 07-18-2024 AST [Catalytic activity/Vol] 32 U/L <32 [facility] MCV (mean corpuscular volume ) determinationOrdered By: Natalie Caballero on 07-18-2024 MCV (RBC) [Entitic vol] 92.1 fL 81-99 [facility] Mean corpuscular hemoglobin (MCH) determinationOrdered By: Natalie Caballero on 07-18-2024 MCH (RBC) [Entitic mass] 29.9 pg 27.0-32.0 [facility] Mean corpuscular hemoglobin concentration (MCHC) determinationOrdered By: Natalie Caballero on 07-18-2024 MCHC (RBC) [Mass/Vol] 32.5 g/dL 32-36 [facility] Mean platelet volume determi nationOrdered By: Natalie Caballero on 07-18-2024 Platelet mean volume (Bld) [Entitic vol] 10.0 fL 6.2-12.0 [facility] Monocyte percentageOrdered B y: Natalie Caballero on 07-18-2024 Monocytes/100 WBC (Bld) 7.5 % 0-10 [facility] Neutrophil percentageOrdered By: Natalie Caballero on 07-18-2024 Neutrophils/100 WBC (Bld) 52.5 % 47-70 [facility] Nucleated red blood cell per centageOrdered By: Natalie Caballero on 07-18-2024 Nucleated RBC/100 WBC (Bld) [Ratio] 0 % 0-5 [facility] Platelet countOrdered By: Jax Caballero on 07-18-2024 Platelets (Bld) [#/Vol] 387 10*3/uL 150-450 [facility] Potassium measurement (mass/ volume)Ordered By: Natalie Caballero on 07-18-2024 Potassium (Unsp spec) [Mass/Vol] 3.5 mmol/L 3.3-5.1 [facility] RBC Auto (Bld) [#/Vol]Ordere d By: Natalie Caballero on 07-18-2024 RBC (Bld) [#/Vol] 4.41 10*6/uL 4.2-5.4 [facility] Serum creatinine measurement (mass/volume)Ordered By: Natalie Caballero on 07-18-2024 Creatinine [Mass/Vol] 0.63 mg/dL Low 0.70-1.20 [facility] Serum globulin measurementOr dered By: Natalie Caballero on 07-18-2024 Globulin (S) [Mass/Vol] 3.3 g/dL 2.2-4.2 [facility] Serum glucose measurement (m ass/volume)Ordered By: Natalie Caballero on 07-18-2024 Glucose [Mass/Vol] 157 mg/dL High 70-99 [facility] Serum or plasma alanine gamino otransferase (ALT) measurementOrdered By: Natalie Caballero on 07-18-2024 ALT [Catalytic activity/Vol] 48 U/L High <35 [facility] Serum or plasma albumin rome urement (mass/volume)Ordered By: Natalie Caballero on 07-18-2024 Albumin [Mass/Vol] 4.1 g/dL 3.5-5.0 [facility] Serum or plasma albumin/glob ulin mass ratioOrdered By: Natalie Caballero on 07-18-2024 Albumin/Globulin [Mass ratio] 1.2 {ratio} 0.9-2.4 [facility] Serum or plasma alkaline bishop sphatase measurementOrdered By: Natalie Caballero on 07-18-2024 ALP [Catalytic activity/Vol] 101 U/L 35-104 [facility] Serum or plasma calcium rome urement (mass/volume)Ordered By: Natalie Caballero on 07-18-2024 Calcium [Mass/Vol] 9.2 mg/dL 7.6-11.0 [facility] Serum or plasma urea nitroge n measurement (mass/volume)Ordered By: Natalie Caballero on 07-18-2024 Urea nitrogen [Mass/Vol] 14 mg/dL 4-19 [facility] Sodium levelOrdered By: Elaine Caballero on 07-18-2024 Sodium [Moles/Vol] 138 mmol/L 133-145 [facility] Total proteinOrdered By: Leon Caballero on 07-18-2024 Protein [Mass/Vol] 7.4 g/dL 5.9-8.4 [facility] White blood cell (WBC) count Ordered By: Natalie Caballero on 07-18-2024 WBC (Bld) [#/Vol] 8.7 10*3/uL 4.4-11.0 [facility] CCP IgG Antibodieson 025 CCP IgG Ab. 12 units Normal 0-19 [facility] Comment on above: Result Comment: Nega tive <20 Weak positive 20 - 39 Moderate positive 40 - 59 Strong positive >59 Performed at: [facility] [address] [id number] [employer] Information System Analyst: Valeriy Easley PhD, Phone: [phone] Performed By: #### L 100.0100, L4600.0100, L505.7010, L3890.6301, L500.4050, L3890.6202, L3890.6102 #### [facility] [address] [place] [address], [address] Absolute lymphocyte countOrd ered By: Natalie Caballero on 05-07-2024 Lymphocytes Auto (Unsp spec) [#/Vol] 3.27 10*3/uL 0.83-4.51 [facility] Absolute neutrophil countOrd ered By: Natalie Caballero on 05-07-2024 Neutrophils (Bld) [#/Vol] 4.5 10*3/uL 2.0-7.7 [facility] Anion gap in Serum or Plasma Ordered By: Natalie Caballero on 05-07-2024 Anion gap [Moles/Vol] 13 mmol/L 5-15 [facility] Automated lymphocyte count a s percentage of total leukocytesOrdered By: Natalie Caballero on 05-07-2024 Lymphocytes/100 WBC Auto (Unsp spec) 37.8 % 19- [facility] BUN/creatinine ratioOrdered By: Natalie Caballero on 05-07-2024 Urea nitrogen/Creatinine [Mass ratio] 18.2 mg/mg 10-20 [facility] Basophil percentageOrdered B y: Natalie Caballero on 05-07-2024 Basophils/100 WBC (Bld) 1.0 % 0-1 [facility] Bilirubin, totalOrdered By: Natalie Caballero on 05-07-2024 Bilirubin [Mass/Vol] 0.18 mg/dL 0.00-1.30 [facility] CBC W/Diff, Automatedon 04-20 Absolute Lymph 3.27 X10 3/uL Normal 0.83-4.51 [facility] Comment on above: Performed By: #### L 100.0100, L4600.0100, L505.7010, L3890.6301, L500.4050, L3890.6202, L3890.6102 #### [facility] [address] [place], [address] Absolute Neut 4.5 X10 3/uL Normal 2.0-7.7 [facility] Comment on above: Performed By: #### L 100.0100, L4600.0100, L505.7010, L3890.6301, L500.4050, L3890.6202, L3890.6102 #### [facility] [address] [place], [address] Basophils/100 WBC (Bld) 1.0 % Normal 0-1 [facility] Comment on above: Performed By: #### L 100.0100, L4600.0100, L505.7010, L3890.6301, L500.4050, L3890.6202, L3890.6102 #### [facility] [address] [place], [address] Eosinophils/100 WBC (Bld) 1.2 % Normal 0-5 [facility] Comment on above: Performed By: #### L 100.0100, L4600.0100, L505.7010, L3890.6301, L500.4050, L3890.6202, L3890.6102 #### [facility] [address] [place], [address] Erythrocyte distribution width (RBC) [Ratio] 13.8 % Normal 11.6-14.6 [facility] Comment on above: Performed By: #### L 100.0100, L4600.0100, L505.7010, L3890.6301, L500.4050, L3890.6202, L3890.6102 #### [facility] [address] [place], [address] Hematocrit (Bld) [Volume fraction] 40.4 % Normal 37-47 [facility] Comment on above: Performed By: #### L 100.0100, L4600.0100, L505.7010, L3890.6301, L500.4050, L3890.6202, L3890.6102 #### [facility] [address] [place], [address] Hemoglobin (Bld) [Mass/Vol] 13.0 g/dL Normal 12.0-15.0 [facility] Comment on above: Performed By: #### L 100.0100, L4600.0100, L505.7010, L3890.6301, L500.4050, L3890.6202, L3890.6102 #### [facility] [address] [place], [address] IG% 0.200 Normal 0.0-0.9 [facility] Comment on above: Result Comment: IG% - Immature Granulocytes (promyelocytes, myelocytes and metamyelocytes) > 1% indicates that a LEFT SHIFT is Present. Performed By: #### L 100.0100, L4600.0100, L505.7010, L3890.6301, L500.4050, L3890.6202, L3890.6102 #### [facility] [address] [place], [address] Lymphocytes/100 WBC (Bld) 37.8 % Normal 19-41 [facility] Comment on above: Performed By: #### L 100.0100, L4600.0100, L505.7010, L3890.6301, L500.4050, L3890.6202, L3890.6102 #### [facility] [address] [place], [address] MCH (RBC) [Entitic mass] 29.5 pg Normal 27.0-32.0 [facility] Comment on above: Performed By: #### L 100.0100, L4600.0100, L505.7010, L3890.6301, L500.4050, L3890.6202, L3890.6102 #### [facility] [address] [place], [address] MCHC (RBC) [Mass/Vol] 32.2 g/dL Normal 32-36 [facility] Comment on above: Performed By: #### L 100.0100, L4600.0100, L505.7010, L3890.6301, L500.4050, L3890.6202, L3890.6102 #### [facility] [address] [place], [address] MCV (RBC) [Entitic vol] 91.6 fL Normal 81-99 [facility] Comment on above: Performed By: #### L 100.0100, L4600.0100, L505.7010, L3890.6301, L500.4050, L3890.6202, L3890.6102 #### [facility] [address] [place], [address] Monocytes/100 WBC (Bld) 7.9 % Normal 0-10 [facility] Comment on above: Performed By: #### L 100.0100, L4600.0100, L505.7010, L3890.6301, L500.4050, L3890.6202, L3890.6102 #### [facility] [address] [place], [address] Neutrophils/100 WBC (Bld) 51.9 % Normal 47-70 [facility] Comment on above: Performed By: #### L 100.0100, L4600.0100, L505.7010, L3890.6301, L500.4050, L3890.6202, L3890.6102 #### [facility] [address] [place], [address] Nucleated RBC (Bld) [#/Vol] 0 10*3/uL Normal 0-5 [facility] Comment on above: Performed By: #### L 100.0100, L4600.0100, L505.7010, L3890.6301, L500.4050, L3890.6202, L3890.6102 #### [facility] [address] [place], [address] Platelet mean volume (Bld) [Entitic vol] 9.7 fL Normal 6.2-12.0 [facility] Comment on above: Performed By: #### L 100.0100, L4600.0100, L505.7010, L3890.6301, L500.4050, L3890.6202, L3890.6102 #### [facility] [address] [place], [address] Platelets (Bld) [#/Vol] 393 10*3/uL Normal 150-450 [facility] Comment on above: Performed By: #### L 100.0100, L4600.0100, L505.7010, L3890.6301, L500.4050, L3890.6202, L3890.6102 #### [facility] [address] [place], [address] RBC (Bld) [#/Vol] 4.41 10*6/uL Normal 4.2-5.4 [facility] Comment on above: Performed By: #### L 100.0100, L4600.0100, L505.7010, L3890.6301, L500.4050, L3890.6202, L3890.6102 #### [facility] [address] [place], [address] RDW SD 46.7 fl High 35.1-43.9 [facility] Comment on above: Performed By: #### L 100.0100, L4600.0100, L505.7010, L3890.6301, L500.4050, L3890.6202, L3890.6102 #### [facility] [address] [place], [address] WBC (Bld) [#/Vol] 8.7 10*3/uL Normal 4.4-11.0 [facility] Comment on above: Performed By: #### L 100.0100, L4600.0100, L505.7010, L3890.6301, L500.4050, L3890.6202, L3890.6102 #### [facility] [address] [place], [address] Carbon dioxide, total [Moles /volume] in Central venous bloodOrdered By: Natalie Caballero on 05-07-2024 CO2 [Moles/Vol] 19.8 mmol/L Low 21.0-32.0 [facility] Chloride assayOrdered By: Jax Caballero on 05-07-2024 Chloride [Moles/Vol] 107 mmol/L 98-108 [facility] Comprehensive Metabolic Prof ilon 05-07-2024 Albumin [Mass/Vol] 4.1 g/dL Normal 3.5-5.0 [facility] Comment on above: Performed By: #### L 100.0100, L4600.0100, L505.7010, L3890.6301, L500.4050, L3890.6202, L3890.6102 #### [facility] [address] [place], [address] Albumin/Globulin [Mass ratio] 1.2 {ratio} Normal 0.9-2.4 [facility] Comment on above: Performed By: #### L 100.0100, L4600.0100, L505.7010, L3890.6301, L500.4050, L3890.6202, L3890.6102 #### [facility] [address] [place], [address] ALK PHOS 95 U/L Normal 35-104 [facility] Comment on above: Performed By: #### L 100.0100, L4600.0100, L505.7010, L3890.6301, L500.4050, L3890.6202, L3890.6102 #### [facility] [address] [place], [address] ALT [Catalytic activity/Vol] 35 U/L Normal <=34 [facility] Comment on above: Performed By: #### L 100.0100, L4600.0100, L505.7010, L3890.6301, L500.4050, L3890.6202, L3890.6102 #### [facility] [address] [place], [address] AST [Catalytic activity/Vol] 24 U/L Normal <=31 [facility] Comment on above: Performed By: #### L 100.0100, L4600.0100, L505.7010, L3890.6301, L500.4050, L3890.6202, L3890.6102 #### [facility] [address] [place], [address] Bilirubin [Mass/Vol] 0.18 mg/dL Normal 0.00-1.30 [facility] Comment on above: Performed By: #### L 100.0100, L4600.0100, L505.7010, L3890.6301, L500.4050, L3890.6202, L3890.6102 #### [facility] [address] [place], [address] BUN/CRE 18.2 RATIO Normal 10-20 [facility] Comment on above: Performed By: #### L 100.0100, L4600.0100, L505.7010, L3890.6301, L500.4050, L3890.6202, L3890.6102 #### [facility] [address] [place], [address] Calcium [Mass/Vol] 9.1 mg/dL Normal 7.6-11.0 [facility] Comment on above: Performed By: #### L 100.0100, L4600.0100, L505.7010, L3890.6301, L500.4050, L3890.6202, L3890.6102 #### [facility] [address] [place], [address] Chloride [Moles/Vol] 107 mmol/L Normal 98-108 [facility] Comment on above: Performed By: #### L 100.0100, L4600.0100, L505.7010, L3890.6301, L500.4050, L3890.6202, L3890.6102 #### [facility] [address] [place], [address] CO2 [Moles/Vol] 19.8 mmol/L Low 21.0-32.0 [facility] Comment on above: Performed By: #### L 100.0100, L4600.0100, L505.7010, L3890.6301, L500.4050, L3890.6202, L3890.6102 #### [facility] [address] [place], [address] Creatinine [Mass/Vol] 0.60 mg/dL Low 0.70-1.20 [facility] Comment on above: Performed By: #### L 100.0100, L4600.0100, L505.7010, L3890.6301, L500.4050, L3890.6202, L3890.6102 #### [facility] [address] [place], [place], [id number] (806) GAP 13 Normal 5-15 [facility] Comment on above: Performed By: #### L 100.0100, L4600.0100, L505.7010, L3890.6301, L500.4050, L3890.6202, L3890.6102 #### [facility] [address] [place], [address] GFR/1.73 sq M.predicted among non-blacks MDRD (S/P/Bld) [Vol rate/Area] 109 mL/min/{1.73_m2} Normal >60 [facility] Comment on above: Result Comment: mL/m in/1.73m2 CKD-EPI Creatinine Equation (2020) Performed By: #### L 100.0100, L4600.0100, L505.7010, L3890.6301, L500.4050, L3890.6202, L3890.6102 #### [facility] [address] [place], [address] Globulin (S) [Mass/Vol] 3.5 g/dL Normal 2.2-4.2 [facility] Comment on above: Performed By: #### L 100.0100, L4600.0100, L505.7010, L3890.6301, L500.4050, L3890.6202, L3890.6102 #### [facility] [address] [place], [address] Glucose [Mass/Vol] 85 mg/dL Normal 70-99 [facility] Comment on above: Performed By: #### L 100.0100, L4600.0100, L505.7010, L3890.6301, L500.4050, L3890.6202, L3890.6102 #### [facility] [address] [place], [address] Potassium [Moles/Vol] 3.8 mmol/L Normal 3.3-5.1 [facility] Comment on above: Performed By: #### L 100.0100, L4600.0100, L505.7010, L3890.6301, L500.4050, L3890.6202, L3890.6102 #### [facility] [address] [place], [address] Sodium [Moles/Vol] 140 mmol/L Normal 133-145 [facility] Comment on above: Performed By: #### L 100.0100, L4600.0100, L505.7010, L3890.6301, L500.4050, L3890.6202, L3890.6102 #### [facility] [address] [place], [address] T PROT 7.6 g/dL Normal 5.9-8.4 [facility] Comment on above: Performed By: #### L 100.0100, L4600.0100, L505.7010, L3890.6301, L500.4050, L3890.6202, L3890.6102 #### [facility] [address] [place], [place], [address] Urea nitrogen [Mass/Vol] 11 mg/dL Normal 4-19 [facility] Comment on above: Performed By: #### L 100.0100, L4600.0100, L505.7010, L3890.6301, L500.4050, L3890.6202, L3890.6102 #### [facility] [address] [place], [place], [address] Cyclic citrullinated peptide IgG QnOrdered By: Natalie Caballero on 05-07-2024 Cyclic Citrullinated Peptide IgG Ab 12 units 0-19 [facility] Comment on above: Negative <20 Weak po sitive 20 - 39 Moderate positive 40 - 59 Strong positive >59Performed at: [employer] [facility] [id number] Director: Valeriy Easley PhD, Phone: [phone] Eosinophil percentageOrdered By: Natalie Caballero on 05-07-2024 Eosinophils/100 WBC (Bld) 1.2 % 0-5 [facility] Erythrocyte distribution wid th ratioOrdered By: Natalie Caballero on 05-07-2024 Erythrocyte distribution width (RBC) [Ratio] 13.8 % 11.6-14.6 [facility] Erythrocyte distribution wid th standard deviationOrdered By: Natalie Caballero on 05-07-2024 Erythrocyte distribution width (RBC) [Entitic vol] 46.7 fL High 35.1-43.9 [facility] Erythrocyte distribution width (RBC) [Ratio] 46.7 fl High 35.1-43.9 [facility] GFR/1.73 sq M.predicted edgar g non-blacks MDRD (S/P/Bld) [Vol rate/Area]Ordered By: Natalie Caballero on 05-07-2024 Estimated GFR (MDRD) Non-Af Amer 109 >60 [facility] Comment on above: mL/min/1.73m2 CKD-EP I Creatinine Equation (2020) Glomerular filtration rate ( GFR) estimation/1.73 sq m using serum, plasma, or whole bOrdered By: Natalie Caballero on 05-07-2024 GFR/1.73 sq M.predicted among non-blacks MDRD (S/P/Bld) [Vol rate/Area] 109 mL/min/{1.73_m2} >60 [facility] Comment on above: mL/min/1.73m2 CKD-EP I Creatinine Equation (2020) HBV surface Ab Ql (S)Ordered By: Natalie Caballero on 05-07-2024 Hepatitis B Surface Antibody REAC [facility] Comment on above: <8.5 mIU/mL: Non-[place] ctive8.5<= x <11.5 mIU/mL: Indeterminate>=11.5 mIU/mL: Reactive Non Reactive: Inconsistent with immunity less than <10 mIU/mL Reactive: Consistent with immunity greater than or equal to 10 mIU/mL HBV surface Ag Ql (S)Ordered By: Natalie Caballero on 05-07-2024 Hepatitis B Surface Antigen Non-Reactive Nonreactive [facility] Comment on above: Reactive: Presumptiv e evidence of HBV. Repeatedly reactive samples must be confirmed using a neutralization test ([employer] HBsAg Confirmatory Test)Non-Reactive: HBsAg not detected; does not exclude the possibility of exposure to HBV Hand Min 3 Viewson Hand Min 3 Views [facility] Imaging Services [address] [place] [id number] Hand Min 3 Views MR#: [id number] Acct: [id number] Name: JO MERCER Rep #: [id number] : 1975 F 49 From: Sonam Richter MD PCP: Dr. Darrian Diaz MD Status: [facility] CLI Study: Hand Min 3 Views Date of Exam: 05/07/24 Exam# [id number] Ordering Dr: Natalie Caballero MD EXAM: XR [...] IMPRESSION: Degenerative changes as above. Reading Location: [facility] CC: Dr. Darrian Diaz MD; Dr. Natalie Caballero MD Center Administrator: Signed Normal [facility] Hand Min 3 Views [facility] [address] [place] [address] Hand Min 3 Views MR#: [id number] Acct: [id number] Name: JO MERCER Rep #: [id number] : 1975 F 49 From: Sonam Richter MD PCP: Dr. Darrian Diaz MD Status: REG CLI Study: Hand Min 3 Views Date of Exam: 05/07/24 Exam# [id number] Ordering Dr: Natalie Caballero MD EXAM: XR [...] 2. Degenerative changes as above. Reading Location: [facility] CC: Dr. Darrian Diaz MD; Dr. Natalie Caballero MD Center Administrator: Signed Normal [facility] Hematocrit Auto (Bld) [Volum e fraction]Ordered By: Natalie Caballero on 05-07-2024 Hematocrit (Bld) [Volume fraction] 40.4 % 37-47 [facility] Hemoglobin measurementOrdere d By: Natalie Caballero on 05-07-2024 Hemoglobin (Bld) [Mass/Vol] 13.0 g/dL 12.0-15.0 [facility] Hepatitis C antibodyOrdered By: Natalie Caballero on 05-07-2024 Hepatitis C Antibody Non-Reactive Nonreactive [facility] Comment on above: Reactive: Presumptiv e evidence of antibodies to HCV. Follow CDC recommendations for supplemental testing.Non-Reactive: Antibodies to HCV were not detected; does not exclude the possibility of exposure to HCVReactive Results are presumptive evidence of antibodies to HCV. Follow CDC recommendations for supplemental testing.Order confirmation testing: HCV Quant by PCR testing - HCVPCR #[id number] Non Reactive: < 0.8 Equivocal: >/= 0.8 to < 1.0 Reactive: >/= 1.0The [facility] requires that a reactive/equivocal HCV antibody result be sent out for confirmation. HCV Quant by PCR testing. Immature granulocytes/100 WB C Auto (Bld)Ordered By: Natalie Caballero on 05-07-2024 Immature granulocytes/100 WBC (Bld) 0.200 % 0.0-0.9 [facility] Comment on above: IG% - Immature Granu locytes (promyelocytes, myelocytes and metamyelocytes) > 1% indicates that a LEFT SHIFT is Present. L3890.6102on 05-07-2024 HEP B Surf Ag Non-Reactive Normal Nonreactive [facility] Comment on above: Result Comment: Reac tive: Presumptive evidence of HBV. Repeatedly reactive samples must be confirmed using a neutralization test ([employer] HBsAg Confirmatory Test) Non-Reactive: HBsAg not detected; does not exclude the possibility of exposure to HBV Performed By: #### L 100.0100, L4600.0100, L505.7010, L3890.6301, L500.4050, L3890.6202, L3890.6102 #### [facility] [address] [facility] [place], [address] L3890.6202on 05-07-2024 HEP B Surf Ab REAC Normal [facility] Comment on above: Result Comment: <8.5 mIU/mL: Non-Reactive 8.5<= x <11.5 mIU/mL: Indeterminate >=11.5 mIU/mL: Reactive Non Reactive: Inconsistent with immunity less than <10 mIU/mL Reactive: Consistent with immunity greater than or equal to 10 mIU/mL Performed By: #### L 100.0100, L4600.0100, L505.7010, L3890.6301, L500.4050, L3890.6202, L3890.6102 #### [facility] [address] [facility]. [place], [place], [address] L3890.6301on 05-07-2024 Hepatitis C Ab Non-Reactive Normal Nonreactive [facility] Comment on above: Result Comment: Reac tive: Presumptive evidence of antibodies to HCV. Follow CDC recommendations for supplemental testing. Non-Reactive: Antibodies to HCV were not detected; does not exclude the possibility of exposure to HCV Reactive Results are presumptive evidence of antibodies to HCV. Follow CDC recommendations for supplemental testing. Order confirmation testing: HCV Quant by PCR testing - HCVPCR #[id number] Non Reactive: < 0.8 Equivocal: >/= 0.8 to < 1.0 Reactive: >/= 1.0 The [facility] requires that a reactive/equivocal HCV antibody result be sent out for confirmation. HCV Quant by PCR testing. Performed By: #### L 100.0100, L4600.0100, L505.7010, L3890.6301, L500.4050, L3890.6202, L3890.6102 #### [facility] [address] [facility] [place], [address] Laboratory - Chemistry and C hemistry - challengeOrdered By: Natalie Caballero on 05-07-2024 AST [Catalytic activity/Vol] 24 U/L <32 [facility] - Microbiology an d Antimicrobial susceptibilityOrdered By: Natalie Caballero on 05-07-2024 HBV surface Ag Ql (S) Non-Reactive Nonreactive [facility] Comment on above: Reactive: Presumptiv e evidence of HBV. Repeatedly reactive samples must be confirmed using a neutralization test ([employer] HBsAg Confirmatory Test)Non-Reactive: HBsAg not detected; does not exclude the possibility of exposure to HBV Lymphocytes Auto (Unsp spec) [#/Vol]Ordered By: Natalie Caballero on 05-07-2024 Lymphocytes (Bld) [#/Vol] 3.27 10*3/uL 0.83-4.51 [facility] Lymphocytes/100 WBC Auto (Un sp spec)Ordered By: Natalie Caballero on 05-07-2024 Lymphocytes/100 WBC (Bld) 37.8 % 19-41 [facility] MCV (mean corpuscular volume ) determinationOrdered By: Natalie Caballero on 05-07-2024 MCV (RBC) [Entitic vol] 91.6 fL 81-99 [facility] Mean corpuscular hemoglobin (MCH) determinationOrdered By: Natalie Caballero on 05-07-2024 MCH (RBC) [Entitic mass] 29.5 pg 27.0-32.0 [facility] Mean corpuscular hemoglobin concentration (MCHC) determinationOrdered By: Natalie Caballero on 05-07-2024 MCHC (RBC) [Mass/Vol] 32.2 g/dL 32-36 [facility] Mean platelet volume determi nationOrdered By: Natalie Caballero on 05-07-2024 Platelet mean volume (Bld) [Entitic vol] 9.7 fL 6.2-12.0 [facility] Monocyte percentageOrdered B y: Natalie Caballero on 05-07-2024 Monocytes/100 WBC (Bld) 7.9 % 0-10 [facility] Neutrophil percentageOrdered By: Natalie Caballero on 05-07-2024 Neutrophils/100 WBC (Bld) 51.9 % 47-70 [facility] Nucleated red blood cell per centageOrdered By: Natalie Caballero on 05-07-2024 Nucleated RBC/100 WBC (Bld) [Ratio] 0 % 0-5 [facility] Pelvis 1 or 2 Viewson 2024 Pelvis 1 or 2 Views [facility] [address] [place] [id number] Pelvis 1 or 2 Views MR#: [id number] Acct: [id number] Name: JO MERCER Rep #: [id number] : 1975 F 49 From: Sonam Richter MD PCP: Dr. Darrian Diaz MD Status: REG CLI Study: Pelvis 1 or 2 Views Date of Exam: 05/07/24 Exam# [id number] Ordering Dr: Natalie Caballero MD EXAM: XR Pelvis, 1 or 2 Views CLINICAL INDICATION: PAIN TECHNIQUE: Frontal view of the pelvis. COMPARISON: No relevant prior studies available. FINDINGS: BONES/JOINTS: Unremarkable. No acute fracture. No dislocation. SOFT TISSUES: Unremarkable. RAD/Pelvis 1 or 2 Views IMPRESSION: No acute fracture. Reading Location: [facility] CC: Dr. Darrian Diaz MD; Dr. Natalie Caballero MD Center Administrator: Signed Normal [facility] Platelet countOrdered By: Jax Caballero on 05-07-2024 Platelets (Bld) [#/Vol] 393 10*3/uL 150-450 [facility] Potassium (Unsp spec) [Mass/ Vol]Ordered By: Natalie Caballero on 05-07-2024 Potassium [Moles/Vol] 3.8 mmol/L 3.3-5.1 [facility] Potassium measurement (mass/ volume)Ordered By: Natalie Caballero on 05-07-2024 Potassium (Unsp spec) [Mass/Vol] 3.8 mmol/L 3.3-5.1 [facility] RBC Auto (Bld) [#/Vol]Ordere d By: Natalie Caballero on 05-07-2024 RBC (Bld) [#/Vol] 4.41 10*6/uL 4.2-5.4 [facility] Rheumatoid Factoron 05-08-19 25 RHEUMATOID FAC < 10.0 Normal <15 [facility] Comment on above: Performed By: #### L 100.0100, L4600.0100, L505.7010, L3890.6301, L500.4050, L3890.6202, L3890.6102 #### [facility] [address] [place], [place], [id number] Rheumatoid factor Ql (S)Orde red By: Natalie Caballero on 05-07-2024 Rheumatoid Factor < 10.0 IU/mL <15 [facility] Serum creatinine measurement (mass/volume)Ordered By: Natalie Caballero on 05-07-2024 Creatinine [Mass/Vol] 0.60 mg/dL Low 0.70-1.20 [facility] Serum globulin measurementOr dered By: Natalie Caballero on 05-07-2024 Globulin (S) [Mass/Vol] 3.5 g/dL 2.2-4.2 [facility] Serum glucose measurement (m ass/volume)Ordered By: Natalie Caballero on 05-07-2024 Glucose [Mass/Vol] 85 mg/dL 70-99 [facility] Serum hepatitis B virus surf joyce antibody detectionOrdered By: Natalie Caballero on 05-07-2024 HBV surface Ab Ql (S) REAC [facility] Comment on above: <8.5 mIU/mL: Non-Casscoe ctive8.5<= x <11.5 mIU/mL: Indeterminate>=11.5 mIU/mL: Reactive Non Reactive: Inconsistent with immunity less than <10 mIU/mL Reactive: Consistent with immunity greater than or equal to 10 mIU/mL Serum or plasma alanine gamino otransferase (ALT) measurementOrdered By: Natalie Caballero on 05-07-2024 ALT [Catalytic activity/Vol] 35 U/L <35 [facility] Serum or plasma albumin rome urement (mass/volume)Ordered By: Natalie Caballero on 05-07-2024 Albumin [Mass/Vol] 4.1 g/dL 3.5-5.0 [facility] Serum or plasma albumin/glob ulin mass ratioOrdered By: Natalie Caballero on 05-07-2024 Albumin/Globulin [Mass ratio] 1.2 {ratio} 0.9-2.4 [facility] Serum or plasma alkaline bishop sphatase measurementOrdered By: Natalie Caballero on 05-07-2024 ALP [Catalytic activity/Vol] 95 U/L 35-104 [facility] Serum or plasma calcium rome urement (mass/volume)Ordered By: Natalie Caballero on 05-07-2024 Calcium [Mass/Vol] 9.1 mg/dL 7.6-11.0 [facility] Serum or plasma cyclic citru llinated peptide IgG antibody assay (units/volume)Ordered By: Natalie Caballero on 05-07-2024 Cyclic citrullinated peptide IgG Qn 12 units 0-19 [facility] Comment on above: Negative <20 Weak po sitive 20 - 39 Moderate positive 40 - 59 Strong positive >59Performed at: CB - [facility] [place], [place] [id number] Director: Valeriy Easley PhD, Phone: [phone] Serum or plasma urea nitroge n measurement (mass/volume)Ordered By: Natalie Caballero on 05-07-2024 Urea nitrogen [Mass/Vol] 11 mg/dL 4-19 [facility] Serum rheumatoid factor dete ctionOrdered By: Natalie Caballero on 05-07-2024 Rheumatoid factor Ql (S) < 10.0 IU/mL <15 [facility] Sodium levelOrdered By: Elaine Caballero on 05-07-2024 Sodium [Moles/Vol] 140 mmol/L 133-145 [facility] Total proteinOrdered By: Leon Caballero on 05-07-2024 Protein [Mass/Vol] 7.6 g/dL 5.9-8.4 [facility] White blood cell (WBC) count Ordered By: Natalie Caballero on 05-07-2024 WBC (Bld) [#/Vol] 8.7 10*3/uL 4.4-11.0 [facility] COLONOSCOPYon 03-26-2024 Colonoscopy Table formatting fro [...] of bowel preparation was evaluated using the [place] Bowel Preparation Scale with scores of: right [...] AM Specimens No specimens collected Procedure Location [facility] [place] [address] [place] [phone] Referring Provider Carmelita Romo MD Procedure Provider Darrel Gomez MD [facility] Comment on above: Order Comment: 5 Colonoscopy [...] of bowel preparation was evaluated using the [place] Bowel Preparation Scale with scores of: right [...] AM Specimens No specimens collected Procedure Location [facility] [place] [address] [place] [address] [phone] Referring Provider Carmelita Romo MD Procedure Provider Darrel Gomez MD IMAGING [facility] Work Phone: Radiology Study observation (narrative) [facility] Work Phone: C reactive proteinon 025 CRP [Mass/Vol] 0.75 mg/dL Normal <1.00 [facility] Comment on above: Performed By: #### T HYDS #### SALMA RODRIGUEZ ([id number]) [facility] ([facility]) [address] [place] [address] 30353 CBC W Auto Differential pane l (Bld)on 03-05-2024 Basophils (Bld) [#/Vol] 0.10 x10*3/uL Normal 0.00-0.10 [facility] Comment on above: Performed By: #### T HYDS #### SALMA RODRIGUEZ ([id number]) [facility] ([facility]) [address] [place] [address] 83665 Basophils/100 WBC (Bld) 1.1 % Normal 0.0-2.0 [facility] Comment on above: Performed By: #### T HYDS #### SALMA RODRIGUEZ ([id number]) [facility] ([facility]) [address] [place] [address] 17185 Eosinophils (Bld) [#/Vol] 1.13 x10*3/uL High 0.00-0.70 [facility] Comment on above: Performed By: #### T HYDS #### SALMA RODRIGUEZ ([id number]) [facility] ([facility]) [address] [place] [address] 41990 Eosinophils/100 WBC (Bld) 11.9 % Normal 0.0-6.0 [facility] Comment on above: Performed By: #### T HYDS #### SALMA RODRIGUEZ ([id number]) [facility] ([facility]) [address] [place] [address] 43578 Erythrocyte distribution width (RBC) [Ratio] 13.3 % Normal 11.5-14.5 [facility] Comment on above: Performed By: #### T HYDS #### SALMA RODRIGUEZ ([id number]) [facility] ([facility]) [address] [place] [address] Hematocrit (Bld) [Volume fraction] 45.8 % Normal 36.0-46.0 [facility] Comment on above: Performed By: #### T HYDS #### SALMA RODRIGUEZ ([id number]) [facility] ([facility]) [address] [place], [place] [phone] Hemoglobin (Bld) [Mass/Vol] 14.4 g/dL Normal 12.0-16.0 [facility] Comment on above: Performed By: #### T HYDS #### SALMA RODRIGUEZ ([id number]) [facility] ([facility]) [address] [place] [address] 06330 Immature granulocytes (Bld) [#/Vol] 0.03 x10*3/uL Normal 0.00-0.70 [facility] Comment on above: Performed By: #### T HYDS #### SALMA RODRIGUEZ ([id number]) [facility] ([facility]) [address] [place] [address] 43720 Immature granulocytes/100 WBC (Bld) 0.3 % Normal 0.0-0.9 [facility] Comment on above: Result Comment: Kacy ture Granulocyte Count (IG) includes promyelocytes, myelocytes and metamyelocytes but does not include bands. Percent differential counts (%) should be interpreted in the context of the absolute cell counts (cells/UL). Performed By: #### T HYDS #### SALMA RODRIGUEZ ([id number]) [facility] ([facility]) [address] [place] [address] 09544 Lymphocytes (Bld) [#/Vol] 2.92 x10*3/uL Normal 1.20-4.80 [facility] Comment on above: Performed By: #### T HYDS #### SALMA RODRIGUEZ ([id number]) [facility] ([facility]) [address] [place] [address] 95218 Lymphocytes/100 WBC (Bld) 30.9 % Normal 13.0-44.0 [facility] Comment on above: Performed By: #### T HYDS #### SALMA RODRIGUEZ ([id number]) [facility] ([facility]) [address] [place] [address] 29243 MCH (RBC) [Entitic mass] 29.0 pg Normal 26.0-34.0 [facility] Comment on above: Performed By: #### T HYDS #### SALMA RODRIGUEZ ([id number]) [facility] ([facility]) [address] [place] [address] 19188 MCHC (RBC) [Mass/Vol] 31.4 g/dL Low 32.0-36.0 [facility] Comment on above: Performed By: #### T HYDS #### SALMA RODRIGUEZ ([id number]) [facility] ([facility]) [address] [place] [address] 26904 MCV (RBC) [Entitic vol] 92 fL Normal 80-100 [facility] Comment on above: Performed By: #### T HYDS #### SALMA RODRIGUEZ ([id number]) [facility] ([facility]) [address] [place] [address] 00391 Monocytes (Bld) [#/Vol] 0.83 x10*3/uL Normal 0.10-1.00 [facility] Comment on above: Performed By: #### T HYDS #### SALMA RODRIGUEZ ([id number]) [facility] ([facility]) [address] [place] [address] 93094 Monocytes/100 WBC (Bld) 8.8 % Normal 2.0-10.0 [facility] Comment on above: Performed By: #### T HYDS #### SALMA RODRIGUEZ ([id number]) [facility] ([facility]) [address] [place] [address] 27958 Neutrophils (Bld) [#/Vol] 4.45 x10*3/uL Normal 1.20-7.70 [facility] Comment on above: Result Comment: Perc ent differential counts (%) should be interpreted in the context of the absolute cell counts (cells/uL). Performed By: #### T HYDS #### SALMA RODRIGUEZ ([id number]) [facility] ([facility]) [address] [place] [address] 08113 Neutrophils/100 WBC (Bld) 47.0 % Normal 40.0-80.0 [facility] Comment on above: Performed By: #### T HYDS #### SALMA RODRIGUEZ ([id number]) [facility] ([facility]) [address] [place] [address] 76455 Nucleated RBC/100 WBC (Bld) [Ratio] 0.0 /100 WBCs Normal 0.0-0.0 [facility] Comment on above: Performed By: #### T HYDS #### SALMA RODRIGUEZ ([id number]) [facility] ([facility]) [address] [place] [address] 55682 Platelets (Bld) [#/Vol] 429 x10*3/uL Normal 150-450 [facility] Comment on above: Performed By: #### T HYDS #### SALMA RODRIGUEZ ([id number]) [facility] ([facility]) [address] [place] [address] 60529 RBC (Bld) [#/Vol] 4.97 x10*6/uL Normal 4.00-5.20 [facility] Comment on above: Performed By: #### T HYDS #### SALMA RODRIGUEZ ([id number]) [facility] ([facility]) [address] [place] [address] 09915 WBC (Bld) [#/Vol] 9.5 x10*3/uL Normal 4.4-11.3 [facility] Comment on above: Performed By: #### T HYDS #### SALMA RODRIGUEZ ([id number]) [facility] ([facility]) [address] [place] [address] Calcidiolon 03-05-2024 25-hydroxyvitamin D3 [Mass/Vol] 24 ng/mL Low 30-100 [facility] Comment on above: Order Comment: Defic iency: < 20 ng/mlInsufficiency: 20-29 ng/mlSufficiency: 30-100 ng/mlThis assay accurately quantifies the sum of Vitamin D3, 25-Hydroxy and Vitamin D2,25-Hydroxy. Performed By: #### 2 4323-8 #### SALMA RODRIGUEZ ([id number]) [facility] ([facility]) [address] [place] [address] Cobalaminson 03-05-2024 Cobalamin (Vitamin B12) [Mass/Vol] 281 pg/mL Normal 211-911 [facility] Comment on above: Performed By: #### T HYDS #### SALMA RODRIGUEZ ([id number]) [facility] ([facility]) [address] [place] [address] Comprehensive metabolic 2000 panelon 03-05-2024 Albumin BCP dye [Mass/Vol] 4.5 g/dL Normal 3.4-5.0 [facility] Comment on above: Performed By: #### T HYDS #### SALMA RODRIGUEZ ([id number]) [facility] ([facility]) [address] [place] [address] ALP [Catalytic activity/Vol] 95 U/L Normal 33-110 [facility] Comment on above: Performed By: #### T HYDS #### SALMA RODRIGUEZ ([id number]) [facility] ([facility]) [address] [place] [address] ALT With P-5'-P [Catalytic activity/Vol] 26 U/L Normal 7-45 [facility] Comment on above: Result Comment: Dulce ents treated with Sulfasalazine may generate falsely decreased results for ALT. Performed By: #### T HYDS #### SALMA RODRIGUEZ ([id number]) [facility] ([facility]) [address] [place] [address] Anion gap [Moles/Vol] 14 mmol/L Normal 10-20 [facility] Comment on above: Performed By: #### T HYDS #### SALMA RODRIGUEZ ([id number]) [facility] ([facility]) [address] [place] [address] 48351 AST With P-5'-P [Catalytic activity/Vol] 25 U/L Normal 9-39 [facility] Comment on above: Performed By: #### T HYDS #### SALMA RODRIGUEZ ([id number]) [facility] ([facility]) [address] [place] [address] 46995 Bilirubin [Mass/Vol] 0.3 mg/dL Normal 0.0-1.2 [facility] Comment on above: Performed By: #### T HYDS #### SALMA RODRIGUEZ ([id number]) [facility] ([facility]) [address] [place] [address] 64604 Calcium [Mass/Vol] 9.8 mg/dL Normal 8.6-10.3 [facility] Comment on above: Performed By: #### T HYDS #### SALMA RODRIGUEZ ([id number]) [facility] ([facility]) [address] [place] [address] 39708 Chloride [Moles/Vol] 104 mmol/L Normal 98-107 [facility] Comment on above: Performed By: #### T HYDS #### SALMA RODRIGUEZ ([id number]) [facility] ([facility]) [address] [place] [address] 89533 CO2 [Moles/Vol] 24 mmol/L Normal 21-32 [facility] Comment on above: Performed By: #### T HYDS #### SALMA RODRIGUEZ ([id number]) [facility] ([facility]) [address] [place] [address] 13748 Creatinine [Mass/Vol] 0.59 mg/dL Normal 0.50-1.05 [facility] Comment on above: Performed By: #### T HYDS #### SALMA RODRIGUEZ ([id number]) [facility] ([facility]) [address] [place] [address] 35804 GFR/1.73 sq M.predicted MDRD (S/P/Bld) [Vol rate/Area] mL/min/{1.73_m2} Normal >60 [facility] Comment on above: Result Comment: Calc ulations of estimated GFR are performed using the 2020 CKD-EPI Study Refit equation without the race variable for the IDMS-Traceable creatinine methods. https://jasn.asnjournals.org/content/early/ASN.2020 582577 Performed By: #### T HYDS #### SALMA RODRIGUEZ ([id number]) [facility] ([facility]) [address] [place] [address] 65401 Glucose [Mass/Vol] 90 mg/dL Normal 74-99 [facility] Comment on above: Performed By: #### T HYDS #### SALMA RODRIGUEZ ([id number]) [facility] ([facility]) [address] [place] [address] 37448 Potassium [Moles/Vol] 4.7 mmol/L Normal 3.5-5.3 [facility] Comment on above: Performed By: #### T HYDS #### SALMA RODRIGUEZ ([id number]) [facility] ([facility]) [address] [place] [address] 68742 Protein [Mass/Vol] 7.7 g/dL Normal 6.4-8.2 [facility] Comment on above: Performed By: #### T HYDS #### SALMA RODRIGUEZ ([id number]) [facility] ([facility]) [address] [place] [address] 10364 Sodium [Moles/Vol] 137 mmol/L Normal 136-145 [facility] Comment on above: Performed By: #### T HYDS #### SALMA RODRIGUEZ ([id number]) [facility] ([facility]) [address] [place] [address] 70703 Urea nitrogen [Mass/Vol] 13 mg/dL Normal 6-23 [facility] Comment on above: Performed By: #### T HYDS #### SALMA RODRIGUEZ ([id number]) [facility] ([facility]) [address] [place] [address] ESR Westergren method (Bld) [Velocity]on 03-05-2024 ESR (Bld) [Velocity] 19 mm/h Normal 0-20 [facility] Comment on above: Performed By: #### T HYDS #### SALMA RODRIGUEZ ([id number]) [facility] ([facility]) [facility] [place] [address] Lipid 1996 panelon Cholesterol [Mass/Vol] 226 mg/dL High 0-199 Un [facility] Comment on above: Result Comment: [...] By: #### T PRICILAS #### SALMA RODRIGUEZ ([id number]) [facility] ([facility]) [address] [place] [address] 99839 Cholesterol in HDL [Mass/Vol] 65.0 mg/dL Normal [facility] Comment on above: Result Comment: Age Very Low Low Normal High 0-19 Y < 35 < 40 40-45 ---- 20-24 Y ---- < 40 >45 ---- >24 Y ---- < 40 40-60 >60 Performed By: #### T HYDS #### SALMA RODRIGUEZ ([id number]) [facility] ([facility]) [address] [place] [address] 54837 Cholesterol in LDL [Mass/Vol] 141 mg/dL High <=99 [facility] Comment on above: Result Comment: Near Borderline AGE Desirable Optimal High High Very High 0-19 Y 0 - 109 --- 110-129 >/= 130 ---- 20-24 Y 0 - 119 --- 120-159 >/= 160 ---- >24 Y 0 - 99 100-129 130-159 160-189 >/=190 Performed By: #### T JEYSON #### SALMA RODRIGUEZ ([id number]) [facility] ([facility]) [facility] [place] [address] Cholesterol in VLDL [Mass/Vol] 20 mg/dL Normal 0-40 [facility] Comment on above: Performed By: #### T PRICILAS #### SALMA RODRIGUEZ ([id number]) [facility] ([facility]) [address] [place] [address] 53570 CHOLESTEROL/HDL RATIO 3.5 Normal [facility] Comment on above: Result Comment: Ref Values Desirable < 3.4 High Risk > 5.0 Performed By: #### T JEYSON #### SALMA RODRIGUEZ ([id number]) [facility] ([facility]) [address] [place] [address] 85810 NON HDL CHOLESTEROL 161 mg/dL High 0-149 [facility] Comment on above: Result Comment: Age Desirable Borderline High High Very High 0-19 Y 0 - 119 120 - 144 >/= 145 >/= 160 20-24 Y 0 - 149 150 - 189 >/= 190 ---- >24 Y 30 mg/dL above LDL Cholesterol goal Performed By: #### T JEYSON #### SALMA RODRIGUEZ ([id number]) [facility] ([facility]) [address] [place] [address] 12794 Triglyceride [Mass/Vol] 100 mg/dL Normal 0-149 [facility] Comment on above: Result Comment: Age Desirable [...] By: #### T PRICILAS #### SALMA RODRIGUEZ ([id number]) [facility] ([facility]) [address] [place] [address] 12583 Magnesiumon 03-05-2024 Magnesium [Mass/Vol] 2.09 mg/dL Normal 1.60-2.40 [facility] Comment on above: Performed By: #### T PRICILAS #### SALMA RODRIGUEZ ([id number]) [facility] ([facility]) [address] [place] [address] 81398 Nuclear Abon 03-05-2024 Nuclear Ab Hep2 substrate Ql (S) Negative Normal Negative [facility] Comment on above: Result Comment: The Antinuclear Antibody (RONI) test was performed using indirect immunofluorescence assay with HEp-2 cells slide. Performed By: #### 2 4323-8 #### SALMA RODRIGUEZ ([id number]) [facility] ([facility]) [address] [place] [address] 00477 Nuclear Ab Hep2 substrate Ql (S)on 03-05-2024 CYTOPLASMIC PATTERN Cytoplasmic Reticular/AMA Normal [facility] Comment on above: Result Comment: Cyto plasmic Reticular/AMA pattern was observed. This pattern suggests possible presence of anti-mitochondrial antibodies. The pattern is commonly found in primary biliary cholangitis (PBC), but is also seen in SSc, including PBC-SSc overlap syndrome and PBC-SjS overlap syndrome. Performed By: #### 2 4323-8 #### SALMA RODRIGUEZ ([id number]) [facility] ([facility]) [address] [place] [address] 70877 Rheumatoid factoron 03-05-19 Rheumatoid factor Nephelometry Qn (S) <10 Normal 0-15 [facility] Comment on above: Performed By: #### 2 4323-8 #### SAMLA RODRIGUEZ ([id number]) [facility] ([facility]) [address] [place] [address] 87720 TSH WITH REFLEX TO FREE T4 I F ABNORMALon 03-05-2024 TSH Qn 1.78 m[IU]/L Normal 0.44-3.98 [facility] Comment on above: Order Comment: TSH t esting is performed using different testing methodology at [facility] than at other [facility]. Direct result comparisons should only be made within the same method. Performed By: #### T HYDS #### MARSH MICHAEL ([id number]) [facility] ([facility]) [address] [place] [address] Bacteria identifiedon 2024 Bacteria identified Cx Nom (U) Test: Urine Culture Specimen Source: Clean Catch/Voided Specimen Type: Urine Specimen Date: 03/04/20241652 Result Date: 03/05/20241706 Result Status: Final result Abnormal: No Resulting Lab: [facility] [address] [place] [address] CULTURE Clinically insignificant growth based on current clinical standards. Normal [facility] Comment on above: Performed By: #### 6 30-4 #### VONNIE Lake ([id number]) [facility] ([facility]) [address] [place] [address] 51646 POCT UA Automated manually r esultedon 03-04-2024 Appearance (U) Clear Clear [facility] Work Phone: Glucose Test strip (U) [Mass/Vol] Negative NEGATIVE mg/dl [facility] Work Phone: Hemoglobin Ql (U) SMALL (1+) Abnormal NEGATIVE [facility] Work Phone: Interpretation and review of laboratory results Abnormal [facility] Work Phone: Leukocyte esterase Test strip Ql (U) Negative NEGATIVE [facility] Work Phone: Nitrite Ql (U) Negative NEGATIVE [facility] Work Phone: pH (U) 7.0 [pH] No Reference Range Established [facility] Work Phone: POC Bilirubin, Urine Negative NEGATIVE Univ [facility] Work Phone: POC Color, Urine Straw Straw, Yellow, Light-Yellow [facility] Work Phone: POC Ketones, Urine Negative NEGATIVE mg/dl [facility] Work Phone: POC Protein, Urine Negative NEGATIVE mg/dl [facility] Work Phone: POC Specific [place], Urine 1.015 1.005 - 1.035 [facility] Work Phone: POC Urobilinogen, Urine 0.2 0.2, 1.0 EU/DL [facility] Work Phone: [facility] Work Phone: CT ABDOMEN PELVIS W IV CONTR Reta 11-24-2023 CT ABDOMEN PELVIS W IV CONTRAST Interpreted By: Cathleen Cade and Meyers Emily STUDY: CT ABDOMEN PELVIS W IV CONTRAST; 11/24/2023 10:00 am INDICATION: Signs/Symptoms:abdomina l pain, bowel changes. ,R10.9 Unspecified abdominal pain,R19.4 Change in bowel habit COMPARISON: CT abdomen pelvis 04/18/2023 ACCESSION NUMBER(S): [id number] ORDERING CLINICIAN: CARMELITA ROMO TECHNIQUE: CT of [...] Valle MD. This study was interpreted at [place], [place]. MACRO: None. Signed by: Cathleen Cade 11/25/2023 9:59 PM Dictation workstation: [id number] Normal [facility] CBC W Auto Differential pane l (Bld)on 11-15-2023 Basophils (Bld) [#/Vol] 0.07 x10*3/uL Normal 0.00-0.10 [facility] [facility] Comment on above: Performed By: #### 5 7021-8 #### SALMA RODRIGUEZ ([id number]) [facility] ([facility]) [address] [place] [address] 19541 Basophils/100 WBC (Bld) 0.7 % Normal 0.0-2.0 [facility] Comment on above: Performed By: #### 5 7021-8 #### SALMA RODRIGUEZ ([id number]) [facility] ([facility]) [address] [place] [address] 21246 Eosinophils (Bld) [#/Vol] 0.30 x10*3/uL Normal 0.00-0.70 [facility] Comment on above: Performed By: #### 5 7021-8 #### SALMA RODRIGUEZ ([id number]) [facility] ([facility]) [address] [place] [address] 59308 Eosinophils/100 WBC (Bld) 3.1 % Normal 0.0-6.0 [facility] Comment on above: Performed By: #### 5 7021-8 #### SALMA RODRIGUEZ ([id number]) [facility] ([facility]) [address] [place] [address] 23747 Erythrocyte distribution width (RBC) [Ratio] 13.4 % Normal 11.5-14.5 [facility] Comment on above: Performed By: #### 5 7021-8 #### SALMA RODRIGUEZ ([id number]) [facility] ([facility]) [address] [place] [address] Hematocrit (Bld) [Volume fraction] 41.9 % Normal 36.0-46.0 [facility] Comment on above: Performed By: #### 5 7021-8 #### SALMA RODRIGUEZ ([id number]) [facility] ([facility]) [address] [place] [address] Hemoglobin (Bld) [Mass/Vol] 13.3 g/dL Normal 12.0-16.0 [facility] Comment on above: Performed By: #### 5 7021-8 #### SALMA RODRIGUEZ ([id number]) [facility] ([facility]) [address] [place], [place] [id number] Immature granulocytes (Bld) [#/Vol] 0.03 x10*3/uL Normal 0.00-0.70 [facility] Comment on above: Performed By: #### 5 7021-8 #### SALMA RODRIGUEZ ([id number]) [facility] ([facility]) [address] [place] [address] Immature granulocytes/100 WBC (Bld) 0.3 % Normal 0.0-0.9 [facility] Comment on above: Result Comment: Kacy ture Granulocyte Count (IG) includes promyelocytes, myelocytes and metamyelocytes but does not include bands. Percent differential counts (%) should be interpreted in the context of the absolute cell counts (cells/UL). Performed By: #### 5 7021-8 #### SALMA RODRIGUEZ ([id number]) [facility] ([facility]) [address] [place] [address] 11575 Lymphocytes (Bld) [#/Vol] 3.11 x10*3/uL Normal 1.20-4.80 [facility] Comment on above: Performed By: #### 5 7021-8 #### SALMA RODRIGUEZ ([id number]) [facility] ([facility]) [address] [place] [address] 72973 Lymphocytes/100 WBC (Bld) 32.5 % Normal 13.0-44.0 [facility] Comment on above: Performed By: #### 5 7021-8 #### SALMA RODRIGUEZ ([id number]) [facility] ([facility]) [address] [place] [address] 72901 MCH (RBC) [Entitic mass] 29.6 pg Normal 26.0-34.0 [facility] Comment on above: Performed By: #### 5 7021-8 #### SALMA RODRIGUEZ ([id number]) [facility] ([facility]) [address] [place] [address] 96236 MCHC (RBC) [Mass/Vol] 31.7 g/dL Low 32.0-36.0 [facility] Comment on above: Performed By: #### 5 7021-8 #### SALMA RODRIGUEZ ([id number]) [facility] ([facility]) [address] [place] [address] 42651 MCV (RBC) [Entitic vol] 93 fL Normal 80-100 [facility] Comment on above: Performed By: #### 5 7021-8 #### SALMA RODRIGUEZ ([id number]) [facility] ([facility]) [address] [place] [address] 72054 Monocytes (Bld) [#/Vol] 0.76 x10*3/uL Normal 0.10-1.00 [facility] Comment on above: Performed By: #### 5 7021-8 #### SALMA RODRIGUEZ ([id number]) [facility] ([facility]) [address] [place] [address] 78019 Monocytes/100 WBC (Bld) 7.9 % Normal 2.0-10.0 [facility] Comment on above: Performed By: #### 5 7021-8 #### SALMA RODRIGUEZ ([id number]) [facility] ([facility]) [address] [place] [address] 99517 Neutrophils (Bld) [#/Vol] 5.31 x10*3/uL Normal 1.20-7.70 [facility] Comment on above: Result Comment: Perc ent differential counts (%) should be interpreted in the context of the absolute cell counts (cells/uL). Performed By: #### 5 7021-8 #### SALMA RODRIGUEZ ([id number]) [facility] ([facility]) [address] [place] [address] 33227 Neutrophils/100 WBC (Bld) 55.5 % Normal 40.0-80.0 [facility] Comment on above: Performed By: #### 5 7021-8 #### SALMA RODRIGUEZ ([id number]) [facility] ([facility]) [address] [place] [address] 17659 Nucleated RBC/100 WBC (Bld) [Ratio] 0.0 /100 WBCs Normal 0.0-0.0 [facility] Comment on above: Performed By: #### 5 7021-8 #### SALMA RODRIGUEZ ([id number]) [facility] ([facility]) [address] [place] [address] 22638 Platelets (Bld) [#/Vol] 428 x10*3/uL Normal 150-450 [facility] Comment on above: Performed By: #### 5 7021-8 #### SALMA RODRIGUEZ ([id number]) [facility] ([facility]) [address] [place] [address] 66713 RBC (Bld) [#/Vol] 4.50 x10*6/uL Normal 4.00-5.20 [facility] Comment on above: Performed By: #### 5 7021-8 #### SALMA RODRIGUEZ ([id number]) [facility] ([facility]) [address] [place] [address] 56757 WBC (Bld) [#/Vol] 9.6 x10*3/uL Normal 4.4-11.3 [facility] Comment on above: Performed By: #### 5 7021-8 #### SALMA RODRIGUEZ ([id number]) [facility] ([facility]) [address] [place] [address] 66081 Comprehensive metabolic 2000 panelon 11-15-2023 Albumin BCP dye [Mass/Vol] 4.3 g/dL Normal 3.4-5.0 [facility] Comment on above: Performed By: #### T HYDS #### SALMA RODRIGUEZ ([id number]) [facility] ([facility]) [address] [place] [address] 25615 ALP [Catalytic activity/Vol] 82 U/L Normal 33-110 [facility] Comment on above: Performed By: #### T HYDS #### SALMA RODRIGUEZ ([id number]) [facility] ([facility]) [address] [place] [address] 16483 ALT With P-5'-P [Catalytic activity/Vol] 23 U/L Normal 7-45 [facility] Comment on above: Result Comment: Dulce ents treated with Sulfasalazine may generate falsely decreased results for ALT. Performed By: #### T HYDS #### SALMA RODRIGUEZ ([id number]) [facility] ([facility]) [address] [place] [address] 62513 Anion gap [Moles/Vol] 13 mmol/L Normal 10-20 [facility] Comment on above: Performed By: #### T HYDS #### SALMA RODRIGUEZ ([id number]) [facility] ([facility]) [address] [place] [address] 45920 AST With P-5'-P [Catalytic activity/Vol] 21 U/L Normal 9-39 [facility] Comment on above: Performed By: #### T HYDS #### SALMA RODRIGUEZ ([id number]) [facility] ([facility]) [address] [place] [address] 20629 Bilirubin [Mass/Vol] 0.3 mg/dL Normal 0.0-1.2 [facility] Comment on above: Performed By: #### T HYDS #### SALMA RODRIGUEZ ([id number]) [facility] ([facility]) [address] [place] [address] 41656 Calcium [Mass/Vol] 9.3 mg/dL Normal 8.6-10.3 [facility] Comment on above: Performed By: #### T HYDS #### SALMA RODRIGUEZ ([id number]) [facility] ([facility]) [facility] [place] [address] Chloride [Moles/Vol] 106 mmol/L Normal 98-107 [facility] Comment on above: Performed By: #### T HYDS #### SALMA RODRIGUEZ ([id number]) [facility] ([facility]) [address] [place] [address] 94798 CO2 [Moles/Vol] 22 mmol/L Normal 21-32 [facility] Comment on above: Performed By: #### T HYDS #### SALMA RODRIGUEZ ([id number]) [facility] ([facility]) [address] [place] [address] 06768 Creatinine [Mass/Vol] 0.51 mg/dL Normal 0.50-1.05 [facility] Comment on above: Performed By: #### T HYDS #### SALMA RODRIGUEZ ([id number]) [facility] ([facility]) [address] [place] [address] 66445 GFR/1.73 sq M.predicted MDRD (S/P/Bld) [Vol rate/Area] mL/min/{1.73_m2} Normal >60 [facility] Comment on above: Result Comment: Calc ulations of estimated GFR are performed using the 2020 CKD-EPI Study Refit equation without the race variable for the IDMS-Traceable creatinine methods. https://jasn.asnjournals.org/content/early/ASN.2020 971566 Performed By: #### T HYDS #### SALMA RODRIGUEZ ([id number]) [facility] ([facility]) [address] [place] [address] 12178 Glucose [Mass/Vol] 79 mg/dL Normal 74-99 [facility] Comment on above: Performed By: #### T HYDS #### SALMA RODRIGUEZ ([id number]) [facility] ([facility]) [address] [place] [address] 90468 Potassium [Moles/Vol] 3.9 mmol/L Normal 3.5-5.3 [facility] Comment on above: Performed By: #### T HYDS #### SALMA RODRIGUEZ ([id number]) [facility] ([facility]) [address] [place] [address] Protein [Mass/Vol] 7.4 g/dL Normal 6.4-8.2 [facility] Comment on above: Performed By: #### T HYDS #### SALMA RODRIGUEZ ([id number]) [facility] ([facility]) [address] [place] [address] Sodium [Moles/Vol] 137 mmol/L Normal 136-145 [facility] Comment on above: Performed By: #### T HYDS #### SALMA RODRIGUEZ ([id number]) [facility] ([facility]) [address] [place] [address] Urea nitrogen [Mass/Vol] 12 mg/dL Normal 6-23 [facility] Comment on above: Performed By: #### T HYDS #### SALMA RODRIGUEZ ([id number]) [facility] ([facility]) [address] [place] [address] Magnesiumon 11-15-2023 Magnesium [Mass/Vol] 1.92 mg/dL Normal 1.60-2.40 [facility] Comment on above: Performed By: #### 1 9123-9 #### SALMA RODRIGUEZ ([id number]) [facility] ([facility]) [address] [place] [address] TSH WITH REFLEX TO FREE T4 I F ABNORMALon 11-15-2023 TSH Qn 1.76 m[IU]/L Normal 0.44-3.98 [facility] Comment on above: Order Comment: TSH t esting is performed using different testing methodology at [facility] than at other [facility]. Direct result comparisons should only be made within the same method. Performed By: #### T HYDS #### SALMA RODRIGUEZ ([id number]) [facility] ([facility]) [address] [place] [address] BI TRANSFER OF OUTSIDE FILMS on 10-25-2023 BI TRANSFER OF OUTSIDE FILMS Outside images for comparison or treatment purposes, not interpreted by Radiologists. [facility] Comment on above: Order Comment: 023 NATALIE SCR W ERUM [facility] BI TRANSFER OF OUTSIDE FILMS Outside images for comparison or treatment purposes, not interpreted by Radiologists. [facility] Comment on above: Order Comment: 2021 NATALIE DIAG LT [facility] Order Comment: 2021 NATALIE SCR [facility] Study Interpretation of outs tiffany [...] PM -------- ORIGINAL REPORT -------- Dictation workstation: [id number] Interpreted By: Reza Sage, STUDY: BI MAMMO BILATERAL SCREENING TOMOSYNTHESIS; 10/16/2023 2:33 pm ACCESSION NUMBER(S): [id number] ORDERING CLINICIAN: SELF MAMMOGRAM INDICATION: Screening. COMPARISON: [...] Reza Sage 10/17/2023 9:45 AM Dictation workstation: [id number] Normal [facility] CBC W Auto Differential pane l (Bld)on 06-22-2023 Basophils (Bld) [#/Vol] 0.11 x10*3/uL High 0.00-0.10 [facility] Comment on above: Performed By: #### 5 7021-8 #### SALMA RODRIGUEZ ([id number]) [facility] ([facility]) [address] [place] [address] 26367 Basophils/100 WBC (Bld) 0.9 % Normal 0.0-2.0 [facility] Comment on above: Performed By: #### 5 7021-8 #### SALMA RODRIGUEZ ([id number]) [facility] ([facility]) [address] [place] [address] 50433 Eosinophils (Bld) [#/Vol] 0.41 x10*3/uL Normal 0.00-0.70 [facility] Comment on above: Performed By: #### 5 7021-8 #### SALMA RODRIGUEZ ([id number]) [facility] ([facility]) [address] [place] [address] 37414 Eosinophils/100 WBC (Bld) 3.5 % Normal 0.0-6.0 [facility] Comment on above: Performed By: #### 5 7021-8 #### SALMA RODRIGUEZ ([id number]) [facility] ([facility]) [address] [place] [address] 10441 Erythrocyte distribution width (RBC) [Ratio] 13.1 % Normal 11.5-14.5 [facility] Comment on above: Performed By: #### 5 7021-8 #### SALMA RODRIGUEZ ([id number]) [facility] ([facility]) [address] [place] [address] 52988 Hematocrit (Bld) [Volume fraction] 45.9 % Normal 36.0-46.0 [facility] Comment on above: Performed By: #### 5 7021-8 #### SALMA RODRIGUEZ ([id number]) [facility] ([facility]) [address] [place] [address] 65348 Hemoglobin (Bld) [Mass/Vol] 14.6 g/dL Normal 12.0-16.0 [facility] Comment on above: Performed By: #### 5 7021-8 #### SALMA RODRIGUEZ ([id number]) [facility] ([facility]) [address] [place] [address] 98974 Immature granulocytes (Bld) [#/Vol] 0.03 x10*3/uL Normal 0.00-0.70 [facility] Comment on above: Performed By: #### 5 7021-8 #### SALMA RODRIGUEZ ([id number]) [facility] ([facility]) [address] [place] [address] 81193 Immature granulocytes/100 WBC (Bld) 0.3 % Normal 0.0-0.9 [facility] Comment on above: Result Comment: Kacy ture Granulocyte Count (IG) includes promyelocytes, myelocytes and metamyelocytes but does not include bands. Percent differential counts (%) should be interpreted in the context of the absolute cell counts (cells/UL). Performed By: #### 5 7021-8 #### SALMA RODRIGUEZ ([id number]) [facility] ([facility]) [address] [place] [address] 17920 Lymphocytes (Bld) [#/Vol] 3.92 x10*3/uL Normal 1.20-4.80 [facility] Comment on above: Performed By: #### 5 7021-8 #### SALMA RODRIGUEZ ([id number]) [facility] ([facility]) [address] [place] [address] 97237 Lymphocytes/100 WBC (Bld) 33.0 % Normal 13.0-44.0 [facility] Comment on above: Performed By: #### 5 7021-8 #### SALMA RODRIGUEZ ([id number]) [facility] ([facility]) [address] [place] [address] 30347 MCH (RBC) [Entitic mass] 29.5 pg Normal 26.0-34.0 [facility] Comment on above: Performed By: #### 5 7021-8 #### SALMA RODRIGUEZ ([id number]) [facility] ([facility]) [address] [place] [address] 98500 MCHC (RBC) [Mass/Vol] 31.8 g/dL Low 32.0-36.0 [facility] Comment on above: Performed By: #### 5 7021-8 #### SALMA RODRIGUEZ ([id number]) [facility] ([facility]) [address] [place] [address] 72378 MCV (RBC) [Entitic vol] 93 fL Normal 80-100 [facility] Comment on above: Performed By: #### 5 7021-8 #### SALMA RODRIGUEZ ([id number]) [facility] ([facility]) [address] [place] [address] 34652 Monocytes (Bld) [#/Vol] 1.02 x10*3/uL High 0.10-1.00 [facility] Comment on above: Performed By: #### 5 7021-8 #### SALMA RODRIGUEZ ([id number]) [facility] ([facility]) [address] [place] [address] 88986 Monocytes/100 WBC (Bld) 8.6 % Normal 2.0-10.0 [facility] Comment on above: Performed By: #### 5 7021-8 #### SALMA RODRIGUEZ ([id number]) [facility] ([facility]) [address] [place] [address] 35439 Neutrophils (Bld) [#/Vol] 6.39 x10*3/uL Normal 1.20-7.70 [facility] Comment on above: Result Comment: Perc ent differential counts (%) should be interpreted in the context of the absolute cell counts (cells/uL). Performed By: #### 5 7021-8 #### SALMA RODRIGUEZ ([id number]) [facility] ([facility]) [address] [place] [address] 57124 Neutrophils/100 WBC (Bld) 53.7 % Normal 40.0-80.0 [facility] Comment on above: Performed By: #### 5 7021-8 #### SALMA RODRIGUEZ ([id number]) [facility] ([facility]) [address] [place] [address] 56954 Nucleated RBC/100 WBC (Bld) [Ratio] 0.0 /100 WBCs Normal 0.0-0.0 [facility] Comment on above: Performed By: #### 5 7021-8 #### SALMA RODRIGUEZ ([id number]) [facility] ([facility]) [address] [place] [address] 32005 Platelets (Bld) [#/Vol] 521 x10*3/uL High 150-450 [facility] Comment on above: Performed By: #### 5 7021-8 #### SALMA RODRIGUEZ ([id number]) [facility] ([facility]) [address] [place] [address] 22657 RBC (Bld) [#/Vol] 4.95 x10*6/uL Normal 4.00-5.20 [facility] Comment on above: Performed By: #### 5 7021-8 #### SALMA RODRIGUEZ ([id number]) [facility] ([facility]) [address] [place] [address] 69775 WBC (Bld) [#/Vol] 11.9 x10*3/uL High 4.4-11.3 [facility] Comment on above: Performed By: #### 5 7021-8 #### SALMA RODRIGUEZ ([id number]) [facility] ([facility]) [address] [place] [address] Cobalaminson 06-22-2023 Cobalamin (Vitamin B12) [Mass/Vol] 277 pg/mL Normal 211-911 [facility] Comment on above: Performed By: #### 2 132-9 #### SALMA RODRIGUEZ ([id number]) [facility] ([facility]) [address] [place] [address] 71815 Comprehensive metabolic 2000 panelon 06-22-2023 Albumin BCP dye [Mass/Vol] 4.4 g/dL Normal 3.4-5.0 [facility] Comment on above: Performed By: #### 2 4323-8 #### SALMA RODRIGUEZ ([id number]) [facility] ([facility]) [address] [place] [address] 40413 ALP [Catalytic activity/Vol] 87 U/L Normal 33-110 [facility] Comment on above: Performed By: #### 2 4323-8 #### SALMA RODRIGUEZ ([id number]) [facility] ([facility]) [address] [place] [address] ALT With P-5'-P [Catalytic activity/Vol] 20 U/L Normal 7-45 [facility] Comment on above: Result Comment: Dulce ents treated with Sulfasalazine may generate falsely decreased results for ALT. Performed By: #### 2 4323-8 #### SALMA RODRIGUEZ ([id number]) [facility] ([facility]) [address] [place] [address] 53911 Anion gap [Moles/Vol] 13 mmol/L Normal 10-20 [facility] Comment on above: Performed By: #### 2 4322-8 #### SALMA RODRIGUEZ ([id number]) [facility] ([facility]) [address] [place] [address] 42906 AST With P-5'-P [Catalytic activity/Vol] 20 U/L Normal 9-39 [facility] Comment on above: Performed By: #### 2 4322-8 #### SALMA RODRIGUEZ ([id number]) [facility] ([facility]) [address] [place] [address] 87054 Bilirubin [Mass/Vol] 0.3 mg/dL Normal 0.0-1.2 [facility] Comment on above: Performed By: #### 2 3-8 #### SALMA RODRIGUEZ ([id number]) [facility] ([facility]) [address] [place] [address] 30933 Calcium [Mass/Vol] 9.6 mg/dL Normal 8.6-10.3 [facility] Comment on above: Performed By: #### 2 432-8 #### SALMA RODRIGUEZ ([id number]) [facility] ([facility]) [address] [place] [address] 37050 Chloride [Moles/Vol] 99 mmol/L Normal 98-107 [facility] Comment on above: Performed By: #### 2 4323-8 #### SALMA RODRIGUEZ ([id number]) [facility] ([facility]) [address] [place] [address] 42957 CO2 [Moles/Vol] 27 mmol/L Normal 21-32 [facility] Comment on above: Performed By: #### 2 4323-8 #### SALMA RODRIGUEZ ([id number]) [facility] ([facility]) [address] [place] [address] 24782 Creatinine [Mass/Vol] 0.52 mg/dL Normal 0.50-1.05 [facility] Comment on above: Performed By: #### 2 4323-8 #### SALMA RODRIGUEZ ([id number]) [facility] ([facility]) [address] [place] [address] 84024 GFR/1.73 sq M.predicted MDRD (S/P/Bld) [Vol rate/Area] mL/min/{1.73_m2} Normal >60 [facility] Comment on above: Result Comment: Calc ulations of estimated GFR are performed using the 2020 CKD-EPI Study Refit equation without the race variable for the IDMS-Traceable creatinine methods. https://jasn.asnjournals.org/content/early/ASN.2020 974522 Performed By: #### 2 4323-8 #### SALMA RODRIGUEZ ([id number]) [facility] ([facility]) [address] [place] [address] 33114 Glucose [Mass/Vol] 80 mg/dL Normal 74-99 [facility] Comment on above: Performed By: #### 2 4323-8 #### SALMA RODRIGUEZ ([id number]) [facility] ([facility]) [address] [place] [address] 79013 Potassium [Moles/Vol] 4.3 mmol/L Normal 3.5-5.3 [facility] Comment on above: Performed By: #### 2 4323-8 #### SALMA RODRIGUEZ ([id number]) [facility] ([facility]) [address] [place] [address] 09730 Protein [Mass/Vol] 7.4 g/dL Normal 6.4-8.2 [facility] Comment on above: Performed By: #### 2 4323-8 #### SALMA RODRIGUEZ ([id number]) [facility] ([facility]) [address] [place] [address] Sodium [Moles/Vol] 135 mmol/L Low 136-145 [facility] Comment on above: Performed By: #### 2 4323-8 #### SALMA RODRIGUEZ ([id number]) [facility] ([facility]) [address] [place] [address] Urea nitrogen [Mass/Vol] 12 mg/dL Normal 6-23 [facility] Comment on above: Performed By: #### 2 4323-8 #### SALMA RODRIGUEZ ([id number]) [facility] ([facility]) [facility] [place] [address] Lipid 1996 panelon 4 Cholesterol [Mass/Vol] 258 mg/dL High 0-199 Un [facility] Comment on above: Result Comment: [...] By: #### 2 4331-1 #### SALMA RODRIGUEZ ([id number]) [facility] ([facility]) [address] [place] [id number] Cholesterol in HDL [Mass/Vol] 65.0 mg/dL Normal [facility] Comment on above: Result Comment: Age Very Low Low Normal High 0-19 Y < 35 < 40 40-45 ---- 20-24 Y ---- < 40 >45 ---- >24 Y ---- < 40 40-60 >60 Performed By: #### 2 4331-1 #### SALMA RODRIGUEZ ([id number]) [facility] ([facility]) [address] [place] [id number] Cholesterol in LDL [Mass/Vol] 173 mg/dL High <=99 [facility] Comment on above: Result Comment: Near Borderline AGE Desirable Optimal High High Very High 0-19 Y 0 - 109 --- 110-129 >/= 130 ---- 20-24 Y 0 - 119 --- 120-159 >/= 160 ---- >24 Y 0 - 99 100-129 130-159 160-189 >/=190 Performed By: #### 2 4331-1 #### SALMA RODRIGUEZ ([id number]) [facility] ([facility]) [address] [place] [id number] Cholesterol in VLDL [Mass/Vol] 20 mg/dL Normal 0-40 [facility] [facility] Comment on above: Performed By: #### 2 4331-1 #### SALMA RODRIGUEZ ([id number]) [facility] ([facility]) [address] [place] [address]777 CHOLESTEROL/HDL RATIO 4.0 Normal [facility] Comment on above: Result Comment: Ref Values Desirable < 3.4 High Risk > 5.0 Performed By: #### 2 4331-1 #### SALMA RODRIGUEZ ([id number]) [facility] ([facility]) [address] [place] [address] 33144 NON HDL CHOLESTEROL 193 mg/dL High 0-149 [facility] Comment on above: Result Comment: Age Desirable Borderline High High Very High 0-19 Y 0 - 119 120 - 144 >/= 145 >/= 160 20-24 Y 0 - 149 150 - 189 >/= 190 ---- >24 Y 30 mg/dL above LDL Cholesterol goal Performed By: #### 2 4331-1 #### SALMA RODRIGUEZ ([id number]) [facility] ([facility]) [facility] [place] [address] Triglyceride [Mass/Vol] 100 mg/dL Normal 0-149 [facility] Comment on above: Result Comment: Age Desirable [...] dosing. Performed By: #### 2 4331-1 #### MARSH MICHAEL ([id number]) [facility] ([facility]) [address] [place] [address] TSH WITH REFLEX TO FREE T4 I F ABNORMALon 06-22-2023 TSH Qn 1.83 m[IU]/L Normal 0.44-3.98 [facility] Comment on above: Order Comment: TSH t esting is performed using different testing methodology at [facility] than at other [facility]. Direct result comparisons should only be made within the same method. Performed By: #### T HYDS #### MARSH MICHAEL ([id number]) [facility] ([facility]) [address] [place], [place] [id number] XR LUMBAR SPINE 2-3 VIEWSon 04-20-2023 XR LUMBAR SPINE 2-3 VIEWS Interpreted By: Michael Fuller, STUDY: XR LUMBAR SPINE 2-3 VIEWS; 04/20/2023 8:52 am INDICATION: Signs/Symptoms:BACK PAIN. COMPARISON: None. ACCESSION NUMBER(S): [id number] ORDERING CLINICIAN: CATHIE KEN TECHNIQUE: AP and lateral views of the lumbar spine were obtained. FINDINGS: Grade 1 retrolisthesis of L1 over L2 and of L2 over L3. Mild disc space narrowing with zzbr-iw-akvehsok endplate osteophytosis at L1-2. Lumbar disc space height was otherwise preserved. Interfacet hypertrophic arthritic changes from L3-4 through L5-S1. Moderate sclerotic arthritic changes in both SI joints. No lytic or blastic bone lesion. No compression fracture. Right upper quadrant abdominal surgical clips. Uroz-og-puubjtrq retained colonic stool and gas. Nonobstructive, nonspecific bowel gas pattern. IMPRESSION: Arthritic changes in the lumbosacral spine as described. MACRO: None Signed by: Michael Fuller 04/20/2023 10:05 AM Dictation workstation: [id number] [facility] XR Lumbar spine 2 or 3 Views on 04-20-2023 Arthritic changes in the lumbosacral spine as described. MACRO: None Signed by: Michael Fuller 04/20/2023 10:05 AM Dictation workstation: [id number] MMODAL Interpreted By: Michael Ortiz, STUDY: XR LUMBAR SPINE 2-3 VIEWS; 04/20/2023 8:52 am INDICATION: Signs/Symptoms:BACK PAIN. COMPARISON: None. ACCESSION NUMBER(S): [id number] ORDERING CLINICIAN: CATHIE KEN TECHNIQUE: AP and lateral views of the lumbar spine were obtained. FINDINGS: Grade 1 retrolisthesis of L1 over L2 and of L2 over L3. Mild disc space narrowing with lgat-ix-dkdnigse endplate osteophytosis at L1-2. Lumbar disc space height was otherwise preserved. Interfacet hypertrophic arthritic changes from L3-4 through L5-S1. Moderate sclerotic arthritic changes in both SI joints. No lytic or blastic bone lesion. No compression fracture. Right upper quadrant abdominal surgical clips. Eopp-yb-stnzoair retained colonic stool and gas. Nonobstructive, nonspecific bowel gas pattern. MMODAL Michael Fuller MD - 04/20/2023 Interpreted By: Michael Fuller, STUDY: XR LUMBAR SPINE 2-3 VIEWS; 04/20/2023 8:52 am INDICATION: Signs/Symptoms:BACK PAIN. COMPARISON: None. ACCESSION NUMBER(S): [id number] ORDERING CLINICIAN: CATHIE KEN TECHNIQUE: AP and lateral views of the lumbar spine were obtained. FINDINGS: Grade 1 retrolisthesis of L1 over L2 and of L2 over L3. Mild disc space narrowing with piio-nz-wyxgnfcf endplate osteophytosis at L1-2. Lumbar disc space height was otherwise preserved. Interfacet hypertrophic arthritic changes from L3-4 through L5-S1. Moderate sclerotic arthritic changes in both SI joints. No lytic or blastic bone lesion. No compression fracture. Right upper quadrant abdominal surgical clips. Izaj-bp-mitgtipa retained colonic stool and gas. Nonobstructive, nonspecific bowel gas pattern. IMPRESSION: Arthritic changes in the lumbosacral spine as described. MACRO: None Signed by: Michael Fuller 04/20/2023 10:05 AM Dictation workstation: [id number] [facility] Work Phone: Radiology Study observation (narrative) [facility] Work Phone: XR Lumbar spine 2 or 3 Views Ordered By: Michael Fuller on 04-20-2023 [facility] Work Phone: CBC panel Auto (Bld)on 04-18 Erythrocyte distribution width (RBC) [Ratio] 13.2 % Normal 11.5-14.[address] [facility] Comment on above: Performed By: #### 5 8410-2 #### SALMA RODRIGUEZ ([id number]) [facility] ([facility]) [address] [place] [address] Hematocrit (Bld) [Volume fraction] 41.2 % Normal 36.0-46.[address] [facility] Comment on above: Performed By: #### 5 8410-2 #### SALMA RODRIGUEZ ([id number]) [facility] ([facility]) [address] [place] [address]14 Hemoglobin (Bld) [Mass/Vol] 13.8 g/dL Normal 12.0-16.[address] [facility] Comment on above: Performed By: #### 5 8410-2 #### SALMA RODRIGUEZ ([id number]) [facility] ([facility]) [address] [place] [address] 62584 MCH (RBC) [Entitic mass] 30.7 pg Normal 26.0-34.[address] [facility] Comment on above: Performed By: #### 5 8410-2 #### SALMA RODRIGUEZ ([id number]) [facility] ([facility]) [address] [place] [address] 46263 MCHC (RBC) [Mass/Vol] 33.5 g/dL Normal 32.0-36.0 [facility] Comment on above: Performed By: #### 5 8410-2 #### SALMA RODRIGUEZ ([id number]) [facility] ([facility]) [address] [place] [address] MCV (RBC) [Entitic vol] 92 fL Normal 80-100 [facility] Comment on above: Performed By: #### 5 8410-2 #### SALMA RODRIGUEZ ([id number]) [facility] ([facility]) [address] [place] [address] Nucleated RBC/100 WBC (Bld) [Ratio] 0.0 /100 WBCs Normal 0.0-0.[address] [facility] Comment on above: Performed By: #### 5 8410-2 #### SALMA RODRIGUEZ ([id number]) [facility] ([facility]) [address] [place] [address] 54883 Platelets (Bld) [#/Vol] 399 x10*3/uL Normal 150-[address] [facility] Comment on above: Performed By: #### 5 8410-2 #### SALMA RODRIGUEZ ([id number]) [facility] ([facility]) [address] [place] [address] RBC (Bld) [#/Vol] 4.50 x10*6/uL Normal 4.00-5.20 [facility] Comment on above: Performed By: #### 5 8410-2 #### SALMA RODRIGUEZ ([id number]) [facility] ([facility]) [address] [place] [address] WBC (Bld) [#/Vol] 11.9 x10*3/uL High 4.4-11.3 [facility] Comment on above: Performed By: #### 5 8410-2 #### SALMA RODRIGUEZ ([id number]) [facility] ([facility]) [address] [place] [address] CT ABDOMEN PELVIS W IV CONTR Reta 04-18-2023 CT ABDOMEN PELVIS W IV CONTRAST Interpreted By: Uriel Sung, STUDY: CT ABDOMEN PELVIS W IV CONTRAST; 04/18/2023 11:13 am INDICATION: Signs/Symptoms:left flank pain. COMPARISON: None ACCESSION NUMBER(S): [id number] ORDERING CLINICIAN: ERIC TORRES TECHNIQUE: Axial CT [...] Uriel Sung 04/18/2023 11:48 AM Dictation workstation: [id number] Normal [facility] Comprehensive metabolic 2000 panelon 04-18-2023 Albumin BCP dye [Mass/Vol] 4.1 g/dL Normal 3.4-5.[address] [facility] Comment on above: Performed By: #### 2 4323-8 #### SALMA RODRIGUEZ ([id number]) [facility] ([facility]) [address] [place], [place] [id number] ALP [Catalytic activity/Vol] 72 U/L Normal 33-[address] [facility] Comment on above: Performed By: #### 2 4323-8 #### SALMA RODRIGUEZ ([id number]) [facility] ([facility]) [address] [place] [address] 07939 ALT With P-5'-P [Catalytic activity/Vol] 22 U/L Normal 7-[address] [facility] Comment on above: Result Comment: Dulce ents treated with Sulfasalazine may generate falsely decreased results for ALT. Performed By: #### 2 4323-8 #### SALMA RODRIGUEZ ([id number]) [facility] ([facility]) [address] [place] [address] Anion gap [Moles/Vol] 12 mmol/L Normal 10-20 [facility] Comment on above: Performed By: #### 2 432-8 #### SALMA RODRIGUEZ ([id number]) [facility] ([facility]) [address] [place] [address] 58818 AST With P-5'-P [Catalytic activity/Vol] 23 U/L Normal 9-[address] [facility] Comment on above: Performed By: #### 2 4322-8 #### SALMA RODRIGUEZ ([id number]) [facility] ([facility]) [address] [place] [address] 58219 Bilirubin [Mass/Vol] 0.3 mg/dL Normal 0.0-1.2 [facility] Comment on above: Performed By: #### 2 4322-8 #### SALMA RODRIGUEZ ([id number]) [facility] ([facility]) [address] [place] [address] Calcium [Mass/Vol] 9.0 mg/dL Normal 8.6-10.3 [facility] Comment on above: Performed By: #### 2 432-8 #### SALMA RODRIGUEZ ([id number]) [facility] ([facility]) [address] [place] [address] Chloride [Moles/Vol] 105 mmol/L Normal 98-107 [facility] Comment on above: Performed By: #### 2 4322-8 #### SALMA RODRIGUEZ ([id number]) [facility] ([facility]) [address] [place] [address] 73719 CO2 [Moles/Vol] 22 mmol/L Normal 21-32 [facility] Comment on above: Performed By: #### 2 4323-8 #### SALMA RODRIGUEZ ([id number]) [facility] ([facility]) [address] [place] [address] 27847 Creatinine [Mass/Vol] 0.45 mg/dL Low 0.50-1.05 [facility] Comment on above: Performed By: #### 2 4323-8 #### SALMA RODRIGUEZ ([id number]) [facility] ([facility]) [address] [place] [address] 83469 GFR/1.73 sq M.predicted MDRD (S/P/Bld) [Vol rate/Area] mL/min/{1.73_m2} Normal >[address] [facility] Comment on above: Result Comment: Calc ulations of estimated GFR are performed using the 2020 CKD-EPI Study Refit equation without the race variable for the IDMS-Traceable creatinine methods. https://jasn.asnjournals.org/content/early//ASN.2020 670612 Performed By: #### 2 4323-8 #### SALMA RODRIGUEZ ([id number]) [facility] ([facility]) [address] [place] [address] 79227 Glucose [Mass/Vol] 88 mg/dL Normal 74-99 [facility] Comment on above: Performed By: #### 2 4323-8 #### SALMA RODRIGUEZ ([id number]) [facility] ([facility]) [address] [place] [address] 59161 Potassium [Moles/Vol] 4.2 mmol/L Normal 3.5-5.3 [facility] Comment on above: Performed By: #### 2 4323-8 #### SALMA RODRIGUEZ ([id number]) [facility] ([facility]) [address] [place] [address] 45642 Protein [Mass/Vol] 6.9 g/dL Normal 6.4-8.2 [facility] Comment on above: Performed By: #### 2 4323-8 #### SALMA RODRIGUEZ ([id number]) [facility] ([facility]) [address] [place] [address] 96322 Sodium [Moles/Vol] 135 mmol/L Low 136-145 [facility] Comment on above: Performed By: #### 2 4323-8 #### SAMLA RODRIGUEZ ([id number]) [facility] ([facility]) [address] [place] [address] Urea nitrogen [Mass/Vol] 9 mg/dL Normal 6-[address] [facility] Comment on above: Performed By: #### 2 4323-8 #### SALMA RODRIGUEZ ([id number]) [facility] ([facility]) [facility] [place] [address] ECG 12-LEADon 04-18-2023 ECG 12-LEAD Ventricular Rate 91 Atrial Rate 91 P-R Interval 138 QRS Duration 72 Q-T Interval 354 QTC Calculation(Bazett) 435 P Odessa 72 R Odessa 75 T Odessa 34 QRS Count 14 Q Onset 223 P Onset 154 P Offset 187 T Offset 400 QTC Fredericia 407 Diagnosis Normal sinus rhythm Nonspecific T wave abnormality Abnormal ECG When compared with ECG of 09-FEB-2022 15:45, No significant change was found See ED provider note for full interpretation and clinical correlation Confirmed by Beck Arana ([id number]) on 05/02/2023 10:32:07 AM Normal [facility] Troponin I.cardiac panelon 0 04-18-2023 Tropinin I.cardiac panel High sensitivity method <3 Normal 0-[address] [facility] Comment on above: Order Comment: Less than [...] performed using a different testing methodology at [facility] than at other [facility]. Direct result comparisons should only be made within the same method. Performed By: #### 8 9577-1 #### SALMA RODRIGUEZ ([id number]) [facility] ([facility]) [address] [place] [address] XR CHEST 1 VIEWon 04-18-2023 XR CHEST 1 VIEW Interpreted By: Uriel Sung, STUDY: XR CHEST 1 VIEW; 04/18/2023 10:08 am INDICATION: Signs/Symptoms:flank pain COMPARISON: Radiographs 02/09/2022. ACCESSION NUMBER(S): [id number] ORDERING CLINICIAN: REIC TORRES TECHNIQUE: Single frontal view of the chest performed. FINDINGS: LINES AND DEVICES: None. LUNGS: No focal consolidation, pulmonary edema, pleural effusion or pneumothorax. CARDIOMEDIASTINAL SILHOUETTE: The cardiomediastinal silhouette is within normal limits. OTHER: No acute displaced rib fractures. IMPRESSION: No acute cardiopulmonary process. MACRO None Signed by: Uriel Sung 04/18/2023 10:30 AM Dictation workstation: [id number] [facility] 09-28-2022 [facility] HNO ID: [id number] Author: Coordinator, Mammography Service: ? Author Type: Physician Type: Letter Filed: 09/29/2022 11:35 PM Note Text: [address] [address] September 28, 2022 PID: [id number] Jo Mercer [address] [place] [address] Dear Ms. Mercer, We are pleased to [...] report will be kept on file at [facility] as part of your permanent medical record and are available for your continuing care. Thank you for allowing us to help in meeting your health care needs. Sincerely, Dr. Mackey Interpreting Radiologist [facility] (Normal over 40) Normal [facility] NATALIE SCREENING W TOMOon 09-27 NATALIE SCREENING W ERUM * * *Final Report* * * DATE OF EXAM: Sep 27 2022 3:07PM LDW 0582 - NATALIE SCREENING W ERUM / PROCEDURE REASON: Encounter for screening mammogram for breast cancer * * * * Physician Interpretation * * * * #[id number] - [facility] SCREENING W ERUM BILATERAL DIGITAL SCREENING MAMMOGRAM [...] mammogram, 03/10/2021 mammogram, and 07/29/2020 mammogram - [facility]. The tissue of both breasts is heterogeneously dense. This may lower the sensitivity of mammography. No significant masses, calcifications, or other findings are seen in either breast. There has been no significant interval change. IMPRESSION: NEGATIVE There is no mammographic evidence of malignancy. A 1 year screening mammogram is recommended. Tiffanie villarreal/marline:09/28/2022 14:56:58 Globe Cleaner(s): José Miguel Guerrero (Tatianna)(M), [facility] letter sent: Normal over 40 Mammogram BI-RADS: [...] Health, Family Medicine, and Medical/Surgical Oncology, the [facility] has carefully reviewed the data and reached [...] their providers when to stop screening mammograms. Center Administrator: Marline Transcribe Date/Time: Sep 27 2022 2:55P Dictated by : TIFFANIE MACKEY MD This examination was interpreted and the report reviewed and electronically signed by: TIFFANIE MACKEY MD on Sep 28 2022 2:56PM EST [id number] Normal [facility] CBC AND DIFFERENTIALon 02-09 % AUTOMATED IMMATURE GRAN 0.2 % Normal 0.0 - 0.9 [facility] Comment on above: Result Comment: Kacy ture Granulocyte Count (IG) includes promyelocytes, myelocytes and metamyelocytes but does not include bands. Percent differential counts (%) should be interpreted in the context of the absolute cell counts (cells/L). Performed By: #### C BCDF #### [address] [address] Basophils (Bld) [#/Vol] 0.12 10*3/uL High 0.00 - 0.1 0 [facility] Comment on above: Performed By: #### C BCDF #### [address] [address] Basophils/100 WBC (Bld) 1.1 % Normal 0.0 - 2.0 [facility] Comment on above: Performed By: #### C BCDF #### [address] [address] Eosinophils (Bld) [#/Vol] 0.80 10*3/uL High 0.00 - 0.70 [facility] Comment on above: Performed By: #### C BCDF #### [address] [address] Eosinophils/100 WBC (Bld) 7.7 % Normal 0.0 - 6.0 [facility] Comment on above: Performed By: #### C BCDF #### [address] [address] Erythrocyte distribution width (RBC) [Ratio] 12.8 % Normal 11.5 - 14.5 [facility] Comment on above: Performed By: #### C BCDF #### [address] [address] Hematocrit (Bld) [Volume fraction] 41.3 % Normal 36.0 - 46.0 [facility] Comment on above: Performed By: #### C BCDF #### [address] [address] Hemoglobin (Bld) [Mass/Vol] 13.4 g/dL Normal 12.0 - 16.0 [facility] Comment on above: Performed By: #### C BCDF #### [address] [address] Lymphocytes (Bld) [#/Vol] 3.44 10*3/uL Normal 1.20 - 4.80 [facility] Comment on above: Performed By: #### C BCDF #### [address] [address] Lymphocytes/100 WBC (Bld) 32.9 % Normal 13.0 - 44.0 [facility] Comment on above: Performed By: #### C BCDF #### [address] [address] MCHC (RBC) [Mass/Vol] 32.4 g/dL Normal 32.0 - 36.0 [facility] Comment on above: Performed By: #### C BCDF #### [address] [address] MCV (RBC) [Entitic vol] 92 fL Normal 80 - 100 [facility] Comment on above: Performed By: #### C BCDF #### [address] [address] Monocytes (Bld) [#/Vol] 0.80 10*3/uL Normal 0.10 - 1.0 0 [facility] Comment on above: Performed By: #### C BCDF #### [address] [address] Monocytes/100 WBC (Bld) 7.7 % Normal 2.0 - 10.0 [facility] Comment on above: Performed By: #### C BCDF #### [address] [address] Neutrophils (Bld) [#/Vol] 5.27 10*3/uL Normal 1.20 - 7.70 [facility] Comment on above: Result Comment: Perc ent differential counts (%) should be interpreted in the context of the absolute cell counts (cells/L). Performed By: #### C BCDF #### [address] [address] Neutrophils/100 WBC (Bld) 50.4 % Normal 40.0 - 80.0 [facility] Comment on above: Performed By: #### C BCDF #### [address] [address] Platelets (Bld) [#/Vol] 351 10*3/uL Normal 150 - 450 [facility] Comment on above: Performed By: #### C BCDF #### [address] [address] RBC 4.49 x10E12/L Normal 4.00 - 5.20 [facility] Comment on above: Performed By: #### C BCDF #### [address] [address] WBC (Bld) [#/Vol] 10.5 10*3/uL Normal 4.4 - 11.3 [facility] Comment on above: Performed By: #### C BCDF #### [address] [address] CHEST 1 VIEWon 02-09-2022 CHEST 1 VIEW STUDY: Chest Radiograph; 02/09/2022 4:12PM INDICATION: Syncope and collapse. COMPARISON: None available ACCESSION NUMBER(S): [id number] ORDERING CLINICIAN: FRANCHESCA GONZALEZ DO TECHNIQUE: Frontal chest was obtained at 16:07 hours. FINDINGS: CARDIOMEDIASTINAL SILHOUETTE: Cardiomediastinal silhouette is normal in size and configuration. LUNGS: Lungs are clear. ABDOMEN: No remarkable upper abdominal findings. BONES: No acute osseous changes. IMPRESSION: No acute cardiopulmonary disease. Signed by Sonam Saravia MD Electronically signed by: SONAM SARAVIA MD Normal [facility] COMPREHENSIVE PANELon 2021 Albumin [Mass/Vol] 4.0 g/dL Normal 3.4 - 5.0 [facility] Comment on above: Performed By: #### C MP #### [address] [address] ALP [Catalytic activity/Vol] 69 U/L Normal 33 - 110 [facility] Comment on above: Performed By: #### C MP #### [address] [address] ALT [Catalytic activity/Vol] 15 U/L Normal 7 - 45 [facility] Comment on above: Result Comment: Dulce ents treated with Sulfasalazine may generate falsely decreased results for ALT. Performed By: #### C MP #### [address] [address] Anion gap [Moles/Vol] 13 mmol/L Normal 10 - 20 [facility] Comment on above: Performed By: #### C MP #### [address] [address] AST [Catalytic activity/Vol] 16 U/L Normal 9 - 39 [facility] Comment on above: Performed By: #### C MP #### [address] [address] Bilirubin [Mass/Vol] 0.3 mg/dL Normal 0.0 - 1.2 [facility] Comment on above: Performed By: #### C MP #### [address] [address] Calcium [Mass/Vol] 9.1 mg/dL Normal 8.6 - 10.3 [facility] Comment on above: Performed By: #### C MP #### [address] [address] Chloride [Moles/Vol] 111 mmol/L High 98 - 107 [facility] Comment on above: Performed By: #### C MP #### [address] [address] Creatinine [Mass/Vol] 0.54 mg/dL Normal 0.50 - 1.05 [facility] Comment on above: Performed By: #### C MP #### [address] [address] eGFR FEMALE >90 Normal >90 [facility] Comment on above: Result Comment: CALC ULATIONS OF ESTIMATED GFR ARE PERFORMED USING THE 2020 CKD-EPI STUDY REFIT EQUATION WITHOUT THE RACE VARIABLE FOR THE IDMS-TRACEABLE CREATININE METHODS. https://jasn.asnjournals.org/content/early//ASN.2020 992746 Performed By: #### C MP #### [address] [address] Glucose [Mass/Vol] 88 mg/dL Normal 74 - 99 [facility] Comment on above: Performed By: #### C MP #### [address] [address] HCO3 (Bld) [Moles/Vol] 18 mmol/L Low 21 - 32 [facility] Comment on above: Performed By: #### C MP #### [address] [address] Potassium [Moles/Vol] 3.1 mmol/L Low 3.5 - 5.3 [facility] Comment on above: Performed By: #### C MP #### [address] [address] Protein [Mass/Vol] 6.8 g/dL Normal 6.4 - 8.2 [facility] Comment on above: Performed By: #### C MP #### [address] [address] Sodium [Moles/Vol] 139 mmol/L Normal 136 - 145 [facility] Comment on above: Performed By: #### C MP #### [address] [address] Urea nitrogen [Mass/Vol] 8 mg/dL Normal 6 - 23 [facility] Comment on above: Performed By: #### C MP #### [address] [address] LACTATEon 02-09-2022 Lactate [Moles/Vol] 0.7 mmol/L Normal 0.4 - 2.0 [facility] Comment on above: Result Comment: Amna puncture immediately after or during the administration of Metamizole may lead to falsely low results. Testing should be performed immediately prior to Metamizole dosing. Performed By: #### L ACT #### [address] [address] LIPASEon 02-09-2022 Lipase [Catalytic activity/Vol] 6 U/L Low 9 - 82 [facility] Comment on above: Result Comment: Amna puncture immediately after or during the administration of Metamizole may lead to falsely low results. Testing should be performed immediately prior to Metamizole dosing. D-mjcrje-h-benzoquinone imine (metabolite of Acetaminophen) will generate erroneously low results in samples for patients that have taken toxic doses of acetaminophen. Performed By: #### L IPAS #### [address] [address] Provider Note - ED v3on 01-21 Provider Note - ED v3 Provider Note: Chart Review: ED NOTES ED NOTES: Source of Information: Patient. EMR was reviewed for previous records. The EMS transfer sheet was not available during my initial assessment of the patient. HPI: Abdominal pain. This 46-year-old white female presents to the ED via EMS from a detention secondary to complaint of periumbilical abdominal pain [...] she is scheduled to see an OB real estate rental agent concerning this next month after the holidays. [...] changes. Heart rate is 70 bpm. The WI interval is 152 ms. The QRS duration [...] chart was dictated with the use of [employer] software within the framework of the current electronic medical records software. Attempts were made to edit in real time, given time constraints there is the potential for inaccuracies in my dictation. Franchesca Gonzalez DO HISTORY OF PRESENTING ILLNESS JO is [...] (beats/min): 89 (more content not included)... Normal [facility] Risk Screen - Adult Emergenc yon 02-09-2022 [...] Communicatenone Learning Preferencesaudio Cultural Considerationsnone Developmental Considerationsnone Episcopal Considerationsnone Learning Assessment (Other Learner): Learning Assessment [...] an injured patient at a Trauma Center ([facility]/[place] [facility]): no Electronic Signatures: Danii Montero (QUANG) (Signed 09-Feb-2022 14:14) Authored: Preferred Language, Patient Preferred Pharmacy, Advanced Directives, Family Violence Adult, Learning Assessment (Patient), Learning Assessment (Other Learner), Pressure Injury/TB/Substance, Pressure Injury, CAGE Last Updated: 09-Feb-2022 14:14 by Danii Montero (QUANG) Normal [facility] TROPONIN I, HIGH SENSITIVITY on 02-09-2022 TROPONIN I, HIGH SENSITIVITY <3 Normal 0 - 13 [facility] Comment on above: Result Comment: . Less [...] performed using a different testing methodology at [facility] than at other [facility]. Direct result comparisons should only be made within the same method. Performed By: #### [facility] #### [place] [address] TROPONIN I, HIGH SENSITIVITY <3 Normal 0 - 13 [facility] Comment on above: Result Comment: . Less [...] performed using a different testing methodology at [facility] than at other [facility]. Direct result comparisons should only be made within the same method. Performed By: #### T [facility] ####[address] [place] [address] Triage - EDon 02-09-2022 Triage - ED [...] BMI (kg/m2): 32.719 Calculated BSA (m2) 1.97 [place] Coma Scale: Best Eye Response: (E4) spontaneous Best Motor Response: (M6) obeys commands Best Verbal Response: (V5) oriented [place] Score: 15 Allergies: no ASSOCIATE DEAN History: hysterectomy Patient has homicidal thoughts: no [...] 09-Feb-2022 14:13 by Danii Montero (QUANG) Normal [facility] UA MICROSCOPICon 02-09-2022 BACTERIA 2+ /HPF Abnormal [facility] Comment on above: Performed By: #### U AMIC #### [address] [address] RBC (U) [#/Vol] /uL Normal 0-5 [facility] Comment on above: Performed By: #### U AMIC #### [address] [address] SQUAMOUS EPITH. CELLS <1 Normal [facility] Comment on above: Performed By: #### U AMIC #### [address] [address] WBC (U) [#/Vol] /uL Normal 0-5 [facility] Comment on above: Performed By: #### U AMIC #### [address] [address] URINALYSIS WITH CULTURE IF I NDICATEDon 02-09-2022 Appearance (U) CLEAR Normal CLEAR [facility] Comment on above: Performed By: #### U ARFX #### [address] [address] Bilirubin Ql (U) Negative Normal NEGATIVE [facility] Comment on above: Performed By: #### U AR[facility] #### [place] [address] Color (U) YELLOW Normal STRAW,YELLOW [facility] Comment on above: Performed By: #### U [facility] #### [place] [address] Glucose Ql (U) Negative Normal NEGATIVE [facility] Comment on above: Performed By: #### U AR[facility] #### [place] [address] Hemoglobin Ql (U) TRACE Abnormal NEGATIVE [facility] Comment on above: Performed By: #### U ARFX #### [place] [address] Ketones Ql (U) Negative Normal NEGATIVE [facility] Comment on above: Performed By: #### U AR[facility] #### [place] [address] Leukocyte esterase Test strip Ql (U) Negative Normal NEGATIVE [facility] Comment on above: Performed By: #### U AR[facility] #### [place] [address] Nitrite Ql (U) Negative Normal NEGATIVE [facility] Comment on above: Performed By: #### U [facility] #### [place] [address] pH (U) 7.0 [pH] Normal 5.0 - 8.0 [facility] Comment on above: Performed By: #### U AR[facility] #### [place] [address] Protein Ql (U) Negative Normal NEGATIVE [facility] Comment on above: Performed By: #### U ARFX #### [place] [address] Specific gravity (U) [Rel density] 1.010 Normal 1.005 - 1.035 [facility] Comment on above: Performed By: #### U ARFX #### [address] [id number] Urobilinogen (U) [Mass/Vol] mg/dL Normal 0.0 - 1.9 [facility] Comment on above: Performed By: #### U ARFX #### [address] [place] [address] CT KIDNEY STONEon 01-06-2022 CT KIDNEY STONE [...] hydronephrosis. 3. Normal appendix and no adenopathy. VKR/bailee Workstation ID: [id number] Dictated by: MARIAH RIVERA on MonJan 06, 2022 3:04:04 PM EST Transcribed by: MILAD CONROY on MonJan 06, 2022 3:33:29 PM EST Finalized by: MARIAH RIVERA on MonJan 07, 2022 12:16:23 PM EST Normal [facility] Comment on above: Order Comment: Injur y/Trauma or Illness?:Illness/Other How long have you had these symptoms (acute/chronic)?:Acute Reason for exam?:flank pain Type of Exam?:Initial Additional signs and symptoms?:since yesterday URINALYSIS, REFLEX MICROSCOP ICon 06-18-2021 Bilirubin Ql (U) Negative Negative [facility] Clarity (Unsp spec) Clear Clear [facility] Color (U) Light Yellow Yellow [facility] Epithelial cells LM.HPF (Urine sed) [#/Area] Few [facility] Glucose Test strip (U) [Mass/Vol] Negative Negative [facility] Hemoglobin Ql (U) 1+ Abnormal Negative [facility] Hyaline casts (Urine sed) [#/Area] 4-10 /LPF Abnormal 0 /LPF [facility] Ketones Ql (U) Negative Negative [facility] Leukocyte esterase Test strip Ql (U) Negative Negative [facility] Nitrite Ql (U) Negative Negative [facility] pH (U) 6.5 [pH] 5.0 - 8.0 [facility] Protein (U) [Mass/Vol] Negative Negative [facility] RBC LM.HPF (Urine sed) [#/Area] 3-5 /HPF Abnormal 0-3 /HPF [facility] Specific gravity (U) [Rel density] 1.023 1.005 - 1.030 [facility] Urobilinogen Ql (U) 1+ Abnormal Negative [facility] WBC LM.HPF (Urine sed) [#/Area] 0-5 /HPF 0-5 /HPF [facility] RONI BY IFA SCREENon 06-01-19 RONI Pattern Cytoplasmic reticular/anti-mitochon drial [facility] RONI Titer 1:160 [facility] Nuclear Ab IF (S) [Titer] Positive Abnormal Negative [facility] CCP ANTIBODY IGGon Cyclic citrullinated peptide IgG Qn <15 <20 Units [facility] Cyclic citrullinated peptide IgG Qnon 05-31-2021 CCP Antibody IgG Qualitative Negative Negative [facility] VITAMIN D 25 HYDROXYon 05-31 25-hydroxyvitamin D3 [Mass/Vol] 8.1 ng/mL Low 31.0 - 80.0 ng/mL [facility] ANTI SSA BLDon 05-29-2021 Sjogrens syndrome-A extractable nuclear Ab Qn (S) <0.2 <1.0 AI [facility] C-REACTIVE PROTEIN (CRP)on 0 05-29-2021 CRP [Mass/Vol] mg/L <0.9 mg/dL [facility] Comprehensive metabolic 2000 panelon 05-29-2021 Albumin [Mass/Vol] 4.2 g/dL 3.9 - 4.9 g/dL [facility] ALP [Catalytic activity/Vol] 98 U/L 34 - 123 U/L [facility] ALT [Catalytic activity/Vol] 16 U/L 7 - 38 U/L [facility] Anion gap [Moles/Vol] 10 mmol/L 9 - 18 mmol/L [facility] AST [Catalytic activity/Vol] 16 U/L 13 - 35 U/L [facility] Bilirubin [Mass/Vol] mg/dL Low 0.2 - 1 .3 mg/dL [facility] Calcium [Mass/Vol] 9.2 mg/dL 8.5 - 10. 2 mg/dL [facility] Chloride [Moles/Vol] 107 mmol/L High 97 - 10 5 mmol/L [facility] CO2 [Moles/Vol] 24 mmol/L 22 - 30 mmol/L [facility] Creatinine [Mass/Vol] 0.72 mg/dL 0.58 - 0.96 mg/dL [facility] Estimated Glomerular Filtration Rate 104 mL/min/1.73m >=60 mL/min/1.73m [facility] Glucose [Mass/Vol] 93 mg/dL 74 - 99 mg/dL [facility] Potassium [Moles/Vol] 4.0 mmol/L 3.7 - 5.1 mmol/L [facility] Protein [Mass/Vol] 7.5 g/dL 6.3 - 8.0 g/dL [facility] Sodium [Moles/Vol] 141 mmol/L 136 - 144 mmol/L [facility] Urea nitrogen [Mass/Vol] 10 mg/dL 7 - 21 mg/dL [facility] Sjogrens syndrome-A extracta ble nuclear Ab Qn (S)on 05-29-2021 SSA Antibody Qual Negative Negative [facility] CBC W Auto Differential pane l (Bld)on 05-28-2021 Abs Immature Gran 0.06 k/uL <0.10 k/uL [facility] Basophils (Bld) [#/Vol] 0.12 10*3/uL High <0.11 k/uL [facility] Basophils/100 WBC (Bld) 0.9 % C [facility] Differential cell count method Nom (Bld) Auto [facility] Eosinophils (Bld) [#/Vol] 0.70 10*3/uL High <0.46 k/uL [facility] Eosinophils/100 WBC (Bld) 5.4 % [facility] Erythrocyte distribution width (RBC) [Ratio] 13.3 % 11.5 - 15.0 % [facility] Hematocrit (Bld) [Volume fraction] 44.0 % 36.0 - 46.0 % [facility] Hemoglobin (Bld) [Mass/Vol] 13.6 g/dL 11.5 - 15.5 g/dL [facility] Immature Gran % 0.5 % [facility] Lymphocytes (Bld) [#/Vol] 3.98 10*3/uL 1.00 - 4.00 k/uL [facility] Lymphocytes/100 WBC (Bld) 30.7 % [facility] MCH (RBC) [Entitic mass] 29.5 pg 26.0 - 34.0 pg [facility] MCHC (RBC) [Mass/Vol] 30.9 g/dL 30.5 - 36.0 g/dL [facility] MCV (RBC) [Entitic vol] 95.4 fL 80.0 - 100.0 fL [facility] Monocytes (Bld) [#/Vol] 1.11 10*3/uL High <0.87 k/uL [facility] Monocytes/100 WBC (Bld) 8.6 % [facility] Neutrophils (Bld) [#/Vol] 7.01 10*3/uL 1.45 - 7.50 k/uL [facility] Neutrophils/100 WBC (Bld) 53.9 % [facility] Nucleated RBC (Bld) [#/Vol] 10*3/uL <0.01 k/uL [facility] Nucleated RBC/100 WBC (Bld) [Ratio] 0.0 /100 WBC [facility] Platelet mean volume (Bld) [Entitic vol] 10.4 fL 9.0 - 12.7 fL [facility] Platelets (Bld) [#/Vol] 367 10*3/uL 150 - 400 k/uL [facility] RBC (Bld) [#/Vol] 4.61 10*6/uL 3.90 - 5.2 0 m/uL [facility] WBC (Bld) [#/Vol] 12.98 10*3/uL High 3.70 - 11 .00 k/uL [facility] ESR Westergren method (Bld) [Velocity]on 05-28-2021 ESR (Bld) [Velocity] 8 mm/h 0 - 20 mm/hr [facility] No Panel Informationon 05-28 [facility] Urinalysis complete panel (U )on 05-28-2021 Bilirubin Ql (U) Negative Negative [facility] Clarity (Unsp spec) Cloudy Abnormal Clear [facility] Color (U) Yellow Yellow [facility] Epithelial cells LM.HPF (Urine sed) [#/Area] Few [facility] Glucose Test strip (U) [Mass/Vol] Negative Negative [facility] Hemoglobin Ql (U) 1+ Abnormal Negative [facility] Ketones Ql (U) Negative Negative [facility] Leukocyte esterase Test strip Ql (U) Negative Negative [facility] Nitrite Ql (U) Negative Negative [facility] pH (U) 7.0 [pH] 5.0 - 8.0 [facility] Protein (U) [Mass/Vol] Negative Negative [facility] RBC LM.HPF (Urine sed) [#/Area] 3-5 /HPF Abnormal 0-3 /HPF [facility] Specific gravity (U) [Rel density] 1.013 1.005 - 1.030 [facility] Urobilinogen Ql (U) Negative Negative [facility] WBC LM.HPF (Urine sed) [#/Area] 0-5 /HPF 0-5 /HPF [facility] Provider Note - ED v3on 03-24 Provider [...] Instructions: null SIGNIFICANT EVENTS: No documented data. ASSOCIATE DEAN: Is : no Is : no REVIEW [...] SIGNS: T PRBP SpO2O2(LPM) %FiO2 Method 13-Apr-2021 16:24:[id number]/83 96 MDM MDM/ED COURSE: Rx ofloxacin drops. [...] ill patient: no Electronic Signatures: Tigre Delgado (DATA REVIEW SPECIALIST-BULL LADLE TENDER) (Signed 13-Apr-2021 16:40) Authored: ED Notes, HPI, PMH, ROS, PE, Results/Vital Signs, MDM/ED Course, Clinical Impression, Attestation, Chart Review, Scores Last Updated: 13-Apr-2021 16:40 by Tigre Delgado (DATA REVIEW SPECIALIST-BULL LADLE TENDER) [facility] Vital Signs Date Time Vital Sign Value Performing Clinician Faci lity 05-30-2024 13:41-0400 Body mass index (BMI) [Ratio] 39.82 kg/m2 Camrelita Romo MD Work Phone: [facility] 05-30-2024 13:41-0400 Body weight 105.23 kg Carmelita Romo MD Work Phone: [facility] 05-30-2024 13:41-0400 Diastolic blood pressure 68 mm[Hg] Carmelita Romo MD Work Phone: [facility] 05-30-2024 13:41-0400 Heart rate 100 /min Carmelita Romo MD Work Phone: [facility] 05-30-2024 13:41-0400 SaO2% (BldA) [Mass fraction] 97 % Carmelita Romo MD Work Phone: [facility] 05-30-2024 13:41-0400 Systolic blood pressure 134 mm[Hg] Carmelita Romo MD Work Phone: [facility] 03-26-2024 08:25-0500 Diastolic blood pressure 88 mm[Hg] [address] 03-26-2024 08:25-0500 Heart rate 67 /min [address] 03-26-2024 08:25-0500 Respiratory rate 16 /min [address] 03-26-2024 08:25-0500 SaO2% (BldA) [Mass fraction] 97 % [address] 03-26-2024 08:25-0500 Systolic blood pressure 128 mm[Hg] [address] 03-26-2024 07:47-0500 Body temperature 97.5 [degF] [address] 03-26-2024 06:11-0500 Body mass index (BMI) [Ratio] 38.75 kg/m2 [address] 03-26-2024 06:11-0500 Body weight 102.[address] 03-21-2024 08:51-0500 Body height 162.6 cm Darrel Gomez MD Work Phone: [facility] 03-21-2024 08:51-0500 Body mass index (BMI) [Ratio] 39.69 kg/m2 Darrel Gomez MD Work Phone: [facility] 03-21-2024 08:51-0500 Body weight 104.87 kg Darrel Gomez MD Work Phone: [facility] 03-21-2024 08:51-0500 Diastolic blood pressure 82 mm[Hg] Darrel Gomez MD Work Phone: [facility] 03-21-2024 08:51-0500 Heart rate 84 /min Darrel Gomez MD Work Phone: [facility] 03-21-2024 08:51-0500 Systolic blood pressure 122 mm[Hg] Darrel Gomez MD Work Phone: [facility] 03-04-2024 15:43-0500 Body height 162.6 cm Carmelita Romo MD Work Phone: [facility] 03-04-2024 15:43-0500 Body mass index (BMI) [Ratio] 39.34 kg/m2 Carmelita Romo MD Work Phone: [facility] 03-04-2024 15:43-0500 Body temperature 98.4 [degF] Carmelita Romo MD Work Phone: 9(366)271-510483 [place] [address] 03-04-2024 15:43-0500 Body weight 103.96 kg Carmelita Romo MD Work Phone: 2(390)823-301083 [place] [address] 03-04-2024 15:43-0500 Diastolic blood pressure 76 mm[Hg] Carmelita Romo MD Work Phone: 8(635)899-822883 [place] [address] 03-04-2024 15:43-0500 Systolic blood pressure 128 mm[Hg] Carmelita Romo MD Work Phone: 9(037)188-175949 [place] [address] 11-15-2023 11:17-0400 Body height 162.6 cm Carmelita Romo MD Work Phone: 1(930)602-733549 [place] [address] 11-15-2023 11:17-0400 Body mass index (BMI) [Ratio] 39.43 kg/m2 Carmelita Romo MD Work Phone: 5(784)680-062749 [place] [address] 11-15-2023 11:17-0400 Body weight 104.19 kg Carmelita Romo MD Work Phone: 8(036)437-614749 [place] [address] 11-15-2023 11:17-0400 Diastolic blood pressure 76 mm[Hg] Carmelita Romo MD Work Phone: 3(454)484-164849 [place] [address] 11-15-2023 11:17-0400 SaO2% (BldA) [Mass fraction] 97 % Carmelita Romo MD Work Phone: 8(670)955-698983 [place] [address] 11-15-2023 11:17-0400 Systolic blood pressure 118 mm[Hg] Carmelita Romo MD Work Phone: 5(500)459-281783 [place] [address] 10-16-2023 14:11-0400 Body height 162.6 cm [facility] 10-16-2023 14:11-0400 Body mass index (BMI) [Ratio] 37.76 kg/m2 [facility] 10-16-2023 [id number]:[id number] Body weight 99.79 kg [facility] 08-14-2023 08:02-0400 Body height 162.6 cm Carmelita Romo MD Work Phone: [facility] 08-14-2023 08:02-0400 Body mass index (BMI) [Ratio] 37.64 kg/m2 Carmelita Romo MD Work Phone: [facility] 08-14-2023 08:02-0400 Body weight 99.47 kg Carmelita Romo MD Work Phone: [facility] 08-14-2023 08:02-0400 Diastolic blood pressure 76 mm[Hg] Carmelita Romo MD Work Phone: [facility] 08-14-2023 08:02-0400 Heart rate 95 /min Carmelita Romo MD Work Phone: [facility] 08-14-2023 08:02-0400 SaO2% (BldA) [Mass fraction] 97 % Carmelita Romo MD Work Phone: [facility] 08-14-2023 08:02-0400 Systolic blood pressure 114 mm[Hg] Carmelita Romo MD Work Phone: [facility] 06-22-2023 14:24-0400 Body height 162.6 cm Carmelita Romo MD Work Phone: [facility] 06-22-2023 14:24-0400 Body mass index (BMI) [Ratio] 37.73 kg/m2 Carmelita Romo MD Work Phone: [facility] 06-22-2023 14:24-0400 Body weight 99.7 kg Carmelita Romo MD Work Phone: [facility] 06-22-2023 14:24-0400 Diastolic blood pressure 82 mm[Hg] Carmelita Romo MD Work Phone: [facility] 06-22-2023 14:24-0400 Heart rate 89 /min Carmelita Romo MD Work Phone: [facility] 06-22-2023 14:24-0400 SaO2% (BldA) [Mass fraction] 96 % Carmelita Romo MD Work Phone: [facility] 06-22-2023 14:24-0400 Systolic blood pressure 108 mm[Hg] Carmelita Romo MD Work Phone: [facility] 06-08-2022 17:26-0400 Body temperature 98.2 [degF] Darrian Diaz MD Work Phone: [facility] 06-08-2022 17:26-0400 Body weight 92.99 kg Darrian Diaz MD Work Phone: [facility] 06-08-2022 17:26-0400 Diastolic blood pressure 92 mm[Hg] Darrian Diaz MD Work Phone: [facility] 06-08-2022 17:26-0400 Heart rate 72 /min Darrian Diaz MD Work Phone: [facility] 06-08-2022 17:26-0400 Respiratory rate 16 /min Darrian Diaz MD Work Phone: [facility] 06-08-2022 17:26-0400 Systolic blood pressure 146 mm[Hg] Darrian Diaz MD Work Phone: [facility] 02-09-2022 19:24-0500 Body temperature 98.06 [degF] Text Entry [facility] 02-09-2022 19:24-0500 Diastolic blood pressure 97 mm[Hg] Text Entry [facility] 02-09-2022 19:24-0500 Heart rate 76 /min Text Entry [facility] 02-09-2022 19:24-0500 Respiratory rate 16 /min Text Entry [facility] 02-09-2022 19:24-0500 SaO2% (BldA) [Mass fraction] 100 % Text Entry [facility] 02-09-2022 19:24-0500 Systolic blood pressure 118 mm[Hg] Text Entry Free [facility] 02-09-2022 [id number]:110500 Body height 162.5 cm Text Entry Free [facility] 02-09-2022 16:11-0500 Body weight 86.4 kg Text Entry [employer] [facility] 06-18-2021 08:50-0400 Body weight 90.72 kg Elroy Clinton MD Work Phone: [facility] 06-18-2021 08:50-0400 Diastolic blood pressure 85 mm[Hg] Elroy Clinton MD Work Phone: [facility] 06-18-2021 08:50-0400 Heart rate 86 /min Elroy Clinton MD Work Phone: [facility] 06-18-2021 08:50-0400 Systolic blood pressure 125 mm[Hg] Elroy Clinton MD Work Phone: [facility] 05-28-2021 15:01-0400 Body height 162.6 cm Candie Christina MD Work Phone: [facility] 05-28-2021 15:01-0400 Body temperature 97.81 [degF] Candie Christina MD Work Phone: [facility] 05-28-2021 15:01-0400 Body weight 92.99 kg Candie Christina MD Work Phone: [facility] 05-28-2021 15:01-0400 Diastolic blood pressure 66 mm[Hg] Candie Christina MD Work Phone: [facility] 05-28-2021 15:01-0400 Heart rate 77 /min Candie Christina MD Work Phone: [facility] 05-28-2021 15:01-0400 Systolic blood pressure 128 mm[Hg] Candie Christina MD Work Phone: [facility] Encounters Encounter Date Encounter Type Care Provider Facility Start: 07-27-2024 End: 07-27-[address] Darrian Diaz MD Work Phone: [facility] Work Phone: Start: 07-27-2024 End: 07-27-[address] Natalie Caballero MD -Ultrasound [facility] Work Phone: Start: 07-27-2024 End: 07-27-2024 ambulatory [facility] Facility:[facility] Start: 07-18-2024 End: 07-18-[address] Darrian Diaz MD Work Phone: [facility] Work Phone: Start: 07-18-2024 End: 07-18-[address] Natalie Caballero MD -Laboratory [place] Work Phone: Start: 07-18-2024 End: 07-18-2024 ambulatory Natalie Ada Facility:[facility] Start: 07-11-2024 End: 08-08-2024 ambulatory Darrian Diaz MD Work Phone: [address] [place] [address] Comment on above: Blood Pressure Check Start: 05-30-2024 End: 05-30-2024 Office outpatient visit 15 minutes Carmelita Romo MD Work Phone: [facility] Comment on above: Acute pain of left k nee (Primary Dx) Start: 05-30-2024 End: 05-30-2024 ambulatory CARMELITA ROMO [facility] Ambulatory Start: 05-09-2024 End: 05-09-2024 Chart abstracting Darrian Diaz MD Work Phone: [facility] Comment on above: Outside Vqgd-Seo-ZTP Ordered Start: 05-08-2024 End: 05-08-2024 Chart abstracting Darrian Diaz MD Work Phone: [facility] Comment on above: Outside Imaging; Out side Ocwf-Ein-PTN Ordered Start: 05-07-2024 End: 05-07-[address] Darrian Diaz MD Work Phone: [facility] Work Phone: Start: 05-07-2024 End: 05-07-[address] Natalie Caballero MD -Laboratory, [place] Work Phone: Start: 05-07-2024 End: 05-07-2024 ambulatory Natalie Caballero Facility:[facility] Start: 03-26-2024 End: 03-26-2024 Subsequent hospital visit by physician Darrel Gomez MD Work Phone: [facility] [place] Comment on above: Colon cancer screeni ng Start: 03-26-2024 End: 03-26-2024 [facility] Start: 03-21-2024 End: 03-21-2024 Office consultation new/estab patient 40 min Darrel Gomez MD Work Phone: [facility] Comment on above: Colon cancer screeni ng (Primary Dx) Start: 03-21-2024 End: 03-21-2024 ambulatory [facility] Start: 03-05-2024 End: 03-05-2024 ambulatory CARMELITA Thomas [facility] Start: 03-04-2024 End: 03-04-2024 Office outpatient visit 25 minutes Carmelita Romo MD Work Phone: [facility] Comment on above: Dysuria (Primary Dx) ; Frequency of urination; Acute cystitis with hematuria; Arthralgia, unspecified joint; Joint swelling; Migraine without status migrainosus, not intractable, unspecified migraine type; Screen for colon cancer Start: 03-04-2024 End: 03-04-2024 ambulatory CARMELITA Guzman [facility] Start: 11-24-2023 End: 11-24-2023 Subsequent hospital visit by physician Cortez Riojas [facility] Comment on above: Abdominal pain, unsp ecified abdominal location; Bowel habit changes Start: 11-24-2023 End: 11-24-2023 ambulatory CARMELITA [facility] Start: 11-15-2023 End: 11-15-2023 Office outpatient visit 15 minutes Carmelita Romo MD Work Phone: [facility] Comment on above: Abdominal pain, unsp ecified abdominal location (Primary Dx); Bowel habit changes Start: 11-15-2023 End: 11-15-2023 ambulatory CARMELITA Guzman [facility] Start: 11-01-2023 End: 11-06-2023 ambulatory Darrian Diaz MD Work Phone: [facility] [facility] [place] Start: 10-25-2023 End: 10-25-2023 Subsequent hospital visit by physician Rad External Film EF RAD EXTERNAL FILM VIRTUAL Comment on above: Arrived Start: 10-25-2023 End: 10-25-2023 ambulatory CARMELITA Guzman [facility] Start: 10-16-2023 End: 10-16-2023 Subsequent hospital visit by physician Cortez Thacker [facility] Comment on above: Screening mammogram for breast cancer Start: 10-16-2023 End: 10-16-2023 ambulatory CARMELITA Guzman [facility] Start: 08-14-2023 End: 08-14-2023 Office outpatient visit 25 minutes Carmelita Romo MD Work Phone: [facility] Comment on above: Migraine without sta tus migrainosus, not intractable, unspecified migraine type (Primary Dx); RAOUL (obstructive sleep apnea); Smoker Start: 08-14-2023 End: 08-14-2023 ambulatory CARMELITA Guzman [facility] Start: 07-03-2023 End: 07-03-2023 ambulatory CARMELITA [facility] Start: 06-28-2023 End: 06-28-2023 ambulatory [facility] Start: 06-22-2023 End: 06-22-2023 ambulatory [facility] Start: 06-22-2023 End: 06-22-2023 Office outpatient new 30 minutes Carmelita Romo MD Work Phone: [facility] Comment on above: Migraine without sta tus migrainosus, not intractable, unspecified migraine type (Primary Dx); Witnessed episode of apnea; Snoring; 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 Start: 06-22-2023 End: 06-22-2023 Patient encounter status Carmelita Romo MD Work Phone: [facility] Work Phone: Start: 06-22-2023 End: 06-22-2023 ambulatory CARMELITA ROMO [facility] Start: 06-22-2023 End: 06-22-2023 Encounter for general adult medical examination without abnormal findings CARMELITA TORRENMNANCY [facility] Start: 06-19-2023 End: 06-19-2023 ambulatory [facility] Start: 06-14-2023 End: 06-14-2023 ambulatory [facility] Start: 06-08-2023 End: 06-08-2023 ambulatory [facility] Start: 06-01-2023 End: 06-01-2023 ambulatory [facility] Start: 05-29-2023 End: 05-29-2023 ambulatory JESSICA CHAMPION [facility] Start: 05-26-2023 End: 05-26-2023 ambulatory [facility] Start: 04-20-2023 End: 04-20-2023 Subsequent hospital visit by physician Cortez Keller10 X-Ray [facility] Comment on above: Strain of muscle, fa scia and tendon of lower back, initial encounter Start: 04-20-2023 End: 04-20-2023 ambulatory [facility] Start: 04-18-2023 End: 04-19-2023 ambulatory ERIC TORRES [facility] Start: 04-18-2023 End: 04-18-2023 Subsequent hospital visit by physician Cortez Bush [employer] [facility] Comment on above: Arrived Start: 04-18-2023 End: 04-18-2023 Emergency department patient visit CARMELITA Guzman [facility] Start: 09-28-2022 Documentation procedure Mammography Coordinator [facility] Start: 09-28-2022 Letter encounter Mammography Coordin ator [place] [facility] NOT LISTED Start: 09-28-2022 Telephone encounter Darrian Diaz MD Work Phone: [facility] [place] Comment on above: Results Start: 09-27-2022 ambulatory DARRIAN DIAZ Facilfernando ty:[facility] Start: 09-27-2022 End: 09-27-2022 Subsequent hospital visit by physician Mammo/Bone Density [facility]IO M[facility]MO [facility] [place] [facility] Start: 09-21-2022 ambulatory Darrian devries MD Work Phone: Internal Medicine [facility] Start: 06-09-2022 E-mail encounter fro m caregiver Blanka Sorenson MA [facility] [place] Start: 06-09-2022 Patient encounter procedure Blanka Sorenson MA [facility] [place] Comment on above: Appointment Start: 06-08-2022 End: 06-08-2022 Patient encounter procedure Darrian Diaz MD Work Phone: [facility] [place] Comment on above: Digital mucinous cys t of finger of left hand (Primary Dx); Pain of finger of left hand; Cellulitis of skin Start: 02-09-2022 End: 02-09-2022 Emergency department patient visit Franchesca Gonzalez [facility] Emergency 10 Start: 01-06-2022 End: 01-06-2022 Emergency department patient visit TERESE BANKS [facility] Start: 09-04-2021 Refill Deborah dyer MD Work Phone: Neurology Comment on above: Refill Request Start: 08-18-2021 Telephone encounter April calvillo PA-C Work Phone: [facility] [place] Comment on above: Results Start: 08-17-2021 End: 08-17-2021 Subsequent hospital visit by physician Screen Mammo [facility] Comment on above: Encounter for screen ing mammogram for malignant neoplasm of breast [Z12.31] Start: 06-18-2021 ambulatory Elroy cyr MD Work Phone: Urology Start: 06-18-2021 End: 06-18-2021 Patient encounter procedure Elroy Clinton MD Work Phone: Urology Comment on above: Microscopic hematuri a Start: 06-01-2021 Telephone encounter Candie Christina MD Work Phone: [facility] Comment on above: Orders; Patient Upda [...] Emergency department patient visit Ms. Kina Benedict Facility:[id number] Start: 07-08-2020 Patient encounter status Xr A21 [facility] Work Phone: Procedures Date Procedure Procedure Detail Performing Clinician Start: 07-27-[address] Darrian Diaz MD Work Phone: Start: 05-07-2024 Hepatitis C antibody measurement Dr. [...] HCV Quant by PCR testing - HCVPCR #[id number] Non Reactive: < 0.8 Equivocal: >/= 0.8 [...] IN PHYSICA L THERAPY CARMELITA ROMO Start: 05-26-2023 AMB REFERRAL TO PHYS ICAL THERAPY CARMELITA ROMO Start: 04-20-2023 XR LUMBAR SPINE 2-3 VIEWS CARMELITA ROMO Start: 04-20-2023 Radex spine lumbosac ral 2/3 views Cathie Ken DATA REVIEW SPECIALIST-[employer]AD[employer] TENDER Work Phone: Start: 04-18-2023 CT ABDOMEN PELVIS [...] Screening for malign ant neoplasm of colon [facility] Start: 03-05-2029 Lipid panel Lipid Panel [facility] Start: 06-21-2028 Lipid panel Lipid Panel [facility] Start: 04-18-2026 Diabetes Screening Diabetes Screenin g [facility] Start: 06-30-2025 Lipid panel Lipid Screening [facility] Start: 06-30-2025 LIPID SCREEN LIPID SCREEN [facility] Start: 05-05-2025 Colonoscopy COLONOSCOPY [facility] Start: 05-05-2025 COLORECTAL CANCER SCREENING COLORECTAL CANCER SCREENING [facility] Start: 05-05-2025 Screening for malign ant neoplasm of colon [facility] Start: 02-09-2025 DIABETES SCREEN DIABETES SCREEN [facility] Start: 10-21-2024 Influenza vaccination Influenz a Vaccine (Season Ended) [facility] Start: 10-15-2024 Screening for malign ant neoplasm of breast Mammogram [facility] Start: 09-02-2024 End: 09-02-2024 Patient encounter procedure 09/02/2024 8:20 AM EDT Office Visit [place] [address] [phone] Carmelita Romo MD [facility] [address] [address] [facility] Start: 05-30-2024 End: 05-30-2025 XR Knee - left 4 Views XR knee left 4+ views Imaging Routine Acute pain of left knee Expected: 05/30/2024, Expires: 05/30/2025 [facility] Service Area Work Phone: Comment on above: Expected: 05/30/2024 , Expires: 05/30/2025 Start: 05-28-2024 DIABETES SCREEN DIABETES SCREEN [facility] Start: 2024 Pneumococcal vaccination Pneum ococcal Vaccine (1 of 1 - PCV) [facility] Start: 2024 Pneumococcal Vaccine : 50+ (1 of 1 - PCV) Pneumococcal Vaccine: 50+ (1 of 1 - PCV) [facility] Start: 2024 Shingrix Vaccine (1 of 2) Shingrix Vaccine (1 of 2) [facility] Start: 2024 Zoster Vaccines (1 of 2) Zoste r Vaccines (1 of 2) [facility] Start: 03-21-2024 End: 03-21-2025 Colonoscopy study Colonoscopy Screening; Average Risk Patient Endoscopy Routine Colon cancer screening Expected: 03/21/2024, Expires: 03/21/2025 [facility] Work Phone: Comment on above: Expected: 03/21/2024 , Expires: 03/21/2025 Start: 03-04-2024 End: 03-04-2025 25-hydroxyvitamin D3 [Mass/volume] in Serum or Plasma Vitamin D 25-Hydroxy,Total (for eval of Vitamin D levels) Lab Routine Arthralgia, unspecified joint Joint swelling Migraine without status migrainosus, not intractable, unspecified migraine type Expected: 03/04/2024 (Approximate), Expires: 03/04/2025 [facility] Work Phone: Comment on above: Expected: 03/04/2024 (Approximate), Expires: 03/04/2025 Start: 03-04-2024 End: 03-11-2024 Bacteria identified in Urine by Culture [facility] Work Phone: Comment on above: Expected: 03/04/2024 (Approximate), Expires: 03/11/2024 Start: 03-04-2024 End: 03-04-2025 C reactive protein [Mass/volume] in Serum or Plasma C-Reactive Protein Lab Routine Arthralgia, unspecified joint Joint swelling Migraine without status migrainosus, not intractable, unspecified migraine type Expected: 03/04/2024 (Approximate), Expires: 03/04/2025 [facility] Work Phone: Comment on above: Expected: 03/04/2024 (Approximate), Expires: 03/04/2025 Start: 03-04-2024 End: 03-04-2025 CBC W Auto Differential panel - Blood CBC and Auto Differential Lab Routine Arthralgia, unspecified joint Joint swelling Migraine without status migrainosus, not intractable, unspecified migraine type Expected: 03/04/2024 (Approximate), Expires: 03/04/2025 [facility] Work Phone: Comment on above: Expected: 03/04/2024 (Approximate), Expires: 03/04/2025 Start: 03-04-2024 End: 03-04-2025 Cobalamin (Vitamin B12) [Mass/volume] in Serum or Plasma Vitamin B12 Lab Routine Arthralgia, unspecified joint Joint swelling Migraine without status migrainosus, not intractable, unspecified migraine type Expected: 03/04/2024 (Approximate), Expires: 03/04/2025 [facility] Work Phone: Comment on above: Expected: 03/04/2024 (Approximate), Expires: 03/04/2025 Start: 03-04-2024 End: 03-04-2025 Colonoscopy study Colonoscopy Screening; Average Risk Patient Endoscopy Routine Screen for colon cancer Expected: 03/04/2024 (Approximate), Expires: 03/04/2025 [facility] Work Phone: Comment on above: Expected: 03/04/2024 (Approximate), Expires: 03/04/2025 Start: 03-04-2024 End: 03-04-2025 Comprehensive metabolic 2000 panel - Serum or Plasma Comprehensive Metabolic Panel Lab Routine Arthralgia, unspecified joint Joint swelling Migraine without status migrainosus, not intractable, unspecified migraine type Expected: 03/04/2024 (Approximate), Expires: 03/04/2025 [facility] Work Phone: Comment on above: Expected: 03/04/2024 (Approximate), Expires: 03/04/2025 Start: 03-04-2024 End: 03-04-2025 Erythrocyte sedimentation rate Sedimentation Rate Lab Routine Arthralgia, unspecified joint Joint swelling Migraine without status migrainosus, not intractable, unspecified migraine type Expected: 03/04/2024 (Approximate), Expires: 03/04/2025 [facility] Work Phone: Comment on above: Expected: 03/04/2024 (Approximate), Expires: 03/04/2025 Start: 03-04-2024 End: 03-04-2025 Lipid 1996 panel - Serum or Plasma Lipid Panel Lab Routine Arthralgia, unspecified joint Joint swelling Migraine without status migrainosus, not intractable, unspecified migraine type Expected: 03/04/2024 (Approximate), Expires: 03/04/2025 [facility] Work Phone: Comment on above: Expected: 03/04/2024 (Approximate), Expires: 03/04/2025 Start: 03-04-2024 End: 03-04-2025 Magnesium [Mass/volume] in Serum or Plasma Magnesium Lab Routine Arthralgia, unspecified joint Joint swelling Migraine without status migrainosus, not intractable, unspecified migraine type Expected: 03/04/2024 (Approximate), Expires: 03/04/2025 [facility] Work Phone: Comment on above: Expected: 03/04/2024 (Approximate), Expires: 03/04/2025 Start: 03-04-2024 End: 03-04-2025 Nuclear Ab [Presence] in Serum by Hep2 substrate RONI with Reflex to LEVI Lab Routine Arthralgia, unspecified joint Joint swelling Migraine without status migrainosus, not intractable, unspecified migraine type Expected: 03/04/2024 (Approximate), Expires: 03/04/2025 [facility] Work Phone: Comment on above: Expected: 03/04/2024 (Approximate), Expires: 03/04/2025 Start: 03-04-2024 End: 03-04-2025 Rheumatoid factor [Units/volume] in Serum by Nephelometry Rheumatoid Factor Lab Routine Arthralgia, unspecified joint Joint swelling Migraine without status migrainosus, not intractable, unspecified migraine type Expected: 03/04/2024 (Approximate), Expires: 03/04/2025 [facility] Work Phone: Comment on above: Expected: 03/04/2024 (Approximate), Expires: 03/04/2025 Start: 03-04-2024 End: 03-04-2025 TSH with reflex to Free T4 if abnormal TSH with reflex to Free T4 if abnormal Lab Routine Arthralgia, unspecified joint Joint swelling Migraine without status migrainosus, not intractable, unspecified migraine type Expected: 03/04/2024 (Approximate), Expires: 03/04/2025 [facility] Work Phone: Comment on above: Expected: 03/04/2024 (Approximate), Expires: 03/04/2025 Start: 02-12-2024 End: 02-12-2024 Patient encounter procedure [facility] Start: 11-24-2023 End: 11-24-2023 Patient encounter procedure 11/24/2023 9:15 AM EDT Appointment [address] [phone] [facility] Start: 11-15-2023 End: 11-14-2024 CBC W Auto Differential panel - Blood [facility] Service Area Work Phone: Comment on above: Expected: 11/15/2023 (Approximate), Expires: 11/14/2024 Start: 11-15-2023 End: 11-14-2024 Comprehensive metabolic 2000 panel - Serum or Plasma [facility] Work Phone: Comment on above: Expected: 11/15/2023 (Approximate), Expires: 11/14/2024 Start: 11-15-2023 End: 11-14-2024 CT Abdomen and Pelvis WO and W contrast IV CT abdomen pelvis w and wo IV contrast Imaging Routine Abdominal pain, unspecified abdominal location Bowel habit changes Expected: 11/15/2023, Expires: 11/14/2024 [facility] Work Phone: Comment on above: Expected: 11/15/2023 , Expires: 11/14/2024 Start: 11-15-2023 End: 11-14-2024 Magnesium [Mass/volume] in Serum or Plasma [facility] Work Phone: Comment on above: Expected: 11/15/2023 (Approximate), Expires: 11/14/2024 Start: 11-15-2023 End: 11-14-2024 TSH with reflex to Free T4 if abnormal [facility] Work Phone: Comment on above: Expected: 11/15/2023 (Approximate), Expires: 11/14/2024 Start: 10-22-2023 COVID-19 Vaccine () COVID-19 Vaccine () [facility] Start: 10-22-2023 Covid-19 Vaccine () Covid-19 Vaccine () [facility] Start: 10-22-2023 Covid-19 Vaccine () Covid-19 Vaccine () [facility] Start: 10-22-2023 Influenza vaccination [facility] Start: 10-12-2023 End: 12-11-2024 DBT Breast - bilateral BI mammo bilateral screening tomosynthesis Imaging Routine Screening mammogram for breast cancer Expected: 10/12/2023, Expires: 12/11/2024 [facility] Service Area Comment on above: Expected: 10/12/2023 , Expires: 12/11/2024 Start: 09-28-2023 Mammography MAMMOGRAM [facility] Start: 09-28-2023 Screening for malign ant neoplasm of breast [facility] Start: 08-01-2023 End: 08-01-2023 Patient encounter procedure 08/01/2023 2:00 PM EDT Office Visit [facility] [address] [place] [phone] Carmelita Romo MD [address] [facility] [place] [address] [facility] Start: 07-01-2023 Diabetes mellitus screening Diabetes Screening [facility] Start: 07-01-2023 DIABETES SCREEN DIABETES SCREEN [facility] Start: 06-28-2023 End: 06-28-2023 ambulatory 06/28/2023 3:45 PM EDT Treatment [facility] [address] [place] [phone] Ross Vanegas, PT [address] [facility] [place], [place] [id number] [facility] Start: 06-23-2023 End: 06-23-2023 ambulatory 06/23/2023 4:15 PM EDT Treatment [address] [phone] Ross Vanegas, PT [address] [facility] [place] [address] [facility] Start: 06-22-2023 End: 06-21-2024 CBC W Auto Differential panel - Blood [facility] Work Phone: Comment on above: Expected: 06/22/2023 (Approximate), Expires: 06/21/2024 Start: 06-22-2023 End: 06-21-2024 Cobalamin (Vitamin B12) [Mass/volume] in Serum or Plasma [facility] Work Phone: Comment on above: Expected: 06/22/2023 (Approximate), Expires: 06/21/2024 Start: 06-22-2023 End: 06-21-2024 Comprehensive metabolic 2000 panel - Serum or Plasma [facility] Work Phone: Comment on above: Expected: 06/22/2023 (Approximate), Expires: 06/21/2024 Start: 06-22-2023 End: 06-21-2024 Home sleep apnea test (HSAT) Home sleep apnea test (HSAT) Sleep Center Routine Witnessed episode of apnea Snoring Expected: 06/22/2023 (Approximate), Expires: 06/21/2024 [facility] Service Area Work Phone: Comment on above: Expected: 06/22/2023 (Approximate), Expires: 06/21/2024 Start: 06-22-2023 End: 06-21-2024 Lipid 1996 panel - Serum or Plasma [facility] Work Phone: Comment on above: Expected: 06/22/2023 (Approximate), Expires: 06/21/2024 Start: 06-22-2023 End: 06-21-2024 TSH with reflex to Free T4 if abnormal [facility] Work Phone: Comment on above: Expected: 06/22/2023 (Approximate), Expires: 06/21/2024 Start: 06-09-2023 ANNUAL PCP TEAM RISK CONTROL DIRECTOR EVAN DISEASE VISIT ANNUAL PCP TEAM CHRONIC DISEASE VISIT [facility] Start: 10-21-2022 COVID-19 Vaccine () COVID-19 Vaccine () [facility] Start: 10-21-2022 Influenza vaccination C [facility] Start: 08-17-2022 Mammography MAMMOGRAM [facility] Start: 07-23-2022 DTaP/Tdap/Td Vaccine s (2 - Td or Tdap) DTaP/Tdap/Td Vaccines (2 - Td or Tdap) [facility] Start: 07-23-2022 Urine microalbumin profile [facility] Start: 05-28-2022 BP CONTROLLED (<130/80) BP CONTROLLE D (<130/80) [facility] Start: 05-23-2022 HPV TESTING HPV TESTING [facility] Start: 05-23-2022 PAP TESTING PAP TESTING [facility] Start: 02-20-2022 DEPRESSION ASSESSMENT DEPRESSION ASS ESSMENT [facility] Start: 02-09-2022 End: 02-10-2023 [facility] Start: 12-10-2021 Adult depression screening assessment DEPRESSION SCREENING [facility] Start: 10-21-2021 Influenza vaccination C [facility] Start: 07-10-2021 Mammography MAMMOGRAM [facility] Start: 07-08-2021 ANNUAL PCP TEAM RISK CONTROL DIRECTOR EVAN DISEASE VISIT ANNUAL PCP TEAM CHRONIC DISEASE VISIT [facility] Start: 07-08-2021 HEPATITIS C SCREENING HEPATITIS C SC HUMAIRA [facility] Comment on above: Postponed from 04/21 (Declined at this time) Start: 07-08-2021 HIV SCREENING HIV SCREENING [facility] Comment on above: Postponed from 04/21 (Declined at this time) Start: 05-28-2021 End: 07-28-2021 RNA POLYMERASE III AB [facility] Work Phone: Comment on above: Expected: 05/28/2021 , Expires: 07/28/2021 Start: 11-13-2020 COVID-19 VACCINE (3 - Booster for Pfizer series) COVID-19 VACCINE (3 - Booster for Pfizer series) [facility] Start: 08-08-2020 COVID-19 VACCINE (3 - Booster for Pfizer series) COVID-19 VACCINE (3 - Booster for Pfizer series) [facility] Start: 08-08-2020 COVID-19 VACCINE (3 - Pfizer series) COVID-19 VACCINE (3 - Pfizer series) [facility] Start: 05-23-2020 Screening for malign ant neoplasm of cervix Cervical Cancer Screening [facility] Start: 04-22-2019 COLOGUARD (FIT-DNA) COLOGUARD (FIT-D NA) [facility] Start: 04-22-[address] COLONOGRAPHY [facility] Start: 04-22-2019 FECAL OCCULT BLOOD FECAL OCCULT BLOO D [facility] Start: 04-22-2019 Screening for malign ant neoplasm of colon [facility] Start: 04-22-2019 SIGMOIDOSCOPY SIGMOIDOSCOPY [facility] Start: 04-22-1995 Screening for malign ant neoplasm of cervix [facility] Start: 1993 Hepatitis B Vaccine (1 of 3 - 19+ 3-dose series) Hepatitis B Vaccine (1 of 3 - 19+ 3-dose series) [facility] Start: 1993 Hepatitis B Vaccines (1 of 3 - 19+ 3-dose series) Hepatitis B Vaccines (1 of 3 - 19+ 3-dose series) [facility] Start: 1992 Anxiety Screening Anxiety Screening [facility] Start: 1992 BP CONTROLLED (<130/80) BP CONTROLLE D (<130/80) [facility] Start: 1992 Depression Screening Depression Scre ening [facility] Start: 1992 HEPATITIS C SCREENING HEPATITIS C [facility] Start: 1992 Hepatitis C screening Hepatitis C [place] Start: 1992 HIV SCREENING HIV SCREENING [facility] Start: 1992 HIV screening HIV Screening [facility] Start: 1980 Pneumococcal Vaccine : Pediatrics (0 to 5 Years) and At-Risk Patients (6 to 64 Years) (1 of 2 - PCV) Pneumococcal Vaccine: Pediatrics (0 to 5 Years) and At-Risk Patients (6 to 64 Years) (1 of 2 - PCV) [facility] Start: 04-22-1975 MMR Vaccines (1 of 1 - Standard series) MMR Vaccines (1 of 1 - Standard series) [facility] Start: 1974 HEPATITIS B (1 of 3 - 3-dose series) HEPATITIS B (1 of 3 - 3-dose series) [facility] Start: 1974 Hepatitis B Vaccines (1 of 3 - 3-dose series) Hepatitis B Vaccines (1 of 3 - 3-dose series) [facility] Start: 1974 HIV screening HIV Screening [facility] Start: 1974 Lipid panel Lipid Panel [facility] Start: 1974 Screening for malign ant neoplasm of colon [facility] Start: 1974 Yearly Adult Physical Yearly Adult P hysical [facility] End: 11-24-2023 CT Abdomen and Pelvis W contrast IV [facility] Service Area Work Phone: Comment on above: Once for 1 Occurrenc es starting 11/24/2023 until 11/24/2023 End: 10-16-2023 DBT Breast - bilateral [facility] Work Phone: Comment on above: Once for 1 Occurrenc es starting 10/16/2023 until 10/16/2023 End: 11-30-2024 DBT Breast - bilateral screening NATALIE SCREENING W ERUM Radiology Routine Encounter for screening mammogram for breast cancer 1 Occurrences starting 11/01/2023 until 11/30/2024 [facility] Work Phone: Comment on above: 1 Occurrences starti ng 11/01/2023 until 11/30/2024 ECG 12 lead ECG 12 lead ECG STAT 04/18/2023 10:10 AM EST [facility] Service Area Work Phone: End: 10-21-2023 NATALIE SCREENING NATALIE SCREENING Radiology Routine Encounter for screening mammogram for breast cancer 1 Occurrences starting 09/21/2022 until 10/21/2023 [facility] Work Phone: Comment on above: 1 Occurrences starti ng 09/21/2022 until 10/21/2023 End: 09-27-2022 NATALIE SCREENING W ERUM [facility] Work Phone: Comment on above: ONCE for 1 Occurrenc es starting 09/27/2022 until 09/27/2022 Screening mammograph y bi 2-view breast inc cad NATALIE SCREENING Radiology Routine Encounter for screening mammogram for malignant neoplasm of breast 08/17/2021 4:07 PM EDT [facility] Work Phone: [facility] Immunizations Immunization Date Immunization Notes Care Provider Fa [facility] 01-24-2019 influenza, injectabl e, quadrivalent, contains preservative Xr A21 [facility] 01-24-2019 influenza virus vacc ine, unspecified formulation [facility] Work Phone: 07-23-2012 tetanus toxoid, redu kimi diphtheria toxoid, and acellular pertussis vaccine, adsorbed Xr A21 [facility] Work Phone: Payers Date Payer Category Payer Self-pay 2023 Unknown [id number] 2023 Unknown [id number] 2022 [facility] [id number] 2022 [employer] Managed Care [facility] [id number]. [id number] 2022 Unknown 2019 Unknown PRITESH ARMAS SS PPO [id number] 2019-Present [phone] [address] [place] [address] PPO [id number] [id number]. 2.7.3.078710.315 2019 Unknown [id number] 2010 Unknown [id number] 1974 Unknown [id number] 2.16.840.1.616647.3.579. 2.902 1974 Unknown [id number] 2.16840.1.551903.3.579. 2.1069 1974 Unknown [id number] 2.16.840.1.723543.3.579. 2.1069 1974 Unknown [id number] 2.16.840.1.569285.3.579. 2.1245 1974 Unknown [id number] 2.16.840.1.953900.3.579. 2.1245 1974 Unknown [id number] 2.16.840.1.599310.3.579. 2.1244 1974 Unknown [id number] 2.16.840.1.753617.3.579. 2.1244 1974 Unknown [id number] 2.16.840.1.196759.3.579. 2.1244 1974 Unknown [id number] 2.16.840.1.237666.3.579. 2.1244 1974 Unknown [id number] 2.16.840.1.060220.3.579. 2.1242 1974 Unknown [id number] 2.16840.1.196688.3.579. 2.1242 1974 Unknown [id number] 2.16.840.1.794406.3.579. 2.1242 1974 Unknown [id number] 2.16840.1.508527.3.579. 2.1242 1974 Unknown [id number] 2.16.840.1.456980.3.579. 2.1242 1974 Unknown [id number] 2.16840.1.139123.3.579. 2.1242 1974 Unknown [id number] 2.16840.1.084544.3.579. 2.1242 1974 Unknown [id number] 2.16840.1.120795.3.579. 2.1242 1974 Unknown [id number] 2.16.840.1.905500.3.579. 2.1242 1974 Unknown [id number] 2.16.840.1.182806.3.579. 2.1242 1974 Unknown [id number] 2.16.840.1.015301.3.579. 2.1242 1974 Unknown [id number] 2.16840.1.863099.3.579. 2.1242 1974 Unknown [id number] 2.16.840.1.424425.3.579. 2.1243 1974 Unknown [id number] 2.16.840.1.426965.3.579. 2.3 1974 Unknown [id number] 2.16.840.1.746744.3.579. 2.1243 1974 Unknown [id number] 2.16.840.1.184290.3.579. 2.1244 1974 Unknown [id number] 2.16.840.1.031900.3.579. 2.1244 1974 Unknown [id number] 2.16.840.1.106873.3.579. 2.4 1974 Unknown [id number] 2.16.840.1.363796.3.579. 2.1244 1974 Unknown [id number] 2.16.840.1.809893.3.579. 2.1244 1974 Unknown [id number] 2.16.840.1.540691.3.579. 2.1244 Unknown [id number] 2.16.840.1.479861.3.579. 2.462 Unknown [id number] 2.16.840.1.354304.3.579. 2.462 Unknown [id number] 2.16.840.1.772850.3.579. 2.462 Social History Date Type Detail Facility Start: 02-23-2015 End: 04-09-2022 Tobacco smoking status NHIS Ex-smoker [facility] End: 05-06-2013 History of tobacco use Current smoker [facility] Start: 02-23-2015 End: 04-09-2022 Tobacco use and exposure Smokeless tobacco non-user [facility] Start: 05-28-2021 End: 07-03-2022 Alcohol intake Current non-drinker of alcohol (finding) [facility] Start: 01-31-2020 End: 06-08-2022 History SDOH Alcohol Frequency 1 [facility] Start: 01-31-2020 End: 06-08-2022 History SDOH Social Connections Phone 5 [facility] Start: 01-31-2020 End: 06-08-2022 History SDOH Social Connections Get Together 2 [facility] Start: 01-31-2020 End: 06-08-2022 History SDOH Social Connections Scientology 3 [facility] Start: 01-31-2020 Education 12 [facility] Start: 1975 Sex Assigned At Not on file [facility] Start: 05-18-2021 End: 05-30-2024 Exposure to SARS-CoV-2 (event) Not sure [facility] Tobacco smoking consumption unknown [facility] End: 05-06-2013 History of tobacco use Cigarette Smoker [facility] Start: 06-08-2022 History SDOH Alcohol Std Drinks 0 [facility] Start: 06-08-2022 History SDOH Social Connections Get Together 4 [facility] Start: 03-18-2022 End: 06-08-2022 History of Social function [facility] Start: 03-18-2022 End: 06-08-2022 Social connection and isolation panel [facility] Do you belong to any clubs or organizations such as adventist groups, unions, fraternal or athletic groups, or school groups? Yes [facility] Are you now , , , , never or living with a partner? [facility] How often to you hav e a drink containing alcohol? Never [facility] How many standard dr inks containing alcohol do you have on a typical day? Patient does not drink [facility] Do you feel stress - tense, restless, nervous, or anxious, or unable to sleep at night because your mind is troubled all the time - these days [OSQ] Not at all [facility] (I/We) worried shukri er (my/our) food would run out before (I/we) got money to buy more. Never true [facility] In the past 12 month s, was there a time when you were not able to pay the mortgage or rent on time? No [facility] Start: 05-24-2017 End: 04-18-2023 Tobacco smoking status NHIS Never smoked tobacco [facility] Start: 04-18-2023 End: 05-30-2024 Alcohol intake Lifetime non-drinker (finding) [facility] Work Phone: Start: 06-22-2023 Tobacco smoking status NHIS Occasional tobacco smoker [facility] Work Phone: Start: 03-31-2015 None None [facility] Start: 03-31-2015 Spouse/ Significant Other Spouse/ Significant Other [facility] Start: 05-15-2024 Sex Female (finding) [facility] Start: 1975 Sex Assigned At Female [facility] Functional Status Date Assessment Result Facility 08-12-2013 Are you deaf, or do you have serious difficulty hearing No 08/12/2013 8:55 AM Sunshine Mercer RN No [facility] 08-12-2013 Are you blind, or do you have serious difficulty seeing, even when wearing glasses No 08/12/2013 8:55 AM Sunshine Mercer RN No [facility] 08-12-2013 Do you have serious difficulty walking or climbing stairs No 08/12/2013 8:55 AM Sunshine Mercer RN No [facility] 08-12-2013 Do you have difficul ty dressing or bathing No 08/12/2013 8:55 AM Sunshine Mercer RN No [facility] 08-12-2013 Because of a physica l, mental, or emotional condition, do you have difficulty doing errands alone such as visiting a physician's office or shopping No 08/12/2013 8:55 AM Sunshine Mercer RN No [facility] Mental Status Date Assessment Result Facility 08-12-2013 Because of a physica l, mental, or emotional condition, do you have serious difficulty concentrating, remembering, or making decisions No 08/12/2013 8:55 AM Sunshine Mercer RN No [facility] Clinical Notes 05-28-2021 to 07-28-2024 Clarice Chappell - 07/11/2024 11:13 AM Sue Mao MA - 05/30/2024 1:40 PM Artur Romo MD - 05/30/2024 1:40 PM EDTPatient InstructionsDischarge Instructions Note Date & Type Note Facility 07-28-2024 Radiology Diagnostic study note [facility] Imaging Services [address] [place], [place] [address] Abdomen Limited MR#: [id number] Acct: [id number] Name: JO MERCER Rep #: [id number] : 1975 F 49 From: Bridget Galaviz MD PCP: Dr. Carmelita Romo MD Status: REG CLI Study:Abdomen Limited Date of Exam: 09/13 Exam# [id number] Ordering Dr: Natalie Caballero MD PROCEDURE: ABDOMEN LIMITED 07/27/2024 REASON FOR EXAM: ELEVATED LFTS TECHNIQUE: Complete abdominal ultrasound campbell-scale images with color doppler. PATIENT PREPARATION: Per protocol COMPARISON: None. FINDINGS: The liver measures 14.4 cm. Mildly heterogeneous hepatic echotexture. Mildly increased hepatic echogenicity, probably mild hepatic steatosis. Unremarkable flow in the main portal vein. Prior cholecystectomy. Nondilated common bile duct measuring 2.9 mm. Mildly increased pancreatic echogenicity, probably mild fatty infiltration. Unremarkable right kidney measuring 11.7 x 6.4 x 4.9 cm. Normal right renal cortical thickness measuring 1.4 cm. US/Abdomen Limited IMPRESSION: Prior cholecystectomy. Nondilated common bile duct. Mildly heterogeneous hepatic echotexture. Mild hepatic fatty infiltration. Mild pancreatic fatty infiltration. Reading Location: [place] [address] CC: Dr. Carmelita Romo MD; Dr. Natalie Caballero MD ~ Center Administrator: Signed [facility] 07-11-2024 Note HNO ID: [id number] Author: ?, ?, ? Service: ? Author Type: ? Type: Progress Notes Filed: 08/08/2024 13:14 Note Text: Hypertension Outreach Jo Mercer has been identified for clinical review due to having hypertension without an appointment in the past year. PSS Team - Please contact the patient with the following script: Darrian Diaz MD has identified that you are in need of ongoing care of your hypertension and have not had a blood pressure visit with us in the last year. We would like to assist you in making an appointment to ensure that we control your blood pressure and keep you as healthy as possible. Outreach Outcome/Action: Unable to reach patient: Left message Note - if they see another provider, please update their chart. [facility] 07-11-2024 History of Presen t illness Narrative Hypertension Outreach Jo Mercer has been identified for clinical review due to having hypertension without an appointment in the past year. PSS Team - Please contact the patient with the following script: Darrian Diaz MD has identified that you are in need of ongoing care of your hypertension and have not had a blood pressure visit with us in the last year. We would like to assist you in making an appointment to ensure that we control your blood pressure and keep you as healthy as possible. Outreach Outcome/Action: Unable to reach patient: Left message Note - if they see another provider, please update their chart. documented in this encounter [facility] 07-11-2024 Note Patient Outreach (4C Q) JO MERCER ([id number]) 1975 F Date Time Provider Department 07/11/24 DARRIAN DIAZ 4CQ During your visit today, we recorded the following information about you: Clarice Chappell 08/08/2024 1:14 PM Signed Hypertension Outreach Jo Mercer has been identified for clinical review due to having hypertension without an appointment in the past year. PSS Team - Please contact the patient with the following script: Darrian Diaz MD has identified that you are in need of ongoing care of your hypertension and have not had a blood pressure visit with us in the last year. We would like to assist you in making an appointment to ensure that we control your blood pressure and keep you as healthy as possible. Outreach Outcome/Action: Unable to reach patient: Left message Note - if they see another provider, please update their chart. Allergies As of Date: 07/11/2024 Noted Allergy Reaction ACETAMINOPHEN 04/19/2015 12 - Shortness of Breath HYDROCODONE BITARTRATE 03/31/2015 12 - Shortness of Breath VICODIN (HYDROCODONE-ACETAMINOPHE*06/03 12 - Shortness of Breath Comments: chest pain and nausea Date Reviewed: 06/08/2022 Reviewed by: Darrian Diaz MD - Fully Assessed Reason for Visit: Blood Pressure Check [195] Prescriptions as of 08/08/2024 - topiramate (TOPAMAX) 200 mg tablet Take [...] once daily. Problem List As Of Date 07/11/2024 Noted Resolved Dyspareunia [BLB4840] 04/09/2005 Dysmenorrhea [N94.6] 04/09/2005 Well adult exam [...] left kidney [R93.422] 05/01/2019 Encounter Status:Closed by CLARICE CHAPPELL on 08/08/24 [facility] 05-30-2024 History of Presen t illness Narrative [...] Carmelita Romo MD documented in this encounter [facility] Work Phone: 05-30-2024 Instructions Carmelita Romo MD - 05/30/2024 1:40 PM EDT Follow up based on results and symptoms. documented in this encounter [facility] Work Phone: 05-09-2024 Note HNO ID: [id number] Author: MERARI JONES LPN Service: ? Author Type: LICENSED NURSE Type: Progress Notes Filed: 05/09/2024 08:32 Note Text: Scan on 05/08/2024 2:35 PM by Provider External PA-C: Miscellaneous Lab [facility] 05-09-2024 History of Presen t illness Narrative Scan on 05/08/2024 2:35 PM by ProviderBar PA-C: Miscellaneous Lab documented in this encounter [facility] 05-08-2024 Note HNO ID: [id number] Author: MERARI JONES LPN Service: ? Author Type: LICENSED NURSE Type: Progress Notes Filed: 05/08/2024 07:17 Note Text: Scan on 05/07/2024 10:34 AM by Provider External, PA-C: X-ray Scan on 05/07/2024 10:38 AM by Provider External, PA-C: X-ray Scan on 05/07/2024 10:40 AM by Provider External, PA-C: X-ray Scan on 05/07/2024 12:46 PM by Provider External, PA-C: Hematology Scan on 05/07/2024 1:26 PM by Provider External, PA-C: Chemistry [facility] 05-08-2024 History of Presen t illness Narrative Scan on 05/07/2024 10:34 AM by Provider External, PA-C: X-ray Scan on 05/07/2024 10:38 AM by Provider External, PA-C: X-ray Scan on 05/07/2024 10:40 AM by Provider External, PA-C: X-ray Scan on 05/07/2024 12:46 PM by Provider External, PA-C: Hematology Scan on 05/07/2024 1:26 PM by Provider External, PA-C: Chemistry documented in this encounter [facility] 05-07-2024 Radiology Diagnostic study note [facility] Imaging Services [address] [place] [id number] Hand Min 3 Views MR#: [id number] Acct: [id number] Name: JO MERCER Rep #: [id number] : 1975 F 49 From: Gwen Richter MD PCP: Dr. Darrian Diaz MD Status: REG CLI Study:Hand Min 3 Views Date of Exam: Exam# [id number] Ordering Dr: Natalie Caballero MD EXAM: XR [...] 2. Degenerative changes as above. Reading Location: [facility] CC: Dr. Darrian Diaz MD; Dr. Natalie Caballero MD ~ Center Administrator: Signed [facility] 05-07-2024 Radiology Diagnostic study note [facility] Imaging Services [address] [place] [address] Hand Min 3 Views MR#: [id number] Acct: [id number] Name: JO MERCER Rep #: [id number] : 1975 F 49 From: Gwen Richter MD PCP: Dr. Darrian Diaz MD Status: REG CLI Study:Hand Min 3 Views Date of Exam: Exam# [id number] Ordering Dr: Natalie Caballero MD EXAM: XR [...] IMPRESSION: Degenerative changes as above. Reading Location: [facility] CC: Dr. Darrian Diaz MD; Dr. Natalie Caballero MD ~ Center Administrator: Signed [facility] 05-07-2024 Radiology Diagnostic study note [facility] Imaging Services [address] [place] [id number] Pelvis 1 or 2 Views MR#: [id number] Acct: [id number] Name: JO MERCER Rep #: [id number] : 1975 F 49 From: Gwen Richter MD PCP: Dr. Darrian Diaz MD Status: REG CLI Study:Pelvis 1 or 2 Views Date of Exam: 05/07/24 Exam# [id number] Ordering Dr: Natalie Caballero MD EXAM: XR Pelvis, 1 or 2 Views CLINICAL INDICATION: PAIN TECHNIQUE: Frontal view of the pelvis. COMPARISON: No relevant prior studies available. FINDINGS: BONES/JOINTS: Unremarkable. No acute fracture. No dislocation. SOFT TISSUES: Unremarkable. RAD/Pelvis 1 or 2 Views IMPRESSION: No acute fracture. [facility] CC: Dr. Darrian Diaz MD; Dr. Natalie Caballero MD ~ Center Administrator: Signed [facility] 03-26-2024 Attending History and physical note H&P [...] colonoscopy. She had a previous colonoscopy in [place] over 10 years ago in workup of [...] hemorrhoid banding, over 10 years ago through [facility] Home Medications: Prior to Admission medications Medication [...] on 03/26/24. We will perform this at [facility] with the assistance of Anesthesiology given her history of sleep apnea. Darrel Gomez MD 03/21/2024 [facility] Work Phone: 03-26-2024 History and physical [...] colonoscopy. She had a previous colonoscopy in [place] over 10 years ago in workup of [...] hemorrhoid banding, over 10 years ago through [facility] Home Medications: Prior to Admission medications Medication [...] on 03/26/24. We will perform this at [facility] with the assistance of Anesthesiology given her history of sleep apnea. Darrel Gomez MD 03/21/2024 documented in this encounter [facility] Work Phone: 03-26-2024 Hospital Discharg e [...] having your procedure, call the [facility] to be advised whether a visit to [...] Lab, please call: Nurse Signature Date Patient/Responsible Alliance Party Signature Date documented in this encounter [facility] Work Phone: 03-21-2024 History of Presen t illness Narrative General Surgery Consultation Patient: Jo Mercer : 1975 Date of Consultation: 03/21/24 Referring Primary Care Provider: Carmelita Romo MD Chief Complaint: Colon cancer screening History of Present Illness: Jo Mercer is a 48 y.o. old female seen at the request of Dr. Romo for evaluation for colonoscopy. She had a previous colonoscopy in [place] over 10 years ago in workup of [...] hemorrhoid banding, over 10 years ago through [facility] Home Medications: Prior to Admission medications Medication [...] on 03/26/24. We will perform this at [facility] with the assistance of Anesthesiology given her history of sleep apnea. Darrel Gomez MD 03/21/2024 documented in this encounter [facility] Work Phone: 03-04-2024 History of Presen t illness Narrative Subjective Jo Mercer is a 48 y.o. female who presents for Follow-up (Patient here for 6 month follow-up. Complaining of urinary burning, urgency, dark colored urine x 2 weeks.). Here for follow up migraines, RAOUL (on CPAP, tolerating well, benefiting from continued use). She states that at [place] she got covid, admits she was not [...] 10 years ago) and had seen a shop tailor apprentice who was monitoring things at that time. [...] Carmelita Romo MD documented in this encounter [facility] Work Phone: 03-04-2024 Instructions Carmelita Romo MD - 03/04/2024 3:40 PM EST Will get some labs, refer to rheumatology. Will treat UTI with antibiotics. Continue other current medications. Follow up in 6 months, sooner if needed. documented in this encounter [facility] Work Phone: 11-15-2023 History of Presen [...] Carmelita Romo MD documented in this encounter [facility] Work Phone: 11-15-2023 Instructions Carmelita Romo MD - 11/15/2023 11:20 AM EDT Discussed stopping the exlax, cutting back on the fiber, continue to push fluids, miralax. Will get some labs and CT to further evaluate and follow up based on results and symptoms. documented in this encounter [facility] Work Phone: 11-01-2023 Note Patient Outreach (IN TMMN) JO MERCER ([id number]) 1975 F Date Time Provider Department 11/01/23 [...] for screening mammogram for breast cancer [Z12.31] Order(s):[facility] SCREENING W ERUM [[id number]] Order #: [id number] FUTURE Prescriptions as of 11/06/2023 - topiramate [...] As Of Date 11/01/2023 Noted Resolved Dyspareunia [IJY2445] 04/09/2005 Dysmenorrhea [N94.6] 04/09/2005 Well adult exam [...] left kidney [R93.422] 05/01/2019 Encounter Status:Closed by [employer] on 11/06/23 [facility] 08-14-2023 History of Presen t illness Narrative [...] Carmelita Romo MD documented in this encounter [facility] Work Phone: 08-14-2023 Instructions Carmelita Romo MD - 08/14/2023 8:00 AM EDT Will start chantix, increase topamax. She will let us know in a few weeks how things are going with the chantix and we will call more in. Also discussed increased water intake and trying some miralax. Follow up in 6 months, sooner if needed. documented in this encounter [facility] Work Phone: 06-22-2023 History of Presen t illness Narrative Subjective Patient ID: Jo Mercer is a 48 y.o. female who presents for Establishing Primary Care. HPI Review of Systems Objective There were no vitals taken for this visit. Physical Exam Assessment/Plan Subjective Jonae Mercer is a 48 y.o. [...] Carmelita Romo MD documented in this encounter [facility] Work Phone: 06-22-2023 Instructions Carmelita Romo MD - 06/22/2023 2:20 PM EDT Will resume topamax - will start with 50 mg - she may take once a day at bedtime for the first few days then increase to BID. Will get a sleep study and labs and follow up after testing. documented in this encounter [facility] Work Phone: 09-28-2022 Miscellaneous Notes Spoke with patient. Given message from provider's office. Patient verbalizes understanding. Arely Goldsmith RN TC to pt. LM to call office, ask for triage nurse to get results. Martha Vilchis LPN Let patient know mammogram was ok. documented in this encounter [facility] 09-28-2022 Miscellaneous Notes [address] [address] September 28, 2022 PID: [id number] Jo Mercer [address] [place] [address] Dear Ms. Mercer, We are pleased to [...] report will be kept on file at [facility] as part of your permanent medical record and are available for your continuing care. Thank you for allowing us to help in meeting your health care needs. Sincerely, Dr. Mackey Interpreting Radiologist [facility] (Normal over 40) documented in this encounter [facility] 09-27-2022 Note HNO ID: [id number] Author: Erica Barbre RT(R) Service: Radiology Author Type: Technologist Type: [...] RT Yolanda(R) September 27, 2022 3:[address] [facility] 09-27-2022 History of Presen t illness Narrative [...] 2022 3:08 PM documented in this encounter [facility] 06-08-2022 History of Presen t illness Narrative [...] cervix, low grade (ELENI 1) 04/18/2019 Seeing obstetrics gynecology physician Ex-smoker 04/18/2019 Started age early 20's up [...] M67.442 (primary diagnosis) - CONSULT TO ORTHOPAEDICS: [facility] 2. Pain of finger of left [...] Darrian Diaz MD documented in this encounter [facility] 09-06-2021 Miscellaneous Notes Physician: Daryn Call from patient requesting refill. Please E-Scribe Last OV: 12/11/20 with Daryn Future OV: Not scheduled Pending Prescriptions Disp Refills TOPIRAMATE 200 MG TABLET 60 tablet 5 Sig: Take 1 tablet by mouth twice daily. RICKY: No Pharmacy Name: [facility] documented in this encounter [facility] 08-18-2021 Miscellaneous Notes Left message of same on pt's vm. Merari Jones LPN ----- Message from April Jefferson PA-C sent at 08/18/2021 11:01 AM EDT ----- Normal mammogram. Repeat in 1 year. documented in this encounter [facility] 08-17-2021 History of Presen t illness Narrative [...] DATA: Not applicable SIGNED BY: Tonya Khan LuisaVeotag August 17, 2021 4:08 PM documented in this encounter [facility] 06-18-2021 History of Presen t illness Narrative [facility]ly [facility] 46 yo female Non smoker pmh of hysterectomy, bladder sling (6+ years ago)- completed locally, [place] Reports ongoing micro hematuria and gross hematuria [...] sling [address] Delroy Hidalgo ([place], [place]). Retired. Prior to above procedure she [...] Elroy Clinton MD documented in this encounter [facility] 06-01-2021 Miscellaneous Notes Discussed with patient part [...] PGY4 Rheumatology Fellow documented in this encounter [facility] 05-28-2021 History of Presen t illness Narrative [...] 2021 5:16 PM documented in this encounter [facility] 05-28-2021 Instructions Candie Christina MD - 05/28/2021 4:45 PM EDT It was a pleasure seeing you in [facility]'s rheumatology office today. MEDICATIONS: - You can [...] have discussed during your visit, please call [phone] (central scheduling). Call [phone] to speak with the rheumatology front office java developer. I will contact you by phone or by letter if there are results/recommendations still pending. Candie Christina MD Fellow, [facility] [place] [facility] Appointment: [phone] Address: [address] [place] [address] / [place] [address] documented in this encounter [facility] 05-28-2021 History of Presen t illness Narrative [...] cervix, low grade (ELENI 1) 04/18/2019 Seeing obstetrics gynecology physician Ex-smoker 04/18/2019 Started age early 20's up [...] Abs Lymph 1.00 - 4.00 k/uL 2.61 Routt% % 9.6 Abs Routt <0.87 k/uL 0.92 (H) Eosin% % 7.2 [...] Dr. Brook Christina PGY4 Rheumatology Fellow Pager [phone] Rheumatology Attending Staff Note: I reviewed the [...] which included preparing to see the patient, [id number] patient care, completing clinical documentation, obtaining and/or reviewing separately obtained history, performing a medically appropriate examination, counseling and educating the patient/family/caregiver and ordering medications, tests, or procedures. Brook Rodriguez MD Rheumatology Staff documented in this encounter [facility] Evaluation note Diagnosis Positive RONI (antinuclear antibody) Other and unspecified nonspecific immunological findings Bilateral hand pain Pain in limb [facility] Diagnosis Microscopic hematuria- Primary [facility] [place] [facility] Diagnosis Positive RONI (antinuclear antibody)- Primary Other and unspecified nonspecific immunological findings Bilateral hand pain Pain in limb Bilateral hand numbness Disturbance of skin sensation Disrupted sleep-wake cycle 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 [facility] [place] [facility]* Diagnosis Screening for genitourinary condition Screening for other and unspecified genitourinary condition documented [facility] [place] [facility]* Diagnosis Microscopic hematuria [facility]* Diagnosis Encounter for screening mammogram for malignant neoplasm of breast Other screening mammogram [facility] [place] [facility]* Diagnosis Chronic migraine without aura, with intractable migraine, so stated, with status migrainosus [facility]* Diagnosis Digital mucinous cyst of finger of left hand- Primary Pain of finger of left hand Pain in limb Cellulitis of skin Cellulitis and abscess of unspecified site documented [facility] this [facility] [place] [facility]* Diagnosis Encounter for screening mammogram for breast cancer documented [facility] [place] [facility]* Diagnosis Encounter for screening mammogram for breast cancer documented [facility] [place] [facility]* Diagnosis Strain of muscle, fascia and tendon of lower back, initial encounter documented in this encounter [facility] Work Phone: Evaluation note* Diagnosis Migraine without status migrainosus, not intractable, unspecified migraine type- Primary Witnessed episode of apnea Snoring Other dyspnea and respiratory abnormality 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 documented in this encounter [facility] Work Phone: Evaluation note* Diagnosis Abdominal pain, unspecified abdominal location Bowel habit changes Other symptoms involving digestive system documented in this encounter [facility] Work Phone: Evaluation note* Diagnosis Migraine without status migrainosus, not intractable, unspecified migraine type- Primary RAOUL (obstructive sleep apnea) Obstructive sleep apnea (adult) (pediatric) Smoker Tobacco use disorder documented in this encounter [facility] Work Phone: Evaluation note* Diagnosis Screening mammogram for breast cancer documented in this encounter [facility] Work Phone: Evaluation note* Diagnosis Abdominal pain, unspecified abdominal location- Primary Bowel habit changes Other symptoms involving digestive system documented in this encounter [facility] Work Phone: Evaluation note* Diagnosis Dysuria- Primary Frequency of urination Urinary frequency Acute cystitis with hematuria Arthralgia, unspecified joint Joint swelling Effusion of joint, site unspecified Migraine without status migrainosus, not intractable, unspecified migraine type Screen for colon cancer Special screening for malignant neoplasms, colon documented in this encounter [facility] Work Phone: Evaluation note* Diagnosis Colon cancer screening- Primary Special screening for malignant neoplasms, colon documented in this encounter [facility] Work Phone: Evaluation note* Diagnosis Colon cancer screening Special screening for malignant neoplasms, colon documented in this encounter [facility] Work Phone: Evaluation noteNo assessment information available [facility] Work Phone: Evaluation note* Diagnosis Acute pain of left knee- Primary documented in this encounter [facility] Work Phone: Reason for referral (narrative)* Diagnostic Procedure Only (Routine) - Closed Specialty Diagnoses / Procedures Referred By Contac t Referred To Contact XR IMAGING Diagnoses Positive RONI (antinuclear antibody) Bilateral hand pain Procedures XR WRIST GENERAL 3V PA/LAT/OBL BILATERAL RADEX WRIST COMPLETE MINIMUM 3 VIEWS Brook Rodriguez MD [address] [place] [address] Xr Imaging Referral ID Status Reason Start Date Expiration Date V isits Requested Visits Authorized [id number] Closed Auto-Generate d Referral 05/28/2021 06/27/2022 1 1 * Diagnostic Procedure Only (Routine) - Closed Specialty Diagnoses / Procedures Referred By Contac t Referred To Contact XR IMAGING Diagnoses Positive RONI (antinuclear antibody) Bilateral hand pain Procedures XR HAND GENERAL 3V PA/LAT/OBL BILATERAL RADEX HAND MINIMUM 3 VIEWS Brook Rordiguez MD [address] [place] [id number] Xr Imaging Referral ID Status Reason Start Date Expiration Date V isits Requested Visits Authorized [id number] Closed Auto-Generate d Referral 05/28/2021 06/27/[address] [facility] for referral (narrative)* Diagnostic Procedure Only (Routine) - Closed Specialty Diagnoses / Procedures Referred By Contac t Referred To Contact BR IMAGING Diagnoses Encounter for screening mammogram for malignant neoplasm of breast Procedures NATALIE SCREENING SCREENING MAMMOGRAPHY BI 2-VIEW BREAST INC CAD April Jefferson PA-C [address] [place] [address] Br Imaging [address] [place] [address] Referral ID Status Reason Start Date Expiration Date V isits Requested Visits Authorized [id number] Closed Auto-Generate d Referral 08/16/2021 09/15/[address] [facility] for referral (narrative)* Diagnostic Procedure Only (Routine) - Authorized Specialty Diagnoses / Procedures Referred By Contac t Referred To Contact BR IMAGING Diagnoses Encounter for screening mammogram for breast cancer Procedures NATALIE SCREENING SCREENING MAMMOGRAPHY BI 2-VIEW BREAST INC CAD Darrian Diaz MD [address] [place] [address] Br Imaging [address] [place] [address] Referral ID Status Reason Start Date Expiration Date Visits Requested Visits Authorized [id number] Authorized Auto-Generat ed Referral 09/21/2022 10/21/[address] [facility] for referral (narrative)* Consultation (Routine) - Authorized Specialty Diagnoses / Procedures Referred By Sara penn Referred To Contact Primary Care Procedures Follow Up In Primary Care - Established Carmelita Romo MD [address] [place] [address] Referral ID Status Reason Start Date Expiration Date V isits Requested Visits Authorized [id number] Authorized 06/22/2023 06/21/2024 1 1 * Sleep - Outpatient (Routine) - Authorized Specialty Diagnoses / Procedures Referred By Sara penn Referred To Contact Sleep Lab Diagnoses Witnessed episode of apnea Snoring Procedures Home sleep apnea test (HSAT) Carmelita Romo MD [address] [place] [address] Referral ID Status Reason Start Date Expiration Date V isits Requested Visits Authorized [id number] Authorized 06/22/2023 06/21/2024 1 1 [facility] Work Phone: Reason for referral (narrative)* Diagnostic Procedure Only (Routine) - New Request Specialty Diagnoses / Procedures Referred By Sara penn Referred To Contact BR IMAGING Diagnoses Encounter for screening mammogram for breast cancer Procedures NATALIE SCREENING W ERUM SCREENING DIGITAL BREAST TOMOSYNTHESIS BI SCREENING MAMMOGRAPHY BI 2-VIEW BREAST INC CAD Darrian Diaz MD [address] [place] [address] Br Imaging [address] [place] [address] Referral ID Status Reason Start Date Expiration Date Visits Requested Visits Authorized [id number] New Request Auto-Generat ed Referral 11/01/2023 11/30/[address] [facility] for referral (narrative)* Consultation (Routine) - Authorized Specialty Diagnoses / Procedures Referred By Sara penn Referred To Contact Primary Care Procedures Follow Up In Primary Care - Established Carmelita Romo MD [address] [facility] [place] [address] Referral ID Status Reason Start Date Expiration Date V isits Requested Visits Authorized [id number] Authorized 08/14/2023 08/13/2024 1 1 [facility] Work Phone: Reridq for referral (narrative)No reason for referral [facility]: Reason for visit Narrative* Diagnostic Procedure Only (Routine) - Closed Specialty Diagnoses / Procedures Referred By Sara penn Referred To Contact BR IMAGING Diagnoses Encounter for screening mammogram for breast cancer Procedures NATALIE SCREENING SCREENING MAMMOGRAPHY BI 2-VIEW BREAST INC CAD Darrian Diaz MD [address] [place] [address] Br Imaging [address] [place] [address] Referral ID Status Reason Start Date Expiration Date V isits Requested Visits Authorized [id number] Closed Auto-Generate d Referral 09/21/2022 10/21/[address] [facility] for visit Narrative* Consultation (Routine) - Pending Review Specialty Diagnoses / Procedures Referred By Sara penn Referred To Contact Primary Care Procedures Follow Up In Primary Care - Established Carmelita Romo MD [address] [place] [address] Referral ID Status Reason Start Date Expiration Date V isits Requested Visits Authorized [id number] Pending Review 06/22/2023 06/21/2024 1 1 [facility] Work Phone: Reqqkx for visit Narrative* Endoscopy (Routine) - Authorized Specialty Diagnoses / Procedures Referred By Sara penn Referred To Contact Gastroenterology Diagnoses Colon cancer screening Procedures Colonoscopy Screening; Average Risk Patient [place] COLONOSCOPY FLX DX W/COLLJ SPEC WHEN PFRMD [place] COLORECTAL CANCER SCREENING; COLONOSCOPY ON INDIVIDUAL NOT MEETING CRITERIA FOR HIGH RISK [place] COLORECTAL CANCER SCREENING; COLONOSCOPY ON INDIVIDUAL AT HIGH RISK [place] COLONOSCOPY W/BIOPSY SINGLE/MULTIPLE WI COLSC FLX W/RMVL OF TUMOR POLYP LESION SNARE TQ [place] COLSC FLX W/REMOVAL LESION BY HOT BX FORCEPS Darrel Gomez MD [address] [facility], [address] [place] [address] Phone: tel: fax: Referral ID Status Reason Start Date Expiration Date V isits Requested Visits Authorized [id number] Authorized 03/21/2024 03/21/2025 1 1 [facility] Work Phone: Advance Directives No Advanced Directives Records FoundDocuments on File Type Date Recorded Patient Product Support Specialist Expl anation Advance Directive(s) 05/06/2015 10:43 AM Advance Directive(s) 04/30/2015 11:24 AM Documents on File Type Date Recorded Patient Product Support Specialist Expl anation Advance Directive(s) 05/06/2015 10:43 AM Advance Directive(s) 04/30/2015 11:24 AM Advance Directive Response Recorded Date/ Time Advance Directives No July 07, 6 3:00pm Reason for Referral Specialty Diagnoses / Procedures Referred By Sara penn Referred To Contact Urology Diagnoses Microscopic hematuria Procedures CONSULT TO UROLOGY OFFICE/OUTPATIENT [facility] 60-74 MINUTES Brook Rodriguez MD [address] [place] [address] Referral ID Status Reason Start Date Expiration Date Visits Requested Visits Authorized [id number] Authorized PCP Requested Referral 06/01/2021 06/01/2022 1 1 Specialty Diagnoses / Procedures Referred By Sara penn Referred To Contact Diagnoses Disrupted sleep-wake cycle Procedures CONSULT TO SLEEP MEDICINE - ADULT OFFICE/OUTPATIENT [facility] MDM 60-74 MINUTES Brook Rodriguez MD [address] [place] [address] Referral ID Status Reason Start Date Expiration Date Visits Requested Visits Authorized [id number] Authorized PCP Requested Referral 05/28/2021 05/28/2022 1 1 Specialty Diagnoses / Procedures Referred By Contac t Referred To Contact XR IMAGING Diagnoses Positive RONI (antinuclear antibody) Bilateral hand pain Procedures XR WRIST GENERAL 3V PA/LAT/OBL BILATERAL RADEX WRIST COMPLETE MINIMUM 3 VIEWS Brook Rodriguez MD [address] [place] [address] Xr Imaging Referral ID Status Reason Start Date Expiration Date V isits Requested Visits Authorized [id number] Closed Auto-Generate d Referral 05/28/2021 06/27/2022 1 1 Specialty Diagnoses / Procedures Referred By Contac t Referred To Contact XR IMAGING Diagnoses Positive RONI (antinuclear antibody) Bilateral hand pain Procedures XR HAND GENERAL 3V PA/LAT/OBL BILATERAL RADEX HAND MINIMUM 3 VIEWS Brook Rodriguez MD [address] [address] Xr Imaging Referral ID Status Reason Start Date Expiration Date V isits Requested Visits Authorized [id number] Closed Auto-Generate d Referral 05/28/2021 06/27/2022 1 1 Specialty Diagnoses / Procedures Referred By Contac t Referred To Contact Orthopedics Diagnoses Digital mucinous cyst of finger of left hand Pain of finger of left hand Procedures CONSULT TO ORTHOPAEDICS OFFICE/OUTPATIENT [facility] 60-74 MINUTES Darrian Diaz MD [address] [place] [address] Referral ID Status Reason Start Date Expiration Date Visits Requested Visits Authorized [id number] Authorized PCP Requested Referral 06/08/2022 06/08/2023 1 1 Specialty Diagnoses / Procedures Referred By Contac t Referred To Contact Radiology Diagnoses Abdominal pain, unspecified abdominal location Bowel habit changes Procedures CT abdomen pelvis w IV contrast CT abdomen pelvis w and wo IV contrast Carmelita Romo MD [address] [address] Referral ID Status Reason Start Date Expiration Date Visits Requested Visits Authorized [id number] Authorized Perform Procedure 11/15/2023 11/14/2024 1 1 Specialty Diagnoses / Procedures Referred By Contac t Referred To Contact Radiology Diagnoses Screening mammogram for breast cancer Procedures BI mammo bilateral screening tomosynthesis [facility] [address] [place] [address] Referral ID Status Reason Start Date Expiration Date Visits Requested Visits Authorized [id number] Authorized Perform Procedure 10/12/2023 10/11/2024 1 1 Specialty Diagnoses / Procedures Referred By Contac t Referred To Contact Radiology Diagnoses Abdominal pain, unspecified abdominal location Bowel habit changes Procedures CT abdomen pelvis w and wo IV contrast Carmelita Romo MD [address] [address] Referral ID Status Reason Start Date Expiration Date Visits Requested Visits Authorized [id number] Pending Review Perform Procedure 11/15/2023 11/14/2024 1 [...] LAB AND XRAY May 07, 2024 10:00am Chief Complaint Admit Date PAIN- COPY PCP- LAB AND XRAY May 07, 2024 10:00am ELEVATED LIVER ENVYME July 27, 2024 8:3 9am Additional Source Comments Source Comments (unrecognize d section and content) In the event this informatio n is protected by the Federal Confidentiality of Alcohol and Drug Abuse Patient Records regulations: The Federal rules restrict any use of the information to criminally investigate or prosecute any alcohol or drug abuse patient.[facility] the event this information is protected by the Federal Confidentiality of Alcohol and Drug Abuse Patient Records regulations: The Federal rules restrict any use of the information to criminally investigate or prosecute any alcohol or drug abuse patient.[facility] Healthcare[facility] the event this information is protected by the Federal Confidentiality of Alcohol and Drug Abuse Patient Records regulations: The Federal rules restrict any use of the information to criminally investigate or prosecute any alcohol or drug abuse patient.[facility] Healthcare[facility] the event this information is protected by the Federal Confidentiality of Alcohol and Drug Abuse Patient Records regulations: The Federal rules restrict any use of the information to criminally investigate or prosecute any alcohol or drug abuse patient.[facility] HealthcareIn the event this information is protected by the Federal Confidentiality of Alcohol and Drug Abuse Patient Records regulations: The Federal rules restrict any use of the information to criminally investigate or prosecute any alcohol or drug abuse patient.[facility] Healthcare[facility] the event this information is protected by the Federal Confidentiality of Alcohol and Drug Abuse Patient Records regulations: The Federal rules restrict any use of the information to criminally investigate or prosecute any alcohol or drug abuse patient.[facility] HealthcareIn the event this information is protected by the Federal Confidentiality of Alcohol and Drug Abuse Patient Records regulations: The Federal rules restrict any use of the information to criminally investigate or prosecute any alcohol or drug abuse patient.[facility] HealthcareIn the event this information is protected by the Federal Confidentiality of Alcohol and Drug Abuse Patient Records regulations: The Federal rules restrict any use of the information to criminally investigate or prosecute any alcohol or drug abuse patient.[facility] HealthcareIn the event this information is protected by the Federal Confidentiality of Alcohol and Drug Abuse Patient Records regulations: The Federal rules restrict any use of the information to criminally investigate or prosecute any alcohol or drug abuse patient.[facility] Healthcare[facility] the event this information is protected by the Federal Confidentiality of Alcohol and Drug Abuse Patient Records regulations: The Federal rules restrict any use of the information to criminally investigate or prosecute any alcohol or drug abuse patient.[facility] Healthcare[facility] the event this information is protected by the Federal Confidentiality of Alcohol and Drug Abuse Patient Records regulations: The Federal rules restrict any use of the information to criminally investigate or prosecute any alcohol or drug abuse patient.[facility] Healthcare[facility] the event this information is protected by the Federal Confidentiality of Alcohol and Drug Abuse Patient Records regulations: The Federal rules restrict any use of the information to criminally investigate or prosecute any alcohol or drug abuse patient.[facility] HealthcareIn the event this information is protected by the Federal Confidentiality of Alcohol and Drug Abuse Patient Records regulations: The Federal rules restrict any use of the information to criminally investigate or prosecute any alcohol or drug abuse patient.[facility] HealthcareIn the event this information is protected by the Federal Confidentiality of Alcohol and Drug Abuse Patient Records regulations: The Federal rules restrict any use of the information to criminally investigate or prosecute any alcohol or drug abuse patient.[facility] HealthcareIn the event this information is protected by the Federal Confidentiality of Alcohol and Drug Abuse Patient Records regulations: The Federal rules restrict any use of the information to criminally investigate or prosecute any alcohol or drug abuse patient.[facility] HealthcareIn the event this information is protected by the Federal Confidentiality of Alcohol and Drug Abuse Patient Records regulations: The Federal rules restrict any use of the information to criminally investigate or prosecute any alcohol or drug abuse patient.[facility] HealthcareIn the event this information is protected by the Federal Confidentiality of Alcohol and Drug Abuse Patient Records regulations: The Federal rules restrict any use of the information to criminally investigate or prosecute any alcohol or drug abuse patient.[facility] HealthcareIn the event this information is protected by the Federal Confidentiality of Alcohol and Drug Abuse Patient Records regulations: The Federal rules restrict any use of the information to criminally investigate or prosecute any alcohol or drug abuse patient.[facility] Reason for Visit (unrecogniz ed section and content) Reason Comments Radio Gen A21 Specialty Diagnoses / Procedures Referred By Contac t Referred To Contact XR IMAGING Diagnoses Positive RONI (antinuclear antibody) Bilateral hand pain Procedures XR WRIST GENERAL 3V PA/LAT/OBL BILATERAL RADEX WRIST COMPLETE MINIMUM 3 VIEWS Brook Rodriguez MD [address] [place] [id number] Xr Imaging Referral ID Status Reason Start Date Expiration Date V isits Requested Visits Authorized [id number] Closed Auto-Generate d Referral 05/28/2021 06/27/2022 1 1 Reason Comments Orders Patient Update Results Specialty Diagnoses / Procedures Referred By Contac t Referred To Contact Rheumatology Diagnoses Positive RONI (antinuclear antibody) Bilateral hand pain Bilateral hand numbness Procedures CONSULT TO RHEUM/IMMUN DISEASE NEW PATIENT VISIT LEVEL 5 April Jefferson PA-C [address] [place] [address] Referral ID Status Reason Start Date Expiration Date V isits Requested Visits Authorized [id number] Closed PCP Requested Referral 07/08/2020 07/08/2021 1 1 Reason Comments Hematuria Specialty Diagnoses / Procedures Referred By Contac t Referred To Contact Urology / UROLOGY Diagnoses Microscopic hematuria Procedures CONSULT TO UROLOGY NEW PATIENT VISIT LEVEL 5 April Jefferson PA-C [address] [place] [id number] Urol [facility] [address] [facility] [address] [place] [address] Referral ID Status Reason Start Date Expiration Date V isits Requested Visits Authorized [id number] Closed PCP Requested Referral 07/08/2020 07/08/2021 1 1 Reason Comments Radiology Mammogram Specialty Diagnoses / Procedures Referred By Contac t Referred To Contact BR IMAGING Diagnoses Encounter for screening mammogram for malignant neoplasm of breast Procedures NATALIE SCREENING SCREENING MAMMOGRAPHY BI 2-VIEW BREAST INC CAD April Jefferson PA-C [address] [place] [address] Br Imaging [address] [place] [address] Referral ID Status Reason Start Date Expiration Date V isits Requested Visits Authorized [id number] Closed Auto-Generate d Referral 08/16/2021 09/15/2022 1 1 Reason Comments Results Reason Onset Date Comments Refill Request 09/04/2021 Reason Comments Pain Left middle finger Specialty Diagnoses / Procedures Referred By Contac t Referred To Contact Radiology Diagnoses Strain of muscle, fascia and tendon of lower back, initial encounter Procedures XR lumbar spine 2-3 views XR lumbar spine complete 4+ views Cathie Ken, DATA REVIEW SPECIALIST-BULL LADLE TENDER [address], [address] [place] [address] Referral ID Status Reason Start Date Expiration Date Visits Requested Visits Authorized [id number] Pending Review Perform Procedure 04/20/2023 04/19/2024 1 1 Referral ID Status Reason Start Date Expiration Date Visits Requested Visits Authorized [id number] Authorized Perform Procedure 04/20/2023 04/19/2024 1 1 Specialty Diagnoses / Procedures Referred By Contac t Referred To Contact Radiology Diagnoses Abdominal pain, unspecified abdominal location Bowel habit changes Procedures CT abdomen pelvis w IV contrast CT abdomen pelvis w and wo IV contrast Carmelita Romo MD [address] [facility] [address] [place] [address] Referral ID Status Reason Start Date Expiration Date Visits Requested Visits Authorized [id number] Authorized Perform Procedure 11/15/2023 11/14/2024 1 1 Specialty Diagnoses / Procedures Referred By Sara penn Referred To Contact Radiology Diagnoses Screening mammogram for breast cancer Procedures BI mammo bilateral screening tomosynthesis [place] [id number] [place] [address] Referral ID Status Reason Start Date Expiration Date Visits Requested Visits Authorized [id number] Authorized Perform Procedure 10/12/2023 10/11/2024 1 1 Reason Comments Follow-up Complaints of consti pation x 1 month and weight gain x 2 weeks. Reason Comments Follow-up Patient here for 6 m [facility] follow-up. Complaining of urinary burning, urgency, dark colored urine x 2 weeks. Specialty Diagnoses / Procedures Referred By Sara penn Referred To Contact Primary Care Procedures Follow Up In Primary Care - [facility] Carmelita Romo MD Phone: tel: fax: Referral ID Status Reason Start Date Expiration Date V isits Requested Visits Authorized [id number] Authorized 08/14/2023 08/13/2024 1 1 Reason Comments Outside Imaging Outside [id number] Ordered Reason Comments Outside [id number] Ordered Reason Comments Knee Pain Left side x 1 month Reason Onset Date Comments Blood Pressure Check 07/11/2024 Care Teams (unrecognized sec tion and content) Dish Washer Relationship Specialty Start Date End Date Darrian Diaz MD [address] [place] [address] [phone] PCP - General Family Practice 03/31/15 Dish Washer Relationship Specialty Start Date End Date Darrian Diaz MD [address] [place] [address] [phone] PCP - General Family Practice 03/31/15 Dish Washer Relationship Specialty Start Date End Date Darrian Diaz MD [address] [place] [address] [phone] PCP - General Family Practice 03/31/15 Dish Washer Relationship Specialty Start Date End Date Darrian Diaz MD [address] [place] [phone] PCP - General Family Practice 03/31/15 Dish Washer Relationship Specialty Start Date End Date Darrian Diaz MD [address] [place] [address] PCP - General Family Practice 03/31/15 Dish Washer Relationship Specialty Start Date End Date Darrian Diaz MD [address] [place] [address] PCP - General Family Practice 03/31/15 Dish Washer Relationship Specialty Start Date End Date Darrian Diaz MD [address] [place] [address] PCP - General Family Practice 03/31/15 Dish Washer Relationship Specialty Start Date End Date Darrian Diaz MD [address] [place] [address] PCP - General Family Medicine 03/31/15 Dish Washer Relationship Specialty Start Date End Date Darrian Diaz MD [address] [place] [address] PCP - General Family Medicine 03/31/15 Dish Washer Relationship Specialty Start Date End Date Darrian Diaz MD [address] [place] [address] PCP - General Family Medicine 03/31/15 Dish Washer Relationship Specialty Start Date End Date Darrian Diaz MD [address] [place] [address] PCP - General Family Medicine 03/31/15 Dish Washer Relationship Specialty Start Date End Date Darrian Diaz MD [address] [place] [address] PCP - General Family Medicine 03/31/15 Dish Washer Relationship Specialty Start Date End Date Darrian Diaz MD [address] [place] [address] PCP - General Family Medicine 03/31/15 Dish Washer Relationship Specialty Start Date End Date Darrian Diaz MD [address] [place] [address] PCP - General Family Medicine 04/18/23 Dish Washer Relationship Specialty Start Date End Date Darrian Diaz MD [address] [place] [address] PCP - General Family Medicine 04/18/23 Dish Washer Relationship Specialty Start Date End Date Carmelita Romo MD [address] [facility] [place] [address] PCP - General Family Medicine 06/22/23 Dish Washer Relationship Specialty Start Date End Date Carmelita Romo MD [address] [place] [address] PCP - General Family Medicine 11/14/23 Dish Washer Relationship Specialty Start Date End Date Carmelita Romo MD [address] [facility] [place] [phone] PCP - General Family Medicine 06/22/23 Dish Washer Relationship Specialty Start Date End Date Carmelita Romo MD [address] [facility] [place] [address] PCP - General Family Medicine 06/22/23 Dish Washer Relationship Specialty Start Date End Date Carmelita Romo MD [address] [facility] [place] [address] PCP - General Family Medicine 06/22/23 Dish Washer Relationship Specialty Start Date End Date Carmelita Romo MD [address] [place] [address] PCP - General Family Medicine 11/14/23 Dish Washer Relationship Specialty Start Date End Date Carmelita Rmoo MD [address] [place] [address] PCP - General Family Medicine 11/14/23 Carmelita Romo MD [address] [place] [address] PCP - [facility] PCP 09/21/23 Dish Washer Relationship Specialty Start Date End Date Carmelita Romo MD [address] [place] [address] PCP - General Family Medicine 11/14/23 Carmelita Romo MD [address] [place] [address] PCP - [facility] PCP 09/21/23 Dish Washer Relationship Specialty Start Date End Date Carmelita Romo MD [address] [place] [address] PCP - General Family Medicine 11/14/23 Carmelita Romo MD [address] [phone] PCP - Pritesh FRANCISO PCP 09/21/23 Dish Washer Relationship Specialty Start Date End Date Darrian Diaz MD [address] [place] [address] PCP - General Family Medicine 03/31/15 Julee Romero, RADHA.BULL LADLE TENDER [address] [place] [phone] [employer] [facility] 01/27/24 April Jefferson PA-C [facility] [place] [address] [employer] Family [facility] 01/27/24 Dish Washer Relationship Specialty Start Date End Date Darrian Diaz MD [address] [place] [address] PCP - General Family Medicine 03/31/15 Julee Romero, RADHA.BULL LADLE TENDER [address] [place] [phone] [employer] 01/27/24 April Jefferson PA-C [address] [place] [phone] [employer] Family [facility] 01/27/24 Team Status: Active Member Role Status [...] May 07, 2024 End: May 07, 2024 Dish Washer Relationship Specialty Start Date End Date Carmelita Romo MD [address] [phone] PCP - General Family Medicine 11/14/23 Carmelita Romo MD [address] [address] PCP - Pritesh FRANCISO PCP 09/21/23 Team Status: Active Member Role [...] July 18, 2024 End: July 18, 2024 Team Status: Active Member Role Status Dates Dr. Carmelita Romo MD Primary Care Provider Act andi Team Status: Inactive Member Role Status Dates Dr. Carmelita Romo MD Primary Care Provider Act andi Start: July 27, 2024 End: July 27, 2024 Dr. Natalie Caballero MD Attending Provider Active Start: July 27, 2024 End: July 27, 2024 Dr. Natalie Caballero MD Referring Provider Active Start: July 27, 2024 End: July 27, 2024 Dish Washer Relationship Specialty Start Date End Date Darrian Diaz MD [address] [place], [place] [address] PCP - General Family Medicine 03/31/15 April Jefferson PA-C [address] [place], [place] [phone] [facility] 01/27/24 07/21/24 Julee Romero APRN.BULL LADLE TENDER [address] [place] [address] [facility] 07/22/24 April Jefferson PA-C [address] [place] [address] [facility] 07/22/24 INFORMATION SOURCE (unrecogn ized section and content) DATE CREATED AUTHOR 01/26/2022 [facility] DATE CREATED AUTHOR AUTHOR'S ORGANIZ ATION 02/13/2022 [facility] DATE CREATED AUTHOR AUTHOR'S ORGANIZ ATION 09/30/2022 [facility] DATE CREATED AUTHOR AUTHOR'S ORGANIZ ATION 05/03/2023 [facility] DATE CREATED AUTHOR AUTHOR'S ORGANIZ ATION 03/11/2024 [facility] DATE CREATED AUTHOR AUTHOR'S ORGANIZ ATION 03/27/2024 [facility] DATE CREATED AUTHOR AUTHOR'S ORGANIZ ATION 06/01/2024 [facility] DATE CREATED AUTHOR AUTHOR'S ORGANIZ ATION 08/02/2024 [facility] DATE CREATED AUTHOR AUTHOR'S ORGANIZ ATION 08/11/2024 [facility] <item> Privacy Markings (unrecogniz ed section and content) Section Author: Klarissa Mast PROHIBITION ON REDISCLOSURE OF CONFIDENTIAL INFORMATION This notice accompanies a disclosure of information concerning a client made to you with the consent of such client. Goals (unrecognized section and content) Goals may be documented in a n alternate sectionGoals may be documented in an alternate sectionGoals may be documented in an [...] BE BASED ON THE PRIMARY CLINICAL RECORDS. [facility]. provides no warranty or guarantee of the accuracy or completeness of information in this document.
[2024-08-15 11:14] LABS: ALB/GLOB Ratio 1.2 RATIO (0.9-2.4); AST(SGOT) 29 U/L (<=31); Alanine Aminotransfer ALT/SGPT 37 U/L (<=34); Albumin, Serum 4.2 g/dL (3.5-5.0); Alkaline Phosphatase 107 U/L (35-104); Anion Gap 14 (5-15); BUN 13 mg/dL (4-19); BUN/Creat Ratio 22.6 RATIO (10-20); Calcium,Total 9.7 mg/dL (7.6-11.0); Carbon Dioxide 19.4 mmol/L (21.0-32.0); Chloride 106 mmol/L (98-108); Creatinine, Serum 0.55 mg/dL (0.70-1.20); EST Glomerular Filtration Rate 111 (>60); Globulin 3.4 g/dL (2.2-4.2); Glucose 101 mg/dL (70-99); Potassium 3.9 mmol/L (3.3-5.1); Protein, Total 7.5 g/dL (5.9-8.4); Sodium Level 139 mmol/L (133-145); Total Bilirubin 0.19 mg/dL (0.00-1.30)
== END | disposition home or self-care (01) ==
LOC: MTLAB 07:06
PROVIDERS: PCP Family Medicine; Referring Provider Internal Medicine Rheumatology; Visit Provider Internal Medicine Rheumatology
DX: M06.4 Inflammatory polyarthropathy (principal); M79.7 Fibromyalgia; Z79.899 Other long term (current) drug therapy
CPT/HCPCS: 36415; 80053

== ENCOUNTER → 2024-10-02 | Outpatient (CLI) | payer BC, SELFPAY ==
[2024-10-02 18:07] LABS: AST(SGOT) 26 U/L (<=31); Alanine Aminotransfer ALT/SGPT 33 U/L (<=34); Albumin, Serum 4.0 g/dL (3.5-5.0); Alkaline Phosphatase 97 U/L (35-104); Anion Gap 12 (5-15); BUN 16 mg/dL (4-19); BUN/Creat Ratio 22.7 RATIO (10-20); Calcium,Total 9.1 mg/dL (7.6-11.0); Carbon Dioxide 21.4 mmol/L (21.0-32.0); Chloride 102 mmol/L (98-108); Globulin 3.2 g/dL (2.2-4.2); Glucose 89 mg/dL (70-99); Potassium 3.9 mmol/L (3.3-5.1)
[2024-10-02 18:12] LABS: Hematocrit 38.7 % (37-47); Hemoglobin 12.5 g/dL (12.0-15.0); Immature Granulocytes Count 0.060 X10^3/uL (0.0-0.0); Mean Corp Hgb Conc 32.3 g/dL (32-36); Mean Corpuscular Volume 94.9 fL (81-99); Mean Platelet Vol. 10.4 fl (6.2-12.0); NRBC Flagged by Analyzer 0 % (0-5); Platelet Count 397 K/mm3 (150-450); RBC Distribution Width CV 14.4 % (11.6-14.6); RBC Distribution Width SD 49.4 fl (35.1-43.9); Red Blood Count 4.08 M/mm3 (4.2-5.4); White Blood Count 12.7 K/mm3 (4.4-11.0)
== END | disposition home or self-care (01) ==
LOC: MTLAB 16:29
PROVIDERS: PCP Family Medicine; Referring Provider Internal Medicine Rheumatology; Visit Provider Internal Medicine Rheumatology
DX: M06.4 Inflammatory polyarthropathy (principal); Z79.899 Other long term (current) drug therapy; M79.7 Fibromyalgia
CPT/HCPCS: 36415; 80053; 85025

== ENCOUNTER 2024-10-10 17:35 | Emergency (ER) | payer BC, SELFPAY ==
[2024-10-10 17:35] VITALS: BP 139/84; PULSE 93; RESP 15; TEMP 36.6; O2SAT 99; BMI 38.9
--- NOTE | 2024-10-10 17:50 | EDS_ITS ---
HPI <MONSTER Oden - Last Filed: 10/10/24 21:05> History of Present Illness Chief Complaint: Upper Extremity Injury Narrative Narrative: 49-year-old female presents with a right hand injury. Her granddaughter was in the highchair and she was cleaning something in the kitchen. She saw her granddaughter stand up so rushed over to get her and tripped on a toy and her right hand got lodged underneath the refrigerator. She pulled it out and since then has pain and swelling in the index and middle fingers and small abrasions. No weakness or paresthesias. She is right-hand dominant. Last tetanus unknown. PFSH <MONSTER Oden - Last Filed: 10/10/24 21:05> [facility] Medical History (Updated 10/10/24 @ 18:15 by MONSTER Oden) Migraine Fibromyalgia Rheumatoid arthritis Home Medications ?Medication ?Instructions ?Recorded ?Last Taken ?Type ciprofloxacin HCl 500 mg tablet 500 mg PO BID 05/24/17 Unknown History ondansetron 4 mg disintegrating 4 mg PO Q4H PRN PRN Na usea ##5 05/24/17 Unknown Rx tablet duloxetine 30 mg capsule,delayed 30 mg PO QHS 10/10/24 Unknown History release folic acid 1 mg tablet 2 mg PO DAILY 10/10/24 Unkno wn History methotrexate sodium 2.5 mg tablet 12.5 mg PO QWEEK Unknown History Allergy/AdvReac Type Severity Reaction Status Date / Time hydrocodone bitartrate (From Allergy Shortness Verified 10/10/24 17:38 Vicodin) of breath Family History (Updated 10/10/24 @ 17:57 by Scotty Jane) Grandfather Myocardial infarction Grandfather No problems noted. Grandmother CVA (cerebral vascular accident) Surgical History (Updated 10/10/24 @ 17:56 by Scotty Jane) Hx of cholecystectomy H/O tubal ligation H/O: hysterectomy Social History Smoking Status: Former smoker ROS <MONSTER Oden - Last Filed: 10/10/24 21:05> ROS ED ROS Narrative Neuro: Negative for motor/sensory dysfunction. Musc: Positive for right hand pain, swelling, trauma. EXAM <MONSTER Oden - Last Filed: 10/10/24 21:05> Physical Exam Narrative Exam Narrative: CONST: Patient sitting in no acute distress. EYES: Normal inspection. NECK: Normal inspection. SKIN: Color normal, no rash, warm, dry, intact. EXTREMITIES: Swelling and tenderness diffusely over the right index and middle fingers with limited flexion extension due to pain. No tenderness of the elbow forearm wrist scaphoid or metacarpals. Small abrasion on the tip of the index finger on the right dorsal PIP joint and dried blood around the middle finger nail without subungual hematoma or avulsion. No lacerations requiring repair. 2+ radial pulse, normal motor and sensory function in median, radial, ulnar distributions. NEURO: Alert and answering questions appropriately. PSYCH: Normal affect. Const Vital Signs: 10/10/24 17:35 Temperature 97.9 F Temperature Source Temporal Pulse Rate 93 Respiratory Rate 15 Blood Pressure 139/84 H Blood Pressure Mean 102 Pulse Ox 99 Oxygen Delivery Method Room Air [facility] <MONSTER Oden - Last Filed: 10/10/24 21:05> [facility] Narrative Medical decision making narrative: Differential includes hand contusion versus fracture Patient had a mechanical fall and her right hand got stuck onto the fridge. After pulling it out she has pain in the index and middle fingers and small abrasions over the tip of the index and the right PIP joint and nail. There is no evulsion or lacerations requiring repair. Neurovascular intact. Right hand x-ray is negative for acute findings. I recommended ice, elevation, and [id number] pain relievers and she was discharged in stable condition. Radiography Diagnostic Testing: ED attending interpretation of right hand shows no fracture or dislocation. <Dr. Martha Carey MD - Last Filed: 10/10/24 23:37> [facility] Narrative Medical decision making narrative: Differential includes hand contusion versus fracture Patient had a mechanical fall and her right hand got stuck onto the fridge. After pulling it out she has pain in the index and middle fingers and small abrasions over the tip of the index and the right PIP joint and nail. There is no evulsion or lacerations requiring repair. Neurovascular intact. Right hand x-ray is negative for acute findings. I recommended ice, elevation, and [id number] pain relievers and she was discharged in stable condition. Patient seen and evaluated with ISAIAS. I personally interviewed and examined the patient. I was involved in all aspects of patient's orders, interpretation of results, and treatment. In brief patient is a 49-year-old female who had a mechanical fall and injured her right index and third finger. Patient denies any other injuries. No lacerations on physical exam. No evidence of nailbed involvement or subungual hematoma. X-ray was ordered and shows no acute fractures. Patient is able to flex and extend however it is limited due to pain and swelling. Tetanus was updated here. Patient discharged from the Emergency Department. I do not feel that the patient's evaluation reveals any acute reason for admission at this time. I instructed them to either follow-up with their primary care physician or promptly return to the Emergency Department for reevaluation should symptoms worsen or new symptoms develop. I explained what symptoms would indicate the need to return to the emergency department. Shared decision making was used. The patient voiced understanding of the treatment plan and is agreeable with it. Clinical impression Finger injury Fall Discharge Plan Triage Chief Complaint: Upper Extremity Injury ED Midlevel Provider: Danii Sorto ED Provider: Martha Carey Dx/Rx/DC Orders Clinical Impression: Contusion of hand, right, Abrasion of hand, right Instructions: ED Hand Contusion Prescriptions: No Action ciprofloxacin HCl 500 MG tablet 500 mg PO BID ondansetron 4 MG tablet,disintegrating 4 mg PO Q4H PRN PRN (Reason: Nausea) Qty: 5 0RF methotrexate sodium 2.5 mg tablet 12.5 mg PO QWEEK folic acid 1 mg tablet 2 mg PO DAILY duloxetine 30 mg capsule,delayed release(DR/EC) 30 mg PO QHS Primary Care Provider: Carmelita Guaman Referrals: Carmelita Guaman MD [Primary Care Provider] - Activity Restrictions/Additional Instructions: Rest, ice, and elevate your hand to help decrease swelling. Alternate Tylenol and Motrin every 3 hours as needed. If pain is not improving follow-up with your doctor in 7 to 10 days. Print Language: Urdu Disposition Disposition: Home, Self Care Discharge Date/Time: 10/10/24 18:56
--- NOTE | 2024-10-10 18:05 | RAD_ITS ---
PROCEDURE: HAND MIN 3 VIEWS 10/10/2024 REASON FOR EXAM: PAIN TECHNIQUE: HAND MIN 3 VIEWS Laterality: Right COMPARISON: None. FINDINGS: Bones: No acute bony abnormalities. Joints: No dislocations. Radiocarpal and distal interphalangeal joint space narrowing with sclerosis. Soft tissues: No soft tissue abnormalities. Other: RAD/Hand Min 3 Views IMPRESSION: No acute bony abnormalities. Mild arthritis. Reading Location: [id number]
[2024-10-10 18:55] VITALS: BP 152/94; PULSE 73; RESP 18; TEMP 36.6; O2SAT 100
== END 2024-10-10 18:56 | disposition home or self-care (01) ==
PROVIDERS: Emergency Provider Student in an Organized Health Care Education/Training Program; PCP Family Medicine; Visit Provider Student in an Organized Health Care Education/Training Program
DX: S60.221A Contusion of right hand, initial encounter (principal); M06.9 Rheumatoid arthritis, unspecified; S40.929A Unspecified superficial injury of unspecified upper arm, initial encounter; W18.09XA Striking against other object with subsequent fall, initial encounter; M79.7 Fibromyalgia; Z23 Encounter for immunization; Z79.899 Other long term (current) drug therapy; Z87.891 Personal history of nicotine dependence
CPT/HCPCS: 73130; 90471; 90715; 99282

== ENCOUNTER → 2024-12-09 | Outpatient (CLI) | payer BC, SELFPAY ==
[2024-12-09 18:13] LABS: Hematocrit 39.4 % (37-47); Hemoglobin 12.8 g/dL (12.0-15.0); Immature Granulocytes Count 0.050 X10^3/uL (0.0-0.0); Mean Corp Hgb Conc 32.5 g/dL (32-36); Mean Corpuscular Volume 94.3 fL (81-99); Mean Platelet Vol. 10.3 fl (6.2-12.0); NRBC Flagged by Analyzer 0 % (0-5); Platelet Count 394 K/mm3 (150-450); RBC Distribution Width CV 13.9 % (11.6-14.6); RBC Distribution Width SD 47.4 fl (35.1-43.9); Red Blood Count 4.18 M/mm3 (4.2-5.4); White Blood Count 13.8 K/mm3 (4.4-11.0)
[2024-12-09 18:36] LABS: AST(SGOT) 25 U/L (<=31); Alanine Aminotransfer ALT/SGPT 27 U/L (<=34); Albumin, Serum 4.2 g/dL (3.5-5.0); Alkaline Phosphatase 90 U/L (35-104); Anion Gap 12 (5-15); BUN 10 mg/dL (4-19); BUN/Creat Ratio 16.5 RATIO (10-20); Calcium,Total 8.9 mg/dL (7.6-11.0); Carbon Dioxide 20.4 mmol/L (21.0-32.0); Chloride 105 mmol/L (98-108); Globulin 3.1 g/dL (2.2-4.2); Glucose 83 mg/dL (70-99); Potassium 3.7 mmol/L (3.3-5.1)
== END | disposition home or self-care (01) ==
PROVIDERS: PCP Family Medicine; Referring Provider Internal Medicine Rheumatology; Visit Provider Internal Medicine Rheumatology
DX: M06.4 Inflammatory polyarthropathy (principal); Z79.899 Other long term (current) drug therapy
CPT/HCPCS: 36415; 80053; 85025